=== PATIENT | female | born 1955 | race Caucasian/White ===

== ENCOUNTER 2024-05-29 10:23 | Outpatient (CLI) | payer MEDICARE, SELFPAY ==
[2024-05-29 12:10] LABS: NT Pro B Type Natriuretic Pept 59 pg/mL (19.9-100)
--- NOTE | 2024-05-29 17:24 | WPDPFTINT ---
PFT Procedure Performed PFT Procedure Performed Spirometry with Pre/Post Bronchodilator Plethysmography (Lung Vol) Diffusing Cap (DLCO) Flow Vol Loop PFT Interpretation This is a pulmonary function test with pre and post-bronchodilator spirometry, plethysmography and diffusing capacity. The test was performed and results interpreted in accordance with the 2019 and 2005 ATS/ERS Task Force guidelines respectively using the Global Lung Function Initiative-2012 reference equations. Patient demonstrated good effort and cooperation. Reproducibility criteria were met. The quality of the pre bronchodilator spirometry maneuver was Grade A and post bronchodilator spirometry maneuver was Grade A. Findings: Spirometry: The contour the inspiratory and expiratory flow tracing are normal. The pre bronchodilator FVC is 2.44 L, 95% predicted. The pre bronchodilator FEV1 is 1.86 L, 92% predicted. The pre bronchodilator FEV1: FVC ratio 76%. The post bronchodilator FVC is 2.31 L, representing a 5% decrease. The post bronchodilator FEV1 is 0.87 L, representing no change. The post bronchodilator FEV1: FVC ratio is 81%. Plethysmography: The total lung capacity is 4.08 L, 92% predicted. The functional residual capacity is 1.56 L, 63% predicted. The residual volume is 1.54 L, 81% predicted. Diffusing capacity: The diffusing capacity unadjusted for hemoglobin and carboxyhemoglobin is 11.2, 58% predicted. The diffusing capacity adjusted for alveolar volume is 3.75, 83% predicted. Impression: The spirometry is normal without evidence of an obstructive abnormality. There is no significant improvement after inhaling a single dose of albuterol. The lung volumes are normal. The diffusing capacity unadjusted for hemoglobin and carboxyhemoglobin is moderately decreased and normalizes when adjusted for alveolar volume. There are no prior studies for comparison
[2024-05-30 11:53] LABS: Immunoglobulin E 20 kU/L (<OR=114)
[2024-05-31 04:28] LABS: Alpha-1-Antitrypsin, QN 155 mg/dL (83-199)
[2024-05-31 14:18] LABS: Alternaria alternata IgE <0.10 kU/L; Alternaria alternata IgE Class 0; Aspergillus fumigatus IgE <0.10 kU/L; Bermuda Grass (G2) IgE <0.10 kU/L; Bermuda Grass (G2) IgE Class 0; Cat Dander IgE <0.10 kU/L; Cat Dander IgE Class 0; Cladosporium herbarum IgE <0.10 kU/L; Cladosporium herbarum IgE Clas 0; Cockroach IgE 0.25 kU/L; Cockroach IgE Clas 0/1; Common Ragweed IgE Class 0; Cottonwood IgE <0.10 kU/L; Dermatophagoides Farinae Class 0/1; Dermatophagoides Pterony Class 0; Dermatophagoides Pteronyssinus <0.10 kU/L; Dog Dander IgE <0.10 kU/L; Elm (T8) IgE <0.10 kU/L; Elm (T8) IgE Class 0; Hickory/Pecan IgE <0.10 kU/L; Hickory/Pecan IgE Class 0; Immunoglobulin E 20 kU/L (<OR=114); Maple Box Elder IgE Class 0; Mountain Cedar IgE <0.10 kU/L; Mountain Cedar IgE Class 0; Mouse Urine Proteins IgE <0.10 kU/L; Mouse Urine Proteins IgE Class 0; Oak IgE <0.10 kU/L; Peniciliium notatum class 0; Penicillium notatum (M1) IgE <0.10 kU/L; Rough Marsh <0.10 kU/L; Rough Marsh Elder Class 0; Rough Pigweed (W14) IgE <0.10 kU/L; Rough Pigweed (W14) IgE Class 0; Russian Thistle <0.10 kU/L; Sycamore IgE <0.10 kU/L; Sycamore IgE Class 0; Timothy Grass IgE <0.10 kU/L; Timothy Grass IgE Class 0; Walnut Tree IgE <0.10 kU/L; Walnut Tree IgE Class 0; White Ash IgE Class 0; White Mulberry IgE <0.10 kU/L; White Mulberry IgE Class 0
[2024-06-01 12:34] LABS: NIL 0.02 IU/mL; Quantiferon TB Plus, 1T NEGATIVE (NEGATIVE)
[2024-06-01 21:54] LABS: Immunoglobulin G, Serum 562 mg/dL (600-1540); Immunoglobulin G1 348 mg/dL (382-929); Immunoglobulin G2 163 mg/dL (241-700); Immunoglobulin G3 30 mg/dL (22-178); Immunoglobulin G4 1.7 mg/dL (4.0-86.0)
== END 2024-05-29 10:24 | disposition home or self-care (01) ==
PROVIDERS: PCP Internal Medicine Gastroenterology; Visit Provider Nurse Practitioner
DX: J44.9 Chronic obstructive pulmonary disease, unspecified (principal)
CPT/HCPCS: 36415; 82103; 82784; 82785; 82787; 83880; 86003; 86480; 94060; 94726; 94729

== ENCOUNTER 2024-06-18 12:57 | Outpatient (CLI) | payer MEDICARE, SELFPAY ==
--- NOTE | ~2024-06-18 | CT_ITS ---
EXAMINATION:CT diagnostic chest w con DATE: 06/18/2024 13:52 INDICATION: Malignant neoplasm of lung. TECHNIQUE: Computed tomography (CT) of the chest was performed with 75 mL Omnipaque 350 intravenous c ontrast. Automated exposure control and iterative reconstruction technique were employed. The dose-le ngth product (DLP) was 249.92 mGy-cm. COMPARISON: PET/CT 01/15/2019 FINDINGS: There is mild scarring at left lung apex. There are changes of right middle lobectomy. No p leural effusion. The heart size is normal. There are coronary artery calcifications. No pericardial e ffusion. There is mild thoracic spondylosis. IMPRESSION: 1. No evidence of metastatic disease. Reviewed, dictated and finalized at location A. CTOR OF SUSTAINABILITY
--- NOTE | ~2024-06-18 | US_ITS ---
Renal-Bladder ultrasound Clinical History: Stage III chronic kidney disease Technique: Real-time sonographic imaging of the kidneys and urinary bladder was performed. Findings: The right kidney measures 11.2 cm in length and the left kidney measures 12.2 cm. There is no hydronephrosis or renal calculus identified. Renal cortical echogenicity is within normal limits. No renal mass lesion is identified. The urinary bladder is moderately distended at the time of this exam. No intraluminal echoes are iden tified. No abnormal wall thickening is seen. Impression: Unremarkable ultrasound of the kidneys and urinary bladder. Reviewed, dictated and finalized at location M. R Impression: Unremarkable ultrasound of the kidneys and urinary bladder.
--- OUTSIDE RECORDS SUMMARY | 2024-06-18 13:37 | XMS_ITS | Patient Health Summary ---
Author Organization [facility] Address [address] [place] [address] Care Team Providers Care Fiscal Specialist Name Role Phone Terry Reese MANAGER [employer]ID[employer]HEEL CURVER Primary Care Provider Note from [facility],non-owned Affiliates and Associated Physician Practices is amultiple site organization consisting of ambulatory clinics and hospital sitesin [place], [place], [place] and [place]. This disclosure is being madepursuant to the Care Everywhere program and may not contain all information available regarding this patient. Last updated 18.[facility] Allergies No known active allergies Medications * Be aware that medications may not be up to date on this document. Alwaysverify current medications with the patient. * albuterol HFA (PROVENTIL;VENTOLIN;PROAIR) 108 (90 Base) MCG/ACT inhaler Inhale 2 puffs by mouth every 4 hours as needed * tiZANidine (ZANAFLEX) 4 MG tablet Take 4 mg by mouth every 8 hours as needed * INCRUSE ELLIPTA 62.5 MCG/INH inhaler(Started 02/20/2019) Inhale 1 puff by mouth once daily * atorvastatin (LIPITOR) 20 MG tablet Take 20 mg by mouth once daily * estradiol (ESTRACE) 1 MG tablet Take 1 mg by mouth once daily * gabapentin (NEURONTIN) 300 MG capsule Take 300 mg by mouth at bedtime * ibuprofen (MOTRIN) 800 MG tablet Take 800 mg by mouth every 8 hours as needed * levothyroxine (SYNTHROID) 50 MCG tablet(Started 02/04/2019) Take 50 mcg by mouth daily before breakfast * raNITIdine (ZANTAC) 150 MG tablet(Started 03/04/2019) * FLUTICASONE PROPIONATE HFA IN Inhale 2 puffs by mouth 2 times daily * montelukast (SINGULAIR) 10 MG tablet Take 10 mg by mouth at bedtime * acetaminophen (TYLENOL) 500 MG tablet(Started 06/08/2019) Take 2 tablets by mouth every 6 hours Maximum allowable Acetaminophen amount = 4 Grams (4000 mg) / 24 hours. 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 (FLUZONE; FLULAVAL; FLUARIX; AFLURIA QUADRIVALENT; 6MO+), 0.5 ML (IIV4)(Given 02/21/2019, 03/07/2018) Social History Tobacco Use Types Packs/Day Years Used Date Smoking Tobacco: Never Smokeless Tobacco: Never Alcohol Use Standard Drinks/Week Comments Yes 0 (1 standard drink = 0.6 oz pur e alcohol) rarely Sex and Gender Information Value Date Recorded Sex Assigned at Not on file Gender Identity Not on file Sexual Orientation Not on file Last Filed Vital Signs Vital Sign Reading Time Taken Comments Blood Pressure 150/70 12/27/2019 8:28 AM CDT Pulse 57 12/27/2019 8:28 AM CDT Temperature 36.9 ??C (98.5 ??F) 12/27/2019 8:28 AM CD T Respiratory Rate 12 06/28/2019 8:27 AM POOL HALL INSPECTOR Oxygen Saturation 100% 12/27/2019 8:28 AM CDT Inhaled Oxygen Concentration - - Weight 65.8 kg (145 lb) 12/27/2019 8:28 AM CDT Height 152.4 cm (5') 06/28/2019 8:27 AM POOL HALL INSPECTOR Body Mass Index 28.32 06/28/2019 8:27 AM POOL HALL INSPECTOR Procedures * CT CHEST W CONTRAST(Performed 06/18/2021) Performed for 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 (HCC) * CREATININE BLOOD - POINT OF CARE (IP)(Performed 06/18/2021) Performed for 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 (HCC) * CT CHEST WO CONTRAST(Performed 12/15/2020) Performed for 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 (HCC) * CT CHEST W CONTRAST(Performed 06/10/2020) Performed for 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 (HCC) * CREATININE BLOOD - POINT OF CARE (IP)(Performed 06/10/2020) Performed for 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 (HCC) * CT CHEST WO CONTRAST(Performed 11/27/2019) Performed for 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 (HCC) * CARDIAC RHYTHM STRIP ORDER(Performed 06/25/2019) * XR CHEST 1VW PORTABLE(Performed 06/20/2019) Performed for Postprocedural pneumothorax * COMPREHENSIVE METABOLIC PANEL(Performed 06/20/2019) * CBC W AUTO DIFFERENTIAL(Performed 06/20/2019) * CULTURE BLOOD(Performed 06/19/2019) * PROCALCITONIN LEVEL(Performed 06/19/2019) * COMPREHENSIVE METABOLIC PANEL(Performed 06/19/2019) * CBC W AUTO DIFFERENTIAL(Performed 06/19/2019) * CULTURE BLOOD(Performed 06/19/2019) * URINE MICROSCOPIC ONLY REFLEX TO CULTURE(Performed 06/19/2019) * URINALYSIS REFLEX MICROSCOPIC REFLEX CULTURE(Performed 06/19/2019) * CULTURE URINE(Performed 06/19/2019) * RESPIRATORY PATHOGEN PANEL BY PCR(Performed 06/19/2019) * INFLUENZA A+B+RSV PCR PANEL(Performed 06/19/2019) * LACTIC ACID BLOOD(Performed 06/18/2019) * LACTIC ACID BLOOD(Performed 06/18/2019) * LACTIC ACID BLOOD(Performed 06/18/2019) * BASIC METABOLIC PANEL (CALCIUM TOTAL)(Performed 06/18/2019) * LACTIC ACID BLOOD(Performed 06/18/2019) * LACTIC ACID BLOOD(Performed 06/17/2019) * CULTURE VRE(Performed 06/17/2019) * CULTURE MRSA(Performed 06/17/2019) * CULTURE MRSA(Performed 06/17/2019) * XR CHEST 1VW PORTABLE(Performed 06/17/2019) Performed for Encounter for chest tube placement * CULTURE BLOOD(Performed 06/17/2019) * LACTIC ACID BLOOD(Performed 06/17/2019) * CULTURE BLOOD(Performed 06/17/2019) * XR CHEST 1VW PORTABLE(Performed 06/17/2019) Performed for Encounter for chest tube placement * XR CHEST 1VW PORTABLE(Performed 06/17/2019) Performed for Postprocedural pneumothorax * COMPREHENSIVE METABOLIC PANEL(Performed 06/17/2019) * CBC W AUTO DIFFERENTIAL(Performed 06/17/2019) * ED CRITICAL CARE(Performed 06/17/2019) * ED CHEST TUBE INSERTION(Performed 06/17/2019) * CARDIAC RHYTHM STRIP ORDER(Performed 06/10/2019) * APHERESIS/TRANSFUSION ORDER(Performed 06/10/2019) * XR CHEST 1VW PORTABLE(Performed 06/08/2019) Performed for 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 (HCC) * BASIC METABOLIC PANEL (CALCIUM TOTAL)(Performed 06/08/2019) * CBC W/O DIFFERENTIAL(Performed 06/08/2019) * XR CHEST 1VW PORTABLE(Performed 06/07/2019) Performed for 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 (HCC) * BASIC METABOLIC PANEL (CALCIUM TOTAL)(Performed 06/07/2019) * CBC W AUTO DIFFERENTIAL(Performed 06/07/2019) * CULTURE VRE(Performed 06/06/2019) * CULTURE MRSA(Performed 06/06/2019) * CULTURE MRSA(Performed 06/06/2019) * XR CHEST 1VW PORTABLE(Performed 06/06/2019) Performed for 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 (HCC) * PATHOLOGY TISSUE EXAM (STL)(Performed 06/06/2019) Performed for Diagnosis unknown * ENDOTRACHEAL TUBE NOTE(Performed 06/06/2019) * ARTERIAL LINE NOTE(Performed 06/06/2019) * BLOOD TYPE VERIFICATION(Performed 06/06/2019) * NV THORACOSCOPY W/LOBECTOMY(Performed 06/06/2019) Performed for Diagnosis unknown * PREPARE RBC LEUKOREDUCED UNIT(Performed 06/06/2019) * EKG 12-LEAD(Performed 05/30/2019) Performed for Pre-op testing * TYPE + SCREEN PANEL(Performed 05/30/2019) Performed for Pre-op testing * URINE MICROSCOPIC ONLY(Performed 05/30/2019) Performed for Pre-op testing * PT PTT PANEL(Performed 05/30/2019) Performed for Pre-op testing * URINALYSIS REFLEX TO MICROSCOPIC NO CULTURE(Performed 05/30/2019) Performed for Pre-op testing * COMPREHENSIVE METABOLIC PANEL(Performed 05/30/2019) Performed for Pre-op testing * CBC W AUTO DIFFERENTIAL(Performed 05/30/2019) Performed for Pre-op testing * COMPLETE PFT W/WO BRONCHODILATOR(Performed 05/30/2019) Performed for 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 (HCC) * XR CHEST 2VW INSPIR EXPIRATION(Performed 04/16/2019) Performed for Lung nodule, solitary * XR CHEST 2VW INSPIR EXPIRATION(Performed 04/16/2019) Performed for Lung nodule, solitary * CT GUIDED NEEDLE PLACEMENT(Performed 04/16/2019) Performed for Lung nodule, solitary * PATHOLOGY TISSUE(Performed 04/16/2019) Performed for Lung nodule, solitary * OXYGEN(Performed 04/16/2019) * PT-INR [facility](Performed 04/16/2019) Performed for Lung nodule, solitary * CBC W AUTO DIFFERENTIAL(Performed 04/16/2019) Performed for Lung nodule, solitary * COMPLETE PFT W/WO BRONCHODILATOR(Performed 03/26/2019) Performed for Lung nodule, solitary * BLOOD GASES ART - PFT(Performed 03/26/2019) Performed for Lung nodule, solitary * PATHOLOGY/CYTOLOGY REPORT ORDER(Performed 03/05/2019) * XR CHEST 1VW PORTABLE(Performed 03/04/2019) Performed for Lung nodule, solitary * FINE NEEDLE ASPIRATION (STL)(Performed 03/04/2019) Performed for Lung nodule, solitary * CYTOLOGY NON-WIND TURBINE TECHNICIAN PANEL (STL)(Performed 03/04/2019) Performed for Lung nodule, solitary * PATHOLOGY TISSUE(Performed 03/04/2019) Performed for Lesion of left lung * NV NAVIGATIONAL BRONCHOSCOPY(Performed 03/04/2019) Performed for Lesion of left lung * ENDOTRACHEAL TUBE NOTE(Performed 03/04/2019) * BRONCHOSCOPY(Performed 03/04/2019) * CT CHEST WO CONT SUPER DIMENSION(Performed 03/01/2019) Performed for Lung nodule, solitary Results * CT CHEST W CONTRAST (06/18/2021 9:58 AM POOL HALL INSPECTOR) Only the most recent of2 resultswithin the time period is included. Anatomical Region Laterality Modality Chest Computed Tomogra phy 06/18/2021 10:1 2 AM POOL HALL INSPECTOR Impressions 06/18/2021 10:22 AM POOL HALL INSPECTOR No evidence for residual or recurrent disease at this time. Edited by Shey Dewey on 06/18/2021 10:19 AM *Reading Radiologist: Francisco Renteria on 06/18/2021 at 10:22 AM Narrative 06/18/2021 10:[address] CHEST WITH CONTRAST INDICATION: Right middle lobe carcinoid tumor. Status post lobectomy. TECHNIQUE: Axial images of the chest with contrast were obtained and reconstructions performed. Isovue 370 80 cc IV contrast was administered. Radiation dose reduction technique was utilized. COMPARISON: December 15, [address] FINDINGS: The thoracic inlet structures to include the visualized thyroid are normal appearing. The great vessels, mediastinum, sofia, and heart chambers are normal appearing. Mild coronary artery calcifications are redemonstrated. No pericardial effusion is noted. No abnormal lymph nodes are seen in the mediastinum or sofia. Patient is status post right middle lobe resection. No consolidation, effusion, or pneumothorax is noted. No suspicious nodules are noted. The right hemidiaphragm is elevated. The extrathoracic soft tissues and osseous structures are normal appearing. The liver is fatty attenuating. The pancreas is atrophied. The spleen and remainder of the upper abdominal organs are normal with the exception of cholecystectomy changes. Right hemidiaphragm is elevated. Procedure Note Francisco Renteria DO - 06/18/2021 CT CHEST WITH CONTRAST INDICATION: Right middle lobe carcinoid tumor. Status post lobectomy. TECHNIQUE: Axial images of the chest with contrast were obtained and reconstructions performed. Isovue 370 80 cc IV contrast was administered. Radiation dose reduction technique was utilized. COMPARISON: December 15, [address] FINDINGS: The thoracic inlet structures to include the visualized thyroid are normal appearing. The great vessels, mediastinum, sofia, and heart chambers are normal appearing. Mild coronary artery calcifications are redemonstrated. No pericardial effusion is noted. No abnormal lymph nodes are seen in the mediastinum or sofia. Patient is status post right middle lobe resection. No consolidation, effusion, or pneumothorax is noted. No suspicious nodules are noted. The right hemidiaphragm is elevated. The extrathoracic soft tissues and osseous structures are normal appearing. The liver is fatty attenuating. The pancreas is atrophied. The spleen and remainder of the upper abdominal organs are normal with the exception of cholecystectomy changes. Right hemidiaphragm is elevated. IMPRESSION No evidence for residual or recurrent disease at this time. Edited by Shey Dewey on 06/18/2021 10:19 AM *Reading Radiologist: Francisco Renteria on 06/18/2021 at 10:22 AM Yomi Cedeño MD CT ORDERABLES * CREATININE BLOOD - POINT OF CARE (IP) (06/18/2021 9:54 AM POOL HALL INSPECTOR) Only the most recent of2 resultswithin the time period is included. Creatinine POCT 0.73 0.7 - 1.2 mg/dL [facility] POCT TESTING QC Verified Yes Yes [facility] POC T TESTING Blood BLOOD SPECIMEN / Unknown 06/18/2021 9:54 AM POOL HALL INSPECTOR Yomi Cedeño MD LAB - POINT OF CARE ORDERABLES [facility] POCT TESTING [address] [phone] * CT CHEST WO CONTRAST (12/15/2020 9:59 AM CDT) Only the most recent of2 resultswithin the time period is included. Anatomical Region Laterality Modality Chest Computed Tomogra phy 12/15/2020 12:0 5 PM CDT Impressions 12/15/2020 12:09 PM CDT Patient status post right middle lobectomy. The lungs are clear. No pulmonary nodules are seen. No mediastinal lymph nodes which are slightly more prominent than on the previous exam. Continued surveillance is recommended. *Reading Radiologist: Yao Medina on 12/15/2020 at 12:09 PM Narrative 12/15/2020 12:[address] chest without contrast INDICATION: Right middle lobe carcinoid tumor. Status post lobectomy. Technique: CT examination of the chest was performed from the lung apices through the lung bases without contrast. Sagittal and coronal reconstructions were performed. FINDINGS: There are degenerative changes of the spine. There are changes of right middle lobe lobectomy. There is some minimal atelectasis/scarring in the right lower lobe. ?? There is no focal consolidation. ?? There is no pleural effusion. ?? There is no pneumothorax. ?? There are no suspicious pulmonary nodules. ?? The central airways are normal in caliber. There is suggestion of a echodense nodule within the right lobe of the thyroid gland. ?? There is no axillary adenopathy. Small mediastinal lymph nodes are present slightly more prominent than on the previous exam. Calcified right hilar lymph nodes are present. ?? The aorta is normal in caliber with no evidence for aneurysm or dissection. ?? The heart is normal in size. There is a small hiatal hernia. Procedure Note Yao Medina MD - 12/15/2020 CT chest without contrast INDICATION: Right middle lobe carcinoid tumor. Status post lobectomy. Technique: CT examination of the chest was performed from the lung apices through the lung bases without contrast. Sagittal and coronal reconstructions were performed. FINDINGS: There are degenerative changes of the spine. There are changes of right middle lobe lobectomy. There is some minimal atelectasis/scarring in the right lower lobe. There is no focal consolidation. There is no pleural effusion. There is no pneumothorax. There are no suspicious pulmonary nodules. The central airways are normal in caliber. There is suggestion of a echodense nodule within the right lobe of the thyroid gland. There is no axillary adenopathy. Small mediastinal lymph nodes are present slightly more prominent than on the previous exam. Calcified right hilar lymph nodes are present. The aorta is normal in caliber with no evidence for aneurysm or dissection. The heart is normal in size. There is a small hiatal hernia. IMPRESSION Patient status post right middle lobectomy. The lungs are clear. No pulmonary nodules are seen. No mediastinal lymph nodes which are slightly more prominent than on the previous exam. Continued surveillance is recommended. *Reading Radiologist: Yao Medina on 12/15/2020 at 12:09 PM Yomi Cdeeño MD CT ORDERABLES * CARDIAC RHYTHM STRIP ORDER (06/25/2019 6:13 PM POOL HALL INSPECTOR) Only the most recent of2 resultswithin the time period is included. Narrative 06/25/2019 6:13 PM POOL HALL INSPECTOR Ordered by an unspecified provider. Scanned Document CARDIAC SERVICES ORD ERABLES * XR CHEST 1VW PORTABLE (06/20/2019 8:55 AM POOL HALL INSPECTOR) Only the most recent of8 resultswithin the time period is included. Anatomical Region Laterality Modality Chest Radiographic Linsey ging 06/20/2019 9:03 AM POOL HALL INSPECTOR Impressions 06/20/2019 9:43 AM POOL HALL INSPECTOR Chest tube withdrawn. No pneumothorax. Edited by Nai Thomas on 06/20/2019 9:32 AM Reading Radiologist: Jered Norman MD on 06/20/2019 at 9:43 AM Narrative 06/20/2019 9:43 AM POOL HALL INSPECTOR CHEST X-RAY SINGLE VIEW HISTORY: Shortness of breath. Single view of the chest is compared to a prior exam of 06/17/2019. Heart size is stable. Lungs are clear. Right chest tube has been withdrawn. Extensive subcutaneous emphysema is present. I do not identify a pneumothorax. Procedure Note Jered Norman MD - 06/20/2019 CHEST X-RAY SINGLE VIEW HISTORY: Shortness of breath. Single view of the chest is compared to a prior exam of 06/17/2019. Heart size is stable. Lungs are clear. Right chest tube has been withdrawn. Extensive subcutaneous emphysema is present. I do not identify a pneumothorax. IMPRESSION Chest tube withdrawn. No pneumothorax. Edited by Nai Thomas on 06/20/2019 9:32 AM Reading Radiologist: Jered Norman MD on 06/20/2019 at 9:43 AM Yomi Cedeño MD DIAGNOSTIC IMAGING O RDERABLES * (ABNORMAL) CBC W AUTO DIFFERENTIAL (06/20/2019 4:30 AM POOL HALL INSPECTOR) Only the most recent of6 resultswithin the time period is included. WBC 8.6 4.4 - 10.7 x10E9/L 06/20/2019 5:[address] [facility] WBC Corrected 06/20/2019 5:[address] [facility] RBC 2.86(L) 3.80 - 5.20 x10E12/L 06/20/2019 5:[address] [facility] Hemoglobin 8.2(L) 12.0 - 15.6 gm/dL 06/20/2019 5:[address] [facility] Hematocrit 26.4(L) 35.9 - 45.5 % 06/20/2019 5:[address] [facility] MCV 92.3 80.7 - 98.3 fl 06/20/2019 5:[address] [facility] MCH 28.7 26.7 - 34.0 pg 06/20/2019 5:[address] [facility] MCHC 31.1 30.8 - 35.9 gm/dL 06/20/2019 5:[address] [facility] Platelet Count 182 153 - 416 x10E9/L 06/20/2019 5:[address] [facility] RDW-CV 13.2 12.1 - 14.9 % 06/20/2019 5:[address] [facility] MPV 11.0 9.4 - 12.9 fl 06/20/2019 5:[address] [facility] Neutrophils % 69.4 44.0 - 73.0 % 06/20/2019 5:[address] [facility] Lymphocytes % 17.8(L) 20.0 - 43.0 % 06/20/2019 5:[address] [facility] Monocytes % 7.9 5.0 - 13.0 % 06/20/2019 5:[address] [facility] Eosinophils % 4.2 0.0 - 6.0 % 06/20/2019 5:[address] [facility] Basophils % 0.2 0.0 - 2.0 % 06/20/2019 5:[address] [facility] Immature Granulocytes 0.5 0 - 1 % 06/20/2019 5:[address] [facility] Neutrophil Absolute 5.98 2.01 - 7.14 x10E9/L 06/20/2019 5:[address] [facility] Lymphocytes Absolute 1.53 1.07 - 3.94 x10E9/L 06/20/2019 5:[address] [facility] Monocytes Absolute 0.68 0.26 - 1.07 x10E9/L 06/20/2019 5:[address] [facility] Eosinophils Absolute 0.36 0 - 0.47 x10E9/L 06/20/2019 5:[address] [facility] Basophils Absolute 0.02 0 - 0.08 x10E9/L 06/20/2019 5:[address] [facility] Immature Granulocytes Absolute 0.04 0.00 - 0.06 x10E9/L 06/20/2019 5:[address] [facility] nRBC Auto 0 /100 WBC 06/20/2019 5:[address] [facility] Blood BLOOD SPECIMEN / Unknown Lab Venipuncture / Unknown 06/20/2019 4:30 AM POOL HALL INSPECTOR 06/20/2019 4:57 AM [facility] Trisha Valera MD LAB - HEMATOLOGY OR DERABLES Performing Organization Address City/State/[facility] Co de Phone Number [facility] [address] [place] [address] * (ABNORMAL) COMPREHENSIVE METABOLIC PANEL (06/20/2019 4:30 AM [facility]) Only the most recent of4 resultswithin the time period is included. Glucose 119(H) 70 - 105 mg/dL 06/20/2019 5:[address] [facility] Sodium 138 136 - 145 mmol/L 06/20/2019 5:[address] [facility] Potassium 3.4(L) 3.5 - 5.1 mmol/L 06/20/2019 5:[address] [facility] Chloride 104 98 - 107 mmol/L 06/20/2019 5:[address] [facility] CO2 23 23 - 31 mmol/L 06/20/2019 5:[address] [facility] Calcium 8.2(L) 8.4 - 10.4 mg/dL 06/20/2019 5:[address] [facility] Anion Gap 11 8 - 16 mmol/L 06/20/2019 5:[address] [facility] BUN 10 9.8 - 20.1 mg/dL 06/20/2019 5:54 AM POOL HALL INSPECTOR [facility] Creatinine 0.75 0.57 - 1.11 mg/dL 06/20/2019 5:[address] [facility] Alkaline Phosphatase 139 40 - 150 U/L 06/20/2019 5:[address] [facility] ALT 11 0 - 61 U/L 06/20/2019 5:[address] [facility] AST 11 5 - 34 U/L 06/20/2019 5:[address] [facility] Protein Total 5.3(L) 6.4 - 8.3 gm/dL 06/20/2019 5:[address] [facility] Albumin 2.9(L) 3.2 - 4.6 gm/dL 06/20/2019 5:[address] [facility] Bilirubin Total 0.5 0.2 - 1.0 mg/dL 06/20/2019 5:[address] [facility] eGFR by MDRD >60 >60 mL/min/1.7 3m2 06/20/2019 5:[address] [facility] eGFR by MDRD >60 >60 mL/min/1.7 3m2 06/20/2019 5:[address] [facility] Blood BLOOD SPECIMEN / Unknown Lab Venipuncture / Unknown 06/20/2019 4:30 AM POOL HALL INSPECTOR 06/20/2019 4:57 AM POOL HALL INSPECTOR Trisha Valera MD LAB - CHEMISTRY ORD ERABLES Performing Organization Address City/[facility] Co de Phone Number [facility] [address] [place], [place] [id number] * CULTURE BLOOD (06/19/2019 4:40 AM POOL HALL INSPECTOR) Only the most recent of4 resultswithin the time period is included. Culture No growth day 5 KIERAN 06/24/2019 8:00 AM POOL HALL INSPECTOR [facility] Blood PERIPHERAL BLOOD / Unknown Lab Venipuncture / Unknown 06/19/2019 4:40 AM POOL HALL INSPECTOR 06/19/2019 4:44 AM POOL HALL INSPECTOR Bharath Garcia MD LAB - MICROBIOLOGY O RDERABLES Performing Organization Address City/[facility]/ZIP Co de Phone Number [facility] [address] [place] [address] [phone] * (ABNORMAL) PROCALCITONIN LEVEL (06/19/2019 4:39 AM POOL HALL INSPECTOR) Procalcitonin 0.10(H) <0.10 ng/mL 06/19/2019 3:43 PM POOL HALL INSPECTOR [facility] Blood BLOOD SPECIMEN / Unknown Lab Venipuncture / Unknown 06/19/2019 4:39 AM POOL HALL INSPECTOR 06/19/2019 3:11 PM POOL HALL INSPECTOR Narrative [facility] - 06/19/2019 3:43 PM POOL HALL INSPECTOR The change in procalcitonin (PCT) concentration over time provides support in decision making on antibiotic discontinuation for suspected or confirmed septic patients. Follow-up samples should be tested once every 1-2 days based upon physician discretion taking into account the patient? s evolution and progress. Consider discontinuation of ??antibiotic therapy ??if the PCT current ??is <= 0.5 ng/mL or if the delta PCT is > 80%. ??Duration of antibiotics should not be determined solely on PCT; established guidelines for the indication should be followed. ? PCT peak: ??Highest observed PCT concentration ? PCT current: Most recent PCT concentration ? Calculate delta PCT using the following equation: ?Delta PCT ??= ?? PCT Peak ? PCT current ??X 100% ? PCT Peak The Change in Procalcitonin Calculator is available at [email or web address] ?? If clinical picture has not improved and PCT remains high, reevaluate and consider treatment failure or other causes. Trisha Valera MD LAB - CHEMISTRY ORD ERABLES [facility] [facility] [address] [place] [address] * (ABNORMAL) URINE MICROSCOPIC ONLY REFLEX TO CULTURE (06/19/2019 12:10 AM POOL HALL INSPECTOR) Reflex Status Culture to follow 06/19/2019 12:[address] [facility] RBC UA 3-5 None Seen, 0-2, 3-5 # /hpf 06/19/2019 12:[address] [facility] WBC UA 21-50(A) None Seen, 0-5 # /hpf 06/19/2019 12:30 AM POOL HALL INSPECTOR [facility] Bacteria UA 3+(A) None Seen 06/19/2019 12:[address] [facility] Squamous Epithelial Cells 3-5 None Seen, 0-2, 3-5 /hpf 06/19/2019 12:[address] [facility] Mucus UA 1+ /LPF 06/19/2019 12:[address] [facility] Hyaline Casts 0-2 None Seen, 0-2 # /lpf 06/19/2019 12:[address] [facility] Urine URINE SPECIMEN OBTAINED BY CLEAN CATCH PROCEDURE / Unknown Collection / Unknown 06/19/2019 12:10 AM POOL HALL INSPECTOR 06/19/2019 12:20 AM POOL HALL INSPECTOR Narrative [facility] - 06/19/2019 12:30 AM POOL HALL INSPECTOR Bharath Garcia MD LAB - URINALYSIS ORD ERABLES [facility] [address] [place], [place] [id number] * (ABNORMAL) URINALYSIS REFLEX MICROSCOPIC REFLEX CULTURE (06/19/2019 12:10 AM POOL HALL INSPECTOR) Color UA Yellow Straw, Yellow 06/19/2019 12:[address] [facility] Clarity UA Slt Cloudy(A) Clear 06/19/2019 12:[address] [facility] Glucose UA Negative Negative 06/19/2019 12:[address] [facility] Bilirubin UA Negative Negative 06/19/2019 12:[address] [facility] Ketone UA Trace(A) Negative 06/19/2019 12:[address] [facility] Specific Sidney UA 1.018 1.005 - 1.030 06/19/2019 12:28 AM POOL HALL INSPECTOR [facility] Blood UA Negative Negative 06/19/2019 12:[address] [facility] pH UA 6.0 5.0 - 8.0 pH 06/19/2019 12:[address] [facility] Protein UA Negative Negative 06/19/2019 12:[address] [facility] Urobilinogen UA 4.0(A) Negative mg/dL 06/19/2019 12:[address] [facility] Nitrite UA Negative Negative 06/19/2019 12:[address] [facility] Leukocyte UA 2+(A) Negative 06/19/2019 12:[address] [facility] Urine Microscopy Urine microscopy to follow 06/19/2019 12:[address] [facility] Reflex Status Culture to follow 06/19/2019 12:[address] [facility] Urine URINE SPECIMEN OBTAINED BY CLEAN CATCH PROCEDURE / Unknown Collection / Unknown 06/19/2019 12:10 AM POOL HALL INSPECTOR 06/19/2019 12:20 AM POOL HALL INSPECTOR Narrative [facility] - 06/19/2019 12:28 AM POOL HALL INSPECTOR Bharath Garcia MD LAB - URINALYSIS ORD ERABLES Performing Organization Address City/[facility] Co de Phone Number [facility] [address] [place] [address] * CULTURE URINE (06/19/2019 12:10 AM POOL HALL INSPECTOR) [facility] Culture Urine 50,000-100,000 CFU/mL normal urogenital aj KIERAN 06/20/2019 12:58 PM POOL HALL INSPECTOR [facility] Urine URINE SPECIMEN OBTAINED BY CLEAN CATCH PROCEDURE / Unknown Collection / Unknown 06/19/2019 12:10 AM POOL HALL INSPECTOR 06/19/2019 12:20 AM POOL HALL INSPECTOR Bharath Garcia MD LAB - MICROBIOLOGY O RDERABLES [facility] [address] [place], [place] [address] [phone] * (ABNORMAL) RESPIRATORY PATHOGEN PANEL BY PCR (06/19/2019 12:03 AM POOL HALL INSPECTOR) Pathologist [facility] Adenovirus PCR Not detected Not detected, Invalid, Indeterminate 06/19/2019 1:45 PM [facility] Coronavirus PCR Detected(A ) Not detected, Invalid, Indeterminate 06/19/2019 1:45 PM [facility] Human Metapneumovirus PCR Not detected Not detected, Invalid, Indeterminate 06/19/2019 1:45 PM [facility] Human Rhinovirus/Entero virus PCR Not detected Not detected, Invalid, Indeterminate 06/19/2019 1:45 PM [facility] Influenza A PCR Not detected Not detected, Equivocal, Invalid, Indeterminate 06/19/2019 1:45 PM [facility] Influenza B PCR Not detected Not detected, Invalid, Indeterminate 06/19/2019 1:45 PM [facility] Parainfluenza Virus 1 PCR Not detected Not detected, Invalid, Indeterminate 06/19/2019 1:45 PM [facility] Parainfluenza Virus 2 PCR Not detected Not detected, Invalid, Indeterminate 06/19/2019 1:45 PM [facility] Parainfluenza Virus 3 PCR Not detected Not detected, Invalid, Indeterminate 06/19/2019 1:45 PM [facility] Parainfluenza Virus 4 PCR Not detected Not detected, Invalid, Indeterminate 06/19/2019 1:45 PM [facility] Respiratory Syncytial Virus PCR Not detected Not detected, Invalid, Indeterminate 06/19/2019 1:45 PM [facility] Bordetella pertussis PCR Not detected Not detected, Invalid 06/19/2019 1:45 PM [facility] Chlamydia pneumoniae PCR Not detected Not detected, Invalid, Indeterminate 06/19/2019 1:45 PM [facility] Mycoplasma pneumoniae PCR Not detected Not detected, Invalid, Indeterminate 06/19/2019 1:45 PM [facility] Microbiology SPECIMEN FROM NASOPHARYNGEAL STRUCTURE / Unknown Collection / Unknown 06/19/2019 12:03 AM POOL HALL INSPECTOR 06/19/2019 11:26 AM [facility] MICROBIOLOGY - 06/19/2019 1:45 PM [facility] This test is able to detect the following human coronaviruses: HKU1, NL63, 229E, and OC43. It will NOT detect 2019 Novel Coronavirus (2019-nCoV). If 2019-nCoV is suspected contact Infection Prevention for isolation and testing guidance. Contact precautions required for infants and young children. Standard precautions required for adults. Trisha Chiluveru MD LAB - MICROBIOLOGY ORDERABLES Performing Organization Address [facility]/ZIP Co de Phone Number [facility] [address] [place] [address], [facility] [phone] * INFLUENZA A+B+RSV PCR PANEL (06/19/2019 12:03 AM POOL HALL INSPECTOR) Influenza A PCR Not detected Not detected, Invalid 06/19/2019 12:02 PM POOL HALL INSPECTOR [facility] Influenza B PCR Not detected Not detected, Invalid 06/19/2019 12:02 PM POOL HALL INSPECTOR [facility] RSV PCR Not detected Not detected, Invalid 06/19/2019 12:02 PM POOL HALL INSPECTOR [facility] Microbiology SPECIMEN FROM NASOPHARYNGEAL STRUCTURE / Unknown Collection / Unknown 06/19/2019 12:03 AM POOL HALL INSPECTOR 06/19/2019 12:20 AM POOL HALL INSPECTOR Bharath Garcia MD LAB - MICROBIOLOGY O RDERABLES Performing Organization Address [facility] Co de Phone Number [facility] [address] [place] [address], [facility] [phone] * LACTIC ACID BLOOD (06/18/2019 10:01 AM POOL HALL INSPECTOR) Only the most recent of6 resultswithin the time period is included. Lactic Acid 0.6 0.5 - 2.2 mmol/L 06/18/2019 10:30 AM POOL HALL INSPECTOR [facility] Blood BLOOD SPECIMEN / Unknown Lab Venipuncture / Unknown 06/18/2019 10:01 AM POOL HALL INSPECTOR 06/18/2019 10:07 AM POOL HALL INSPECTOR Genesis [facility] LAB - CHEMISTRY OR DERABLES Performing Organization Address City/[facility]/ZIP Co de Phone Number [facility] [address] [place] [address] * (ABNORMAL) BASIC METABOLIC PANEL (CALCIUM TOTAL) (06/18/2019 4:17 AM POOL HALL INSPECTOR) Only the most recent of3 resultswithin the time period is included. Glucose 96 70 - 105 mg/dL 06/18/2019 5:10 AM POOL HALL INSPECTOR [facility] Sodium 137 136 - 145 mmol/L 06/18/2019 5:[address] [facility] Potassium 3.3(L) 3.5 - 5.1 mmol/L 06/18/2019 5:[address] [facility] Chloride 99 98 - 107 mmol/L 06/18/2019 5:[address] [facility] CO2 28 23 - 31 mmol/L 06/18/2019 5:[address] [facility] Calcium 8.5 8.4 - 10.4 mg/dL 06/18/2019 5:[address] [facility] Anion Gap 10 8 - 16 mmol/L 06/18/2019 5:[address] [facility] BUN 15 9.8 - 20.1 mg/dL 06/18/2019 5:[address] [facility] Creatinine 0.76 0.57 - 1.11 mg/dL 06/18/2019 5:[address] [facility] eGFR by MDRD >60 >60 mL/min/1.7 3m2 06/18/2019 5:[address] [facility] eGFR by MDRD >60 >60 mL/min/1.7 3m2 06/18/2019 5:[address] [facility] Blood BLOOD SPECIMEN / Unknown Lab Venipuncture / Unknown 06/18/2019 4:17 AM POOL HALL INSPECTOR 06/18/2019 4:39 AM POOL HALL INSPECTOR Genesis [facility]NN LAB - CHEMISTRY OR DERABLES Performing Organization Address City/[facility] Co de Phone Number [facility] [address] [place] [address] * CULTURE VRE (06/17/2019 10:24 PM POOL HALL INSPECTOR) Only the most recent of2 resultswithin the time period is included. Culture Negative for vancomycin-resi stant Enterococci (VRE) KIERAN 06/19/2019 8:01 AM POOL HALL INSPECTOR [facility] Microbiology ENTIRE RECTUM / Unknown Collection / Unknown 06/17/2019 10:24 PM POOL HALL INSPECTOR 06/17/2019 10:36 PM POOL HALL INSPECTOR Daren Ruby MD LAB - MICROBIOLOGY O RDERABLES [facility] [address] [place] [address], [facility] [phone] * CULTURE MRSA (06/17/2019 10:24 PM POOL HALL INSPECTOR) Only the most recent of4 resultswithin the time period is included. Culture Negative for methicillin-resist ant Staphylococcus aureus (MRSA) KIERAN 06/19/2019 7:21 AM POOL HALL INSPECTOR [facility] Microbiology ENTIRE RECTUM / Unknown Collection / Unknown 06/17/2019 10:24 PM POOL HALL INSPECTOR 06/17/2019 10:36 PM POOL HALL INSPECTOR Daren Ruby MD LAB - MICROBIOLOGY O RDERABLES Performing Organization Address City/[facility] Co de Phone Number [facility] [address] [place] [address], [facility] [phone] * Critical Care (06/17/2019 5:03 PM POOL HALL INSPECTOR) Narrative Piotr Aggarwal DO - 06/17/2019 5:03 PM POOL HALL INSPECTOR Piotr Aggarwal, DO ? 06/25/2019 ??1:55 PM Critical Care Performed by: Piotr Aggarwal DO Authorized by: Trisha Valera MD Critical care provider statement: ??Critical care time (minutes): ??35 ??Critical care time was exclusive of: ??Separately billable procedures and treating other patients ??Critical care was necessary to treat or prevent imminent or life-threatening deterioration of the following conditions: pneumothorax requiring chest tube insertion and management of chest tube. ??Critical care was time spent personally by me on the following activities: ??Development of treatment plan with patient or surrogate, discussions with consultants, evaluation of patient's response to treatment, examination of patient, ordering and performing treatments and interventions, ordering and review of laboratory studies, ordering and review of radiographic studies, re-evaluation of patient's condition and review of old charts Trisha Valera MD PROCEDURE/MINOR ANA GICAL ORDERABLES * Chest Tube (06/17/2019 5:03 PM POOL HALL INSPECTOR) Narrative Piotr Aggarwal DO - 06/17/2019 5:03 PM POOL HALL INSPECTOR Piotr Aggarwal, DO ? 06/25/2019 ??1:55 PM Chest Tube Date/Time: 06/17/2019 5:29 PM Performed by: Piotr Aggarwal, DO Authorized by: Piotr Aggarwal, DO Consent: ??Consent obtained: ??Verbal and written ??Consent given by: ??Patient ??Risks discussed: ??Pain, nerve damage, incomplete drainage, infection, damage to surrounding structures and bleeding ??Alternatives discussed: ??No treatment [place] protocol: ??Procedure explained and questions answered to patient or proxy's satisfaction: yes ?Relevant documents present and verified: yes ?Imaging studies available: yes ?Required blood products, implants, devices, and special equipment available: yes ?Site/side marked: yes ?Immediately prior to procedure a time out was called: yes ?Patient identity confirmed: ??Verbally with patient, arm band and hospital-assigned identification number Pre-procedure details: ??Skin preparation: ??ChloraPrep ??Preparation: Patient was prepped and draped in the usual sterile fashion Anesthesia (see MAR for exact dosages): ??Anesthesia method: ??Local infiltration (Morphine/Fentanyl) ??Local anesthetic: ??Lidocaine 1% w/o epi Procedure details: ??Placement location: ??R lateral ??Scalpel size: ??15 ??Tube size (Fr): ??24 ??Dissection instrument: ??Brittani clamp and finger ??Tube connected to: ??Suction ??Drainage characteristics: ??Air only ??Suture material: ??2-0 silk ??Dressing: ??4x4 sterile gauze, petrolatum-impregnated gauze and Xeroform gauze Post-procedure details: ??Post-insertion x-ray findings: tube repositioned ?Patient tolerance of procedure: ??Tolerated well, no immediate complications Comments: ?? Initial XR reveals the distal aspect of the chest tube appearing to be in the thoracic cavity, but fenestration is located in subcutaneous tissue. Discussed with Dr. Cedeño, recommended repositioning of tube vs removal of tube. Discussed with the patient, agrees to reposition tube. Entire area is prepped in ChloraPrep and under sterile conditions tube is repositioned. Secured with 2-0 silk. Patient tolerated well. On repeat XR, fenestration is now noted within the thoracic cavity, tube does appear to angle downwards but is functioning well. Piotr Aggarwal DO PROCEDURE/MINOR SURG ICAL ORDERABLES * APHERESIS/TRANSFUSION ORDER (06/10/2019 1:45 PM POOL HALL INSPECTOR) Narrative 06/10/2019 1:45 PM POOL HALL INSPECTOR Ordered by an unspecified provider. Scanned Document NURSING - VITAL SIGN S AND ASSESSMENT * (ABNORMAL) CBC W/O DIFFERENTIAL (06/08/2019 4:52 AM POOL HALL INSPECTOR) WBC 8.0 4.4 - 10.7 x10E9/L 06/08/2019 6:[address] [facility] RBC 3.33(L) 3.80 - 5.20 x10E12/L 06/08/2019 6:[address] [facility] Hemoglobin 9.8(L) 12.0 - 15.6 gm/dL 06/08/2019 6:[address] [facility] Hematocrit 32.1(L) 35.9 - 45.5 % 06/08/2019 6:[address] [facility] MCV 96.4 80.7 - 98.3 fl 06/08/2019 6:[address] [facility] MCH 29.4 26.7 - 34.0 pg 06/08/2019 6:[address] [facility] MCHC 30.5(L) 30.8 - 35.9 gm/dL 06/08/2019 6:[address] [facility] Platelet Count 164 153 - 416 x10E9/L 06/08/2019 6:[address] [facility] RDW-CV 13.2 12.1 - 14.9 % 06/08/2019 6:[address] [facility] MPV 11.8 9.4 - 12.9 fl 06/08/2019 6:[address] [facility] Blood BLOOD SPECIMEN / Unknown Lab Venipuncture / Unknown 06/08/2019 4:52 AM POOL HALL INSPECTOR 06/08/2019 5:13 AM POOL HALL INSPECTOR Yomi Cedeño MD LAB - HEMATOLOGY ORD ERABLES [facility] [address] [place] [address] [phone] * GROSS + MICRO EXAM (STL) (06/06/2019 8:36 AM POOL HALL INSPECTOR) Case Report Surgical Pathology Report ? Case: [id number] ? Authorizing Provider: ??Yomi Cedeño MD ?Collected: ? 06/06/2019 08:36 AM ? Ordering Location: ? [facility] ? Received: ?06/06/2019 12:12 PM ? Pathologist: ? Quinton Barry MD ? Specimens: ?? A) - Lymph Node, level 9 ? B) - Lymph Node, level 10 ? C) - Lung Lobe Resect, RIGHT MIDDLE LUNG LOBE ? D) - Lymph Node, LEVEL 4 LYMPH NODE, RIGHT ? E) - Lymph Node, LEVEL 7 LYMPH NODE, RIGHT ? 06/10/2019 5:[address] [facility] Final Diagnosis A. Lymph node, 9R, excision: -- Negative for malignancy (0/2) B. Lymph node, 10R, biopsy: -- Negative for malignancy (0/2) C. 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 Lymph node, 4R, biopsy: -- Negative for malignancy (0/1) E. Lymph node, level 7, biopsy: -- Negative for malignancy (0/2) JUVE/mary 06/10/2019 5:[address] [facility] Gross Description The specimen is received in 5 containers for gross and microscopic examination. Each container is labeled with the patient's name, Flora Siddiqi. Specimen A, lymph node level 9 , consists of one 1.2 x 0.3 x 0.2 cm portion of firm, ylnch tissue and yellow, fatty tissue. Submitted in toto as cassette A1. Specimen B, lymph node level 10 , consists of 2 segments of tissue, the first measures 0.6 x 0.2 x 0.1 cm, the second, which is black-brown, measures 0.5 x 0.3 x 0.2 cm. The specimen is submitted in toto as cassette B1. Specimen C, right middle lung lobe , consists of a lobectomy specimen. The specimen has a mass of 73 gm and measures 14.0 x 7.2 x 1.9 cm. There is a 10.5 cm stapled parenchymal margin and a 1.2 cm stapled bronchial margin. The johnny are removed. The margin is inked green, shaved and submitted en face in cassette C1. There is a 1.2 cm stapled vascular margin which is inked red and also submitted en face in cassette C1. The staple margin is removed and inked blue. The serosal surface is purple-lynch, smooth and glistening with no visible lesions or defects on the surface. On palpation, the majority of the lung feels spongy with the exception of a nodular area near the bronchial and vascular margins. The serosa overlying this area is inked black. Sectioning reveals a firm 1.2 x 1.2 x 1.7 cm circumscribed white-lynch and hemorrhagic-looking mass. The mass is located 0.2 cm from the pleural surface, 0.9 cm from the nearest blue inked margin, 1.6 cm from the green inked bronchial margin and red inked vascular margin. There is significant mucus plugging in the bronchioles adjacent to tumor. There are no other lesions grossly appreciated in the lynch-red spongy lung parenchyma. Sections are submitted as follows: C1 - Bronchial and vascular margin C2 - Tumor to the black inked pleural surface C3 - Tumor to the blue inked stapled margin C4 - Section adjacent to C3 further illustrating the blue surgical margin C5 - Tumor and adjacent mucus plugging C6 - Areas of mucus plugging further distal C7 - Section of lung parenchyma grossly unremarkable. Specimen D, lymph node level 4 , consists of 2 portions of yellow, fatty tissue measuring 1.6 x 0.4 x 0.2 and 0.9 x 0.8 x 0.2 cm. Submitted in toto as cassette D1. Specimen E, lymph node level 7 , consists of 2 portions of firm, brown-black tissue with attached yellow, fatty tissue measuring 0.3 x 0.2 x 0.2 and 0.2 x 0.1 x 0.1 cm. Submitted in toto as cassette E1. LAURA/zane 06/10/2019 5:05 PM POOL HALL INSPECTOR [facility] Microscopic Description The tumor in the lobectomy specimen is characterized by ribbons and cords of medium size, mildly pleomorphic cells with mild hyperchromasia and a speckled nuclear chromatin. Mitotic activity and necrosis are not seen, consistent with a typical carcinoid. The tumor is found adjacent to and infiltrating a bronchial wall. Please refer to the previous right middle lobe biopsy for the results of special stains that confirm the diagnosis of typical carcinoid tumor ([facility] Pathology report [id number]). JUVE/mary 06/10/2019 5:[address] [facility] Disclaimer All histochemical and/or immunohistochemical results are interpreted with controls that demonstrate appropriate staining reactions before reporting results. Note on use of immunocytochemistry reagents: This test was developed and its performance characteristic determined by [facility], Department of Laboratory Medicine. It has not been cleared or approved by the U.S. Food and Drug Administration (FDA). The FDA has determined that such clearance or approval is not necessary. The test is used for clinical purpose. It should not be regarded as investigational or for research. This laboratory is certified to perform high complexity testing. 06/10/2019 5:[address] [facility] Synoptic Report LUNG ??(Lung - All Specimens) SPECIMEN ?? Procedure: ?Lobectomy ?? Specimen Laterality: ?Right TUMOR ?? Tumor Site: ?Middle lobe of lung ?? Histologic Type: ?Typical carcinoid tumor ?? Histologic Grade: ?G1: Well differentiated : ? Tumor Size: ?Greatest dimension in Centimeters (cm): 1.7 Centimeters (cm) ? Additional Dimension in Centimeters (cm): ?1.2 Centimeters (cm) ? Additional Dimension in Centimeters (cm): ?1.2 Centimeters (cm) Tumor Focality: ?Single tumor Tumor Extent: ? Visceral Pleura Invasion: ?Not identified ?? Direct Invasion of Adjacent Structures: ?No adjacent structures present Accessory Findings: ? Treatment Effect: ?No known presurgical therapy ?? Lymphovascular Invasion: ?Not identified MARGINS Margins: ?All margins are uninvolved by tumor ?? Margins Examined: ?Bronchial ?? Margins Examined: ?Vascular ?? Margins Examined: ?Parenchymal ?? Distance of Invasive Carcinoma from Closest Margin in Centimeters (cm): ?0.9 Centimeters (cm) ? Closest Margin: ?Parenchymal LYMPH NODES Number of Lymph Nodes Involved: ?0 Number of Lymph Nodes Examined: ?8 ?? George Stations Examined: ?4R: Lower paratracheal ?? George Stations Examined: ?9R: Pulmonary ligament ?? George Stations Examined: ?10R: Hilar ?? George Stations Examined: ?12R: Lobar ?? George Stations Examined: ?7: Subcarinal PATHOLOGIC STAGE CLASSIFICATION (pTNM, AJCC 8th Edition) Primary Tumor (pT): ?pT1 Regional Lymph Nodes (pN): ?pN0 ADDITIONAL FINDINGS Additional Pathologic Findings: ?Mucous plugging and distention of adjecent and distal bronchioles. 06/10/2019 5:05 PM POOL HALL INSPECTOR [facility] Embedded Images 06/10/2019 5:05 PM POOL HALL INSPECTOR [facility] Pathology/Cytology ENTIRE LYMPH NODE / Unknown 06/06/2019 8:36 AM POOL HALL INSPECTOR 06/06/2019 12:12 PM POOL HALL INSPECTOR Comment:Pre-op diagnosis: Diagnosis unknown [R69] Miscellaneous samples (specimen) ENTIRE LYMPH NODE / Unknown 06/06/2019 8:50 AM POOL HALL INSPECTOR 06/06/2019 12:12 PM POOL HALL INSPECTOR Comment:Pre-op diagnosis: Diagnosis unknown [R69] Miscellaneous samples (specimen) RESECTED LUNG SPECIMEN / Unknown 06/06/2019 9:43 AM POOL HALL INSPECTOR 06/06/2019 12:12 PM POOL HALL INSPECTOR Comment:Pre-op diagnosis: Diagnosis unknown [R69] Miscellaneous samples (specimen) ENTIRE LYMPH NODE / Unknown 06/06/2019 9:50 AM POOL HALL INSPECTOR 06/06/2019 12:12 PM POOL HALL INSPECTOR Comment:Pre-op diagnosis: Diagnosis unknown [R69] Miscellaneous samples (specimen) ENTIRE LYMPH NODE / Unknown 06/06/2019 9:54 AM POOL HALL INSPECTOR 06/06/2019 12:12 PM POOL HALL INSPECTOR Comment:Pre-op diagnosis: Diagnosis unknown [R69] Yomi Cedeño MD LAB - PATHOLOGY/CYTO LOGY ORDERABLES [facility] [address] [place], [place] [id number] * ETT LINE PERFORMABLE (06/06/2019 8:11 AM POOL HALL INSPECTOR) Narrative Amelia Zavaleta APRN-CRNA - 06/06/2019 8:11 AM POOL HALL INSPECTOR Amelia Zavaleta APRN-CRNA ? 06/06/2019 ??8:12 AM Endotracheal Tube Placement: ? Patient Location: OR. Intubation Event Date/Time: ??06/06/2019 7:37 AM Procedure: intubation (34272). Procedure Section: ?? Sedation: under general anesthesia. Indications for Airway Management: ??anesthesia Procedure pretreatments used? ??No Induction: modified rapid sequence Patient Position: ??sniffing Mask Ventilation: easy. Blade Type: Margarita Blade Size: 3 Laryngoscopy View: grade 1 (full cords) Intubation Adjuncts: stylet Tube: double lumen Placement: oral Tube type: cuff - inflated Tube Size (FR): 35 Measured From: lips Cuff volume (mL): ??6 Cuff Inflated With: air Number of Attempts: 1. Placement Verified By: direct visualization, bilateral breath sounds, chest auscultation, CO2 monitor and bronchoscope Tube secured with: ??adhesive tape. Difficult Airway? ??No. Procedure Start Time: 06/06/2019 7:37 AM. Staff Section ?? Anesthesia Provider: Amelia Zavaleta APRN-CRNA, Performed the procedure Provider #1: Carlos A Cisneros MD. Additional Comments: Teeth, lips and tongue as pre op following easy and atraumatic DL and intubation x1 attempt. Carlos A Cisneros MD GENERAL ANESTHESIA ORDERABLES * ARTERIAL LINE PERFORMABLE (06/06/2019 7:22 AM [facility]) Narrative Amelia Zavaleta APRN-CRNA - 06/06/2019 7:22 AM POOL HALL INSPECTOR Amelia Zavaleta APRN-CRNA ? 06/06/2019 ??8:17 AM Arterial Line Placement Procedure Note Patient Location: [facility]. Procedure: Arterial Line (23942). Procedure Section ?? Indications: continuous blood pressure monitoring. Consent: informed consent was obtained for the procedure. Patient Sedated? ??Nursing documentation on JUL ? Sedation Agents (manual): versed mL Skin Prep: Chloraprep. Location: right radial. Site Identification: ultrasound guided with sterile sleeve and gel and palpation. Sterile Technique: sterile gloves. Local Anesthetic Used? ??Yes ? Local Types: lidocaine (XYLOCAINE) 1 % injection, 1 mL. Gauge: 18. Number of Attempts: 2. Line Secured with: Tegaderm and tape. Procedure Tolerance: tolerated well. Events: none. Staff Section ?? Anesthesia Provider: Carlos A Cisneros MD, Performed the procedure Carlos A Cisneros MD GENERAL ANESTHESIA ORDERABLES * BLOOD TYPE VERIFICATION (06/06/2019 6:51 AM POOL HALL INSPECTOR) ABO O 06/06/2019 7:14 AM POOL HALL INSPECTOR [facility] Rh Type Negative 06/06/2019 7:14 AM POOL HALL INSPECTOR [facility] Blood Bank BLOOD SPECIMEN / Unknown Venipuncture / Unknown 06/06/2019 6:51 AM POOL HALL INSPECTOR 06/06/2019 6:55 AM POOL HALL INSPECTOR Yomi Cedeño MD LAB - BLOOD BANK ORD ERABLES [facility] [address] [place] [address] * PREPARE (CROSSMATCH) RBC UNIT(S), 2 Units (06/06/2019 6:30 AM POOL HALL INSPECTOR) Product Code [id number] [facility] Unit Donor # [id number] S [facility] ABO Donor Type O [facility] Rh Type Unit NEG [facility] Unit Status Ret'd [facility] ABO Rh Type Unit ONEG [facility] Donor Unit Expiration Date [facility] Blood Type Barcode 9500 [facility] Product Code [id number] [facility] Unit Donor # [id number] S [facility] ABO Donor Type O [facility] Rh Type Unit NEG [facility] Unit Status Ret'd [facility] ABO Rh Type Unit ONEG [facility] Donor Unit Expiration Date [facility] Blood Type Barcode 9500 [facility] Blood Bank BLOOD SPECIMEN / Unknown 06/06/2019 6:30 AM POOL HALL INSPECTOR Yomi Cedeño MD LAB - BLOOD BANK ORD ERABLES [facility] [address] [phone] * EKG 12-LEAD (05/30/2019 12:54 PM POOL HALL INSPECTOR) Ventricular Rate 61 BPM [facility] Atrial Rate 61 BPM [facility] P-R Interval 166 ms [facility] QRS Duration ms 78 ms [facility] Q-T Interval ms 434 ms [facility] QTC Calculation (Bezet) 436 ms [facility] Calculated P Julian 63 degrees [facility] Calculated R Julian 44 degrees [facility] Calculated T Julian 51 degrees [facility] Interpretation EKG NORMAL SINUS RHYTHM NORMAL ECG NO PREVIOUS ECGS AVAILABLE Confirmed by MD ARMOND, KIN Mirza ([id number]) on 05/31/2019 7:11:32 AM [facility] M[facility] 05/30/2019 12:5 4 PM POOL HALL INSPECTOR 05/31/2019 7:11 AM POOL HALL INSPECTOR Yomi Cedeño MD ECG ORDERABLES [facility] * (ABNORMAL) URINALYSIS REFLEX TO MICROSCOPIC NO CULTURE (05/30/2019 11:49 AM POOL HALL INSPECTOR) Color UA Yellow Straw, Yellow 05/30/2019 12:25 PM POOL HALL INSPECTOR [facility] Clarity UA Slt Cloudy(A) Clear 05/30/2019 12:25 PM POOL HALL INSPECTOR [facility] Glucose UA Negative Negative 05/30/2019 12:25 PM POOL HALL INSPECTOR [facility] Bilirubin UA Negative Negative 05/30/2019 12:25 PM POOL HALL INSPECTOR [facility] Ketone UA Negative Negative 05/30/2019 12:25 PM POOL HALL INSPECTOR [facility] Specific Sidney UA 1.018 1.005 - 1.030 05/30/2019 12:25 PM POOL HALL INSPECTOR [facility] Blood UA Negative Negative 05/30/2019 12:25 PM POOL HALL INSPECTOR [facility] pH UA 6.0 5.0 - 8.0 pH 05/30/2019 12:[address] [facility] Protein UA Negative Negative 05/30/2019 12:[address] [facility] Urobilinogen UA Negative Negative mg/dL 05/30/2019 12:[address] [facility] Nitrite UA Negative Negative 05/30/2019 12:[address] [facility] Leukocyte UA 3+(A) Negative 05/30/2019 12:[address] [facility] Urine Microscopy Urine microscopy to follow 05/30/2019 12:[address] [facility] Urine URINE SPECIMEN OBTAINED BY CLEAN CATCH PROCEDURE / Unknown Collection / Unknown 05/30/2019 11:49 AM POOL HALL INSPECTOR 05/30/2019 12:08 PM POOL HALL INSPECTOR Narrative [facility] - 05/30/2019 12:25 PM POOL HALL INSPECTOR Ascorbic Acid can cause false negative urine strip tests for blood, glucose, nitrite, and bilirubin. Yomi Cedeño MD LAB - URINALYSIS ORD ERABLES Performing Organization Address [facility] Co de Phone Number [facility] [address] [place] [phone] * (ABNORMAL) URINE MICROSCOPIC ONLY (05/30/2019 11:49 AM POOL HALL INSPECTOR) RBC UA 6-10(A) None Seen, 0-2, 3-5 # /hpf 05/30/2019 12:[address] [facility] WBC UA 6-10(A) None Seen, 0-5 # /hpf 05/30/2019 12:[address] [facility] Bacteria UA Trace(A) None Seen 05/30/2019 12:[address] [facility] Squamous Epithelial Cells 3-5 None Seen, 0-2, 3-5 /hpf 05/30/2019 12:[address] [facility] Mucus UA 1+ /LPF 05/30/2019 12:[address] [facility] Urine URINE SPECIMEN OBTAINED BY CLEAN CATCH PROCEDURE / Unknown Collection / Unknown 05/30/2019 11:49 AM POOL HALL INSPECTOR 05/30/2019 12:08 PM POOL HALL INSPECTOR Narrative [facility] - 05/30/2019 12:29 PM POOL HALL INSPECTOR Yomi Cedeño MD LAB - URINALYSIS ORD ERABLES Performing Organization Address City/[facility]/ZIP Co de Phone Number [facility] [address] [place] [address] * TYPE + SCREEN PANEL (05/30/2019 11:49 AM POOL HALL INSPECTOR) ABO O 05/30/2019 12:54 PM POOL HALL INSPECTOR [facility] Rh Type Negative 05/30/2019 12:[address] [facility] Comment:History checked. Col lect retype. Antibody Screen Negative 05/30/2019 12:54 PM POOL HALL INSPECTOR [facility] Blood Bank BLOOD SPECIMEN / Unknown Venipuncture / Unknown 05/30/2019 11:49 AM POOL HALL INSPECTOR 05/30/2019 12:07 PM POOL HALL INSPECTOR Yomi Cedeño MD LAB - BLOOD BANK ORD ERABLES Performing Organization Address [facility]/ZIP Co de Phone Number [facility] [address] [place] [address] * (ABNORMAL) PT PTT PANEL (05/30/2019 11:49 AM POOL HALL INSPECTOR) PT 12.0(L) 12.1 - 14.8 sec 05/30/2019 12:[address] [facility] INR 0.9 0.9 - 1.1 05/30/2019 12:[address] [facility] PTT 26.7 23.0 - 38.4 sec 05/30/2019 12:[address] [facility] Blood BLOOD SPECIMEN / Unknown Venipuncture / Unknown 05/30/2019 11:49 AM POOL HALL INSPECTOR 05/30/2019 12:07 PM POOL HALL INSPECTOR Narrative [facility] - 05/30/2019 12:35 PM POOL HALL INSPECTOR Conventional Warfarin Anticoagulant Therapy: INR Reference Range: ??2.0-3.0 Intensive Warfarin Anticoagulant Therapy: INR Reference Range: ? 2.5-3.5 Heparin Therapeutic Range for PTT: ??71.0 - 109.0 seconds. Yomi Cedeño MD LAB - COAGULATION OR DERABLES [facility] [address] [place] [address] * COMPLETE PFT W/WO BRONCHODILATOR (05/30/2019 10:53 AM POOL HALL INSPECTOR) Impressions Manny Torres MD - 05/30/2019 10:53 AM POOL HALL INSPECTOR [facility] DEPARTMENT OF PULMONARY, CRITICAL CARE, AND SLEEP MEDICINE PULMONARY FUNCTION TESTS Flora Siddiqi 05/30/2019 INTERPRETATION Please see technologist's comments mentioned above. SPIROMETRY: Forced vital capacity is normal. FEV1 is normal. FEV1/FVC ratio is normal. There is no significant response to bronchodilator administration. The inspection of the patient's flow-volume loops shows normal configuration of the inspiratory and expiratory limbs. LUNG VOLUMES: Lung volumes by body plethysmography are within normal limits. DLCO: Diffusing capacity unadjusted for Hb and COHb is within normal limits. AIRWAY RESISTANCE: The airway resistance and the specific conductance are normal. IMPRESSION: 1. Normal Pulmonary Function Test. 2. There is no significant response to bronchodilator therapy. However, this does not ??preclude the use of bronchodilator if clinically indicated 3. Compared to previous study done on 03/26/19, there is no significant change in FEV1,FVC or TLC. Nohemi Stewart MD Pulmonary & Critical Care Fellow Division of Pulmonary, Critical Care and Sleep Medicine [facility] Pager: [phone] I have personally reviewed the pulmonary function test data and made adjustment to the interpretation where necessary. Manny Torres MD 05/31/2019 Narrative Manny Torres MD - 05/30/2019 10:53 AM POOL HALL INSPECTOR Nohemi Stewart MD ? 05/30/2019 ??3:49 PM Procedure Note Nohemi Stewart MD - 05/30/2019 10:53 AM CST Images from the original note were not included. Yomi Cedeño MD RESPIRATORY THERAPY ORDERABLES * XR CHEST INSPIRATION AND EXPIRATION (04/16/2019 5:48 PM POOL HALL INSPECTOR) Only the most recent of2 resultswithin the time period is included. Anatomical Region Laterality Modality Chest Radiographic Linsey ging 04/17/2019 11:0 4 AM POOL HALL INSPECTOR Impressions 04/17/2019 11:39 AM POOL HALL INSPECTOR FINDINGS/IMPRESSION: Right lower lobe nodule is better evaluated on the prior CT chest. There is no focal consolidation, pleural effusion, or pneumothorax. The cardiomediastinal silhouette is normal. Dictated by Melinda Adams MD (resident). Dr. FRANCISCO Hammer have personally reviewed and interpreted this examination/study. This report was electronically signed by FRANCISCO RENTERIA ??on 04/17/2019 11:39 AM . Narrative 04/17/2019 11:39 AM POOL HALL INSPECTOR ORDER DATE: 04/16/2019 5:49 PM EXAMINATION: XR CHEST 2VW INSPIR EXPIRATION HISTORY: R91.1: Lung nodule, solitary COMPARISON: CT chest dated 03/01/2019. Procedure Note Francisco Renteria, DO - 04/17/2019 ORDER DATE: 04/16/2019 5:49 PM EXAMINATION: XR CHEST 2VW INSPIR EXPIRATION HISTORY: R91.1: Lung nodule, solitary COMPARISON: CT chest dated 03/01/2019. FINDINGS/IMPRESSION: Right lower lobe nodule is better evaluated on the prior CT chest. There is no focal consolidation, pleural effusion, or pneumothorax. The cardiomediastinal silhouette is normal. Dictated by Melinda Adams MD (resident). Dr. FRANCISCO Hammer have personally reviewed and interpreted this examination/study. This report was electronically signed by FRANCISCO RENTERIA on 04/17/2019 11:39 AM . Marky Granado MD DIAGNOSTIC IMAGING O RDERABLES * CT GUIDED NEEDLE BIOPSY LUNG ([id number]) (04/16/2019 2:43 PM POOL HALL INSPECTOR) Anatomical Region Laterality Modality Abdomen Computed Tomogra phy 04/16/2019 7:57 PM POOL HALL INSPECTOR Impressions 04/16/2019 8:01 PM POOL HALL INSPECTOR Impression: Successful CT-guided biopsy of RML nodule, as described above. Note: The pathology report is pending at the time of this dictation. The patient will be followed up with chest radiographs to rule out delayed pneumothorax. Dr. Marky Hammer, performed/was present throughout the procedure and provided the moderate sedation service. Please see the nursing sedation flowsheet. This report was electronically signed by MARKY GRANADO ??on 04/16/2019 8:01 PM . Narrative 04/16/2019 8:01 PM POOL HALL INSPECTOR History: 63 year old female with FDG-avid RML nodule that remains highly suspicion for neoplasm. Referred to vascular & interventional radiology for image-guided biopsy. Operators: 1.Dr. Marky Granado, Attending Physician Anesthesia: 1.Local anesthesia - 10 mL of 1% lidocaine 2.Intravenous conscious sedation - Versed 1 mg and Fentanyl 50 mcg Procedure: 1.Limited non-contrast CT of the chest. 2.CT-guided biopsy of RML nodule. 3.Post-procedure non-contrast CT of the chest. Start time: 1400 ?End time: 1430 ? Sedation initiated time: 1402 Procedure in detail: The procedure, risks, and possible complications were explained to the patient in detail, and informed consent was obtained. The patient was placed in a supine position on the CT table and a limited non-contrast CT examination of chest was performed with radio-opaque grid markers over the region of interest. The study demonstrated RML nodule of interest. An appropriate percutaneous access site was chosen from a caudal-cranial approach (to avoid fissure traversal) which was marked on the skin with indelible ink. The patient received intravenous Versed and Fentanyl for conscious sedation. A qualified radiology nurse monitored the patients vital signs throughout the procedure. The marked site and skin around the region of interest was prepped and draped in a sterile fashion. Local anesthesia was provided with 1% Lidocaine. A 19 gauge co-axial needle system was advanced in stages under CT guidance. With the needle tip at the edge of the lesion, multiple 1.5cm core biopsy samples were acquired with a 20 gauge biopsy gun. The samples were sent to the pathology service directly in formalin. Needle was then removed and sterile dressing applied. Final CT imaging did not show any immediate complications, such as large hemorrhage or pneumothorax. The patient tolerated the procedure well and was transferred to the holding area in stable condition. Procedure Note Marky Granado MD - 04/16/2019 History: 63 year old female with FDG-avid RML nodule that remains highly suspicion for neoplasm. Referred to vascular & interventional radiology for image-guided biopsy. Operators: 1.Dr. Marky Granado, Attending Physician Anesthesia: 1.Local anesthesia - 10 mL of 1% lidocaine 2.Intravenous conscious sedation - Versed 1 mg and Fentanyl 50 mcg Procedure: 1.Limited non-contrast CT of the chest. 2.CT-guided biopsy of RML nodule. 3.Post-procedure non-contrast CT of the chest. Start time: 1400 End time: 1430 Sedation initiated time: 1402 Procedure in detail: The procedure, risks, and possible complications were explained to the patient in detail, and informed consent was obtained. The patient was placed in a supine position on the CT table and a limited non-contrastCT examination of chest was performed with radio-opaque grid markers overthe region of interest. The study demonstrated RML nodule of interest. An appropriate percutaneous access site was chosen from a caudal-cranial approach (to avoid fissure traversal) which was marked on the skin with indelible ink. The patient received intravenous Versed and Fentanyl for conscious sedation. A qualified radiology nurse monitored the patients vital signs throughout the procedure. The marked site and skin around the region of interest was prepped and draped in a sterile fashion. Local anesthesia was provided with 1% Lidocaine. A 19 gauge co-axial needle system was advanced in stagesunder CT guidance. With the needle tip at the edge of the lesion, multiple1.5cm core biopsy samples were acquired with a 20 gauge biopsy gun. Thesamples were sent to the pathology service directly in formalin. Needle was then removed and sterile dressing applied. Final CT imaging did not show any immediate complications, such as large hemorrhage or pneumothorax. The patient tolerated the procedure well and was transferred to the holding area in stable condition. Impression: Successful CT-guided biopsy of RML nodule, as describedabove. Note: The pathology report is pending at the time of this dictation. The patient will be followed up with chest radiographs to rule out delayed pneumothorax. I, Dr. Marky Granado, performed/was present throughout the procedure and provided the moderate sedation service. Please see the nursing sedation flowsheet. This report was electronically signed by MARKY GRANADO on 04/16/2019 8:01PM . Yomi Cedeño MD CT ORDERABLES * PATHOLOGY TISSUE (04/16/2019 2:20 PM POOL HALL INSPECTOR) Only the most recent of2 resultswithin the time period is included. Case Report Surgical Pathology Report ? Case: [id number] ? Authorizing Provider: ??Yomi Cedeño MD ?Collected: ? 04/16/2019 02:20 PM ? Ordering Location: ? [facility] CAT SCAN ? Received: ?04/16/2019 03:21 PM ? Pathologist: ? No Steele MD ? Specimen: ?Lung, Right Middle Lobe ? 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 No necrosis or significant mitotic activity is appreciated. The tumor cells are positive for synaptophysin, chromogranin and CD56. Ki-67 is less than 3%. TTF-1 is negative in the tumor cells. Immuohistochemical stains are performed at [facility] histology laboratory and all controls worked appropriately. 04/22/2019 4:00 PM [facility] Clinical History The patient is a 63 year old woman who underwent biopsy of a right middle lobe lung nodule. 04/22/2019 4:00 PM [facility] Gross Description The requisition and specimen(s) are labeled with the patient's name, Flora Siddiqi. Received in formalin, specimen A, lung, right middle + , are multiple white to red lynch tissue cores measuring less than 0.1-0.6 cm in greatest in length, with a diameter of less than 0.1 cm. Submitted in toto in cassette A1. KK 04/22/2019 4:00 PM [facility] Disclaimer The performance characteristics of all immunohistochemical and indirect immunofluorescence stains (if any) cited in this report were determined by the Histopathology Laboratory of [facility]. Some of these tests were developed by our own laboratory and have not been cleared or approved by the US Food and Drug Administration. The FDA does not require this test to go through premarket FDA review. These tests are used for clinical purposes. They should not be regarded as investigational or for research. This laboratory is certified under the Clinical Laboratory Improvement Amendments (CLIA) as qualified to perform high complexity clinical laboratory testing. This case has been personally reviewed and interpreted by the attending (teaching) pathologist. 04/22/2019 4:00 PM [facility] Embedded Images 04/22/2019 4:00 PM [facility] Biopsy, Needle (Lung, Right Middle Lobe) 04/16/2019 2:20 PM POOL HALL INSPECTOR 04/16/2019 3:21 PM [facility] Yomi Cedeño MD LAB - PATHOLOGY/CYTO LOGY ORDERABLES Performing Organization Address City/State/[facility] Co de Phone Number [facility] [address] [phone] * (ABNORMAL) PT-INR [facility] (04/16/2019 9:35 AM [facility]) PT 11.6(L) 12.1 - 14.8 Seconds 04/16/2019 10:31 AM [facility] INR 0.9 See Comment 04/16/2019 10:31 AM [facility] Comment: The suggested therapeutic range for standard coumadin (warfarin) therapy is an INR of 2.0-3.0. For high-risk patients (Mechanical Mitral Valve Prosthesis, etc.), the suggested prophylactic therapeutic range is an INR of 2.5-3.5. Blood BLOOD SPECIMEN / Unknown Venipuncture / Unknown 04/16/2019 9:35 AM POOL HALL INSPECTOR 04/16/2019 9:39 AM POOL HALL INSPECTOR Yomi Cedeño MD LAB - COAGULATION OR DERABLES Performing Organization Address City/State/[facility] Co de Phone Number [address] [phone] * COMPLETE PFT W/WO BRONCHODILATOR (03/26/2019 11:52 AM POOL HALL INSPECTOR) Impressions Manny Torres MD - 03/26/2019 11:52 AM POOL HALL INSPECTOR [facility] DEPARTMENT OF PULMONARY, CRITICAL CARE, AND SLEEP MEDICINE PULMONARY FUNCTION TESTS Flora Siddiqi 63 year old BMI 27.7 03/26/2019 INTERPRETATION Please see technologist's comments mentioned above. SPIROMETRY: ??FEV1/FVC ratio is Normal . FEV1 is Normal. Forced vital capacity is Normal. There is no significant response to bronchodilator administration. Inspection of the patient's flow-volume loops shows normal configuration of the inspiratory and expiratory limbs. LUNG VOLUMES: Lung volumes by body plethysmography are within normal limits. DLCO: Diffusing capacity unadjusted for Hb and COHb is within normal limits. AIRWAY RESISTANCE: The airway resistance and the specific conductance are normal. ARTERIAL BLOOD GAS ANALYSIS: drawn on Room Air revealed normal oxygenation and acid-base balance. IMPRESSION: 1. Normal Pulmonary Function Test. 2. There is no previous study available for comparison. Dr.Raja Trino YOUNG Pulmonary & Critical Care Fellow Division of Pulmonary, Critical Care and Sleep Medicine [facility] Pager:[phone] I have personally reviewed the pulmonary function test data and made adjustment to the interpretation where necessary. Manny Torres MD 03/28/2019 Narrative Manny Torres MD - 03/26/2019 11:52 AM POOL HALL INSPECTOR Gray Jameson MD ? 03/26/2019 ??4:29 PM Procedure Note Gray Jameson MD - 03/26/2019 11:52 AM CST Images from the original note were not included. Jayjay Curiel MD RESPIRATORY THERAPY ORDERABLES * (ABNORMAL) BLOOD GASES ART - PFT (03/26/2019 10:53 AM [facility]) pH Arterial 7.38 7.20 - 7.60 03/26/2019 11:53 AM [facility] pCO2 Arterial 41 35 - 45 mmHg 03/26/2019 11:53 AM [facility] pO2 Arterial 75 71 - 95 mmHg 03/26/2019 11:53 AM [facility] HCO3 Arterial 23.9 22.0 - 26.0 mmol/L 03/26/2019 11:53 AM [facility] TCO2 Arterial 25.1 25.0 - 29.0 mmol/L 03/26/2019 11:53 AM [facility] Base Excess Arterial -0.6 -2.0 - 2.0 mmol/L 03/26/2019 11:53 AM [facility] Hemoglobin Arterial 11.0(L) 12.0 - 15.5 g/dL 03/26/2019 11:53 AM [facility] Oxyhemoglobin Arterial 94.7(L) 95.0 - 100.0 % 03/26/2019 11:53 AM [facility] Carboxyhemoglobin 1.3 0.0 - 3.0 % 03/26/2019 11:53 AM [facility] Methemoglobin 0.5 0.0 - 2.0 % 03/26/2019 11:53 AM [facility] PULMONARY FUNCTION LAB FI O2 Arterial 21.0 % 03/26/2019 11:53 AM [facility] PULMONARY FUNCTION LAB Blood, arterial ARTERIAL BLOOD SPECIMEN / Unknown Arterial Puncture / Unknown 03/26/2019 10:53 AM POOL HALL INSPECTOR 03/26/2019 11:51 AM [facility] PULMONARY FUNCTION LAB - 03/26/2019 11:[address] [facility] Pulmonary Function Lab CLIA # [id number] [address] [place] [address] Mannequin Decorator: Catrina Lancaster M.D. Jayjay Curiel MD LAB - BLOOD GASES OR DERABLES [facility] PULMONARY FUNCTION LAB * PATHOLOGY/CYTOLOGY REPORT ORDER (03/05/2019 2:58 PM CDT) Narrative 03/05/2019 2:58 PM CDT Ordered by an unspecified provider. Scanned Document LAB - PATHOLOGY/CYTO LOGY ORDERABLES * FINE NEEDLE ASPIRATION (STL) (03/04/2019 3:28 PM CDT) Case Report Medical Cytology Report ? Case: [id number] ? Authorizing Provider: ??Jayjay Curiel MD ?Collected: ? 03/04/2019 03:28 PM ? Ordering Location: ? [facility] ? Received: ?03/04/2019 03:29 PM ? Pathologist: ? Mary Castro MD ? Specimen: ?Lung, Lung, Right middle lobe, FNA (no cell block) ? 03/08/2019 3:16 PM CDT [facility] PATH[facility] Specimen Adequacy Limited cellularity for evaluation. 03/08/2019 3:16 PM CDT [facility] PATH[facility] Final Diagnosis Lung, right middle lobe, FNA, cytology: - Atypical - Very rare atypical cells (see [id number]) 03/08/2019 3:16 PM CDT [facility] PATH[facility] Clinical History Lung nodule, solitary 03/08/2019 3:16 PM T [facility] PATHOLOGY LAB Gross Description 2 pap & 2 diff-quik stained slides Material for cell block was combined with linked brushing specimen 03/08/2019 3:16 PM [facility] PATHOLOGY LAB Microscopic Description Performed. (HG/ED) PRELIMINARY DIAGNOSIS: Immediate interpretation by Dr. Kimmy Castro Lung, right middle lobe, FNA Episode 1 Pass 1-2- Mostly blood (2:27pm) 03/08/2019 3:16 PM T [facility] PATHOLOGY LAB Disclaimer The performance characteristics of all immunohistochemical and indirect immunofluorescence stains (if any) cited in this report were determined by the Histopathology Laboratory of [facility]. Some of these tests rely on the use of analyte-specific reagents and are subject to specific labeling requirements by the US Food and Drug Administration. Such tests were developed by the Histology Laboratory of [facility] and have not been cleared or approved by the FDA. The FDA has determined that such clearance and approval is not necessary. These tests are used for clinical purposes and should not be regarded as investigational or for research. This laboratory is certified under the Clinical Laboratory Improvement Amendments (CLIA) as qualified to perform high complexity clinical laboratory testing. This case has been personally reviewed and interpreted by the attending (teaching) pathologist. 03/08/2019 3:16 PM CDT [facility] PATHOLOGY LAB Embedded Images 03/08/2019 3:16 PM CDT [facility] PATHOLOGY LAB Pathology/Cytolo gy ENTIRE LUNG / Unknown Collection / Unknown 03/04/2019 3:28 PM CDT 03/04/2019 3:29 PM CDT Jayjay Curiel MD LAB - PATHOLOGY/CYTO LOGY ORDERABLES [facility] PATHOLOGY LAB [address] [place] [address], [facility] [phone] * CYTOLOGY NON-WIND TURBINE TECHNICIAN PANEL (STL) (03/04/2019 3:24 PM CDT) Case Report Medical Cytology Report ? Case: [id number] ? Authorizing Provider: ??Jayjay Cruiel MD ?Collected: ? 03/04/2019 03:24 PM ? Ordering Location: ? [facility] ? Received: ?03/04/2019 03:26 PM ? Pathologist: ? Mary Castro MD ? Specimen: ?Brushing, RML Cytobrush and Cytorinse ? 03/08/2019 3:11 PM [facility] PATHOLOGY LAB Specimen Adequacy Limited cellularity for evaluation. 03/08/2019 3:11 PM [facility] PATHOLOGY LAB Final Diagnosis Lung, right middle lobe, brushing, cytology: - Suspicious for neoplasm - Scattered atypical cells, suspicious for neuroendocrine neoplasm 03/08/2019 3:11 PM [facility] PATHOLOGY LAB Clinical History The patient is a 63 year old man with a right middle lobe nodule measuring 1.7 x 1.4 cm with downstream bronchiectasis. 03/08/2019 3:11 PM [facility] PATHOLOGY LAB Gross Description 4 pap & 4 diff-quik stained slides and 1 cell block from 20cc bloody saline Material for cell block was combined with sample taken from linked FNA 03/08/2019 3:11 PM [facility] PATHOLOGY LAB Microscopic Description Microscopic examination of 4 pap and 4 Diff-Quik stained slides reveals occasional single or groups of atypical appearing cells in a background of blood and fibrin. Some of them have moderate amount of cytoplasm. Some cells have crash effect. They are positive for synaptophysin, chromogranin, and pancytokeratin (focal) while negative for CD68. Overall, the findings support the above diagnosis. PRELIMINARY DIAGNOSIS: Immediate interpretation by DR. Kimmy Castro Lung, Right middle lobe, brushing Episode 1 Pass 1- Atypical cells present Pass 2-4- Mostly blood (2:20pm) 03/08/2019 3:11 PM CDT [facility] PATHOLOGY LAB Disclaimer The performance characteristics of all immunohistochemical and indirect immunofluorescence stains (if any) cited in this report were determined by the Histopathology Laboratory of [facility]. Some of these tests rely on the use of analyte-specific reagents and are subject to specific labeling requirements by the US Food and Drug Administration. Such tests were developed by the Histology Laboratory of [facility] and have not been cleared or approved by the FDA. The FDA has determined that such clearance and approval is not necessary. These tests are used for clinical purposes and should not be regarded as investigational or for research. This laboratory is certified under the Clinical Laboratory Improvement Amendments (CLIA) as qualified to perform high complexity clinical laboratory testing. This case has been personally reviewed and interpreted by the attending (teaching) pathologist. 03/08/2019 3:11 PM CDT [facility] PATHOLOGY LAB Embedded Images 03/08/2019 3:11 PM CDT [facility] PATHOLOGY LAB Pathology/Cytolog y BRUSHING / Unknown Collection / Unknown 03/04/2019 3:24 PM CDT 03/04/2019 3:26 PM CDT Comment:Cytobrush and Cytori nse Jayjay Curiel MD LAB - PATHOLOGY/CYTO LOGY ORDERABLES [facility] PATHOLOGY LAB [address] [place] [address], [facility] [phone] * ETT Placement (03/04/2019 1:20 PM CDT) Narrative Joel Chowdary APRN-SWING TYPE LATHE OPERATOR - 03/04/2019 1:20 PM CDT Joel Chowdary APRN-SWING TYPE LATHE OPERATOR ? 03/04/2019 ??1:24 PM Endotracheal Tube Placement: ? Patient Location: OR. Procedure: intubation (95366). Procedure Section: ?? Sedation: under general anesthesia. Indications for Airway Management: ??anesthesia Induction: standard IV Patient Position: ??sniffing and supine Mask Ventilation: easy and easy with oral airway. Blade Type: Ontiveros Blade Size: 2 Laryngoscopy View: grade 1 (full cords) Tube: endotracheal tube Placement: oral Tube Size (MM): 8.5 Depth of Insertion (CM): 19 Measured From: gums Cuff Inflated With: air Number of Attempts: 1. Placement Verified By: direct visualization, bilateral breath sounds and CO2 monitor Tube secured with: ??adhesive tape. Difficult Airway? ??No. Staff Section ?? Anesthesia Provider: Joel Chowdary, MANAGER VALIDATION-SWING TYPE LATHE OPERATOR, Performed the procedure Sharon Guzman MD GENERAL ANESTHESIA O RDERABLES * BRONCHOSCOPY (03/04/2019 12:44 PM CDT) Report Endoscopy POC [facility] Advanced Diagnostic Bronchoscopy and Interventional Pulmonary Service _ Patient Name: Flora Siddiqi ? Procedure Date: 03/04/2019 12:44 PM Date of : 1955 ?Attending MD: Jayjay Curiel MD Age: 63 ? Room: Bronch Suite ? _ Providers: ?Jayjay Curiel MD, Simon White MD ?(Fellow), Nohemi Stewart MD, (Fellow), [facility] ?Carmen YOUNG (Fellow), Nita Ramirez ELECTRONICS PROCESSING SUPERVISOR, ELECTRONICS PROCESSING SUPERVISOR, Colette ?Yuki De Guzman ELECTRONICS PROCESSING SUPERVISOR, ELECTRONICS PROCESSING SUPERVISOR Referring MD: ? Lesley Lam APRN Procedure: ?Flexible videobronchoscopy with EMN, radial EBUS, ?brushing, FNA, biopsy. Indications: ?Right middle lobe mass, Nodule of lung Medicines: ?General Anesthesia Comorbidities ? Asthma _ Description of Procedure: After obtaining informed consent, the patient was ?sedated and intubated by Anesthesia. The patient ?was kept under GA for the duration of the ?procedure. First, an inspection of the airways was ?performed with the Pentax [id number] ?videobronchoscope. The endobronchial exam was ?unrevealing. Next, the Pentax [id number] ?videobronchoscope was advanced into the airway. The ?EWC/LG was placed through the working channel of ?the bronchoscope. Registration was performed in the ?usual fashion. Next, electromagnetic navigation was ?used to position the EWC/LG just proximal to the ?targeted RML lesion. The LG was removed from the ?EWC. The presence of the targeted mass was ?confirmed with radial EBUS which had been placed ?through the EWC. Brushings, FNA and forceps ?biopsies were then obtained with the aid of ?fluoroscopy. After this, the EWC was removed from ?the airway and the Pentax [id number] videobronchoscope ?was also removed from the airway. The [id number] ?videobronchoscope was then advanced back into the ?airway. Inspection of the RML medial segment ?revealed some irregular mucosa with dark ?pigmentation in the area near where the previous ?sampling had been performed. More samples were ?obtained with a forceps. Once hemostasis was ?ensured, the bronchoscope was removed from the ?airway concluding the procedure. The total duration ?of the procedure was 1 hour and 32 minutes. ?Flouroscopy time- 8 minutes, 38 seconds. ? Findings: ? As above. ? Estimated Blood Loss: ? 10 ml. Complications: ?None _ Impression: ? -- Irregular mucosa with some dark pigmentation in ?the medial segment of the RML airway of unclear ?significance. No discreet endobronchial lesion was ?found. Recommendation: ? - Await test results. Attending Participation: ??I was present and participated during the entire ?procedure, including non-dalal portions. Jayjay Curiel MD _ Jayjay Curiel MD 03/04/2019 5:30:57 PM This report has been signed electronically. Nohemi Stewart MD, MD Ewelina Morales MD, Simon White MD Note Initiated On: 03/04/2019 12:44 PM CC Letter to: ? Leslye Lam, MANAGER VALIDATION Number of Addenda: 0 ? [facility] ? [address] [place] [address] [facility] 03/04/2019 12:4 4 PM CDT Simon White MD RESPIRATORY THERAPY ORDERABLES [facility] * CT CHEST WO CONT SUPER DIMENSION (03/01/2019 8:25 AM CDT) Anatomical Region Laterality Modality Chest Computed Tomogra phy 03/01/2019 8:28 AM CDT Impressions 03/04/2019 11:52 AM CDT IMPRESSION: 1. Right middle lobe nodule measuring 1.7 x 1.4 cm with downstream bronchiectasis and consolidation representing postobstructive atelectasis or pneumonia, unchanged from the prior study. A biopsy or PET/CT is recommended for further evaluation. Dictated by Willy Mahmood MD (microarray operations vice president). I, Dr. BUD WANG M.D. have personally reviewed and interpreted this examination/study. This report was electronically signed by BUD WANG M.D. ??on 03/04/2019 11:52 AM . Narrative 03/04/2019 11:52 AM CDT EXAMINATION: Computed tomography (CT) of the chest without contrast HISTORY: RML lung nodule TECHNIQUE: CT of the chest was performed without contrast according to a super dimension protocol. COMPARISON: Comparison is made to an outside institution chest CT from 12/24/2018 FINDINGS: Evaluation of visceral and vascular structures is degraded due to lack of intravenous contrast administration. There is a left-sided two-vessel aortic arch. The aorta and main pulmonary arteries are normal in course and caliber. The coronary arteries and aorta are atherosclerotic. There is a large nodule in the right middle lobe measuring 1.7 x 1.4 cm (series 6 image 79), unchanged in size from the prior study. There is mild bronchiectasis distal to this mass with a small amount of consolidation representing obstructive atelectasis/airspace disease, unchanged. No pleural effusion or focal pleural thickening is identified. There is no evidence of pneumothorax. No additional pulmonary nodules identified. The trachea is patent and midline. The heart size is normal. No pericardial effusion is present. No mediastinal, supraclavicular, or axillary lymphadenopathy is seen. A subcentimeter right hilar and mediastinal lymph nodes are unchanged from the prior study. There is fatty atrophy of the pancreas. The gallbladder surgically absent. The visible portions of the liver, spleen, adrenal glands, kidneys, stomach, and bowel are normal. A small splenule is seen along the anterior aspect of the spleen. Bone windows demonstrate no suspicious lytic or blastic lesions. The visible osseous structures are intact. Mild multilevel degenerative changes are noted in the spine. Procedure Note Naima Wang MD - 03/04/2019 EXAMINATION: Computed tomography (CT) of the chest without contrast HISTORY: [facility] lung nodule TECHNIQUE: CT of the chest was performed without contrast according to a super dimension protocol. COMPARISON: Comparison is made to an outside institution chest CT from 12/24/2018 FINDINGS: Evaluation of visceral and vascular structures is degraded due to lackof intravenous contrast administration. There is a left-sided two-vessel aortic arch. The aorta and mainpulmonary arteries are normal in course and caliber. The coronary arteries andaorta are atherosclerotic. There is a large nodule in the right middle lobe measuring 1.7 x 1.4 cm (series 6 image 79), unchanged in size from the prior study. There ismild bronchiectasis distal to this mass with a small amount of consolidation representing obstructive atelectasis/airspace disease, unchanged. No pleural effusion or focal pleural thickening is identified. There is no evidence of pneumothorax. No additional pulmonary nodules identified.The trachea is patent and midline. The heart size is normal. No pericardial effusion is present. No mediastinal, supraclavicular, or axillary lymphadenopathy is seen. A subcentimeter right hilar and mediastinal lymph nodes are unchanged from the prior study. There is fatty atrophy of the pancreas. The gallbladder surgicallyabsent. The visible portions of the liver, spleen, adrenal glands, kidneys, stomach, and bowel are normal. A small splenule is seen along theanterior aspect of the spleen. Bone windows demonstrate no suspicious lytic or blastic lesions. The visible osseous structures are intact. Mild multilevel degenerative changes are noted in the spine. IMPRESSION: 1. Right middle lobe nodule measuring 1.7 x 1.4 cm with downstream bronchiectasis and consolidation representing postobstructiveatelectasis or pneumonia, unchanged from the prior study. A biopsy or PET/CT is recommended for further evaluation. Dictated by Willy Mahmood MD (microarray operations vice president). I, Dr. BUD WANG M.D. have personally reviewed and interpretedthis examination/study. This report was electronically signed by BUD WANG M.D. on 03/04/2019 11:52 AM . Jayjay Curiel MD CT ORDERABLES Care Teams Fiscal Specialist Relationship Specialty Start Date End Date Terry Reese, MANAGER VALIDATION-HEEL CUR[employer] [address] [place] [address] PCP - General Nurse Practitioner 03/04/19
--- OUTSIDE RECORDS SUMMARY | 2024-06-18 13:37 | XMS_ITS | CONTINUITY OF CARE DOCUMENT ---
Author Name ramonita shipman Address Unknown Organization [facility] Address [address] [place] [address] Phone [phone] Care Team Providers Care Cafe Site Attendant Name Role Phone David YOUNG, Shelia Unavailable STANLEY YOUNG, JONA Unavailable INSURANCE PROVIDERS Payer name Policy type / Coverage type Jim red republican ID Z[place] MEDICAID (2) Medicaid [id number]
--- OUTSIDE RECORDS SUMMARY | 2024-06-18 13:37 | XMS_ITS | Clinical Summary ---
Author Organization [facility] Address [address] [place] [address] Care Team Providers Care Vacuum Cooker Operator Name Role Phone Juanita Gonsales MD Primary Care Provider [phone] Allergies No known active allergies Medications furosemide (LASIX) 40 MG tablet Take 40 mg by mouth 1 (one) time each day Active atorvastatin (LIPITOR) 20 MG tablet Take 20 mg by mouth 1 (one) time each day Active ibuprofen (ADVIL,MOTRIN) 800 MG tablet Take 800 mg by mouth every 8 (eight) hours if needed for mild pain Active tiZANidine (ZANAFLEX) 4 MG tablet Take 4 mg by mouth every 8 (eight) hours if needed for muscle spasms Active HYDROcodone-ac etaminophen (NORCO) 5-325 MG per tablet Take 1 tablet by mouth 2 (two) times a day Active sulfamethoxazo le-trimethopri m 800-160 MG per tablet Take 1 tablet by mouth every 12 (twelve) hours Take one tablet by mouth every 12 hours for 14 days. Active omeprazole (PriLOSEC) [address] capsule Take 40 mg by mouth 1 (one) time each day Do not crush or chew. Active estradiol (ESTRACE) 1 MG tablet Take 1 mg by mouth 1 (one) time each day Active levothyroxine (SYNTHROID, LEVOTHROID) 50 MCG tablet Take 50 mcg by mouth 1 (one) time each day in the morning Active gabapentin (NEURONTIN) 300 MG capsule Take 300 mg by mouth 3 (three) times a day Take two capsule 3 times a day by oral route as directed for 30 days. Active montelukast (SINGULAIR) 10 MG tablet Take 10 mg by mouth every night Active ergocalciferol 1.25 MG (13738 UT) capsule Take 50,000 Units by mouth 1 (one) time per week Take 1 capsule every week by oral route with meals for 30 days Active albuterol HFA (PROVENTIL HFA;VENTOLIN HFA) 108 (90 Base) MCG/ACT inhaler Inhale 2 puffs 3 (three) times a day Active oxybutynin (DITROPAN) 5 MG tablet Take 5 mg by mouth 3 (three) times a day Active amoxicillin-cl avulanate (AUGMENTIN) 875-125 MG per tablet Take 1 tablet by mouth twice a day Take one tablet by mouth every 12 hours for 10 days Active omega-3 acid ethyl esters (LOVAZA) 1 g capsule Take 2 g by mouth 2 (two) times a day Active mometasone-for moterol (Dulera) 100-5 MCG/ACT inhaler Inhale 2 puffs 2 (two) times a day Rinse mouth with water after use to reduce aftertaste and incidence of candidiasis. Do not swallow. Active Diclofenac Sodium (Pennsaid) 2 % solution Apply topically Apply 2 pumps 40 MG to the affected knee(s) by topical route 2 times per day Active Umeclidinium [place] (Incruse Ellipta) 62.5 MCG/INH aerosol powder Inhale 1 puff 1 (one) time each day Active potassium chloride 10 MEQ CR tablet Take 10 mEq by mouth 2 (two) times a day 2 times daily every morning. Do not crush, chew, or split. 06/04/19 25 Discontinu ed(Alterna te therapy) Encounters Date Type Department Care Team Description 06/07/2024 Telephone [facility] [employer] [address] [facility] [address] [place] [address] Aria Leija 06/04/2024 2:45 PM STEEL UNLOADER Office Visit [facility] [employer] [address] [place] [address] [address] [place] [address] Wero Hurtado DO Stage 3 chronic kidney disease, not otherwise specified (HCC) (Primary Dx); Chronic obstructive pulmonary disease with (acute) lower respiratory infection (HCC); Gastroesophageal reflux disease; Hypertensive chronic kidney disease; Pure hypercholesterolemia, not otherwise specified; Other specified hypothyroidism 06/04/2024 [facility]ill [facility] [address] [phone] Cris Turpin CMA 05/28/2024 Travel from Last 3 Months Social History Tobacco Use Types Packs/Day Years Used Date Smoking Tobacco: Never Assessed Comments Unknown Sex and Gender Information Value Date Recorded Sex Assigned at Female 05/28/2024 11:20 AM EST Legal Sex Female 4:24 PM EDT Gender Identity Female 05/28/2024 11:20 AM EST Sexual Orientation Not on file Last Filed Vital Signs Vital Sign Reading Time Taken Comments Blood Pressure 120/70 06/04/2024 2:55 PM STEEL UNLOADER Pulse 68 06/04/2024 2:55 PM STEEL UNLOADER Temperature 36.1 ??C (97 ??F) 06/04/2024 2:55 PM STEEL UNLOADER Respiratory Rate 18 06/04/2024 2:55 PM STEEL UNLOADER Oxygen Saturation 99% 06/04/2024 2:55 PM STEEL UNLOADER Inhaled Oxygen Concentration - - Weight 77.1 kg (170 lb) 06/04/2024 2:55 PM STEEL UNLOADER Height - - Body Mass Index - - Plan of Treatment Upcoming Encounters Date Type Department Care Team (Late st Contact Info) Description 07/09/2024 4:15 PM STEEL UNLOADER Office [facility] [address] [phone] Wero Hurtado, [address] [phone] Health Maintenance Due Date Last Done Comments Breast Cancer Screening 1955 Colorectal Cancer Screening: Annual FOBT 2006 Colorectal Cancer Screening: Colonoscopy 2006 Colorectal Cancer Screening: Sigmoidoscopy 2006 Pneumococcal Vaccine: 65+ Years (3 of 3 - PCV) 03/11/2021 03/11/2020, 05/07/2014 Influenza Vaccine Completed 04/10/2024, , 05/06/2021, Additional history exists Hepatitis B Vaccine Aged Out No longe r eligible based on patient's age to complete this topic Insurance [facility] MEDICARE Care Teams Vacuum Cooker Operator Relationship Specialty Start Date End Date Juanita Gonsales MD [address] [place] [address] PCP - General Internal Medicine 01/29/24
--- OUTSIDE RECORDS SUMMARY | 2024-06-18 13:37 | XMS_ITS | Encounter Summary ---
Author Organization [facility] Address [address] [place] [address] Care Team Providers Care Television Producer Name Role Phone Terry Reese SACK [employer]-H[employer]AN RESOURCES DISTRICT MANAGER Primary Care Provider Encounter Details Date Type Department Care Team (Late st Contact [facility]) Description 04/15/2019 Telephone [facility] [address] [place] [address] Tessa Nolen, RN Social History Tobacco Use Types Packs/Day Years Used Date Smoking Tobacco: Never Smokeless Tobacco: Never Alcohol Use Standard Drinks/Week Comments Yes 0 (1 standard drink = 0.6 oz pur e alcohol) rarely Sex and Gender Information Value Date Recorded Sex Assigned at Not on file Gender Identity Not on file Sexual Orientation Not on file documented as of this encounter Progress Notes * Tessa Nolen RN - 04/15/2019 10:54 AM CST Appt time and instructions confirmed with patient, pt verbalized understanding. Questions answered. RINARY TECHNOLOGIST documented in this encounter Plan of Treatment Not on file documented as of this encounter Visit Diagnoses Not on filedocumented in this encounter Additional Health Concerns Infection Onset Date Last Indicated Resolved Time MRSA 06/06/2019 06/17/2019 documented as of this encounter Care Teams Television Producer Relationship Specialty Start Date End Date Terry Reese, S[employer] RESOURCES DISTRICT MANAGER [address] [phone] PCP - General Nurse Practitioner 03/04/19 documented as of this encounter
--- OUTSIDE RECORDS SUMMARY | 2024-06-18 13:37 | XMS_ITS | Referral Summary ---
Author Organization [facility] Address [address] [place] [address] Care Team Providers Care Bulk Coolers Installer Name Role Phone Terry Reese SMASH HAND-FRUIT HARVESTER MACHINE OPERATOR Primary Care Provider Source Comments [facility],non-owned Affiliates and Associated Physician Practices is amultiple site organization consisting of ambulatory clinics and hospital sitesin [place], [place], [place] and [place]. This disclosure is being madepursuant to the Care Everywhere program and may not contain all information available regarding this patient. Last updated 18.[facility] Allergies No known active allergies Medications * Be aware that medications may not be up to date on this document. Alwaysverify current medications with the patient. Medication Sig Dispensed Refills Start Date End Date Status albuterol HFA (PROVENTIL;VENTOLI N;PROAIR) 108 (90 Base) MCG/ACT inhaler Inhale 2 puffs by mouth every 4 hours as needed Active tiZANidine (ZANAFLEX) 4 MG tablet Take 4 mg by mouth every 8 hours as needed Active INCRUSE ELLIPTA 62.5 MCG/INH inhaler Inhale 1 puff by mouth once daily 02/20/2019 Active atorvastatin (LIPITOR) 20 MG tablet Take 20 mg by mouth once daily Active estradiol (ESTRACE) 1 MG tablet Take 1 mg by mouth once daily Active gabapentin (NEURONTIN) 300 MG capsule Take 300 mg by mouth at bedtime Active ibuprofen (MOTRIN) 800 MG tablet Take 800 mg by mouth every 8 hours as needed Active levothyroxine (SYNTHROID) 50 MCG tablet Take 50 mcg by mouth daily before breakfast 02/04/2019 Active raNITIdine (ZANTAC) 150 MG tablet 03/04/2019 Active FLUTICASONE PROPIONATE HFA IN Inhale 2 puffs by mouth 2 times daily Active montelukast (SINGULAIR) 10 MG tablet Take 10 mg by mouth at bedtime Active acetaminophen (TYLENOL) 500 MG tablet Take 2 tablets by mouth every 6 hours Maximum allowable Acetaminophen amount = 4 Grams (4000 mg) / 24 hours. 06/08/2019 Active Additional Information Patient not taking.Reported on 06/28/2019 oxyCODONE, immediate release, (ROXICODONE) 5 MG tablet Take 1 tablet by mouth every 4 hours as needed for Pain 12 tablet 06/20/2019 Active Additional Information Patient not taking.Reported on 06/28/2019 docusate sodium (COLACE) 100 MG capsule Take 1 capsule by mouth once daily 06/21/2019 Active Additional Information Patient not taking.Reported on 06/28/2019 acetaminophen-code ine (TYLENOL #4) 300-60 MG tablet 11/30/2018 Active omeprazole (PRILOSEC) 20 MG capsule 12/12/2019 Active Active Problems Problem Noted Date Diagnosed Date Subcutaneous emphysema 06/20/2019 Postprocedural pneumothorax 06/17/2019 Encounter for chest tube placement 06/17/2019 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 (F LUZONE; FLULAVAL; FLUARIX; AFLURIA QUADRIVALENT; 6MO+), 0.5 ML (IIV4) 02/21/2019,03/07/2018 Social History Tobacco Use Types Packs/Day Years [...] T Respiratory Rate 12 06/28/2019 8:27 AM REHABILITATION MEDICINE PHYSICIAN Oxygen Saturation 100% 12/27/2019 8:28 AM CDT Inhaled Oxygen Concentration - - Weight 65.8 kg (145 lb) 12/27/2019 8:28 AM CDT Height 152.4 cm (5') 06/28/2019 8:27 AM REHABILITATION MEDICINE PHYSICIAN Body Mass Index 28.32 06/28/2019 8:27 AM REHABILITATION MEDICINE PHYSICIAN Functional Status Functional Status Response Date of Assess ment Is person deaf or have serious hearing difficult y? No 06/17/2019 Is person blind or have serious difficulty seein g? No 06/17/2019 Does person have serious dif ficulty walking/climbing stairs? No 06/17/2019 Does person have difficulty dressing/bathing? No 06/17/2019 Does person have difficulty doing errands alone? No 06/17/2019 Cognitive Status Response Date of Assessm ent Does person have difficulty concentrating/remembering/making decisions? No 06/17/2019 Plan of Treatment Not on file Procedures Procedure Name Priority Date/Time Associated Diagnosis Comments COMPREHENSIVE METABOLIC PANEL Routine 06/20/2019 4:30 AM REHABILITATION MEDICINE PHYSICIAN from Last 3 Months or Most Recently Relevant to Health Maintenance Results * (ABNORMAL) COMPREHENSIVE METABOLIC PANEL (06/20/2019 4:30 AM REHABILITATION MEDICINE PHYSICIAN) Glucose 119(H) 70 - 105 mg/dL 06/20/2019 5:[address] [facility] Sodium 138 136 - 145 mmol/L 06/20/2019 5:[address] [facility] Potassium 3.4(L) 3.5 - 5.1 mmol/L 06/20/2019 5:[address] [facility] Chloride 104 98 - 107 mmol/L 06/20/2019 5:[address] [facility] CO2 23 23 - 31 mmol/L 06/20/2019 5:[address] [facility] Calcium 8.2(L) 8.4 - 10.4 mg/dL 06/20/2019 5:[address] [facility] Anion Gap 11 8 - 16 mmol/L 06/20/2019 5:54 AM REHABILITATION MEDICINE PHYSICIAN [facility] BUN 10 9.8 - 20.1 mg/dL 06/20/2019 5:54 AM REHABILITATION MEDICINE PHYSICIAN [facility] Creatinine 0.75 0.57 - 1.11 mg/dL 06/20/2019 5:54 AM REHABILITATION MEDICINE PHYSICIAN [facility] Alkaline Phosphatase 139 40 - 150 U/L 06/20/2019 5:54 AM REHABILITATION MEDICINE PHYSICIAN [facility] ALT 11 0 - 61 U/L 06/20/2019 5:54 AM REHABILITATION MEDICINE PHYSICIAN [facility] AST 11 5 - 34 U/L 06/20/2019 5:54 AM REHABILITATION MEDICINE PHYSICIAN [facility] Protein Total 5.3(L) 6.4 - 8.3 gm/dL 06/20/2019 5:54 AM REHABILITATION MEDICINE PHYSICIAN [facility] Albumin 2.9(L) 3.2 - 4.6 gm/dL 06/20/2019 5:54 AM REHABILITATION MEDICINE PHYSICIAN [facility] Bilirubin Total 0.5 0.2 - 1.0 mg/dL 06/20/2019 5:54 AM REHABILITATION MEDICINE PHYSICIAN [facility] eGFR by MDRD >60 >60 mL/min/1.7 3m2 06/20/2019 5:54 AM REHABILITATION MEDICINE PHYSICIAN [facility] eGFR by MDRD >60 >60 mL/min/1.7 3m2 06/20/2019 5:[address] [facility] Blood BLOOD SPECIMEN / Unknown Lab Venipuncture / Unknown 06/20/2019 4:30 AM REHABILITATION MEDICINE PHYSICIAN 06/20/2019 4:57 AM REHABILITATION MEDICINE PHYSICIAN Trisha Valera MD LAB - CHEMISTRY ORD ERABLES Performing Organization Address City/State/[facility] Co de Phone Number [facility] [address] [place] [address] from Last 3 Months or Most Recently Relevant to Health Maintenance Additional Health Concerns Infection Onset Date Last Indicated MRSA 06/06/2019 06/17/2019 Advance Directives * Full Code (Latest Code Status on File) Date Activated Date Inactivated Comments 06/17/2019 7:55 PM 06/20/2019 7:32 PM * Full Code Date Activated Date Inactivated Comments 06/17/2019 6:51 PM 06/17/2019 7:55 PM * Full Code Date Activated Date Inactivated Comments 06/06/2019 1:04 PM 06/08/2019 8:18 PM Care Teams Bulk Coolers Installer Relationship Specialty Start Date End Date Terry Reese, TABBY-FRUIT HARVESTER MACHINE OPERATOR [address] [place] [address] PCP - General Nurse Practitioner 03/04/19
--- OUTSIDE RECORDS SUMMARY | 2024-06-18 13:37 | XMS_ITS | Clinical Summary ---
Author Organization [facility] Address [address] [place] [address] Care Team Providers Care Retail Store Manager Name Role Phone Terry Reese COMBER SETTER-DIRECTOR CORPORATE COMMUNICATIONS Primary Care Provider Source Comments [facility],non-owned Affiliates and Associated Physician Practices is amultiple site organization consisting of ambulatory clinics and hospital sitesin [place], [place], [place] and [place]. This disclosure is being madepursuant to the Care Everywhere program and may not contain all information available regarding this patient. Last updated 18.[facility] Allergies No known active allergies Medications * [...] AFLURIA QUADRIVALENT; 6MO+), 0.5 ML (IIV4) 02/21/2019,03/07/2018 Family History Medical History Relation Name Comments COPD - Chronic Obstructive Pulmonary Disease Father Cancer - Other Mother Relation Name Status Comments Father Mother Social History Tobacco Use Types Packs/Day Years [...] T Respiratory Rate 12 06/28/2019 8:27 AM HOSPITAL MORTICIAN Oxygen Saturation 100% 12/27/2019 8:28 AM CDT Inhaled Oxygen Concentration - - Weight 65.8 kg (145 lb) 12/27/2019 8:28 AM CDT Height 152.4 cm (5') 06/28/2019 8:27 AM HOSPITAL MORTICIAN Body Mass Index 28.32 06/28/2019 8:27 AM HOSPITAL MORTICIAN Plan of Treatment Health Maintenance Due Date Last Done Comments BONE DENSITY TESTING 1957 COLOGUARD (AGES 45-75) - COLON CA SCREENING 1957 COLON MONITORING 1957 COLONOSCOPY - COLON CA SCREENING 1957 CT COLONOGRAPHY - COLON CA SCREENING 1957 Colorectal Cancer Screening 1957 FIT - COLON CA SCREENING 1957 FLEX SIG - COLON CA SCREENING 1957 MAMMOGRAM 1957 HEPATITIS C SCREENING 09/14/1975 DTAP/TDAP/TD VACCINES (1 - Tdap) 1976 PNEUMOCOCCAL VACCINE 50+ (1 of 1 - PCV) 09/19/2007 ZOSTER VACCINE (1 of 2) 09/19/2007 SCREENING FOR DIABETES 06/20/2022 0, 06/19/2019, 06/18/2019, Additional history exists COVID-19 VACCINE (3 - 2023- season) 2024 10/08/2020, 09/17/2020 INFLUENZA VACCINE (#1) 2024 2, 05/06/2021, 03/11/2020, Additional history exists DEPRESSION SCREENING 05/22/2024 Respiratory Syncytial Virus (RSV) Vaccine Pt: or over 60 yrs (1 - 1-dose 75+ series) 2032 HEPATITIS B VACCINE Aged Out No longe r eligible based on patient's age to complete this topic HIB VACCINE Aged Out No longer eligi ble based on patient's age to complete this topic HPV VACCINE Aged Out No longer eligi ble based on patient's age to complete this topic MENINGOCOCCAL (Group B) VACCINE Aged Out No longer eligible based on patient's age to complete this topic MENINGOCOCCAL VACCINE Aged Out No alma marty eligible based on patient's age to complete this topic Procedures Procedure Name Priority Date/Time Associated Diagnosis Comments COMPREHENSIVE METABOLIC PANEL Routine 06/20/2019 4:30 AM HOSPITAL MORTICIAN from Last 3 Months or Most Recently Relevant to Health Maintenance Results * (ABNORMAL) COMPREHENSIVE METABOLIC PANEL (06/20/2019 4:30 AM HOSPITAL MORTICIAN) Glucose 119(H) 70 - 105 mg/dL 06/20/2019 5:54 AM HOSPITAL MORTICIAN [facility] Sodium 138 136 - 145 mmol/L 06/20/2019 5:54 AM [facility] Potassium 3.4(L) 3.5 - 5.1 mmol/L 06/20/2019 5:54 AM [facility] Chloride 104 98 - 107 mmol/L 06/20/2019 5:54 AM [facility] CO2 23 23 - 31 mmol/L 06/20/2019 5:54 AM [facility] Calcium 8.2(L) 8.4 - 10.4 mg/dL 06/20/2019 5:54 AM [facility] Anion Gap 11 8 - 16 mmol/L 06/20/2019 5:54 AM [facility] BUN 10 9.8 - 20.1 mg/dL 06/20/2019 5:54 AM [facility] Creatinine 0.75 0.57 - 1.11 mg/dL 06/20/2019 5:54 AM [facility] Alkaline Phosphatase 139 40 - 150 U/L 06/20/2019 5:54 AM [facility] ALT 11 0 - 61 U/L 06/20/2019 5:54 AM [facility] AST 11 5 - 34 U/L 06/20/2019 5:54 AM [facility] Protein Total 5.3(L) 6.4 - 8.3 gm/dL 06/20/2019 5:54 AM [facility] Albumin 2.9(L) 3.2 - 4.6 gm/dL 06/20/2019 5:54 AM [facility] Bilirubin Total 0.5 0.2 - 1.0 mg/dL 06/20/2019 5:54 AM HOSPITAL MORTICIAN [facility] eGFR by MDRD >60 >60 mL/min/1.7 3m2 06/20/2019 5:54 AM HOSPITAL MORTICIAN [facility] eGFR by MDRD >60 >60 mL/min/1.7 3m2 06/20/2019 5:54 AM HOSPITAL MORTICIAN [facility] Blood BLOOD SPECIMEN / Unknown Lab Venipuncture / Unknown 06/20/2019 4:30 AM HOSPITAL MORTICIAN 06/20/2019 4:57 AM HOSPITAL MORTICIAN Trisha Valera MD LAB - CHEMISTRY ORD ERABLES [facility] [address] [place] [address] from Last 3 Months or Most Recently [...] 1:04 PM 06/08/2019 8:18 PM Care Teams Retail Store Manager Relationship Specialty Start Date End Date Terry Reese, COMBER SETTER-DIRECTOR CORPORATE COMMUNICATIONS [address] [place] [address] PCP - General Nurse Practitioner 03/04/19
--- OUTSIDE RECORDS SUMMARY | 2024-06-18 13:37 | XMS_ITS | Data Portability ---
Author Organization [place] [facility] [employer] [facility], Main Office Address [address] [place] [address] Assessment Encounter Date Assessment Date Assessment LastModified by Organization Details LastModified Time 05/13/2024 05/13/2024 Time spent with patient included: preparing to see patient by reviewing tests, obtaining and reviewing history, medical examination and evaluation, counseling and educating the patient, ordering medications and tests, documenting clinical information in EHR, independently interpreting results and communicating results to the patient for a total of 48 minutes. Not available 05/13/2024 12:40:34 06/10/2024 06/10/2024 Time spent with patient included: preparing to see patient by reviewing tests, obtaining and reviewing history, medical examination and evaluation, counseling and educating the patient, ordering medications and tests, documenting clinical information in EHR, independently interpreting results and communicating results to the patient for a total of 38 minutes. Not available 06/10/2024 11:15:04 Plan of Treatment Reminders Order Date Submit Date Provider Last Modified By Organization Details Last Modified Time Details Appointments New Patient 2024 01:30P María Elena Crowder MD Not available Not available Not available Any 30 2025 09:30A María Elena Apodaca NP Not available Not available Not available Lab alpha-1-a ntitrypsi n (aat) phenotype , serum 2023 [facility] - Outpatient Lab, [address] [place] [address], [address], 06/10/2024 16:57:16 BNP (B-type natriuret ic peptide), serum or plasma 2023 [facility] - Outpatient Lab, [address] [place], [address], 06/10/2024 16:57:16 ige, total, serum 2023 [facility] Outpatient Lab, [address] [place], [address], 06/04/2024 18:08:20 tb (M tuberculo sis), ifn-gamma melissa, blood 2023 [facility] Out[facility] Lab, [address] [place], [address], 06/10/2024 16:57:[address] 1+2+3+4, serum 2023 [facility], [address] [place], [address], 06/10/2024 16:57:17 respirato ry allergen panel, [facility] A, serum 2023 [facility], [address] [place], [address], 06/10/2024 16:57:17 respirato ry allergen panel - [facility] b 2023 [facility], [address] [place], [address], 06/10/2024 16:57:17 Referral None recorded. Procedures None recorded. Surgeries None recorded. Imaging CT, chest, w/ contrast - Please call patient to schedule. 2024 [facility], [address] [place] [address] [address] [address], [place], [address], 06/11/2024 18:15:32 Medication Orders Incruse Ellipta 62.5 mcg/actua tion powder for inhalatio n 2023 [facility] [address] [facility], [address] [place], [address], 05/13/2024 12:41:33 albuterol sulfate HFA 90 mcg/actua tion aerosol inhaler 2023 024 [facility]MA [facility] [address] [facility], [address] [place] [address], [address], 05/13/2024 12:42:10 Incruse Ellipta 62.5 mcg/actua tion powder for inhalatio n 2024 025 [facility] DA[facility] [address] [facility], [address] [place] [address], [address], 06/10/2024 10:33:34 albuterol sulfate HFA 90 mcg/actua tion aerosol inhaler 2024 0[facility] [address] [facility], [address] [place] [address], [address], 06/10/2024 10:33:33 Patient TargetsNo targets recorded. Patient Instructions Encounter Date Encounter Id Patient Instructions Last Modified By Organization Details Last Modified Time 05/13/2024 [id number] complete PFT w/ post bronchodilator spirometry* - Please call patient to schedule. SARWAT [id number] per [facility] payor portal, ref #[id number] LUMA Not available 06/04/2024 18:08:20 Reason for Referral None Reported. Results Created Date Observation Date Name Description Value Unit Range Abnormal Flag Note LastModifiedBy Organization Detail LastModifiedTime 11/18/19 21 11/13/2020 compl ete PFT w/ post [facility] hodil ator juliano metry * No observ ation record ed. [id number] Not Available 07/20/2022 05:01:07 12/24/19 21 12/17/2020 pulmo nary funct ion test* No observ ation record ed. [id number] Not Available 07/20/2022 05:01:07 01/08/20 21 12/17/2020 compl ete PFT w/ post [facility] hodil ator juliano metry * No observ ation record ed. [id number] [facility] [address] [place], [address], 07/20/2022 05:01:07 07/05/19 22 01/02/2018 XR, chest , 2 view No observ ation record ed. [id number] Not Available 07/20/2022 05:01:07 06/04/19 25 05/29/2024 compl ete PFT w/ post [facility] hodil ator juliano metry * No observ ation record ed. [address] (Pulmonary) [address], [place], [address], 06/10/2024 15:58:29 Result Notes None recorded. Problems Name Problem SNOMED Code Status Onset Date Resolution Date Notes Provider Name and Address Organization Details Recorded Time Malignant tumor of lung 669545594 Active 2023 Rosa Apodaca NP [address] [facility], [facility] [address], [place], [address] , [place] [employer] 4 12:31:33 History of malignant neoplasm of lung 884640217 Active 2024 Rosa Apodaca NP [address] [address], [place], [address] , [employer] 5 10:42:37 Asthma-chr onic obstructiv e pulmonary disease overlap syndrome 6878170348809 9107 Active 2018 Not Available [facility] 3 04:49:49 Chronic obstructiv e pulmonary disease 88922816 Active Not Available [facility] 3 04:49:49 Increased frequency of urination 474814736 Active Not Available [facility] 3 04:49:49 Asthma 807957377 Active 2018 Not Available [facility] 3 04:49:49 Lung mass 339954149 Active 2018 Not Available [facility] 3 04:49:49 Daytime hypersomni a 8015320681624 2 Active 2018 Not Available [facility] 3 04:49:49 Malignant tumor of lung 671193441 Active 2019 Not Available [facility] 3 04:49:49 Arthritis 4163650 Active Not Available [facility] 3 04:49:49 Incontinen ce 03853948 Active Not Available [facility] 3 04:49:50 Hip pain 36559169 Active Not Available [facility] 3 04:49:50 Dyspnea on exertion 96870992 Active 2018 Not Available [facility] 3 04:49:50 Notes:Some problems listed i n Documents: #[id number], #[id number] could not be added to this patient's chart. Please review these documents and add these problems to the patient's chart manually as needed. Problem Notes None recorded. Procedures Surgical History Date Name Laterality Status Provider Name and Address Organization Details Recorded Time delivery completed Liza Donald MA [facility] [employer] [facility] 05/13/2024 11:58:52 Lung Surgery completed KANE Dobbs [facility] [employer] [facility] 05/13/2024 11:59:12 Imaging Results Imaging Date Name Status LastModified by Organization Details LastModified Time 11/13/2020 complete PFT w/ post bronchodilator spirometry* completed [id number] Information not available 07/20/2022 05:01:07 12/17/2020 pulmonary function test* completed [id number] Information not available 07/20/2022 05:01:07 12/17/2020 complete PFT w/ post bronchodilator spirometry* completed [id number] [facility] [address] [place], [address], 07/20/2022 05:01:07 01/02/2018 XR, chest, 2 view completed [id number] Information not available 07/20/2022 05:01:07 05/29/2024 complete PFT w/ post bronchodilator spirometry* completed [address] (Pulmonary) [address] [place] [address] [place] [address], [address], 06/10/2024 15:58:29 Procedure Notes None recorded. Medical Equipment None Reported. Allergies No known drug allergies Medications Name Sig Start Date Stop Date Status Note LastModified by Organization Details LastModified Time furosemide 40 mg tablet TAKE 1 TABLET BY MOUTH EVERY DAY FOR 10 DAYS 10/07 completed Not Available Not Available Not Available atorvastati n 40 mg tablet TAKE 1 TABLET BY MOUTH EVERY DAY 05/13 completed Not Available Not Available Not Available Qvar 80 mcg/actuati on Metered Aerosol oral inhaler 09/11 completed Not Available Not Available Not Available promethazin e-DM 6.25 mg-15 mg/5 mL oral syrup TAKE 5 MLS BY MOUTH THREE TIMES A DAY NEEDED FOR 10 DAYS active Not Available Not Available No t Available fluticasone 250 mcg-salmete rol 50 mcg/dose blistr powdr for inhalation Inhale 1 puff twice a day by inhalatio n route as directed for 30 days. 08/21 completed Not Available Not Available Not Available atorvastati n 80 mg tablet TAKE 1 TABLET BY MOUTH EVERY DAY active Not Available Not Available No t Available nystatin 100,000 unit/mL oral suspension 06/12 completed Not Available Not Available Not Available gabapentin 600 mg tablet 08/15 completed Not Available Not Available Not Available paroxetine 10 mg tablet 09/11 completed Not Available Not Available Not Available atorvastati n 20 mg tablet TAKE 1 TABLET BY MOUTH EVERY DAY IN THE MORNING 10/07 completed Not Available Not Available Not Available azithromyci n 250 mg tablet 10/07 completed Not Available Not Available Not Available ibuprofen 800 mg tablet TAKE 1 TABLET BY MOUTH THREE TIMES A DAY WITH FOOD active Not Available Not Available No t Available ofloxacin 0.3 % eye drops active Not Available Not Available Not Available tizanidine 4 mg tablet TAKE 1 TABLET BY MOUTH THREE TIMES A DAY NEEDED active Not Available Not Available No t Available hydrocodone 5 mg-acetamin ophen 325 mg tablet TAKE 1 TABLET BY MOUTH TWICE A DAY NEEDED 05/13 completed Not Available Not Available Not Available meloxicam 15 mg tablet Take 1 tablet every day by oral route. 09/11 completed Not Available Not Available Not Available prednisone 20 mg tablet PLEASE SEE ATTACHED FOR DETAILED DIRECTION S 04/23 /2021 completed Not Available Not Available Not Available potassium chloride ER 10 mEq tablet,exte nded release TAKE 2 TABLETS BY MOUTH EVERY MORNING active Not Available Not Available No t Available metronidazo le 500 mg tablet 09/11 completed Not Available Not Available Not Available ciprofloxac in 500 mg tablet Take 1 tablet every 12 hours by oral route for 2 days. 11/28 completed Not Available Not Available Not Available sulfamethox azole 800 mg-trimetho prim 160 mg tablet Take 1 tablet every 12 hours by oral route for 10 days. 12/09 completed Not Available Not Available Not Available omeprazole 40 mg capsule,del ayed release TAKE 1 CAPSULE BY MOUTH EVERY DAY active Not Available Not Available No t Available tramadol 50 mg tablet Take 1 tablet every 6 hours by oral route. active Not Available Not Available No t Available ketorolac 0.5 % eye drops active Not Available Not Available Not Available oxycodone-a cetaminophe n 5 mg-325 mg tablet 09/11 completed Not Available Not Available Not Available prednisolon e acetate 1 % eye drops,suspe nsion active Not Available Not Available Not Available estradiol 1 mg tablet TAKE ONE TABLET BY MOUTH ONCE DAILY 10/07 completed Not Available Not Available Not Available baclofen 10 mg tablet Take 1 tablet 3 times a day by oral route. 12/09 completed Not Available Not Available Not Available levothyroxi ne 50 mcg tablet TAKE 1 TABLET BY MOUTH EVERY DAY IN THE MORNING active Not Available Not Available No t Available hydrocodone 7.5 mg-acetamin ophen 325 mg tablet TAKE 1 TABLET BY MOUTH TWICE A DAY active Not Available Not Available No t Available cephalexin 500 mg capsule 12/09 completed Not Available Not Available Not Available paroxetine 20 mg tablet 08/15 completed Not Available Not Available Not Available ferrous sulfate 325 mg (65 mg iron) tablet TAKE 1 TABLET BY MOUTH EVERY DAY active Not Available Not Available No t Available nystatin 100,000 unit/gram topical cream 06/12 completed Not Available Not Available Not Available ranitidine 150 mg tablet 12/09 completed Not Available Not Available Not Available lidocaine 5 % topical patch APPLY 1 PATCH BY TOPICAL ROUTE ONCE DAILY (MAY WEAR UP TO 12HOURS.) active Not Available Not Available No t Available hydrochloro thiazide 12.5 mg capsule TAKE 1 CAPSULE BY MOUTH EVERY DAY active Not Available Not Available No t Available gabapentin 300 mg capsule Take 1 capsule 3 times a day by oral route. active Not Available Not Available No t Available omeprazole 20 mg capsule,del ayed release TAKE 1 CAPSULE BY MOUTH EVERY DAY BEFORE A MEAL 05/13 completed Not Available Not Available Not Available diclofenac sodium 75 mg tablet,stefan yed release 01/03 completed Not Available Not Available Not Available montelukast 10 mg tablet TAKE 1 TABLET BY MOUTH EVERYDAY AT BEDTIME active Not Available Not Available No t Available acetaminoph en 300 mg-codeine 60 mg tablet 06/12 completed Not Available Not Available Not Available bisacodyl 5 mg tablet,stefan yed release 09/11 completed Not Available Not Available Not Available ranitidine 150 mg capsule Take 1 capsule every day by oral route. 10/08 completed Not Available Not Available Not Available mupirocin 2 % topical ointment 09/11 completed Not Available Not Available Not Available Oriskany 10 mg-325 mg tablet Take 1 tablet every 4 hours by oral route. 09/11 completed Not Available Not Available Not Available gabapentin 100 mg capsule TAKE 1 CAPSULE BY MOUTH THREE TIMES A DAY active Not Available Not Available No t Available ergocalcife rol (vitamin D2) 1,250 mcg (50,000 unit) capsule TAKE 1 CAPSULE BY MOUTH WEEKLY WITH MEALS active Not Available Not Available No t Available levofloxaci n 500 mg tablet Take 1 tablet every 24 hours by oral route. 12/09 completed Not Available Not Available Not Available albuterol sulfate HFA 90 mcg/actuati on aerosol inhaler INHALE 2 PUFF(S) BY MOUTH 3 TIMES A DAY NEEDED FOR 30 DAYS. 2024 active Not Available Not Available Not Avai lable oxybutynin chloride 5 mg tablet active Not Available Not Available No t Available lisinopril 40 mg tablet TAKE 1 TABLET BY MOUTH EVERY DAY active Not Available Not Available No t Available amoxicillin 875 mg-potassiu m clavulanate 125 mg tablet 12/09 completed Not Available Not Available Not Available oxycodone 5 mg tablet 12/09 completed Not Available Not Available Not Available Premarin 0.45 mg tablet TAKE 1 TABLET BY MOUTH EVERY DAY FOR 30 DAYS active Not Available Not Available No t Available Premarin 0.625 mg/gram vaginal cream 09/11 completed Not Available Not Available Not Available Spiriva with HandiHaler 18 mcg and inhalation capsules Inhale 1 capsule every day by inhalatio n route. 10/03 completed Not Available Not Available Not Available nitrofurant oin monohydrate /macrocryst als 100 mg capsule Take 1 capsule twice a day by oral route with meals for 10 days. 01/03 completed Not Available Not Available Not Available Symbicort 160 mcg-4.5 mcg/actuati on HFA aerosol inhaler Inhale 2 puffs twice a day by inhalatio n route as directed for 30 days. 12/21 completed Not Available Not Available Not Available peg 3350 240 gram-electr olytes 22.72 gram-6.72 g-5.84 g powdr for soln 09/11 completed Not Available Not Available Not Available omega 3-dha-epa-f helga oil 1,000 mg (120 mg-180 mg) capsule TAKE 1 CAPSULE BY MOUTH TWICE A DAY WITH FOOD active Not Available Not Available No t Available Dulera 200 mcg-5 mcg/actuati on HFA aerosol inhaler INHALE 2 PUFFS BY MOUTH TWICE A DAY DIRECTED FOR 30 DAYS. 10/07 completed Not Available Not Available Not Available Dulera 100 mcg-5 mcg/actuati on HFA aerosol inhaler TAKE 2 PUFFS BY MOUTH TWICE A DAY active Not Available Not Available No t Available Combivent Respimat 20 mcg-100 mcg/actuati on solution for inhalation INHALE ONE PUFF BY MOUTH FOUR TIMES A DAY DIRECTED 12/21 completed Not Available Not Available Not Available Myrbetriq 25 mg tablet,exte nded release Take 1 tablet every day by oral route for 28 days. 10/07 completed Not Available Not Available Not Available Myrbetriq 50 mg tablet,exte nded release Take 1 tablet every day by oral route. 09/11 completed Not Available Not Available Not Available Aerospan 80 mcg/actuati on HFA aerosol inhaler 09/11 completed Not Available Not Available Not Available Incruse Ellipta 62.5 mcg/actuati on powder for inhalation INHALE 1 PUFF BY MOUTH ONCE DAILY DIRECTED 2024 active Not Available Not Available Not Avai lable Spiriva Respimat 1.25 mcg/actuati on solution for inhalation Inhale 2 puffs every day by inhalatio n route as directed for 30 days. 12/21 completed Not Available Not Available Not Available Vitals Date Recorded Body height Oxygen saturation Oxygen saturation in Arterial blood by Pulse oximetry Heart rate Body temperature Systolic blood pressure Diastolic blood pressure Provider Name and Address Organization Details Last Updated DateTime 1 152.4 cm 97 % 97 % 80 /min 97.6 [degF] 102 mm[Hg] 60 mm[Hg] Not Available [facility] 3 04:47:01 Date Recorded Body height Body mass index (BMI) Body weight Body temperature Heart rate Oxygen saturation Oxygen saturation in Arterial blood by Pulse oximetry Systolic blood pressure Diastolic blood pressure Provider Name and Address Organization Details Last Updated DateTime 4 152.4 cm 33 kg/m2 53455.1 1 g 98 [degF] 76 /min 97 % 97 % 128 mm[Hg] 66 mm[Hg] Liza Donald MA [employer] 4 11:52:15 Date Recorded Body height Body mass index (BMI) Body weight Body temperature Heart rate Oxygen saturation Oxygen saturation in Arterial blood by Pulse oximetry Systolic blood pressure Diastolic blood pressure Provider Name and Address Organization Details Last Updated DateTime 5 152.4 cm 33.2 kg/m2 13230.7 g 98.1 [degF] 67 /min 98 % 98 % 122 mm[Hg] 64 mm[Hg] Hilda Moreno MA [employer] 5 10:18:31 Social History Question Answer Notes LastModified by Organizat ion Details LastModified Time Tobacco Smoking Status Never Smoker Not Available [facility] 07/20/2022 04:29:59 What Is Your Level Of Alcohol Consumption? Occasional [id number] Information not available 07/20/2022 What Is Your Level Of Caffeine Consumption? Heavy Information not available 05/13/2024 In The 14 Days Before Symptom Onset, Have You Had Close Contact With [facility] While That Case Was Ill? No [id number] Information not available 07/20/2022 In The 14 Days Before Symptom Onset, Have You Had Close Contact With A Person Who Is Under Investigation For COVID-19 While That Person Was Ill? No [id number] Information not available 07/20/2022 Are You Currently Employed? No Information not available 05/13/2024 What Type Of Diet Are You Following? REGULAR Information not available 05/13/2024 Do You Or Have You Ever Used E-cigarettes Or Vape? Never Used Electronic Cigarettes [id number] Information not available 07/20/2022 Do You Have An Electrostatic Air Filter? No Information not available 05/13/2024 Have You Been Exposed To Chemicals Or Toxins? No Not That Aware Of Information not available 05/13/2024 Do You Have A Humidifier? No Information not available 05/13/2024 Where [facility] You [facility]? [facility] Information not available 05/13/2024 Do You Have Moisture Problems In Your Home? No Information not available 05/13/2024 What Was The Date Of Your Most Recent Tobacco Screening? 06/10/2024 [email or web address] Information not available 06/10/2024 How Many Children Do You Have? 2 Information not available 05/13/2024 Do You Have Any Pets? Yes Information not available 05/13/2024 What Is Your Relationship Status? Information not available 05/13/2024 Do You Use Your Seat Belt Or Car Seat Routinely? Yes Information not available 05/13/2024 Do You Have Smoke And Carbon Monoxide Detectors In Your Home? Yes Information not available 05/13/2024 Are You Passively Exposed To Smoke? No Information not available 05/13/2024 Do You Or Have You Ever Used Smokeless Tobacco? Never Used Smokeless Tobacco [id number] Information not available 07/20/2022 Do You Feel Stressed (tense, Restless, Nervous, Or Anxious, Or Unable To Sleep At Night)? [id number] Information not available 05/13/2024 Do You Use Any Illicit Or Recreational Drugs? No Information not available 05/13/2024 Do You Use Sunscreen Routinely? No Information not available 05/13/2024 Have You Recently Traveled Abroad? No Information not available 05/13/2024 Do You Have Any Dietary Restrictions? No Information not available 05/13/2024 Sex: Unknown Functional Status Question Answer Note LastModified by Organization D etails LastModified Time What is your exercise level? None Information not available 05/13/2024 Mental Status None recorded. Family History Relationship Description Onset Age of this Age Resolved Age Notes LastModified by Organization Details LastModified Time Mother Disorder of lung [email or web address] Not available 2023 11:56:46 Father Disorder of lung [email or web address] Not available 2023 11:57:04 Medical History No medical history recorded. Gynecological HistoryNo gynecological history recorded. Obstetrics History GPAL:G 0 P 0 0 0 0 Immunizations Vaccine Type Date Status Note Provider Nam e and Address Organization Details Recorded Time influenza, unspecified formulation 9 completed Not Available [facility] 07/20/2022 05:00:26 Influenza, split virus, quadrivalent, PF 8 completed Not Available [facility] 07/20/2022 05:00:26 Past Encounters Encounter ID Performer Location Encounter Start Date Encounter Closed Date Diagnosis/Indication Diagnosis SNOMED-CT Code Diagnosis ICD10 Code Diagnosis Note [id number] [facility] [address] [address] 09/11/2020 00:00:00 09/11/2020 16:20:44 [id number] Rosa Apodaca NP [facility] [address] [address] 05/13/2024 11:22:06 05/13/2024 12:20:19 Asthma-chronic obstructive pulmonary disease overlap syndrome 4196553372 2816186 J44.9 ACT: 12CAT: 26Incruse refilledAl buterol inhaler refilledPF T completed in 2020 with reading PFT 12/17/20 FEV1 2.01 L (99%)Asthm a Action plan discussedU se Albuterol only PRN-if using more discussed need for re-evaluat ionIn depth discussion about s/s that require evaluation Return in 2 months or once testing complete-s ooner if needed Dyspnea on exertion 6084 5006 R06.09 multi-fact orial-has anemia and currently being worked up Body mass index 30+ - obesity 558968955 Z68.33 Encourage healthy diet and exercise to improve weightdisc ussed weight effect on sleep and sleep apnea Malignant tumor of lung 129856630 C34.90 She is followed by [facility] [id number] Rosa Apodaca NP [facility] [address] [facility] [address] [place] [address] 06/10/2024 09:49:41 06/10/2024 13:06:40 Asthma-chronic obstructive pulmonary disease overlap syndrome 0202251410 8475069 J44.9 ACT: 14CAT: 2RAST-mild cockroach otherwise unremarkab le, BNP neg and TB negIncruse refilledAl buterol inhaler refilledPF T completed in 2024 with reading PFT 12/17/20 FEV1 1.86 L (92%)-decr ease from 2020 but wnlAsthma Action plan discussedU se Albuterol only PRN-if using more discussed need for re-evaluat ionIn depth discussion about s/s that require evaluation Return in 1 year-soone r if needed-rev iewed concerning s/s to return or go to [place] have advised patient that with her hx of anemia and having sob with chest pressure (none currently and rare event) that she should discuss with her primary and be referred to cardiology -she is stable pulmonary gardiner Body mass index 30+ - obesity 083789502 Z68.33 Encourage healthy diet and exercise to improve weightdisc ussed weight effect on sleep and sleep apnea History of malignant neoplasm of lung 787009362 Z85.118 R06.00 history of lung ca-right mid-she has not seen [facility] for a couple years Health Concerns Section Related Observation LastModified by Organization Detai ls LastModified Time None Recorded Concern Status LastModified by Organization Details LastModified Time None Recorded Advance Directives Directive None Recorded Payers Encounter Date Sequence Insurance Name Policy Number Policy Mayorga Covered Member ID Mayorga Member ID Guarantor Name 05/13/2024 1 [facility] (MEDICARE REPLACEMENT/A DVANTAGE - HMO) [id number] Flora Siddiqi [id number] Flora Siddiqi 06/10/2024 1 [facility] [facility] (MEDICARE REPLACEMENT/A DVANTAGE - HMO) [id number] Flora Kym Siddiqi [id number] Flora Siddiqi Notes Date Note Type Note Provider Name and Address Organization Details Recorded Time 05/13/2024 text/html AsthmaReported bypatient.Quality:we ll-controlled Severity:no decrease in activities of daily living; improving Timing:infrequent; more than 2 days per week; with activity Context:allergic rhinitis; COPD Aggravating Factors:hormonal changes; changes in weather; physical activity Alleviating Factors:antihistamin es; inhaled glucocorticoid Associated Symptoms:no fever; no cough; no anorexia; no wheeze; no tachypnea; no retractions; no sleep disturbance;fatigue; dyspnea(with exertion) Prior Tests and Treatments:short-act ing beta agonist; oral glucocorticoids; spirometryNotes:has COPD overlap-denies any occupational, smoking hx, or other exposureunsure if she has had allergy work-[employer] PFT 2020-using her albuterol inhaler 4-6 times a week worse with exertion-her primary has been filling but referred her back to be followedable to do ADL's Rosa Apodaca NP [address], [employer], [place], [address], [employer] 05/13/2024 12:42:59 06/10/2024 text/html AsthmaReported bypatient.Quality:we ll-controlled Severity:no decrease in activities of daily living; improving Timing:infrequent; more than 2 days per week; with activity Context:allergic rhinitis; COPD Aggravating Factors:hormonal changes; changes in weather; physical activity Alleviating Factors:antihistamin es; inhaled glucocorticoid Associated Symptoms:no fever; no cough; no anorexia; no wheeze; no tachypnea; no retractions; no sleep disturbance;fatigue; dyspnea(with exertion) Prior Tests and Treatments:short-act ing beta agonist; oral glucocorticoids; spirometry Rosa Apodaca NP [address] [facility] [address], [employer], [place], [address], [employer] 06/10/2024 11:15:20 OBGyn Episode No OBEpisode recorded.
--- OUTSIDE RECORDS SUMMARY | 2024-06-18 13:39 | XMS_ITS | Data Portability ---
Author Organization [facility] Address [address] [place] [address] Care Team Providers Care Pneumatic Tester Mechanic Name Role Phone PETRA FARRELL Thoracic Surgeon ROSELIA FULLER Road Test Examiner JUANITA CHACON Primary Care Provider Assessment No assessment recorded. Plan of Treatment Reminders Order Date Submit Date Provider Last Modified By Organization Details Last Modified Time Details Appointments ANY 2024 02:45P M Unassigned Not available Not available Not available ANY 2024 01:15P M Juanita Chacon MD Not available Not available Not available ANY 2024 10:00A M Juanita Chacon MD Not available Not available Not available Lab CMP, serum or plasma 2022 023 [facility], [address] [place] [address], [address], [place], [address], 03/14/2023 11:40:14 lipid panel, serum 2022 023 [facility], [address] [place] [address], [address], [place], [address], 03/14/2023 11:40:13 CBC 2022 023 [facility], [address] [facility], [address], [place], [address], 03/14/2023 11:40:13 TSH + free T4, serum 2022 023 [facility], [address], [address], [place], [address], 03/14/2023 11:40:13 drug screen, 14 drugs (detect imed), urine 2023 024 [facility], [address], [address], [place], [address], 06/06/2023 13:09:42 HbA1c (hemogl obin A1c), blood 2023 024 [facility], [address], [address], [place], [address], 08/30/2023 13:12:19 CBC 2023 024 [facility], [address], [address], [place], [address], 08/30/2023 13:12:20 lipid panel, serum 2023 024 [facility], [address], [address], [place], [address], 08/30/2023 13:12:18 vitamin D, 25-hydr oxy, total, serum 2023 024 [facility], [address], [address], [place], [address], 08/30/2023 13:12:20 CMP, serum or plasma 2023 024 [facility], [address], [address], [place], [address], 08/30/2023 13:12:19 TSH + free T4, serum 2023 024 [facility], [address], [address], [place], [address], 08/30/2023 13:12:17 drug screen, 14 drugs (detect imed), urine 2023 [facility], [address], [address], [place], [address], 04/17/2024 15:11:48 HbA1c (hemogl obin A1c), blood 2023 [facility], [address], [address], [place], [address], 04/11/2024 10:16:09 CMP, serum or plasma 2023 024 [facility], [address], [address], [place], [address], 04/11/2024 10:16:07 lipid panel, serum 2023 024 [facility], [address], [address], [place], [address], 04/11/2024 10:16:06 CBC 2023 024 [facility], [address], [address], [place], [address], 04/11/2024 10:16:12 TSH, ultra-s ensitiv e, serum 2023 024 [facility], [address], [address], [place], [address], 04/11/2024 10:16:11 Referral None recorde d. Procedures None recorde d. Surgeries None recorde d. Imaging None recorde d. Medication Orders hydroco done 5 mg-acet aminoph en 325 mg tablet 2022 023 [email or web address] [id number], [address], 09/27/2023 11:40:06 hydroco done 7.5 mg-acet aminoph en 325 mg tablet 2023 024 [email or web address], [address], 08/29/2023 12:06:17 ibuprof en 800 mg tablet 2023 024 [facility]AIKA [address], [address], 08/29/2023 12:06:13 omepraz ole 40 mg capsule ,delaye d release 2023 024 [facility]AIKA [address], [address], 08/29/2023 12:06:13 Fiber (psylli um husk) 0.52 gram capsule 2023 024 [facility]MA[facility] [address], [address], 08/29/2023 12:08:08 levothy roxine 50 mcg tablet 2023 024 [facility] [address], [address], 08/29/2023 12:06:13 hydroco done 7.5 mg-acet aminoph en 325 mg tablet 2023 024 [facility], [address], 01/16/2024 16:07:32 dextrom ethorph an-guai fenesin 10 mg-100 mg/5 mL oral liquid 2023 024 [facility] [id number], [address], 01/16/2024 16:07:29 hydroch lorothi azide 12.5 mg capsule 2023 024 [facility] [address], [address], 01/16/2024 16:07:29 ferrous sulfate 325 mg (65 mg iron) tablet 2023 024 [facility] [id number], [address], 01/16/2024 16:07:31 hydroco done 7.5 mg-acet aminoph en 325 mg tablet 2023 024 [facility] [id number], [address], 04/10/2024 13:09:06 Patient TargetsNo targets recorded. Patient Instructions Encounter Date Encounter Id Patient Instructions Last Modified By Organization Details Last Modified Time 03/14/2023 [id number] back care and preventing injuries: care instructions [email or web address] Not available 03/14/2023 11:36:08 high cholesterol : care instructions [email or web address] Not available 03/14/2023 11:36:08 A healthy lifest yle: care instructions [email or web address] Not available 03/14/2023 11:36:08 learning about h igh blood pressure [email or web address] Not available 03/14/2023 11:36:07 hypothyroidism: care instructions Not available 03/14/2023 11:36:08 05/29/2023 [id number] A healthy lifest yle: care instructions [email or web address] Not available 05/29/2023 11:32:10 08/29/2023 [id number] A healthy lifest yle: care instructions [email or web address] Not available 08/29/2023 12:06:08 diarrhea: care instructions [email or web address] Not available 08/29/2023 12:07:58 learning about h igh blood pressure Not available 08/29/2023 12:06:09 hypothyroidism: care instructions [email or web address] Not available 08/29/2023 12:06:09 01/16/2024 [id number] A healthy lifest yle: care instructions [email or web address] Not available 01/16/2024 16:07:26 cough: care instructions [email or web address] Not available 01/16/2024 16:07:26 anemia: care instructions [email or web address] Not available 01/16/2024 16:07:26 04/10/2024 [id number] hot flashes duri ng menopause: care instructions [email or web address] Not available 04/10/2024 13:09:04 gastroesophageal reflux disease (GERD): care instructions [email or web address] Not available 04/10/2024 13:02:12 learning about h igh blood sugar Not available 04/10/2024 13:05:36 learning about h igh blood pressure [email or web address] Not available 04/10/2024 13:02:12 learning about m ood disorders [email or web address] Not available 04/10/2024 13:02:12 Reason for Referral None Reported. Results Created Date Observation Date Name Description Value Unit Range Abnormal Flag Note LastModifiedBy Organization Detail LastModifiedTime 05/29/19 24 06/06/2023 COMPL IANCE DRUG CAESAR SIS, UR summary report (summary) FINAL ===== ===== ===== ===== ===== ===== ===== ===== ===== ===== ===== ===== ===== === TOXAS SURE COMP DRUG CAESAR SIS,U R ===== ===== ===== ===== ===== ===== ===== ===== ===== ===== ===== ===== ===== === Test Resul t Flag Units Drug Prese nt Custer codon e 875 ng/mg creat Custer morph one 266 ng/mg creat Norhy droco done 303 ng/mg creat Sourc es of hydro codon e inclu de sched uled presc ripti on medic ation s. Custer morph one and norhy droco done are expec joann metab olite s of hydro codon e. Custer morph one is also avail able as a sched uled presc ripti on medic ation . Gabap entin PRESE NT Tizan idine PRESE NT Aceta minop hen PRESE NT Ibupr ofen PRESE NT ===== ===== ===== ===== ===== ===== ===== ===== ===== ===== ===== ===== ===== === Test Resul t Flag Units Ref Range Creat inine 76 mg/dL >=20 ===== ===== ===== ===== ===== ===== ===== ===== ===== ===== ===== ===== ===== === Decla red Medic ation s: Medic ation list was not provi ded. ===== ===== ===== ===== ===== ===== ===== ===== ===== ===== ===== ===== ===== === For clini adan consu ltati on, pleas e call . ===== ===== ===== ===== ===== ===== ===== ===== ===== ===== ===== ===== ===== === Not Available [facility] ([facility]) [address], [place], [address], 06/06/2023 13:09:42 05/29/19 24 06/06/2023 COMPL IANCE DRUG CAESAR SIS, UR pdf . Not Available [facility] ([facility]) [address] [facility], [place], [address], 06/06/2023 13:09:42 08/29/19 24 08/30/2023 TSH+F REE T4 TSH 1.620 uIU/m L 0.450- 4.500 Not Available [facility] ([facility]) [address] [place], [address], 08/30/2023 13:12:17 08/29/19 24 08/30/2023 TSH+F REE T4 T4,free(dire ct) 1.18 NG/dL 0.82-1 .77 Not Available [facility] ([facility]) [address] [place], [address], 08/30/2023 13:12:17 08/29/19 24 08/30/2023 LIPID PANEL cholesterol, total 146 mg/dL 100-19 9 Not Available [facility] ([facility]) [address] [place], [address], 08/30/2023 13:12:18 08/29/19 24 08/30/2023 LIPID PANEL triglyceride s 402 mg/dL 0-149 above high normal Not Available [facility] ([facility]) [address] [place], [address], 08/30/2023 13:12:18 08/29/19 24 08/30/2023 LIPID PANEL HDL cholesterol 47 mg/dL >39 Not Available [facility] ([facility]) [address] [place], [address], 08/30/2023 13:12:18 08/29/19 24 08/30/2023 LIPID PANEL VLDL cholesterol adan 58 mg/dL 5-40 above high normal Not Available [facility] ([facility]) [address] [place], [address], 08/30/2023 13:12:18 08/29/19 24 08/30/2023 LIPID PANEL LDL chol calc ([facility]) 41 mg/dL 0-99 Not Available [facility] ([facility]) [address] [place], [address], 08/30/2023 13:12:18 08/29/19 24 08/30/2023 COMP. METAB OLIC PANEL (14) glucose 158 mg/dL 70-99 above high normal Not Available [facility] ([facility]) [address] [place], [address], 08/30/2023 13:12:18 08/29/19 24 08/30/2023 COMP. METAB OLIC PANEL (14) BUN 20 mg/dL 8-27 Not Available [facility] ([facility]) [address] [place], [address], 08/30/2023 13:12:18 08/29/19 24 08/30/2023 COMP. METAB OLIC PANEL (14) creatinine 1.17 mg/dL 0.57-1 .00 above high normal Not Available [facility] ([facility]) [address] [place], [address], 08/30/2023 13:12:18 08/29/19 24 08/30/2023 COMP. METAB OLIC PANEL (14) eGFR 52 mL/mi n/1.7 3 >59 below low normal Not Available [facility] ([facility]) [address] [place], [address], 08/30/2023 13:12:18 08/29/19 24 08/30/2023 COMP. METAB OLIC PANEL (14) BUN/creatini ne ratio 17 12-28 Not Available [facility] ([facility]) [address] [place], [address], 08/30/2023 13:12:18 08/29/19 24 08/30/2023 COMP. METAB OLIC PANEL (14) sodium 140 mmol/ L 134-14 4 Not Available [facility] ([facility]) [address] [place], [address], 08/30/2023 13:12:18 08/29/19 24 08/30/2023 COMP. METAB OLIC PANEL (14) potassium 4.6 mmol/ L 3.5-5. 2 Not Available [facility] ([facility]) [address] [place], [address], 08/30/2023 13:12:18 08/29/19 24 08/30/2023 COMP. METAB OLIC PANEL (14) chloride 102 mmol/ L 96-106 Not Available [facility] ([facility]) [address] [place], [address], 08/30/2023 13:12:18 08/29/19 24 08/30/2023 COMP. METAB OLIC PANEL (14) carbon dioxide, total 20 mmol/ L 20-29 Not Available [facility] ([facility]) [address] [place], [address], 08/30/2023 13:12:18 08/29/19 24 08/30/2023 COMP. METAB OLIC PANEL (14) calcium 9.0 mg/dL 8.7-10 .3 Not Available [facility] ([facility]) [address] [place], [address], 08/30/2023 13:12:18 08/29/19 24 08/30/2023 COMP. METAB OLIC PANEL (14) protein, total 6.2 g/dL 6.0-8. 5 Not Available [facility] ([facility]) [address] [place], [address], 08/30/2023 13:12:18 08/29/19 24 08/30/2023 COMP. METAB OLIC PANEL (14) albumin 4.3 g/dL 3.9-4. 9 Not Available [facility] ([facility]) [address] [place], [address], 08/30/2023 13:12:18 08/29/19 24 08/30/2023 COMP. METAB OLIC PANEL (14) globulin, total 1.9 g/dL 1.5-4. 5 Not Available [facility] ([facility]) [address] [facility], [place], [address], 08/30/2023 13:12:18 08/29/19 24 08/30/2023 COMP. METAB OLIC PANEL (14) A/G ratio 2.3 1.2-2. 2 above high normal Not Available [facility] ([facility]) [address] [facility], [place], [address], 08/30/2023 13:12:18 08/29/19 24 08/30/2023 COMP. METAB OLIC PANEL (14) bilirubin, total 0.2 mg/dL 0.0-1. 2 Not Available [facility] ([facility]) [address] [facility], [place], [address], 08/30/2023 13:12:18 08/29/19 24 08/30/2023 COMP. METAB OLIC PANEL (14) alkaline phosphatase 77 IU/L 44-121 Not Available [facility] ([facility]) [address] [facility], [place], [address], 08/30/2023 13:12:18 08/29/19 24 08/30/2023 COMP. METAB OLIC PANEL (14) AST (SGOT) 19 IU/L 0-40 Not Available [facility] ([facility]) [address] [facility], [place], [address], 08/30/2023 13:12:18 08/29/19 24 08/30/2023 COMP. METAB OLIC PANEL (14) ALT (SGPT) 19 IU/L 0-32 Not Available [facility] ([facility]) [address] [facility], [place], [address], 08/30/2023 13:12:18 08/29/1908/30/2023 HEMOG LOBIN A1C hemoglobin A1C 6.0 % 4.8-5. 6 above high normal Predi abete s: 5.7 - 6.4 Diabe milagros: >6.4 Glyce mila contr ol for adult s with diabe milagros: <7.0 Not Available [facility] ([facility]) [address] [place], [address], 08/30/2023 13:12:19 08/29/1908/30/2023 CBC, PLATE LET, NO DIFFE RENTI AL WBC 7.7 x10e3 /uL 3.4-10 .8 Not Available [facility] ([facility]) [address] [place], [address], 08/30/2023 13:12:20 08/29/19 24 08/30/2023 CBC, PLATE LET, NO DIFFE RENTI AL RBC 3.43 x10e6 /uL 3.77-5 .28 below low normal Not Available [facility] ([facility]) [address] [place], [address], 08/30/2023 13:12:20 08/29/1908/30/2023 CBC, PLATE LET, NO DIFFE RENTI AL hemoglobin 10.2 g/dL 11.1-1 5.9 below low normal Not Available [facility] ([facility]) [address] [place], [address], 08/30/2023 13:12:20 08/29/1908/30/2023 CBC, PLATE LET, NO DIFFE RENTI AL hematocrit 30.7 % 34.0-4 6.6 below low normal Not Available [facility] ([facility]) [address] [place], [address], 08/30/2023 13:12:20 08/29/19 24 08/30/2023 CBC, PLATE LET, NO DIFFE RENTI AL MCV 90 fL 79-97 Not Available [facility] ([facility]) [address] [facility], [place], [address], 08/30/2023 13:12:20 08/29/1908/30/2023 CBC, PLATE LET, NO DIFFE RENTI AL MCH 29.7 pg 26.6-3 3.0 Not Available [facility] ([facility]) [address] [facility], [place], [address], 08/30/2023 13:12:20 08/29/19 24 08/30/2023 CBC, PLATE LET, NO DIFFE RENTI AL MCHC 33.2 g/dL 31.5-3 5.7 Not Available [facility] ([facility]) [address] [facility], [place], [address], 08/30/2023 13:12:20 08/29/19 24 08/30/2023 CBC, PLATE LET, NO DIFFE RENTI AL RDW 13.0 % 11.7-1 5.4 Not Available [facility] ([facility]) [address] [facility], [place], [address], 08/30/2023 13:12:20 08/29/1908/30/2023 CBC, PLATE LET, NO DIFFE RENTI AL platelets 192 x10e3 /uL 150-45 0 Not Available [facility] ([facility]) [address] [facility], [place], [address], 08/30/2023 13:12:20 08/29/19 24 08/30/2023 VITAM IN D, 25-HY DROXY vitamin D, 25-hydroxy 61.6 NG/mL 30.0-1 00.0 Vitam in D defic iency has been defin ed by the Insti tute of Medic ine and an Endoc rine Socie ty pract ice guide line as a level of serum 25-OH vitam in D less than 20 ng/mL (1,2) . The Endoc rine Socie ty went on to furth er defin e vitam in D insuf ficie ncy as a level betwe en 21 and 29 ng/mL (2). 1. IOM (Inst itute of Medic ine). 2010. Dieta ry refer ence farideh es for calci um and DLisandra bond [place]: [facility] . 2. Jesus Manuel alejandre [place], Emily ey [place], Bisch off-F errar i [place], et al. Evalu ation , treat ment, and preve ntion of vitam in D defic iency : an Endoc rine Socie ty clini adan pract ice guide line. JCEM. 2010; 96(7) :1911 -30. Not Available [facility] ([facility]) [address] [place], [address], 08/30/2023 13:12:20 04/10/20 24 04/11/2024 LIPID PANEL cholesterol, total 151 mg/dL 100-19 9 Not Available [facility] ([facility]) [address] [place], [address], 04/11/2024 10:16:05 04/10/20 24 04/11/2024 LIPID PANEL triglyceride s 239 mg/dL 0-149 above high normal Not Available [facility] ([facility]) [address] [place], [address], 04/11/2024 10:16:05 04/10/20 24 04/11/2024 LIPID PANEL HDL cholesterol 47 mg/dL >39 Not Available [facility] ([facility]) [address] [place], [address], 04/11/2024 10:16:05 04/10/20 24 04/11/2024 LIPID PANEL VLDL cholesterol adan 39 mg/dL 5-40 Not Available [facility] ([facility]) [address] [place], [address], 04/11/2024 10:16:05 04/10/20 24 04/11/2024 LIPID PANEL LDL chol calc ([facility]) 65 mg/dL 0-99 Not Available [facility] ([facility]) [address] [facility] [place], [address], 04/11/2024 10:16:05 04/10/20 24 04/11/2024 COMP. METAB OLIC PANEL (14) glucose 121 mg/dL 70-99 above high normal Not Available [facility] ([facility]) [address] [facility] [place], [address], 04/11/2024 10:16:07 04/10/20 24 04/11/2024 COMP. METAB OLIC PANEL (14) BUN 23 mg/dL 8-27 Not Available [facility] ([facility]) [address] [facility] [place], [address], 04/11/2024 10:16:07 04/10/20 24 04/11/2024 COMP. METAB OLIC PANEL (14) creatinine 1.50 mg/dL 0.57-1 .00 above high normal Not Available [facility] ([facility]) [address] [facility], [place], [address], 04/11/2024 10:16:07 04/10/20 24 04/11/2024 COMP. METAB OLIC PANEL (14) eGFR 38 mL/mi n/1.7 3 >59 below low normal Not Available [facility] ([facility]) [address] [place], [address], 04/11/2024 10:16:07 04/10/20 24 04/11/2024 COMP. METAB OLIC PANEL (14) BUN/creatini ne ratio 15 12-28 Not Available [facility] ([facility]) [address] [facility] [place], [address], 04/11/2024 10:16:07 04/10/20 24 04/11/2024 COMP. METAB OLIC PANEL (14) sodium 138 mmol/ L 134-14 4 Not Available [facility] ([facility]) [address] [place], [address], 04/11/2024 10:16:07 04/10/20 24 04/11/2024 COMP. METAB OLIC PANEL (14) potassium 4.5 mmol/ L 3.5-5. 2 Not Available [facility] ([facility]) [address] [facility] [place], [address], 04/11/2024 10:16:07 04/10/20 24 04/11/2024 COMP. METAB OLIC PANEL (14) chloride 101 mmol/ L 96-106 Not Available [facility] ([facility]) [address] [facility] [place], [address], 04/11/2024 10:16:07 04/10/20 24 04/11/2024 COMP. METAB OLIC PANEL (14) carbon dioxide, total 18 mmol/ L 20-29 below low normal Not Available [facility] ([facility]) [address] [facility] [place], [address], 04/11/2024 10:16:07 04/10/20 24 04/11/2024 COMP. METAB OLIC PANEL (14) calcium 9.5 mg/dL 8.7-10 .3 Not Available [facility] ([facility]) [address] [facility] [place], [address], 04/11/2024 10:16:07 04/10/20 24 04/11/2024 COMP. METAB OLIC PANEL (14) protein, total 6.5 g/dL 6.0-8. 5 Not Available [facility] ([facility]) [address] [facility] [place], [address], 04/11/2024 10:16:07 04/10/20 24 04/11/2024 COMP. METAB OLIC PANEL (14) albumin 4.4 g/dL 3.9-4. 9 Not Available [facility] ([facility]) [address] [facility] [place], [address], 04/11/2024 10:16:07 04/10/20 24 04/11/2024 COMP. METAB OLIC PANEL (14) globulin, total 2.1 g/dL 1.5-4. 5 Not Available [facility] ([facility]) [address] [place], [address], 04/11/2024 10:16:07 04/10/20 24 04/11/2024 COMP. METAB OLIC PANEL (14) bilirubin, total 0.3 mg/dL 0.0-1. 2 Not Available [facility] ([facility]) [address] [place], [address], 04/11/2024 10:16:07 04/10/20 24 04/11/2024 COMP. METAB OLIC PANEL (14) alkaline phosphatase 91 IU/L 44-121 Not Available [facility] ([facility]) [address] [place], [address], 04/11/2024 10:16:07 04/10/20 24 04/11/2024 COMP. METAB OLIC PANEL (14) AST (SGOT) 27 IU/L 0-40 Not Available [facility] ([facility]) [address] [place], [address], 04/11/2024 10:16:07 04/10/20 24 04/11/2024 COMP. METAB OLIC PANEL (14) ALT (SGPT) 33 IU/L 0-32 above high normal Not Available [facility] ([facility]) [address] [place], [address], 04/11/2024 10:16:07 04/10/20 24 04/11/2024 HEMOG LOBIN A1C hemoglobin A1C 6.3 % 4.8-5. 6 above high normal Predi abete s: 5.7 - 6.4 Diabe milagros: >6.4 Glyce mila contr ol for adult s with diabe milagros: <7.0 Not Available [facility] ([facility]) [address] [place], [address], 04/11/2024 10:16:09 04/10/20 24 04/11/2024 TSH TSH 1.520 uIU/m L 0.450- 4.500 Not Available [facility] ([facility]) [address] [facility], [place], [address], 04/11/2024 10:16:11 04/10/20 24 04/11/2024 CBC, PLATE LET, NO DIFFE RENTI AL WBC 8.6 x10e3 /uL 3.4-10 .8 Eff ectiv e Decem kindra 2023 [place] [address] 5 WBC will be made* * non-o rdera ble as a stand -raf e order code. Not Available [facility] ([facility]) [address] [facility], [place], [address], 04/11/2024 10:16:12 04/10/20 24 04/11/2024 CBC, PLATE LET, NO DIFFE RENTI AL RBC 3.41 x10e6 /uL 3.77-5 .28 below low normal Not Available [facility] ([facility]) [address] [facility], [place], [address], 04/11/2024 10:16:12 04/10/20 24 04/11/2024 CBC, PLATE LET, NO DIFFE RENTI AL hemoglobin 9.9 g/dL 11.1-1 5.9 below low normal Not Available [facility] ([facility]) [address] [facility], [place], [address], 04/11/2024 10:16:12 04/10/20 24 04/11/2024 CBC, PLATE LET, NO DIFFE RENTI AL hematocrit 30.6 % 34.0-4 6.6 below low normal Not Available [facility] ([facility]) [address] [place], [address], 04/11/2024 10:16:12 04/10/20 24 04/11/2024 CBC, PLATE LET, NO DIFFE RENTI AL MCV 90 fL 79-97 Not Available [facility] ([facility]) [address] [facility], [place], [address], 04/11/2024 10:16:12 04/10/20 24 04/11/2024 CBC, PLATE LET, NO DIFFE RENTI AL MCH 29.0 pg 26.6-3 3.0 Not Available [facility] ([facility]) [address] [facility], [place], [address], 04/11/2024 10:16:12 04/10/20 24 04/11/2024 CBC, PLATE LET, NO DIFFE RENTI AL MCHC 32.4 g/dL 31.5-3 5.7 Not Available [facility] ([facility]) [address] [facility], [place], [address], 04/11/2024 10:16:12 04/10/20 24 04/11/2024 CBC, PLATE LET, NO DIFFE RENTI AL RDW 14.1 % 11.7-1 5.4 Not Available [facility] ([facility]) [address] [facility], [place], [address], 04/11/2024 10:16:12 04/10/20 24 04/11/2024 CBC, PLATE LET, NO DIFFE RENTI AL platelets 229 x10e3 /uL 150-45 0 Not Available [facility] ([facility]) [address] [place], [address], 04/11/2024 10:16:12 04/10/20 24 04/17/2024 COMPL IANCE DRUG CAESAR SIS, UR summary report (summary) FINAL ===== ===== ===== ===== ===== ===== ===== ===== ===== ===== ===== ===== ===== === TOXAS SURE COMP DRUG CAESAR SIS,U R ===== ===== ===== ===== ===== ===== ===== ===== ===== ===== ===== ===== ===== === Test Resul t Flag Units Drug Prese nt Custer codon e 976 ng/mg creat Custer morph one 406 ng/mg creat Dihyd rocod eine 136 ng/mg creat Norhy droco done 730 ng/mg creat Sourc es of hydro codon e inclu de sched uled presc ripti on medic ation s. Custer morph one, dihyd rocod eine and norhy droco done are expec joann metab olite s of hydro codon e. Custer morph one and dihyd rocod eine are also avail able as sched uled presc ripti on medic ation s. Aceta minop hen PRESE NT Ibupr ofen PRESE NT ===== ===== ===== ===== ===== ===== ===== ===== ===== ===== ===== ===== ===== === Test Resul t Flag Units Ref Range Creat inine 96 mg/dL >=20 ===== ===== ===== ===== ===== ===== ===== ===== ===== ===== ===== ===== ===== === Decla red Medic ation s: Medic ation list was not provi ded. ===== ===== ===== ===== ===== ===== ===== ===== ===== ===== ===== ===== ===== === For clini adan consu ltati on, pleas e call . ===== ===== ===== ===== ===== ===== ===== ===== ===== ===== ===== ===== ===== === Not Available [facility] ([facility]) [address] [place], [address], 04/17/2024 15:11:48 04/10/20 24 04/17/2024 COMPL IANCE DRUG CAESAR SIS, UR pdf . Not Available [facility] ([facility]) [address] [place], [address], 04/17/2024 15:11:48 05/13/20 24 05/14/2024 VITAM IN B12 AND FOLAT E vitamin B12 743 pg/mL 232-12 45 Not Available [facility] ([facility]) [address] [place], [address], 05/14/2024 08:24:19 05/13/20 24 05/14/2024 VITAM IN B12 AND FOLAT E folate (folic acid), serum 18.2 NG/mL >3.0 A serum folat e obey ntrat ion of less than 3.1 ng/mL is consi dered to repre sent clini adan defic iency . Not Available [facility] ([facility]) [address] [facility], [place], [address], 05/14/2024 08:24:19 05/13/20 24 05/14/2024 FE+TI BC+FE R iron bind.cap.(TI BC) 351 ug/dL 250-45 0 Not Available [facility] ([facility]) [address] [place], [address], 05/14/2024 08:24:21 05/13/20 24 05/14/2024 FE+TI BC+FE R UIBC 284 ug/dL 118-36 9 Not Available [facility] ([facility]) [address] [place], [address], 05/14/2024 08:24:21 05/13/20 24 05/14/2024 FE+TI BC+FE R iron 67 ug/dL 27-139 Not Available [facility] ([facility]) [address] [facility], [place], [address], 05/14/2024 08:24:21 05/13/20 24 05/14/2024 FE+TI BC+FE R iron saturation 19 % 15-55 Not Available [facility] ([facility]) [address] [facility], [place], [address], 05/14/2024 08:24:21 05/13/20 24 05/14/2024 FE+TI BC+FE R ferritin 112 NG/mL 15-150 Not Available [facility] ([facility]) [address] [facility], [place], [address], 05/14/2024 08:24:21 05/29/19 25 05/29/2024 PFT, compl ete No observ ation record ed. [place] [address], [place], [address], 06/08/2024 02:14:56 Result Notes None recorded. Problems Name Problem SNOMED Code Status Onset Date Resolution Date Notes Provider Name and Address Organization Details Recorded Time Trochante javon bursitis of left hip 73996139026 9103 Active 2016 Not Available [facility] 4 01:34:16 Candidias is of skin 23574838 Active 2017 Not Available [facility] 4 01:34:16 Hyperlipi demia 21438327 Active 2018 Not Available [facility] 4 01:34:16 High hemoglobi n A1c level 591901262 Active 2018 Not Available [facility] 4 01:34:16 Prolapsed lumbar intervert ebral disc 680707871 Active 2018 Not Available [facility] 4 01:34:15 Hypothyro idism 10630931 Active 2018 Not Available [facility] 4 01:34:16 Hypokalem ia 26777861 Active 2018 Not Available [facility] 4 01:34:16 Asthma-ch ronic obstructi ve pulmonary disease overlap syndrome 11677161259 824069 Active 2018 Not Available [facility] 4 01:34:15 Medicatio n monitorin g Active 2018 Not Available [facility] 4 01:34:16 Venereal disease screening Completed 201803/14/2023 Juanita Chacon MD Attn: Accounting ,[address] [facility], [place], [address] , 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 514686532 Active 2019 Not Available [facility] 4 01:34:16 Injury of left hip region 18946319747 994581 Active 2019 Not Available [facility] 4 01:34:15 Dental abscess 868440958 Active 2019 Not Available [facility] 4 01:34:15 Edema of lower extremity 192148618 Active 2019 Not Available [facility] 4 01:34:15 Knee pain Active Not Available [facility] 4 01:34:16 Mild depressio n 414975120 Active Not Available [facility] 4 01:34:16 Serum creatinin e above reference range 830890620 Active 2019 Not Available [facility] 4 01:34:15 Neck swelling 228219979 Active 2021 Not Available [facility] 4 01:34:16 Essential hypertens ion 80377964 Active 2021 Not Available [facility] 4 01:34:16 Hypertrig lyceridem ia 138858786 Active 2021 Not Available [facility] 4 01:34:16 Sleep disorder 91741503 Active 2022 Not Available [facility] 4 01:34:16 Diverticu lar disease 964156008 Active 2022 Not Available [facility] 4 01:34:16 History of polyp of colon 888768441 Active 2022 Not Available [facility] 4 01:34:16 Active immunizat ion Active 2022 Not Available [facility] 4 01:34:16 Hyperglyc emia 07747825 Active 2023 Juanita Chacon MD Attn: Accounting ,[address] [place], [address] , [place] - [facility] 4 11:59:25 Loose stool 539886031 Active 2023 Juanita Chacon MD Attn: Accounting ,[address] [facility], [place], [address] , [place] - [facility] 4 12:06:44 Anemia 734772127 Active 2023 Juanita Chacon MD Attn: Accounting ,[address] [facility], [place], [address] , [place] - [facility] 4 16:01:44 Serum creatinin e outside reference range 286421917 Active 2023 Juanita Chacon MD Attn: Accounting ,[address] [facility], [place], [address] , [place] [facility] 4 12:42:55 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 Active Not Available [facility] 4 01:34:15 Atrophic vaginitis 50443148 Active Not Available [facility] 4 01:34:16 Depressiv e disorder 60822166 Active Not Available [facility] 4 01:34:16 Pain in wrist 59913624 Active Not Available [facility] 4 01:34:16 Sinusitis 31148969 Active Not Available [facility] 4 01:34:16 Shoulder strain 023373572 Active Not Available [facility] 4 01:34:15 Low back pain 212860714 Active Not Available [facility] 4 01:34:15 Vitamin D deficienc y 88207838 Active Not Available [facility] 4 01:34:16 Fatigue 07175653 Active Not Available [facility] 4 01:34:16 Gastroeso phageal reflux disease 300745582 Active Not Available [facility] 4 01:34:15 Menopausa l flushing 733492029 Active Not Available [facility] 4 01:34:15 Dyspnea on exertion 45865416 Active Not Available [facility] 4 01:34:16 Serum vitamin B12 below reference range 063015576 Active Not Available [facility] 4 01:34:15 History of cholecyst ectomy 926230692 Active 2015 Not Available [facility] 4 01:34:16 Screening for malignant neoplasm of colon Active 2016 Not Available [facility] 4 01:34:15 Acute bronchiti s 32767527 Active 2016 Not Available [facility] 4 01:34:15 Hyperlipi demia screening Active 2016 Not Available [facility] 4 01:34:15 Family history of diabetes mellitus 984334931 Active 2016 Not Available [facility] 4 01:34:15 Left lower quadrant pain 958264350 Active 2016 Not Available [facility] 4 01:34:15 Hip pain 48322458 Active 2016 Not Available [facility] 4 01:34:16 Cough 25231200 Active 2016 Not Available [facility] 4 01:34:16 Acute urinary tract infection 987706309 Active 2016 Not Available [facility] 4 01:34:16 Administr ation of influenza vaccine Active 2016 Not Available [facility] 4 01:34:16 Notes:Some problems listed i n Documents: #[id number], #[id number], #[id number], #[id number] could not be added to this patient's chart. Please review these documents and add these problems to the patient's chart manually as needed. Problem Notes None recorded. Procedures Surgical History Date Name Laterality Status Provider Name and Address Organization Details Recorded Time 10/07/19 23 Date of Last Mammogram completed Dana Terrell [place] [facility] 10/06/2022 11:21:20 05/03/20 22 Colonoscopy completed Farzana Shultz MD Attn: Accounting, [address] [facility], [place], [address], [facility] 05/19/2022 05:48:43 01/17/20 17 Most Recent Mammogram completed Chanda Urrutia MA [facility] 02/28/2018 15:37:43 05/22/19 16 colonoscopy completed Chanda Urrutia MA [facility] 02/28/2018 15:48:14 09/11/19 11 Date of Last Pap Smear completed Chanda Urrutia MA [facility] 10/28/2014 11:13:29 05/22/18 89 Caesarean Section completed Chanda Urrutia MA [facility] 10/28/2014 11:13:29 05/22/18 85 Caesarean Section completed Chanda [place]utia [place] [facility] 10/28/2014 11:13:29 05/22/18 82 Caesarean Section completed Chanda Urrutia MA [facility] 10/28/2014 11:13:29 Hysterectomy completed Michelle Blum [place] [facility] 05/07/2014 11:57:41 procedure on gallbladder completed Chanda Urrutia [place] [facility] 02/28/2018 15:47:38 Imaging Results Imaging Date Name Status LastModified by Organiz ation Details LastModified Time 05/29/2024 PFT, complete completed [email or web address] Hugh Ballard [facility]orm[facility] [address], [place], [address], 06/08/2024 02:14:56 Procedure Notes None recorded. Medical Equipment None Reported. Allergies No known drug allergies Medications Name Sig Start Date Stop Date Status Note LastModified by Organization Details LastModified Time Prescript ion - Prior Authoriza tion Request 10/14 completed Not Available Not Available Not Available fish oil 1000mg capsule TAKE 1 CAPSULE BY MOUTH TWICE A DAY WITH FOOD 10/25 completed Not Available Not Available Not Available furosemid e 40 mg tablet TAKE 1 TABLET BY MOUTH EVERY DAY FOR 10 DAYS 10/25 completed Not Available Not Available Not Available atorvasta tin 40 mg tablet TAKE 1 TABLET BY MOUTH EVERY DAY 01/15 completed Not Available Not Available Not Available Qvar 80 mcg/actua tion Metered Aerosol oral inhaler Inhale 2 puffs by inhalati on route. 02/28 completed Not Available Not Available Not Available promethaz ine-DM 6.25 mg-15 mg/5 mL oral syrup TAKE 5 MLS BY MOUTH THREE TIMES A DAY NEEDED FOR 10 DAYS 04/10 completed Not Available Not Available Not Available fluticaso ne 250 mcg-salme terol 50 mcg/dose blistr powdr for inhalatio n 10/14 completed Not Available Not Available Not Available atorvasta tin 80 mg tablet TAKE 1 TABLET BY MOUTH EVERY DAY active Not Available Not Available No t Available nystatin 100,000 unit/mL oral suspensio n Take 5 mL 4 times a day by oral route. 10/14 completed Not Available Not Available Not Available Estring 2 mg (7.5 mcg/24 hour) vaginal ring 02/28 completed Not Available Not Available Not Available gabapenti n 600 mg tablet Take 1 tablet 3 times a day by oral route for 30 days. 06/19 completed Not Available Not Available Not Available paroxetin e 10 mg tablet Take 1 tablet every day by oral route. 06/19 completed Not Available Not Available Not Available atorvasta tin 20 mg tablet Take 2 tablets every day by oral route for 30 days. 2021 active Not Available Not Available Not Avai lable azithromy rayo 250 mg tablet TAKE 2 TABLETS (500 MG) BY ORAL ROUTE ONCE DAILY FOR 1 DAY THEN 1 TABLET (250 MG) BY ORAL ROUTE ONCE DAILY FOR 4 DAYS 11/03 completed Not Available Not Available Not Available ibuprofen 800 mg tablet TAKE 1 TABLET BY MOUTH THREE TIMES A DAY WITH FOOD 2023 active Not Available Not Available Not Avai lable tizanidin e 4 mg tablet TAKE 1 TABLET BY MOUTH THREE TIMES A DAY NEEDED 2023 active Not Available Not Available Not Avai lable benzonata te 200 mg capsule Take 1 capsule 3 times a day by oral route for 10 days. 02/28 completed Not Available Not Available Not Available medroxypr ogesteron e 2.5 mg tablet TAKE 1 TABLET BY MOUTH EVERY DAY FOR 30 DAYS 08/28 completed Not Available Not Available Not Available hydrocodo ne 5 mg-acetam inophen 325 mg tablet TAKE 1 TABLET BY MOUTH TWICE A DAY NEEDED 09/26 completed Not Available Not Available Not Available meloxicam 15 mg tablet TAKE ONE TABLET BY MOUTH ONCE DAILY WITH A MEAL 06/27 completed dc on ibuprofe n . Not Available Not Available Not Available dextromet horphan-g uaifenesi n 10 mg-100 mg/5 mL oral liquid Take 10 mL every 4 hours by oral route as needed. 2023 active Not Available Not Available Not Avai lable lisinopri l 20 mg tablet TAKE 1 TABLET BY MOUTH EVERY DAY FOR 30 DAYS 07/14 completed Not Available Not Available Not Available prednison e 20 mg tablet PLEASE SEE ATTACHED FOR DETAILED DIRECTIO NS 09/23 completed Not Available Not Available Not Available potassium chloride ER 10 mEq tablet,ex tended release TAKE 2 TABLETS BY MOUTH EVERY MORNING 2023 active Not Available Not Available Not Avai lable metronida zole 500 mg tablet 02/15 completed Not Available Not Available Not Available dextromet horphan-g uaifenesi n 10 mg-100 mg/5 mL oral syrup TAKE 10ML BY MOUTH FOUR TIMES A DAY NEDED 08/28 completed Not Available Not Available Not Available ciproflox acin 500 mg tablet Take 1 tablet every 12 hours by oral route for 10 days. 01/10 completed Not Available Not Available Not Available sulfameth oxazole 800 mg-trimet hoprim 160 mg tablet TAKE ONE TABLET BY MOUTH EVERY 12 HOURS FOR 14 DAYS active Not Available Not Available No t Available peg-elect rolyte solution 420 gram oral solution MIX AND DRINK 1/2 OF THE JUG BY MOUTH AT 5PM ON 05/02/22 AND THE OTHER 1/2 AT 5AM ON 05/03/2208/28 completed Not Available Not Available Not Available omeprazol e 40 mg capsule,d elayed release TAKE 1 CAPSULE BY MOUTH EVERY DAY active Not Available Not Available No t Available tramadol 50 mg tablet 1 po bid 03/28 completed Not Available Not Available Not Available methylpre dnisolone acetate 80 mg/mL suspensio n for injection Take 1 mL by injectio n route for 1 day. 06/17 completed Not Available Not Available Not Available oxycodone -acetamin ophen 5 mg-325 mg tablet 07/28 completed Not Available Not Available Not Available estradiol 1 mg tablet TAKE 1 TABLET BY MOUTH EVERY DAY active Not Available Not Available No t Available baclofen 10 mg tablet TAKE ONE TABLET BY MOUTH THREE TIMES A DAY NEEDED 09/28 completed Not Available Not Available Not Available triamcino lone acetonide 40 mg/mL suspensio n for injection Take 40 mg by injectio n route. 09/23 completed Not Available Not Available Not Available levothyro xine 50 mcg tablet TAKE 1 TABLET BY MOUTH EVERY DAY IN THE MORNING active Not Available Not Available No t Available hydrocodo ne 7.5 mg-acetam inophen 325 mg tablet Take 1 tablet twice a day by oral route. 2024 active Not Available Not Available Not Avai lable cephalexi n 500 mg capsule 10/14 completed Not Available Not Available Not Available paroxetin e 20 mg tablet Take 1 tablet every day by oral route in the evening for 30 days. 06/19 completed Not Available Not Available Not Available ferrous sulfate 325 mg (65 mg iron) tablet TAKE 1 TABLET BY MOUTH EVERY DAY active Not Available Not Available No t Available nystatin 100,000 unit/gram topical cream APPLY TO THE AFFECTED AREA(S) BY TOPICAL ROUTE 2 TIMES PER DAY 06/17 completed Not Available Not Available Not Available ranitidin e 150 mg tablet TAKE ONE TABLET BY MOUTH TWICE A DAY BEFORE MEALS 06/27 completed contamin ants Not Available Not Available Not Available lidocaine 5 % topical patch APPLY 1 PATCH BY TOPICAL ROUTE ONCE DAILY (MAY WEAR UP TO 12HOURS. ) 2024 active Not Available Not Available Not Avai lable hydrochlo rothiazid e 12.5 mg capsule TAKE 2 CAPSULES BY MOUTH EVERY DAY active Not Available Not Available No t Available gabapenti n 300 mg capsule Take 2 capsule( s) 3 times a day by oral route as directed for 30 days. 06/15 completed order changed to 100mg tid Not Available Not Available Not Available omeprazol e 20 mg capsule,d elayed release TAKE 1 CAPSULE BY MOUTH EVERY DAY BEFORE A MEAL active Not Available Not Available No t Available diclofena c sodium 75 mg tablet,de layed release 10/29 completed Not Available Not Available Not Available monteluka st 10 mg tablet TAKE 1 TABLET BY MOUTH EVERYDAY AT BEDTIME 2024 active Not Available Not Available Not Avai lable acetamino phen 300 mg-codein e 60 mg tablet 06/17 completed Not Available Not Available Not Available mupirocin 2 % topical ointment APPLY A SMALL AMOUNT TO THE AFFECTED AREA BY TOPICAL ROUTE 3 TIMES PER DAY, for 2 weeks 10/14 completed Not Available Not Available Not Available gabapenti n 100 mg capsule TAKE 1 CAPSULE BY MOUTH THREE TIMES A DAY active Not Available Not Available No t Available ergocalci ferol (vitamin D2) 1,250 mcg (50,000 unit) capsule TAKE 1 CAPSULE BY MOUTH WEEKLY WITH MEALS 2024 active Not Available Not Available Not Avai lable Prempro 0.625 mg-2.5 mg tablet Take 1 tablet every day by oral route for 30 days. 02/04 completed Not Available Not Available Not Available levofloxa rayo 500 mg tablet 06/17 completed Not Available Not Available Not Available albuterol sulfate HFA 90 mcg/actua tion aerosol inhaler INHALE 2 PUFF(S) BY MOUTH 3 TIMES A DAY NEEDED FOR 30 DAYS. active Not Available Not Available No t Available oxybutyni n chloride 5 mg tablet Take 1 tablet 3 times a day by oral route. active Not Available Not Available No t Available lisinopri l 40 mg tablet TAKE 1 TABLET BY MOUTH EVERY DAY active Not Available Not Available No t Available progester one micronize d 100 mg capsule 06/19 completed Not Available Not Available Not Available amoxicill in 875 mg-potass ium clavulana te 125 mg tablet TAKE ONE TABLET BY MOUTH EVERY 12 HOURS FOR 10 DAYS active Not Available Not Available No t Available oxycodone 5 mg tablet Take 1 tablet every 4 hours by oral route. 10/14 completed Not Available Not Available Not Available Laxative (bisacody l) 5 mg tablet,de layed release TAKE ALL 6 TABLETS BY MOUTH AT 8AM ON 05/02/2010/25 completed Not Available Not Available Not Available Premarin 0.45 mg tablet TAKE 1 TABLET BY MOUTH EVERY DAY FOR 30 DAYS active Not Available Not Available No t Available Premarin 0.625 mg/gram vaginal cream 06/19 completed Not Available Not Available Not Available Premarin 0.625 mg tablet TAKE 1 TABLET BY MOUTH EVERY DAY FOR 30 DAYS 03/31 completed Not Available Not Available Not Available Fiber (psyllium husk) 0.52 gram capsule Take 1 capsule twice a day by oral route as needed. 2023 active Not Available Not Available Not Avai lable nitrofura ntoin monohydra te/macroc rystals 100 mg capsule Take 1 capsule every 12 hours by oral route for 10 days. 02/28 completed Not Available Not Available Not Available Vesicare 10 mg tablet Take 1 tablet every day by oral route for 30 days. 10/14 completed Not Available Not Available Not Available omega-3 acid ethyl esters 1 gram capsule 10/25 completed Not Available Not Available Not Available Symbicort 160 mcg-4.5 mcg/actua tion HFA aerosol inhaler INHALE TWO PUFFS BY MOUTH TWICE A DAY DIRECTED 01/01 completed Not Available Not Available Not Available peg 3350 240 gram-elec trolytes 22.72 gram-6.72 g-5.84 g powdr for soln 02/28 completed Not Available Not Available Not Available diclofena c 1 % topical gel active Not Available Not Available Not Available omega 3-dha-epa -fish oil 1,000 mg (120 mg-180 mg) capsule TAKE 1 CAPSULE BY MOUTH TWICE A DAY WITH FOOD 2023 active Not Available Not Available Not Avai lable Dulera 200 mcg-5 mcg/actua tion HFA aerosol inhaler INHALE 2 PUFFS BY MOUTH TWICE A DAY DIRECTED 2023 active Not Available Not Available Not Avai lable Dulera 100 mcg-5 mcg/actua tion HFA aerosol inhaler TAKE 2 PUFFS BY MOUTH TWICE A DAY 11/03 completed Not Available Not Available Not Available Combivent Respimat 20 mcg-100 mcg/actua tion solution for inhalatio n 01/01 completed Not Available Not Available Not Available Myrbetriq 50 mg tablet,ex tended release Take 1 tablet every day by oral route for 30 days. 10/14 completed Not Available Not Available Not Available Osphena 60 mg tablet TAKE 1 TABLET(S ) EVERY DAY BY ORAL ROUTE. 06/19 completed Not Available Not Available Not Available Aerospan 80 mcg/actua tion HFA aerosol inhaler Inhale 2 puffs twice a day by inhalati on route for 30 days. 06/19 completed Not Available Not Available Not Available Pennsaid 20 mg/gram/a ctuation (2 %) topical soln in metered-d ose pump Apply 1 pump twice a day by topical route as needed for 30 days. 07/14 completed Not Available Not Available Not Available Incruse Ellipta 62.5 mcg/actua tion powder for inhalatio n INHALE 1 PUFF BY MOUTH ONCE DAILY DIRECTED active Not Available Not Available No t Available Vitals Date Recorded Body height Provider Name an d Address Organization Details Last Updated DateTime 03/14/2023 152.4 cm KANE Shi - [facility] 3 10:32:17 Date Recorded Body mass index (BMI) Body weight Provider Name and Address Organization Details Last Updated DateTime 03/14/2023 32.8 kg/m2 39975.52 g KANE Shi - [facility] 10:40:26 Date Recorded Heart rate Provider Name an d Address Organization Details Last Updated DateTime 03/14/2023 92 /min KANE Shi - [facility] 3 10:42:04 Date Recorded Body temperature Provider Name a nd Address Organization Details Last Updated DateTime 03/14/2023 98 [degF] KANE Shi - [facility] 3 10:42:07 Date Recorded Oxygen saturation Oxygen saturation in Arterial blood by Pulse oximetry Provider Name and Address Organization Details Last Updated DateTime 03/14/2023 98 % 98 % Isi Kingsley [place] [facility] 03/14/2023 10:42:11 Date Recorded Body height Provider Name an d Address Organization Details Last Updated DateTime 05/29/2023 152.4 cm Isi Kings[place] [facility] 10:46:02 Date Recorded Body mass index (BMI) Body weight Provider Name and Address Organization Details Last Updated DateTime 05/29/2023 34 kg/m2 08741.07 g Isi Kings[place] [facility] 11:08:28 Date Recorded Heart rate Provider Name an d Address Organization Details Last Updated DateTime 05/29/2023 81 /min Isi Kings[place] [facility] 11:08:35 Date Recorded Body temperature Provider Name a nd Address Organization Details Last Updated DateTime 05/29/2023 98 [degF] Isi Kings[place] [facility] 11:08:37 Date Recorded Oxygen saturation Oxygen saturation in Arterial blood by Pulse oximetry Provider Name and Address Organization Details Last Updated DateTime 05/29/2023 98 % 98 % Isi Kingsley [place] [facility] 05/29/2023 11:08:40 Date Recorded Body height Provider Name an d Address Organization Details Last Updated DateTime 08/29/2023 152.4 cm Isi Kingsley MA [facility] - [facility] 11:19:37 Date Recorded Body mass index (BMI) Body weight Provider Name and Address Organization Details Last Updated DateTime 08/29/2023 34.4 kg/m2 48611.26 g Isi Kingsley [place] [facility] 08/29/2023 11:31:14 Date Recorded Heart rate Provider Name an d Address Organization Details Last Updated DateTime 08/29/2023 86 /min Isi Kingsley [place] [facility] 11:31:23 Date Recorded Body temperature Provider Name a nd Address Organization Details Last Updated DateTime 08/29/2023 98 [degF] Isi Kings[place] [facility] 11:31:25 Date Recorded Oxygen saturation Oxygen saturation in Arterial blood by Pulse oximetry Provider Name and Address Organization Details Last Updated DateTime 08/29/2023 98 % 98 % Isi Kings[place] [facility] 08/29/2023 11:31:30 Date Recorded Body height Provider Name an d Address Organization Details Last Updated DateTime 01/16/2024 152.4 cm Isi Kingsley [place] [facility] 15:16:39 Date Recorded Body mass index (BMI) Body weight Provider Name and Address Organization Details Last Updated DateTime 01/16/2024 34.4 kg/m2 45493.26 g Isi Kingsley [place] [facility] 0 01/16/2024 15:41:23 Date Recorded Heart rate Provider Name an d Address Organization Details Last Updated DateTime 01/16/2024 81 /min KANE Shi - [facility] 15:41:36 Date Recorded Oxygen saturation Oxygen saturation in Arterial blood by Pulse oximetry Provider Name and Address Organization Details Last Updated DateTime 01/16/2024 98 % 98 % Isi Kingsley [place] [facility] 01/16/2024 15:41:42 Date Recorded Body height Provider Name an d Address Organization Details Last Updated DateTime 04/10/2024 152.4 cm Juan Manuel Reese [place] [facility] 04/10/2024 12:40:29 Date Recorded Body mass index (BMI) Body weight Provider Name and Address Organization Details Last Updated DateTime 04/10/2024 32.8 kg/m2 83173.52 g Juan Manuel Reese [place] [facility] 04/10/2024 12:40:35 Date Recorded Heart rate Provider Name an d Address Organization Details Last Updated DateTime 04/10/2024 69 /min Juan Manuel Reese [place] [facility] 03/23 12:44:10 Date Recorded Oxygen saturation Oxygen saturation in Arterial blood by Pulse oximetry Provider Name and Address Organization Details Last Updated DateTime 04/10/2024 99 % 99 % KANE Grewal - [facility] 04/10/2024 12:44:13 Date Recorded Systolic blood pressure Diastolic blood pressure Provider Name and Address Organization Details Last Updated DateTime 03/14/2023 170 mm[Hg] 76 mm[Hg] Isi Kingsley MA [facility] 03/14/2023 10:42:00 Date Recorded Systolic blood pressure Diastolic blood pressure Provider Name and Address Organization Details Last Updated DateTime 05/29/2023 124 mm[Hg] 84 mm[Hg] Isi Kingsley MA [facility] 05/29/2023 11:08:31 Date Recorded Systolic blood pressure Diastolic blood pressure Provider Name and Address Organization Details Last Updated DateTime 08/29/2023 160 mm[Hg] 64 mm[Hg] Isi Kingsley MA [facility] 08/29/2023 11:31:48 Date Recorded Systolic blood pressure Diastolic blood pressure Provider Name and Address Organization Details Last Updated DateTime 01/16/2024 146 mm[Hg] 76 mm[Hg] Isi Kingsley MA [facility] 01/16/2024 15:41:30 Date Recorded Systolic blood pressure Diastolic blood pressure Provider Name and Address Organization Details Last Updated DateTime 04/10/2024 139 mm[Hg] 77 mm[Hg] Juan Manuel Reese MA [facility] 04/10/2024 12:44:02 Social History Question Answer Notes LastModified by Organizat ion Details LastModified Time Tobacco Smoking Status Never Smoker Michelle Blum MA [facility] 05/07/2014 11:57:41 Do You Have An Advance Directive? No Information not available 07/08/2014 What Is Your Level Of Alcohol Consumption? Moderate Information not available 05/07/2014 Are You Blind Or Do You Have Difficulty Seeing? No Information not available 05/07/2014 Is Blood Transfusion Acceptable In An Emergency? Yes Information not available 02/28/2018 What Is Your Level Of Caffeine Consumption? Moderate Information not available 08/25/2020 Are You A Caregiver? No Information not available 05/07/2014 How Much Tobacco Do You Chew? None Information not available 05/07/2014 Are You Currently Employed? No Information not available 07/28/2020 Are You Deaf Or Do You Have Serious Difficulty Hearing? Yes Information not available 05/07/2014 What Type Of Diet Are You Following? REGULAR Information not available 05/07/2014 Do You Have A Directive To Physicians? No Information not available 05/07/2014 Which Illicit Or Recreational Drugs Have You Used? None N/a Information not available 10/28/2014 Do You Or Have You Ever Used E-cigarettes Or Vape? 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 No Information not available 05/07/2014 Hard Of Hearing Or Deaf In One Or Both Ears? Yes Information not available 05/07/2014 Legally Blind In One Or Both Eyes? No Information not available 05/07/2014 Marital Status Informatio n not available 05/07/2014 Do You Have A Medical Power Of Animal Researcher? No Information not available 05/07/2014 What Was The Date Of Your Most Recent Tobacco Screening? 04/10/2024 Information not available 04/10/2024 How Many Children Do You Have? 2 Information not available 11/04/2015 Do You Have An Out Of Hospital DNR? No Information not available 05/07/2014 Performs Monthly Self-breast Exam? Yes Information not available 05/07/2014 What Is Your Relationship Status? Information not available 08/25/2020 Do You Use Your Seat Belt Or Car Seat Routinely? Yes Information not available 07/28/2020 Seat Belts Used Routinely Yes Information not available 05/07/2014 Are You Sexually Active? No Information not available 02/28/2018 Smoke Alarm In Home Yes Information not available 05/07/2014 Do You Have Smoke And Carbon Monoxide Detectors In Your Home? No Information not available 07/28/2020 Are You Passively Exposed To Smoke? Yes Information not available 10/26/2020 Do You Or Have You Ever Used Smokeless Tobacco? Never Used Smokeless Tobacco Information not available 10/15/2019 How Much Tobacco Do You Smoke? No Information not available 05/07/2014 General Stress Level Medium Information not available 05/07/2014 Do You Feel Stressed (tense, Restless, Nervous, Or Anxious, Or Unable To Sleep At Night)? [id number] Information not available 08/25/2020 Do You Use Any Illicit Or Recreational Drugs? No Information not available 08/25/2020 Do You Use Sunscreen Routinely? Yes Information not available 05/07/2014 Has Tobacco Cessation Counseling Been Provided? No Information not available 07/28/2020 On What Date Was Tobacco Cessation Counseling Provided? 04/10/2024 Information not available 04/10/2024 Do You Or Have You Ever Used Any Other Forms Of Tobacco Or Nicotine? No Information not available 07/28/2020 Sex: Female Functional Status Question Answer Note LastModified by Organizat ion Details LastModified Time Do you have difficulty walking or climbing stairs? Yes Information not available 05/07/2014 Do you have transportation difficulties? No Information not available 05/07/2014 Do you have difficulty doing errands alone? No Information not available 05/07/2014 Are you able to care for yourself? Yes Information n ot available 07/28/2020 Do you have difficulty dressing or bathing? No Information not available 05/07/2014 What is your exercise level? Occasional Information not available 05/07/2014 Mental Status Question Answer Note LastModified by Organization D etails LastModified Time Do you have difficulty concentrating, remembering or making decisions? No Information no t available 05/07/2014 Family History Relationship Description Onset Age of this Age Resolved Age Notes LastModified by Organization Details LastModified Time Mother Dementia [email or web address] Not availab le 11/04/2015 11:47:02 Father Malignant tumor of prostate Not available 2017 15:44:53 Maternal Aunt Malignant tumor of colon Not available 2017 15:45:15 Medical History Condition Response Coronary Artery Disease N Kidney Cyst N Blood Diseases N Hyperthyroidism N Blood disorders N Blood Transfusion N MRSA N Emphysema N Blood Clots N COPD N Depression Y Pneumonia N Premature N Peripheral Arterial Disease N Edema N TIA N Headaches/Migraines N Anxiety Disorder N Obesity N Infertility N Polyps N Acid Reflux (GERD) N Hematuria N Stroke N Neck Injury N Polio N Hospital Admission other than N Neurologic Disorder N Other Sleep Disorders N Rheumatoid Arthritis N Fibromyalgia N Abdominal Aortic Aneurysm Repair N Kidney Disease N Heart Conditions N Heart Disease/Heart Problems N Hospitalizations N Brain Tumors N Acne N Eating Disorder N Skin Problems N Constipation N Meningitis N Tuberculosis N Cerebral Palsy N Myocardial Infarction N Asthma N Substance Abuse N Peripheral Vascular Disease N Vertigo N Sleep Disorder N Cirrhosis N Pulmonary Embolism N Chicken Pox N Flomax Use Past or Present N Hematologic Disease N Anxiety/Depression N Thyroid Disease N Colon Cancer N Glaucoma N Lung Disease N Developmental or Behavioral Disorders N Bipolar N Pacemaker N Diverticulitis/Diverticulosis N Anesthesia Complications N Orthopedic Problems N Orthotics N Head Injury/Concussion N Congenital Anomalies N Quick Bite N Chronic Kidney Disease N Endometriosis N Liver Disease N Dialysis N Schizophrenia N Speech Delay N Chronic Obstructive Pulmonary Disease N Parkinson's Disease N Thyroid Problems N Developmental Delay N GI Problems N Anemia N Immune System Disorder N Multiple Sclerosis N Colon Polyps N Heart Attack (NC) N Diabetes N Cardiomyopathy N Blood Transfusions N Heart Problems/Murmur N Eye Trauma N Congestive Heart Failure (CHF) N Valvular Heart Disease N Hyperlipidemia N Double Vision N Abuse/Domestic Violence N Hepatitis B N Lupus N Epilepsy/Seizures N Reflux/GERD N Aneurysm N Bronchitis N Heart Disease N Hypertension N Pre-Eclampsia N Heart Failure N Other N Gout N High Blood Pressure N Atrial Fibrillation N Kidney Stones N Head Trauma/Injury N Congenital Heart Disease N Spine Problems N Gastrointestinal Disease N Lung Mass N Sinusitis N Obstructive Sleep Apnea N Muscle, Joint, or Bone Problems Y Autoimmune disease N Vision or Eye Problems N Arthritis Y Blood Clot N Cancer N Seasonal allergies N Leg or Foot Ulcers N Raynaud's Disease N Aortic Aneurysm N Arrhythmia N Headaches N Heart Problems N Ambloypia N Ear or Hearing Problems N Hyperparathyroidism N Migraines N Artificial Joints N Kidney or Bladder Problems Y NSAID Use N Encephalitis N PTSD N Ulcers N Prostate Hypertrophy N Bleeding Disorder N AIDS/HIV N Urinary Tract Infection N Back Problems N Allergies N Atrial Flutter N GERD/Reflux N Hepatitis N Autism Spectrum Disorder (ASD) N Breast Cancer N Hernia N Hypothyroidism N Breast Problem N Genitourinary Disease N Deep Vein Thrombosis N Varicose Veins N Cystic Fibrosis N Hearing Loss N Developmental Problems N Carotid Disease N Vitamin D Deficiency N ADHD N Bladder or Kidney Problems N High Cholesterol N [place] N Valvular Abnormalities N Psychiatric/Mental Health Condition N Organ Transplant N Foot Deformity N Allergies/Hayfever N Dyslipidemia N Hyponatremia N Diabetic Eye Disease N Osteoporosis/Osteopenia N Back Pain N Proteinuria N Mental Illness N Neurological Problems N Ovarian Cancer N Bedwetting N Seizures/Epilepsy N Kidney Failure N Ocular trauma N Diverticulitis N Dementia N Sleep Apnea N Mental Problems N Warfarin Management N Osteoporosis N Gynecological History Statement/Question Response Abnormal Pap N Date of Last Mammogram 10/06/2022 On BCP's at Conception? N STIs/STDs N HPV Vaccine N Most Recent Mammogram 01/16/2017 Age at Menarche 15 Current Control Method Hysterectom y Age at First Child 23 Sexually Active? Y Menses Monthly N Date of Last Pap Smear 09/10/2010 Sexual Problems? Y LMP Unknown Desired Control Method N/A Obstetrics History GPAL:G 3 P 3 0 1 2 Type Value Multiple Births 0 Full Term 3 Induced 1 Spontaneous 0 Premature 0 Living 2 Ectopics 0 Total 3 Immunizations Vaccine Type Date Status Note Provider Nam e and Address Organization Details Recorded Time Influenza, split virus, quadrivalent, preservative 9 completed Not Available [facility] 06/15/2023 01:34:17 Influenza, split virus, quadrivalent, preservative 6 completed Not Available [facility] 06/08/2019 02:32:31 COVID-19, mRNA, LNP-S, PF, 30 mcg/0.3 mL dose 1 completed Not Available [facility] 06/15/2023 01:34:17 COVID-19, mRNA, LNP-S, PF, 30 mcg/0.3 mL dose 1 completed Not Available [facility] 06/15/2023 01:34:17 Influenza, split virus, quadrivalent, preservative 7 completed Not Available [facility] 06/08/2019 02:34:24 pneumococcal polysaccharide PPV23 0 completed Batsheva Estrella [place] null, [place] - [facility] 03/11/2020 12:27:31 Influenza, split virus, quadrivalent, preservative 0 completed Batsheva Estrella [place], [place] [facility] 03/11/2020 12:27:31 Influenza, split virus, quadrivalent, preservative 1 completed Batsheva Estrella [place], [place] [facility] 05/06/2021 12:55:48 Influenza, split virus, quadrivalent, preservative 2 completed Manny Reese PA-C Attn: Accounting[address] [place], [address], [place] [facility] 03/08/2022 17:20:45 pneumococcal polysaccharide PPV23 4 completed Not Available [facility] 06/08/2019 02:40:53 Influenza, split virus, trivalent, preservative 4 completed Not Available [facility] 06/08/2019 02:48:28 Influenza, high-dose, quadrivalent, PF 3 completed Isi Kingsley [place], [place] [facility] 03/14/2023 11:57:57 Influenza, split virus, quadrivalent, preservative 5 completed Not Available [facility] 06/08/2019 02:39:16 Influenza, high-dose, trivalent, PF 4 completed Juan Manuel Reese [place] null, [place] [facility] 04/11/2024 09:59:24 Past Encounters Encounter ID Performer Location Encounter Start Date Encounter Closed Date Diagnosis/Indication Diagnosis SNOMED-CT Code Diagnosis ICD10 Code Diagnosis Note [id number] Cici (Adult Med) [address] [place] [address] [phone] 0 05/07/2014 11:16:26 05/07/2014 12:56:20 Shoulder strain 128996937 Low back pain 730479409 Vitamin D deficiency 75874705 Fatigue 53547607 Active or passive immunization 064708569 [id number] LIONEL De Dios (Adult Med) [address] [place] [address] [id number] 0 07/08/2014 10:01:22 07/08/2014 11:07:36 Shoulder strain 265503383 Fatigue 28478448 Low back pain 726451282 Vitamin D deficiency 22175530 Knee pain 17011022 Mild depression 958036357 [id number] PAMELA Lay (COMPUTER AIDED DESIGN TECHNICIAN) [address] [place] [address] [id number] 0 10/28/2014 10:41:30 10/28/2014 14:00:19 Atrophic vaginitis 13396559 Depressive disorder 36392338 Screening mammography 54726033 Screening for malignant neoplasm of colon 224512354 [id number] KANE Capellan (Adult Med) [address] [place] [address] [id number] 0 01/05/2015 10:21:43 01/05/2015 11:15:27 Low back pain 742975942 Bladder mu scle dysfunction - overactive 605386097 Depressive disorder 81393796 Vitamin D deficiency 97655784 Shoulder strain 393097038 [id number] LIONEL De Dios (Adult Med) [address] [place] [address] [id number] 0 03/06/2015 11:01:31 03/06/2015 12:21:25 Low back pain 513997261 M54.5 Knee pain 70520010 M25.5 69 Fatigue 74293786 R53.83 Depressive disorder 3548 9007 F32.9 Vitamin D deficiency 347 39080 E55.9 Pain in wrist 11354519 M 25.531 Active or passive immunization 419613018 Z23 [id number] LIONEL De Dios (Adult Med) [address] [place] [address] [id number] 0 07/01/2015 10:05:36 07/01/2015 10:48:17 Sinusitis 92479384 J32.9 Bladder mu scle dysfunction - overactive 516660557 N32.81 Depressive disorder 3548 9007 F32.9 Knee pain 08786784 M25.5 69 Low back pain 848721311 M54.5 Mild depression 40722106 3 F32.0 Shoulder strain 09861645 4 S46.919A Vitamin D deficiency 347 05651 E55.9 [id number] LIONEL De Dios (Adult Med) [address] [place] [address] [id number] 0 09/16/2015 10:12:05 09/16/2015 10:34:43 Low back pain 379306494 M54.5 Shoulder strain 08055876 4 S46.919A Gastroesop hageal reflux disease 243931675 K21.9 [id number] LIONEL De Dios (Adult Med) [address] [place] [address] [id number] 0 10/15/2015 10:07:44 10/15/2015 10:56:48 Low back pain 525972441 M54.5 Shoulder strain 11457889 4 S46.919A Vitamin D deficiency 347 38731 E55.9 Mild depression 35203882 3 F32.0 Knee pain 65134332 M25.5 69 Gastroesop hageal reflux disease 124202790 K21.9 Depressive disorder 3548 9007 F32.9 [id number] ERIC Kc (COMPUTER AIDED DESIGN TECHNICIAN) [address] [place] [address] [id number] 0 11/04/2015 10:26:56 11/04/2015 13:49:14 Screening mammography 91881476 Z12.31 Atrophic vaginitis 93911 000 N95.2 Bladder mu scle dysfunction - overactive 117654561 N32.81 Menopausal flushing 1984 39044 N95.1 [id number] LIONEL De Dios (Adult Med) [address] [place] [address] [id number] 0 12/14/2015 09:31:47 12/14/2015 10:08:25 Dyspnea on exertion 57293335 R06.09 Bladder mu scle dysfunction - overactive 945614659 N32.81 Depressive disorder 3548 9007 F32.9 Gastroesop hageal reflux disease 954011955 K21.9 Low back pain 797983219 M54.5 Knee pain 70628774 M25.5 69 Vitamin D deficiency 347 02655 E55.9 [id number] LIONEL De Dios (Adult Med) [address] [place] [address] [id number] 0 02/08/2016 12:06:35 02/08/2016 12:59:00 Depressive disorder 64216209 F32.9 Dyspnea on exertion 6084 5006 R06.09 Gastroesop hageal reflux disease 327122721 K21.9 Knee pain 55096138 M25.5 69 Low back pain 624816943 M54.5 Shoulder strain 38779638 4 S46.919A Vitamin D deficiency 347 74984 E55.9 Administra tion of influenza vaccine 37415063 Z23 Serum alyssa min B12 below reference range 608319582 R79.89 Fatigue 21330382 R53.83 [id number] LIONEL De Dios (Adult Med) [address] [place] [address] [id number] 0 03/28/2016 14:31:44 03/28/2016 17:34:27 Serum vitamin B12 below reference range 794955380 R79.89 Dyspnea on exertion 6084 5006 R06.09 Gastroesop hageal reflux disease 104245905 K21.9 Low back pain 190830656 M54.5 Depressive disorder 3548 9007 F32.9 [id number] LIONEL De Dios (Adult Med) [address] [place] [address] [id number] 0 06/21/2016 12:01:12 06/21/2016 12:41:41 Low back pain 549278661 M54.5 Mild depression 00429141 3 F32.0 Screening for malignant neoplasm of colon 303299615 Z12.11 [id number] LIONEL De Dios (Adult Med) [address] [place] [address] [id number] 0 07/26/2016 10:33:18 07/26/2016 11:24:15 Serum vitamin B12 below reference range 093716543 R79.89 Gastroesop hageal reflux disease 868235535 K21.9 Low back pain 710244250 M54.5 Vitamin D deficiency 347 98821 E55.9 Acute bronchitis 8387094 2 J20.9 Family his tory of diabetes mellitus 218061932 Z83.3 Hyperlipid emia screening 717640609 Z13.220 Screening for malignant neoplasm of colon 005122435 Z12.11 [id number] LIONEL De Dios (Adult Med) [address] [place] [address] [id number] 0 09/28/2016 09:32:36 09/28/2016 10:46:57 Dyspnea on exertion 81841843 R06.09 [id number] LIONEL De Dios (Adult Med) [address] [place] [address] 01890-729 0 11/09/2016 09:52:13 11/10/2016 11:08:52 Low back pain 824812961 M54.5 Menopausal flushing 1984 77931 N95.1 Mild depression 99711344 3 F32.0 Vitamin D deficiency 347 04923 E55.9 Depressive disorder 3548 9007 F32.9 Left lower quadrant pain 977920566 R10.32 [id number] Martin Bolanos (COMPUTER AIDED DESIGN TECHNICIAN) [address] [place] [address] [id number] 0 01/10/2017 11:26:04 01/10/2017 16:40:59 Screening mammography 26179176 Z12.31 Urinary tr act infectious disease 56811255 N39.0 Menopausal flushing 1983 59185 N95.1 [id number] LIONEL De Dios (Adult Med) [address] [place] [address] [id number] 0 01/11/2017 10:05:27 01/11/2017 10:37:37 Low back pain 282979769 M54.5 Hip pain 53077941 M25.55 2 Cough 07795170 R05 Acute bronchitis 4790580 2 J20.9 [id number] LIONEL De Dios (Adult Med) [address] [place] [address] [id number] 0 03/15/2017 10:00:12 03/15/2017 11:02:26 Hip pain 06708862 M25.552 Serum alyssa min B12 below reference range 502878257 R79.89 Gastroesop hageal reflux disease 653074495 K21.9 Vitamin D deficiency 347 54824 E55.9 Low back pain 313309624 M54.5 Administra tion of influenza vaccine 38506771 Z23 [id number] LIONEL De Dios (Adult Med) [address] [place] [address] [id number] 0 06/02/2017 11:50:53 06/02/2017 14:28:48 Hip pain 25838380 M25.552 Low back pain 034562307 M54.5 Gastroesop hageal reflux disease 390458778 K21.9 Cough 07440674 R05 Trochanter ic bursitis of left hip 0037509051 80846 M70.62 Serum alyssa min B12 below reference range 303608092 R79.89 Vitamin D deficiency 347 87252 E55.9 [id number] Siri Bolanos (Adult Med) [address] [place] [address] [id number] 0 07/28/2017 10:34:08 07/28/2017 11:31:51 Acute bronchitis 34290922 J20.9 Serum alyssa min B12 below reference range 690941739 R79.89 Gastroesop hageal reflux disease 586444975 K21.9 Dyspnea 043183666 R06.02 Hip pain 15734847 M25.55 2 Low back pain 985949731 M54.5 [id number] LIONEL De Dios (Adult Med) [address] [place] [address] [id number] 0 09/29/2017 10:33:51 09/29/2017 12:22:14 Sinusitis 38859298 J32.9 Low back pain 820954258 M54.5 Gastroesop hageal reflux disease 141412638 K21.9 [id number] LIONEL De Dios (Adult Med) [address] [place] [address] [id number] 0 01/15/2018 14:10:44 01/15/2018 15:02:14 Trochanteric bursitis of left hip 2369047494 46782 M70.62 Acute bronchitis 6742118 2 J20.9 Hip pain 37812030 M25.55 2 Gastroesop hageal reflux disease 102612922 K21.9 Low back pain 572074053 M54.5 Vitamin D deficiency 347 20948 E55.9 Depressive disorder 3548 9007 F32.9 [id number] LIONEL De Dios (Adult Med) [address] [place] [address] [id number] 0 02/15/2018 13:59:51 02/15/2018 14:34:45 Cough 67786800 R05 Shoulder strain 63939893 4 S46.919A Trochanter ic bursitis of left hip 1478176752 22983 M70.62 [id number] Martin Cespedes Cici (COMPUTER AIDED DESIGN TECHNICIAN) [address] [place] [address] [id number] 0 02/28/2018 15:03:18 03/01/2018 09:20:55 Screening mammography 59170449 Z12.31 Mild depression 91231803 3 F32.0 Candidiasis of skin 4988 3006 B37.2 [id number] LIONEL De Dios (Adult Med) [address] [place] [address] [id number] 0 06/19/2018 16:06:46 06/19/2018 16:59:05 Low back pain 402980227 M54.5 Trochanter ic bursitis of left hip 2894432200 42900 M70.62 Serum alyssa min B12 below reference range 998335796 R79.89 Gastroesop hageal reflux disease 610075443 K21.9 Bladder mu scle dysfunction - overactive 243934164 N32.81 Mild depression 84125383 3 F32.0 Vitamin D deficiency 347 39831 E55.9 [id number] LIONEL De Dios (Adult Med) [address] [place] [address] [id number] 0 07/17/2018 13:32:46 07/18/2018 09:58:41 Hyperlipidemia 09163658 E78.5 High hemog lobin A1c level 201555349 R73.09 Vitamin D deficiency 347 53046 E55.9 Serum alyssa min B12 below reference range 102478424 R79.89 Trochanter ic bursitis of left hip 9474056829 39510 M70.62 Gastroesop hageal reflux disease 124121549 K21.9 Sinusitis 54538073 J32.9 Low back pain 590208033 M54.5 Prolapsed lumbar intervertebral disc 429272347 M51.26 Bladder mu scle dysfunction - overactive 954200769 N32.81 Depressive disorder 3548 9007 F32.9 [id number] LIONEL De Dios (Adult Med) [address] [place] [address] [id number] 0 08/16/2018 16:22:35 08/16/2018 17:08:52 Hyperlipidemia 36901374 E78.5 Low back pain 682354237 M54.5 [id number] LIONEL De Dios (Adult Med) [address] [place] [address] [id number] 0 09/28/2018 12:29:47 09/28/2018 13:26:02 Low back pain 842028575 M54.5 Hypothyroidism 86673675 E03.9 Hyperlipidemia 69958802 E78.5 Vitamin D deficiency 347 46627 E55.9 Prolapsed lumbar intervertebral disc 795558726 M51.26 Trochanter ic bursitis of left hip 6764711318 05843 M70.62 Gastroesop hageal reflux disease 958256049 K21.9 Mild depression 93966803 3 F32.0 [id number] LIONEL De Dios (Adult Med) [address] [place] [address] [id number] 0 10/29/2018 11:42:16 10/30/2018 09:07:25 Low back pain 570914059 M54.5 Hypothyroidism 27232012 E03.9 Hypokalemia 14469881 E87 .6 Gastroesop hageal reflux disease 439258949 K21.9 Asthma-chr onic obstructive pulmonary disease overlap syndrome 5401143824 3617098 J44.9 Prolapsed lumbar intervertebral disc 489482374 M51.26 Hyperlipidemia 88770715 E78.5 Trochanter ic bursitis of left hip 8616217055 36301 M70.62 Hip pain 50080712 M25.55 2 Serum alyssa min B12 below reference range 919679792 R79.89 Vitamin D deficiency 347 38396 E55.9 Depressive disorder 3548 9007 F32.9 [id number] LIONEL De Dios (Adult Med) [address] [place] [address] [id number] 0 01/01/2019 16:03:35 01/01/2019 17:30:02 Low back pain 406074565 M54.5 Gastroesop hageal reflux disease 938126160 K21.9 Venereal d isease screening 814257029 Z11.3 Depressive disorder 3548 9007 F32.9 Vitamin D deficiency 347 45492 E55.9 Hyperlipidemia 16334255 E78.5 Hypothyroidism 25301660 E03.9 Asthma-chr onic obstructive pulmonary disease overlap syndrome 8734022933 8523796 J44.9 [id number] LIONEL De Dios (Adult Med) [address] [place] [address] [id number] 0 02/06/2019 11:56:18 02/06/2019 13:39:54 Low back pain 661167396 M54.5 Pain of le ft hip joint 0718154061 92795 M25.552 Asthma-chr onic obstructive pulmonary disease overlap syndrome 3617428994 7606339 J44.9 Hypothyroidism 36873380 E03.9 Prolapsed lumbar intervertebral disc 715649549 M51.26 Hyperlipidemia 07869369 E78.5 Trochanter ic bursitis of left hip 1176847072 84060 M70.62 Gastroesop hageal reflux disease 663204201 K21.9 Vitamin D deficiency 347 06481 E55.9 Depressive disorder 3548 9007 F32.9 [id number] LIONEL De Dios (Adult Med) [address] [place] [address] [id number] 0 03/06/2019 11:33:00 03/06/2019 12:16:02 Acute sinusitis 72039650 J01.90 Sinusitis 12826827 J32.9 Low back pain 151335620 M54.5 Trochanter ic bursitis of left hip 1570136633 98463 M70.62 Pain of le ft hip joint 3886457204 89907 M25.552 Asthma-chr onic obstructive pulmonary disease overlap syndrome 3925836345 1800731 J44.9 Hypothyroidism 47145921 E03.9 Prolapsed lumbar intervertebral disc 537281346 M51.26 Hyperlipidemia 93393260 E78.5 Hip pain 01907579 M25.55 2 Serum alyssa min B12 below reference range 145379954 R79.89 Gastroesop hageal reflux disease 193864552 K21.9 Vitamin D deficiency 347 07726 E55.9 Depressive disorder 3548 9007 F32.9 [id number] LIONEL De Dios (Adult Med) [address] [place] [address] [id number] 0 04/03/2019 10:32:25 04/04/2019 11:02:34 Acute sinusitis 91792612 J01.90 Augmentin refilled 04/02 Low back pain 282598240 M54.5 Candidiasis of mouth 797 27598 B37.0 [id number] LIONEL De Dios (Adult Med) [address] [place] [address] [id number] 0 05/03/2019 14:24:35 05/06/2019 10:05:09 Pre-surgery testing 544630589 Z01.89 Low back pain 936917004 M54.5 Asthma-chr onic obstructive pulmonary disease overlap syndrome 7092430406 5729893 J44.9 Bladder mu scle dysfunction - overactive 708521038 N32.81 Depressive disorder 3548 9007 F32.9 Gastroesop hageal reflux disease 670643177 K21.9 Hyperlipidemia 25780599 E78.5 Hypothyroidism 94331361 E03.9 Pain of le ft hip joint 5647960444 81216 M25.552 Prolapsed lumbar intervertebral disc 673789940 M51.26 Serum alyssa min B12 below reference range 072152580 R79.89 Trochanter ic bursitis of left hip 5865959846 28721 M70.62 Vitamin D deficiency 347 02480 E55.9 [id number] LIONEL De Dios (Adult Med) [address] [place] [address] 70005-973 0 06/03/2019 10:30:37 06/03/2019 11:39:02 High hemoglobin A1c level 644734557 R73.09 Hypothyroidism 43673537 E03.9 Serum alyssa min B12 below reference range 056218530 R79.89 Vitamin D deficiency 347 26253 E55.9 Hypokalemia 77975029 E87 .6 Hyperlipidemia 10872001 E78.5 Prolapsed lumbar intervertebral disc 016335460 M51.26 Trochanter ic bursitis of left hip 0366237973 41622 M70.62 Low back pain 225211027 M54.5 Bladder mu scle dysfunction - overactive 397997052 N32.81 Depressive disorder 3548 9007 F32.9 Gastroesop hageal reflux disease 767628298 K21.9 [id number] MD Cici Cash (Adult Med) [address] [place] [address] 47198-286 0 06/17/2019 12:19:53 06/18/2019 08:36:12 Facial swelling 957000155 R22.0 Central vs Peripheral Not consistent with an infection 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 Acquired p tosis of eyelid of right eye 8806726048 6865303 H02.401 Oropharyng eal dysphagia 22854871 R13.12 [id number] LIONEL De Dios (Adult Med) [address] [place] [address] 85777-234 0 06/27/2019 09:54:31 06/28/2019 09:39:42 Carrier of methicillin resistant Staphylococcus aureus 868507048 Z22.322 Gastroesop hageal reflux disease 022189887 K21.9 Low back pain 375496580 M54.5 Hypokalemia 56820138 E87 .6 Hyperlipidemia 76964953 E78.5 Menopausal flushing 1984 97558 N95.1 Hypothyroidism 84351395 E03.9 Vitamin D deficiency 347 69492 E55.9 Trochanter ic bursitis of left hip 7962033506 51909 M70.62 Serum alyssa min B12 below reference range 430162245 R79.89 Prolapsed lumbar intervertebral disc 945819726 M51.26 Depressive disorder 3548 9007 F32.9 Asthma-chr onic obstructive pulmonary disease overlap syndrome 2089895329 4624469 J44.9 [id number] LIONEL De Dios (Adult Med) [address] [place] [address] 14401-089 0 07/25/2019 10:01:10 07/26/2019 11:04:50 Low back pain 090008035 M54.5 Carrier of methicillin resistant Staphylococcus aureus 330975085 Z22.322 Injury of left hip region 3008102727 3939123 S79.912A Gastroesop hageal reflux disease 244089404 K21.9 Bladder mu scle dysfunction - overactive 534389115 N32.81 Asthma-chr onic obstructive pulmonary disease overlap syndrome 1036389702 9706999 J44.9 Depressive disorder 3548 9007 F32.9 Hyperlipidemia 40986018 E78.5 Hypothyroidism 65879773 E03.9 Prolapsed lumbar intervertebral disc 534829522 M51.26 Serum alyssa min B12 below reference range 703806163 R79.89 Vitamin D deficiency 347 11142 E55.9 [id number] LIONEL De Dios (Adult Med) [address] [place] [address] 32344-279 0 08/22/2019 11:06:15 08/22/2019 11:48:16 Hip pain 62585269 M25.552 Low back pain 077302261 M54.5 Vitamin D deficiency 347 90399 E55.9 Hypothyroidism 22492409 E03.9 Gastroesop hageal reflux disease 802311310 K21.9 Hyperlipidemia 29095208 E78.5 Serum alyssa min B12 below reference range 780285318 R79.89 Dental abscess 294006981 K04.7 [id number] LIONEL De Dios (Adult Med) [address] [place] [address] 04691-629 0 10/15/2019 08:35:56 10/16/2019 08:59:44 Asthma-chronic obstructive pulmonary disease overlap syndrome 0781952885 6109572 J44.9 Depressive disorder 3548 9007 F32.9 Gastroesop hageal reflux disease 448547230 K21.9 High hemog lobin A1c level 628915542 R73.09 Hyperlipidemia 26348633 E78.5 Hypothyroidism 06898970 E03.9 Knee pain 74958398 M25.5 69 Low back pain 134962807 M54.5 Serum alyssa min B12 below reference range 336311074 R79.89 Trochanter ic bursitis of left hip 7385506302 93973 M70.62 Vitamin D deficiency 347 47144 E55.9 Prolapsed lumbar intervertebral disc 459157126 M51.26 [id number] LIONEL De Dios (Adult Med) [address] [place] [address] 38310-097 0 11/01/2019 08:04:57 11/04/2019 17:14:09 Low back pain 507013068 M54.5 Hyperlipidemia 96175467 E78.5 Hypothyroidism 33569568 E03.9 Gastroesop hageal reflux disease 513574511 K21.9 Hypokalemia 48575388 E87 .6 Asthma-chr onic obstructive pulmonary disease overlap syndrome 0373014206 4195063 J44.9 Depressive disorder 3548 9007 F32.9 Trochanter ic bursitis of left hip 8091977057 34344 M70.62 Vitamin D deficiency 347 92723 E55.9 Serum alyssa min B12 below reference range 875477016 R79.89 [id number] MD Cici Quan (Adult Med) [address] [place] [address] 17147-981 0 11/28/2019 15:22:17 12/04/2019 11:41:37 Pain in right hip joint 4531946162 04539 M25.551 Claims has had chronic right hip pain, needs hydrocodon e stand by. F/U with her pcp MARINA Reese. [id number] LIONEL De Dios (Adult Med) [address] [place] [address] 05036-313 0 12/30/2019 08:14:57 12/30/2019 16:40:59 Pain in right hip joint 1781401938 92775 M25.551 Edema of l ower extremity 067806224 R60.0 Depressive disorder 3548 9006 F32.9 Gastroesop hageal reflux disease 966705125 K21.9 Hip pain 67713168 M25.55 2 Hyperlipidemia 83664387 E78.5 Hypothyroidism 97658369 E03.9 Low back pain 145183752 M54.5 Serum alyssa min B12 below reference range 599412505 R79.89 Shoulder strain 76601473 4 S46.919A Trochanter ic bursitis of left hip 4625319100 24447 M70.62 Vitamin D deficiency 347 17167 E55.9 [id number] LIONEL De Dios (Adult Med) [address] [place] [address] 74850-947 0 01/30/2020 08:08:40 01/30/2020 15:38:42 Low back pain 284951367 M54.5 Pain in ri ght hip joint 6703916344 87973 M25.551 Edema of l ower extremity 881599199 R60.0 Asthma-chr onic obstructive pulmonary disease overlap syndrome 7985810078 0147170 J44.9 Depressive disorder 3548 7 F32.9 Gastroesop hageal reflux disease 701967338 K21.9 High hemog lobin A1c level 941795928 R73.09 Hyperlipidemia 08768187 E78.5 Hypothyroidism 14027467 E03.9 Prolapsed lumbar intervertebral disc 094281315 M51.26 Serum alyssa min B12 below reference range 413112111 R79.89 Trochanter ic bursitis of left hip 1245445274 36712 M70.62 Vitamin D deficiency 347 45717 E55.9 [id number] LIONEL De Dios (Adult Med) [address] [place] [address] 02520-537 0 02/28/2020 08:05:01 02/28/2020 15:01:33 Pain in right hip joint 7638135693 63209 M25.551 Gastroesop hageal reflux disease 895990957 K21.9 Low back pain 558665239 M54.5 Asthma-chr onic obstructive pulmonary disease overlap syndrome 7083965549 8887286 J44.9 Depressive disorder 3548 9007 F32.9 Hyperlipidemia 87314124 E78.5 Hypothyroidism 96870885 E03.9 Prolapsed lumbar intervertebral disc 376036541 M51.26 Serum alyssa min B12 below reference range 100765764 R79.89 Vitamin D deficiency 347 65206 E55.9 [id number] KANE Price (Adult Med) [address] [place] [address] 47113-467 0 03/11/2020 12:05:23 03/11/2020 12:33:52 Administration of influenza vaccine 50087959 Z23 Administra tion of pneumococcal vaccine 13895225 Z23 [id number] LIONEL De Dios (Adult Med) [address] [place] [address] 22931-416 0 03/30/2020 08:26:36 03/30/2020 11:59:58 Hypothyroidism 71313764 E03.9 Edema of l ower extremity 453230280 R60.0 Hyperlipidemia 89311255 E78.5 Hypokalemia 54221656 E87 .6 Low back pain 177177357 M54.5 Knee pain 02577504 M25.5 69 Gastroesop hageal reflux disease 965512017 K21.9 Pain in ri ght hip joint 1967746717 86281 M25.551 Asthma-chr onic obstructive pulmonary disease overlap syndrome 5267995163 4774452 J44.9 Depressive disorder 3548 9007 F32.9 Prolapsed lumbar intervertebral disc 949541548 M51.26 Serum alyssa min B12 below reference range 477582628 R79.89 Trochanter ic bursitis of left hip 6771730799 80622 M70.62 Vitamin D deficiency 347 33039 E55.9 [id number] LIONEL De Dios (Adult Med) [address] [place] [address] 12907-246 0 04/30/2020 07:58:24 04/30/2020 11:12:08 Edema of lower extremity 871388461 R60.0 Asthma-chr onic obstructive pulmonary disease overlap syndrome 9705285278 7690266 J44.9 Depressive disorder 3548 9007 F32.9 Gastroesop hageal reflux disease 760261162 K21.9 Hyperlipidemia 09910854 E78.5 Hypothyroidism 31041598 E03.9 Low back pain 863561765 M54.5 Knee pain 51363162 M25.5 69 Serum alyssa min B12 below reference range 050255921 R79.89 Vitamin D deficiency 347 88938 E55.9 Hypokalemia 97438988 E87 .6 Prolapsed lumbar intervertebral disc 748176467 M51.26 Trochanter ic bursitis of left hip 0295116472 80556 M70.62 [id number] LIONEL De Dios (Adult Med) [address] [place] [address] 14584-807 0 05/29/2020 07:48:38 05/29/2020 11:01:40 Knee pain 38198065 M25.569 Vitamin D deficiency 347 90768 E55.9 Hypothyroidism 25018457 E03.9 Hyperlipidemia 86974146 E78.5 Edema of l ower extremity 484845373 R60.0 Depressive disorder 3548 9007 F32.9 Gastroesop hageal reflux disease 214456822 K21.9 Low back pain 835709954 M54.5 Prolapsed lumbar intervertebral disc 207919931 M51.26 Trochanter ic bursitis of left hip 1244405731 40943 M70.62 [id number] LIONEL De Dios (Adult Med) [address] [place] [address] 12591-401 0 06/30/2020 07:55:33 06/30/2020 13:07:33 Knee pain 17187460 M25.569 Hyperlipidemia 99964533 E78.5 Gastroesop hageal reflux disease 293226559 K21.9 Hypothyroidism 09037346 E03.9 Low back pain 198511531 M54.5 Liver mass 923378628 R16 .0 radiologis t recommende d an MRI Asthma-chr onic obstructive pulmonary disease overlap syndrome 9300452649 6064042 J44.9 Depressive disorder 3548 9007 F32.9 Hip pain 23186109 M25.55 2 Prolapsed lumbar intervertebral disc 392589508 M51.26 Serum alyssa min B12 below reference range 371016602 R79.89 Shoulder strain 07685571 4 S46.919A Trochanter ic bursitis of left hip 6675256451 24699 M70.62 Vitamin D deficiency 347 16949 E55.9 [id number] LIONEL De Dios (Adult Med) [address] [place] [address] 01449-387 0 07/28/2020 08:48:52 07/28/2020 12:13:29 Injury of left hip region 1120936458 9471748 S79.912A Knee pain 43838183 M25.5 69 Hyperlipidemia 65768981 E78.5 Edema of l ower extremity 794453832 R60.0 Shoulder strain 86316392 4 S46.919A Asthma-chr onic obstructive pulmonary disease overlap syndrome 0134723319 0593565 J44.9 Depressive disorder 3548 9007 F32.9 Gastroesop hageal reflux disease 807709321 K21.9 Hypokalemia 30939339 E87 .6 Low back pain 105080163 M54.5 Prolapsed lumbar intervertebral disc 481517441 M51.26 Serum alyssa min B12 below reference range 132128529 R79.89 Trochanter ic bursitis of left hip 1249031161 99895 M70.62 Vitamin D deficiency 347 70556 E55.9 [id number] LIONEL De Dios (Adult Med) [address] [place] [address] 50373-672 0 08/25/2020 08:41:03 08/25/2020 14:21:21 Trochanteric bursitis of left hip 7394947396 61038 M70.62 Edema of l ower extremity 127552961 R60.0 [id number] LIONEL De Dios (Adult Med) [address] [place] [address] 52137-904 0 09/24/2020 07:55:39 09/24/2020 12:02:31 Gastroesophageal reflux disease 448157002 K21.9 Edema of l ower extremity 293442838 R60.0 Low back pain 451586253 M54.5 Asthma-chr onic obstructive pulmonary disease overlap syndrome 1493147838 3354500 J44.9 Depressive disorder 3548 9007 F32.9 Hyperlipidemia 15533512 E78.5 Hypothyroidism 17517220 E03.9 Serum alyssa min B12 below reference range 075253468 R79.89 Trochanter ic bursitis of left hip 5770274644 06271 M70.62 Vitamin D deficiency 347 30308 E55.9 [id number] LIONEL De Dios (Adult Med) [address] [place] [address] 58074-074 0 10/26/2020 12:02:57 10/26/2020 12:58:50 Low back pain 531351070 M54.5 Hypokalemia 09153961 E87 .6 Serum crea tinine above reference range 197994461 R79.89 Knee pain 77790877 M25.5 69 Trochanter ic bursitis of left hip 9028790282 91082 M70.62 Hyperlipidemia 72279019 E78.5 Hypothyroidism 60143683 E03.9 [id number] LIONEL De Dios (Adult Med) [address] [place] [address] 58116-179 0 12/25/2020 10:09:22 12/25/2020 12:43:38 Knee pain 18586880 M25.569 Low back pain 530033222 M54.5 Edema of l ower extremity 752158652 R60.0 Asthma-chr onic obstructive pulmonary disease overlap syndrome 7440209752 3893775 J44.9 Depressive disorder 3548 9007 F32.9 Gastroesop hageal reflux disease 238283046 K21.9 High hemog lobin A1c level 065042466 R73.09 Hip pain 75594840 M25.55 2 Hyperlipidemia 20844137 E78.5 Hypothyroidism 00228185 E03.9 Prolapsed lumbar intervertebral disc 413720896 M51.26 Serum alyssa min B12 below reference range 298772513 R79.89 Vitamin D deficiency 347 23710 E55.9 Trochanter ic bursitis of left hip 4282173527 44619 M70.62 [id number] LIONEL De Dios (Adult Med) [address] [place] [address] 32923-783 0 03/24/2021 08:34:02 03/25/2021 12:39:27 Knee pain 65592736 M25.569 Gastroesop hageal reflux disease 107827634 K21.9 Low back pain 864982636 M54.50 Edema of l ower extremity 584780516 R60.0 [id number] KANE Price (Adult Med) [address] [place] [address] 80116-514 0 05/06/2021 12:39:13 05/06/2021 13:15:28 Administration of influenza vaccine 85406142 Z23 [id number] LIONEL De Dios (Adult Med) [address] [place] [address] 72031-466 0 06/22/2021 10:10:56 06/23/2021 13:32:31 Hip pain 75565418 M25.552 Knee pain 61051861 M25.5 69 Gastroesop hageal reflux disease 633543464 K21.9 Hyperlipidemia 19221352 E78.5 Edema of l ower extremity 373371147 R60.0 Prolapsed lumbar intervertebral disc 421868231 M51.26 Trochanter ic bursitis of left hip 8507592540 40052 M70.62 Vitamin D deficiency 347 56643 E55.9 Depressive disorder 3548 9007 F32.9 High hemog lobin A1c level 348748639 R73.09 Hypothyroidism 63471259 E03.9 Low back pain 268206462 M54.50 Serum alyssa min B12 below reference range 442768499 R79.89 [id number] LIONEL De Dios (Adult Med) [address] [place] [address] 68616-962 0 08/03/2021 15:12:36 08/04/2021 12:30:35 Cough 52574334 R05.9 Hip pain 56926433 M25.55 2 Low back pain 443314626 M54.50 Edema of l ower extremity 795674616 R60.0 Gastroesop hageal reflux disease 054191170 K21.9 High hemog lobin A1c level 327417645 R73.09 Hyperlipidemia 68778420 E78.5 Hypothyroidism 42319672 E03.9 Prolapsed lumbar intervertebral disc 831828392 M51.26 Serum alyssa min B12 below reference range 230998875 R79.89 Trochanter ic bursitis of left hip 6216664236 34019 M70.62 Vitamin D deficiency 347 70886 E55.9 [id number] MD Cici Quan (Adult Med) [address] [place] [address] 0 09/23/2021 16:04:54 09/24/2021 22:31:51 Acute laryngitis 1349811 J04.0 Discussed with patient, with presence of female MA , she agreed to try ABS as ordered. [id number] LIONEL De Dios (Adult Med) [address] [place] [address] 88649-366 0 10/26/2021 15:40:27 10/27/2021 11:50:32 Neck swelling 827646446 R22.1 Hypothyroidism 39925584 E03.9 Hyperlipidemia 23875826 E78.5 Depressive disorder 3548 9007 F32.9 Gastroesop hageal reflux disease 920957717 K21.9 Serum alyssa min B12 below reference range 981821241 R79.89 Trochanter ic bursitis of left hip 1443825692 79208 M70.62 Low back pain 434595466 M54.50 Asthma-chr onic obstructive pulmonary disease overlap syndrome 9464715151 9725928 J44.9 Vitamin D deficiency 347 30875 E55.9 High hemog lobin A1c level 836154240 R73.09 Hypokalemia 04814131 E87 .6 [id number] LIONEL De Dios (Adult Med) [address] [place] [address] 0 01/11/2022 14:41:16 01/12/2022 10:36:07 Prolapsed lumbar intervertebral disc 623730805 M51.26 Screening for malignant neoplasm of colon 614804133 Z12.11 Depressive disorder 3548 9007 F32.9 Gastroesop hageal reflux disease 992905052 K21.9 Hyperlipidemia 36305629 E78.5 Hypothyroidism 30288420 E03.9 Serum alyssa min B12 below reference range 068389924 R79.89 Trochanter ic bursitis of left hip 9217738895 07877 M70.62 [id number] MD Cici DUGGAN (COMPUTER AIDED DESIGN TECHNICIAN) [address] [place] [address] 55292-359 0 02/03/2022 09:45:08 02/04/2022 13:12:24 Gynecologic examination 76219827 Z01.411 - Educated on the importance of Self breast awareness. - S/P Hysterecto my due to uterine prolapse 10 years ago, no indication for pap smear- Discussed the importance of exercise.- Nutrition discussed and the importance of a diet rich in fruits, vegetable, whole grains, and lean proteins.- Counseled regarding prevention of STI's and screening options, condom use, STI screening offered, patient not interested at this time- Advised avoidance of tobacco, alcohol, and drugs. Screening for malignant neoplasm of breast 994364718 Z12.39 Last mammogram in 2017, overdue; ordered today Body mass index 30+ - obesity 764622873 Z68.32 - Encouraged increasing aerobic exercise to at least 150min per week, and discussed the use of MyPlate method with emphasis on increasing fruit and vegetable consumptio n and limiting processed foods and added sugars- Check A1c, Lipid panel, and TSH for risk stratifica tion. Essential hypertension 11621494 I10 - BP uncontroll ed, has been hypertensi ve on multiple occasions over the past year- Will start Lisinopril 20mg for further BP control- Check CMP, discussed importance of a low sodium diet- Keep Appt with PCP to monitor BP Menopausal symptom 12923 002 E89.41 - Currently on estradiol 1mg, daily, not as effective- Will start Prempro to minimize effect of chronic unopposed estrogen [id number] LIONEL De Dios (Adult Med) [address] [place] [address] 52030-151 0 03/08/2022 13:52:33 03/09/2022 13:33:53 Hyperlipidemia 74739159 E78.5 Edema of l ower extremity 768174548 R60.0 Hip pain 68908985 M25.55 2 Cough 43007862 R05.9 Administra tion of influenza vaccine 18361726 Z23 Gastroesop hageal reflux disease 086773148 K21.9 Depressive disorder 3548 9007 F32.9 Hypothyroidism 92181491 E03.9 Prolapsed lumbar intervertebral disc 739426508 M51.26 Serum alyssa min B12 below reference range 584545774 R79.89 Trochanter ic bursitis of left hip 8909034271 09511 M70.62 [id number] MD Cici DUGGAN (COMPUTER AIDED DESIGN TECHNICIAN) [address] [place] [address] 98210-603 0 03/31/2022 10:30:51 04/01/2022 15:52:35 Heterogeneously dense breast composition 657085022 R92.2 Screening Mammogram done 03/03/2022 showed heterogene ously dense tissue, recommende d bilateral breast US for additional eval, ordered Menopausal flushing 1983 23211 N95.1 Patient has been on Premarin 0.625 mg + Medroxypro gesterone 2.5mg dailyPt s/p hysterecto my, no indication for progestero ne HRT, will stop medroxypro gesteroneW ill reduce Premarin to 0.45mg to reduce risk of VTE/cancer Essential hypertension 76176344 I10 - BP better controlled with Lisinopril , continue med, CMP unremarkab le- Continue low sodium diet- Keep Appt with PCP to follow up on BP [id number] MD Cici Leblanc (Adult Med) [address] [place] [address] [phone] 0 04/12/2022 14:45:58 04/13/2022 15:38:26 Essential hypertension 09218169 I10 Increase lisinopril to 40 mg/d Gastroesop hageal reflux disease 202918301 K21.9 Low back pain 033080175 M54.50 Renewal of prescription 966287721 Z76.0 Hypertriglyceridemia 302 091301 E78.2 [id number] KANE Shi (Adult Med) [address] [place] [address] 95619-638 0 07/14/2022 14:18:05 07/20/2022 10:50:27 Hypertriglyceridemia 304394797 E78.2 Asthma-chr onic obstructive pulmonary disease overlap syndrome 0062370180 4211620 J44.9 Vitamin D deficiency 347 43323 E55.9 Low back pain 720317837 M54.50 Knee pain 85626682 M25.5 69 Medication monitoring 39 0536346 Z51.81 [id number] MD Cici DUGGAN (COMPUTER AIDED DESIGN TECHNICIAN) [address] [place] [address] 70341-916 0 10/06/2022 11:12:38 10/21/2022 11:26:08 Fatigue 75517595 R53.83 patient feels tired most of the time in the last 6 months. States she wakes up from sleeping and feels like can go back to bed. She denies constipati on, diarrhea, heat, cold intoleranc e, hair loss. Will recheck TSH to assess if hypothyroi dism is well managed. Polyp of s igmoid colon 216589095 D12.5 Patient had colonoscop y in may 02- , with diverticul a noted on exam. Colonscopy not warranted at this time. 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 [id number] MD Cici Leblanc (Adult Med) [address] [place] [address] 69392-290 0 03/14/2023 10:30:29 03/15/2023 13:06:26 Obesity 004406666 E66.9 Low back pain 250149067 M54.50 Asthma-chr onic obstructive pulmonary disease overlap syndrome 3116292367 1353637 J44.9 Diverticular disease 397 408847 K57.90 Essential hypertension 92020450 I10 Add HCTZ History of polyp of colon 117351160 Z86.010 Hyperlipidemia 39433414 E78.5 Hypothyroidism 72710290 E03.9 Active immunization 3387 9002 Z23 [id number] MD Cici Leblanc (Adult Med) [address] [place] [address] 44611-591 0 05/29/2023 10:36:23 06/02/2023 16:27:21 Obesity 613616272 E66.9 Medication monitoring 39 0971264 Z51.81 [id number] MD Cici Leblanc (Adult Med) [address] [place] [address] 61428-342 0 08/29/2023 11:17:47 08/30/2023 20:54:27 Obesity 632396680 E66.9 Vitamin D deficiency 347 73767 E55.9 Asthma-chr onic obstructive pulmonary disease overlap syndrome 3769030480 5918519 J44.9 Diverticular disease 397 202825 K57.90 Essential hypertension 68851695 I10 Reevaluate at next OV Gastroesop hageal reflux disease 731175103 K21.9 Increase PPI High hemog lobin A1c level 995872668 R73.09 History of polyp of colon 189323831 Z86.010 Colonoscop y 1m 2021. Repeat 2026 Hyperlipidemia 44748991 E78.5 Hypertriglyceridemia 302 974395 E78.2 Hypothyroidism 25170614 E03.9 Hyperglycemia 46651174 R 73.9 Low back pain 712355044 M54.50 Loose stool 537442002 R1 9.5 [id number] MD Cici Leblanc (Adult Med) [address] [place] [address] 29408-037 0 01/16/2024 15:14:36 01/17/2024 15:50:40 Obesity 303714789 E66.8 Cough 30192349 R05.9 Low back pain 803441382 M54.50 Essential hypertension 05399272 I10 Reevaluate at next OV Anemia 523282877 D64.9 [id number] Juanita Chacon MD [facility] (Adult Med) [address] [place] [address] 68649-092 0 04/10/2024 12:22:04 04/16/2024 16:35:31 Serum creatinine outside reference range 312169426 R79.89 Depressive disorder 3548 9007 F32.9 Diverticular disease 397 833527 K57.90 Essential hypertension 13192451 I10 Reevaluate at next OV Family his tory of diabetes mellitus 674690665 Z83.3 Gastroesop hageal reflux disease 410183762 K21.9 Increase PPI Hyperglycemia 68346055 R 73.9 Menopausal flushing 1984 09357 N95.1 [place] [facility] Medication monitoring 39 0682510 Z51.81 Low back pain 987947771 M54.50 Active immunization 3387 9002 Z23 Health Concerns Section Related Observation LastModified by Organization Detai ls LastModified Time None Recorded Concern Status LastModified by Organization Details LastModified Time None Recorded Advance Directives Directive N: Payers Encounter Date Sequence Insurance Name Policy Number Policy Mayorga Covered Member ID Mayorga Member ID Guarantor Name 03/14/2023 1 [facility] (MEDICARE REPLACEMENT/AD VANTAGE - HMO) [id number] Flora Siddiqi [id number] Flora Siddiqi 03/14/2023 2 [place] MEDICARE OR MEDICARE REPLACEMENT PRIMARY) Flora Siddiqi [id number] Flora Siddiqi 05/29/2023 1 [facility] (MEDICARE REPLACEMENT/AD VANTAGE - HMO) [id number] Flora Siddiqi [id number] Flora Siddiqi 05/29/2023 2 [place]ARE OR MEDICARE REPLACEMENT PRIMARY) Flora Siddiqi [id number] Flora Siddiqi 08/29/2023 1 [facility] (MEDICARE REPLACEMENT/AD VANTAGE - HMO) [id number] Flora Siddiqi [id number] Flora Siddiqi 08/29/2023 2 [place]ARE OR MEDICARE REPLACEMENT PRIMARY) Flora Siddiqi [id number] Flora Siddiqi 01/16/2024 1 [facility] (MEDICARE REPLACEMENT/AD VANTAGE - HMO) [id number] Flora U Devang [id number] Flora Devang 01/16/2024 2 [place] OR MEDICARE REPLACEMENT PRIMARY) Flora U Devang [id number] Flora Devang 04/10/2024 1 [facility] (MEDICARE REPLACEMENT/AD VANTAGE - HMO) [id number] Flora U Devang [id number] Flora Devang 04/10/2024 2 [place] WHEN MEDICARE OR MEDICARE REPLACEMENT PRIMARY) Flora U Devang [id number] Flora Devang Notes Date Note Type Note Provider Name and Address Organization Details Recorded Time 03/14/2023 text/html Here for f/u and med refills. Juanita Chacon MD Attn: Accounting, [address] [facility], [place], [address], [place] [facility] 03/14/2023 11:40:37 05/29/2023 text/html Here for regular check up. No new complaints. Increased trouble breathing and pain due to weather change Juanita Chacon MD Attn: Accounting, [address] [facility], [place], [address], [place] [facility] 05/29/2023 13:11:21 08/29/2023 text/html Has increased ba ck pain in the past two to three weeks. Has to increase to three tablets occasionally. Has pain in her hips now. Not sleeping well. Stomach upset all the time and has liquid BMs shortly after she eats. Juanita Chacon MD Attn: Accounting, [address] [facility], [place], [address], [place] [facility] 08/29/2023 12:08:43 01/16/2024 text/html Increased difficulty and non productive cough breathing associated with the heat. Otherwise doing well Juanita Chacon MD Attn: Accounting, [address] [facility], [place], [address], [place] [facility] 01/16/2024 16:07:33 04/10/2024 text/html Complaining abou t recurrent menopausal flushing. Wants her pain medicine refilled Juanita Chacon MD Attn: Accounting,[address] , [place], [address], [facility] - [facility] 04/10/2024 13:13:39 OBGyn Episode Ob Episode Information Episode Created Date Number of Fetuses Patient Bloodtype Patient rh Status Prepregnancy Weight lbs Domestic Partner Domestic Partner Phone Father Name Assistant Professor Of Education Status 10/29/19 15 1 CLOSED Fetus Data First Name Last Name Admitted to NICU Weight (g) Sex Living Outcome Pediatric Complications Fetus ID Race Codes Race Delivery Type 2976.69 75 M Full Term [id number] Franklyn Calculation Initial Franklyn Date Initial Exam Date Initial Exam Provider Initial Ultrasound Date Last Menstrual Period Date Ultra Sound Weeks Gestation 0 Eighteen To Twenty Week Franklyn Update Ultra Sound Date Fundal Height At Umbil Quickening Date Ultra Sound Latest Weeks Gestation Final Franklyn Confirmed By Final Franklyn Confirmed Date Final Franklyn Date Ultra Sound Latest Days Gestation 0 0 Menstrual History Last Menstrual Date Menses Monthly On Bcp Conception Prior Menses Frequency Hcg Plus Date Menarche Onset Age Delivery Information Delivery Date Delivery Type Labor Anesthesia Weeks Gestation Incision Type Labor Labor Length Hrs Delivered By Post Complications Tubal Sterilization Discharge Date Comments 5 Regional-Ep idural 40 false Johnatha n Discharge Information Feeding Method Contraceptive Method Maternal HG B and HCT Levels Ob Episode Information Episode Created Date Number of Fetuses Patient Bloodtype Patient rh Status Prepregnancy Weight lbs Domestic Partner Domestic Partner Phone Father Name Assistant Professor Of Education Status 10/29/19 15 1 CLOSED Fetus Data First Name Last Name Admitted to NICU Weight (g) Sex Living Outcome Pediatric Complications Fetus ID Race Codes Race Delivery Type M Demise [id number] Franklyn Calculation Initial Franklyn Date Initial Exam Date Initial Exam Provider Initial Ultrasound Date Last Menstrual Period Date Ultra Sound Weeks Gestation 0 Eighteen To Twenty Week Franklyn Update Ultra Sound Date Fundal Height At Umbil Quickening Date Ultra Sound Latest Weeks Gestation Final Frnaklyn Confirmed By Final Franklyn Confirmed Date Final Franklyn Date Ultra Sound Latest Days Gestation 0 0 Menstrual History Last Menstrual Date Menses Monthly On Bcp Conception Prior Menses Frequency Hcg Plus Date Menarche Onset Age Delivery Information Delivery Date Delivery Type Labor Anesthesia Weeks Gestation Incision Type Labor Labor Length Hrs Delivered By Post Complications Tubal Sterilization Discharge Date Comments 1 39 false [place] Discharge Information Feeding Method Contraceptive Method Maternal HG B and HCT Levels Ob Episode Information Episode Created Date Number of Fetuses Patient Bloodtype Patient rh Status Prepregnancy Weight lbs Domestic Partner Domestic Partner Phone Father Name Assistant Professor Of Education Status 10/29/19 15 1 CLOSED Fetus Data First Name Last Name Admitted to NICU Weight (g) Sex Living Outcome Pediatric Complications Fetus ID Race Codes Race Delivery Type 3345.24 1 M Full Term [id number] Franklyn Calculation Initial Franklyn Date Initial Exam Date Initial Exam Provider Initial Ultrasound Date Last Menstrual Period Date Ultra Sound Weeks Gestation 0 Eighteen To Twenty Week Franklyn Update Ultra Sound Date Fundal Height At Umbil Quickening Date Ultra Sound Latest Weeks Gestation Final Franklyn Confirmed By Final Franklyn Confirmed Date Final Franklyn Date Ultra Sound Latest Days Gestation 0 0 Menstrual History Last Menstrual Date Menses Monthly On Bcp Conception Prior Menses Frequency Hcg Plus Date Menarche Onset Age Delivery Information Delivery Date Delivery Type Labor Anesthesia Weeks Gestation Incision Type Labor Labor Length Hrs Delivered By Post Complications Tubal Sterilization Discharge Date Comments 9 Regional- idural 40 false Saúl Discharge Information Feeding Method Contraceptive Method Maternal HG B and HCT Levels
[2024-06-18 13:46] LABS: Estimated Glomerular Filt Rate 32
[2024-06-18 14:27] LABS: Hematocrit 28.8 % (37.0-47.0); Hemoglobin 9.2 g/dL (12.0-15.0); Mean Corpuscular HGB Conc 31.9 g/dl (32-36); Mean Corpuscular Volume 93.8 fl (80-100); Mean Platelet Volume 10.6 fl (7.4-10.4); Platelet Count Result 177 k/mm3 (150-375); Red Blood Count 3.07 M/mm3 (4.2-5.4); Red Cell Distribution Width 13.5 % (11.5-14.5); White Blood Count 7.9 K/mm3 (4.5-10.0)
[2024-06-18 14:34] LABS: Add Urine Microscopic? YES; Appearance Urine Cloudy (Clear); Bacteria Urine 4+ /hpf; Bilirubin Urine Negative (Negative); Blood Urine Negative (Negative); Color Urine Yellow (Yellow); Glucose Urine UA Negative (Negative); Ketones Urine Negative (Negative); Leukocyte Esterase Ur 3+ LEU/UL (Negative); Nitrate Urine Negative (Negative); Non Pathogenic Casts 0-2; Protein Urine Negative (Negative); RBC Urine 0-2 /hpf (0-2); Squamous Epithelial Cell Urine Occasional /hpf (Few); Urobilinogen Urine 0.2 mg/dL (<2.0); WBC Urine 51-100 /hpf (0-3); pH Urine 5.5 (5.0-9.0)
[2024-06-18 14:55] LABS: Complement C3 100 mg/dL (88-165)
[2024-06-18 15:05] LABS: Erythrocyte Sedimentation Rate 22 mm/hr (0-20)
[2024-06-18 15:45] LABS: Vitamin D 25 Hydroxy 62.1 ng/mL
[2024-06-18 16:16] LABS: Hepatitis C Virus Antibody Negative (Negative)
[2024-06-18 17:29] LABS: Creatinine Urine 25.2 mg/dL
[2024-06-18 17:30] LABS: Creatinine Urine 24.9 mg/dL; Total Protein Urine Random 15 mg/dL
[2024-06-18 17:34] LABS: MALB Creatinine Ratio 24.6 mg/g (0-30); Microalbumin Urine Random 6.2 mg/L (0-16.7)
[2024-06-18 18:45] LABS: Anion Gap 12 mmol/L (4-12); Blood Urea Nitrogen 27 mg/dL (7-17); Calcium 8.6 mg/dL (8.4-10.2); Carbon Dioxide 22 mmol/L (22-30); Chloride 96 mmol/L (98-107); Estimated Glomerular Filt Rate 39; Glucose 107 mg/dL (65-110); Magnesium 1.5 mg/dL (1.6-2.3); Potassium 3.7 mmol/L (3.4-5.0); Sodium 130 mmol/L (137-145)
[2024-06-18 19:53] LABS: Folic Acid > 20.0 ng/mL (2.76->20)
[2024-06-18 19:56] LABS: Rapid Plasma Reagin Non-Reactive (NonReactive)
[2024-06-20 02:38] LABS: Protein, Total 6.2 g/dL (6.1-8.1)
[2024-06-20 11:33] LABS: Kappa\\Lambda Light Chains 1.17 (0.26-1.65); Lambda Light Chain 19.6 mg/L (5.7-26.3)
[2024-06-20 12:29] LABS: eGFR 30 (> OR = 60)
[2024-06-20 20:08] LABS: Albumin 3.8 g/dL (3.8-4.8); Alpha 1 Globulin 0.3 g/dL (0.2-0.3); Alpha 2 Globulin 0.9 g/dL (0.5-0.9); Beta 1 Globulin 0.4 g/dL (0.4-0.6); Gamma Globulin 0.6 g/dL (0.8-1.7)
== END 2024-06-18 12:58 | disposition home or self-care (01) ==
PROVIDERS: PCP Internal Medicine Gastroenterology; Visit Provider Internal Medicine Nephrology
DX: C34.90 Malignant neoplasm of unspecified part of unspecified bronchus or lung (principal); I12.9 Hypertensive chronic kidney disease with stage 1 through stage 4 chronic kidney disease, or unspecified chronic kidney disease; N18.30 Chronic kidney disease, stage 3 unspecified; E03.8 Other specified hypothyroidism; J44.0 Chronic obstructive pulmonary disease with (acute) lower respiratory infection; K21.9 Gastro-esophageal reflux disease without esophagitis; E78.00 Pure hypercholesterolemia, unspecified; Z11.3 Encounter for screening for infections with a predominantly sexual mode of transmission
CPT/HCPCS: 36415; 71260; 76775; 80069; 81001; 82043; 82306; 82570; 82607; 82610; 82746; 83735; 83883; 84155; 84156; 84165; 85027; 85652; 86160; 86592; 86803; Q9967

== ENCOUNTER 2024-09-02 10:40 | Outpatient (CLI) | payer MEDICARE, MEDICAID, SELFPAY ==
[2024-09-02 11:50] LABS: Potassium Urine Random 42.6 meq/L; Sodium Urine Random 154 meq/L
[2024-09-02 11:54] LABS: Add Urine Microscopic? YES; Appearance Urine Cloudy (Clear); Bacteria Urine 1+ /hpf; Bilirubin Urine Negative (Negative); Blood Urine Negative (Negative); Color Urine Yellow (Yellow); Glucose Urine UA Negative (Negative); Hyaline Casts Urine Present /lpf; Ketones Urine Negative (Negative); Leukocyte Esterase Ur Negative LEU/UL (Negative); Need Manual Microscopic Reviewed; Nitrate Urine Negative (Negative); Protein Urine Negative (Negative); RBC Urine 0-2 /hpf (0-2); Specific Grav Ur 1.017 (1.001-1.035); Squamous Epithelial Cell Urine Few /hpf (Few); Urobilinogen Urine 0.2 mg/dL (<2.0); pH Urine 5.5 (5.0-9.0)
[2024-09-02 12:02] LABS: Iron 82 ug/dL (37-170)
--- OUTSIDE RECORDS SUMMARY | 2024-09-02 12:03 | XMS_ITS | Clinical Summary ---
Author Organization [facility] [facility] Address [address] [place] [address] Care Team Providers Care Hotel Night Auditor Name Role Phone Terry Reese Smooth MCNAIR-CAFETERIA OR LUNCHROOM CHECKER Primary Care Provider Source Comments [facility],non-owned Affiliates and Associated Physician Practices is amultiple site organization consisting of ambulatory clinics and hospital sitesin [place], [place], [place] and [place]. This disclosure is being madepursuant to the Care Everywhere program and may not contain all information available regarding this patient. Last updated 18.[facility] Allergies No known active allergies Medications * Be aware that medications may not be up to date on this document. Alwaysverify current medications with the patient. albuterol HFA (PROVENTIL;KIKO TOLIN;PROAIR) 108 (90 Base) MCG/ACT inhaler Inhale 2 puffs by mouth every 4 hours as needed Active tiZANidine (ZANAFLEX) 4 MG tablet Take 4 mg by mouth every 8 hours as needed Active INCRUSE ELLIPTA 62.5 MCG/INH inhaler Inhale 1 puff by mouth once daily 9 Active atorvastatin (LIPITOR) 20 MG tablet Take [...] 50 mcg by mouth daily before breakfast 9 Active raNITIdine (ZANTAC) 150 MG tablet 9 Active FLUTICASONE PROPIONATE HFA IN Inhale 2 puffs by mouth 2 times daily Active montelukast (SINGULAIR) 10 MG tablet Take 10 mg by mouth at bedtime Active acetaminophen (TYLENOL) 500 MG tablet Take 2 tablets by mouth every 6 hours Maximum allowable Acetaminophen amount = 4 Grams (4000 mg) / 24 hours. 0 Active Additional Information Patient not taking.Reported on 06/28/2019 oxyCODONE, immediate release, (ROXICODONE) 5 MG tablet Take 1 tablet by mouth every 4 hours as needed for Pain 12 tablet 0 Active Additional Information Patient not taking.Reported on 06/28/2019 docusate sodium (COLACE) 100 MG capsule Take 1 capsule by mouth once daily 0 Active Additional Information Patient not taking.Reported on 06/28/2019 acetaminophen- codeine (TYLENOL #4) 300-60 MG tablet 9 Active omeprazole (PRILOSEC) 20 MG capsule 0 Active Active Problems Problem Noted Date Diagnosed Date Subcutaneous emphysema 06/20/2019 Postprocedural pneumothorax 06/17/2019 Encounter for chest tube placement 06/17/2019 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 [...] = 0.6 oz pur e alcohol) rarely Comments No Sex and Gender Information Value Date Recorded Sex Assigned at Not on file Legal Sex Female 9:18 AM CDT Gender Identity Not on file Sexual Orientation Not on file Last Filed Vital Signs Vital Sign Reading Time Taken Comments Blood Pressure 150/70 12/27/2019 8:28 AM CDT Pulse 57 12/27/2019 8:28 AM CDT Temperature 36.9 C (98.5 F) 12/27/2019 8:28 AM CDT Respiratory Rate 12 06/28/2019 8:27 AM GRINDER MACHINE KNIFE SETTER Oxygen Saturation 100% 12/27/2019 8:28 AM CDT Inhaled Oxygen Concentration - - Weight 65.8 kg (145 lb) 12/27/2019 8:28 AM CDT Height 152.4 cm (5') 06/28/2019 8:27 AM GRINDER MACHINE KNIFE SETTER Body Mass Index 28.32 06/28/2019 8:27 AM GRINDER MACHINE KNIFE SETTER Plan of Treatment Health Maintenance Due Date [...] of 2) 09/19/2007 SCREENING FOR DIABETES 06/20/2022 , 06/19/2019, 06/18/2019, Additional history exists COVID-19 VACCINE ( - 2023- season) 2024 10/08/2020, 09/17/2020 DEPRESSION SCREENING 05/22/2024 INFLUENZA VACCINE (Season Ended) 2025 03/08/2022, 05/06/2021, 03/11/2020, Additional history exists Respiratory Syncytial Virus (RSV) Vaccine Pt: or [...] complete this topic MENINGOCOCCAL (Group B) VACCINE SHARED DECISION-MAKING Aged Out No longer eligible based on patient's age to complete this topic MENINGOCOCCAL GROUPS A/C/Y/W VACCINE Aged Out No longer eligible based on patient's age to complete this topic Procedures Procedure Name Priority Date/Time Associated Diagnosis Comments COMPREHENSIVE METABOLIC PANEL Routine 06/20/2019 4:30 AM GRINDER MACHINE KNIFE SETTER from Last 3 Months or Most Recently Relevant to Health Maintenance Results * (ABNORMAL) COMPREHENSIVE METABOLIC PANEL (06/20/2019 4:30 AM GRINDER MACHINE KNIFE SETTER) Glucose 119(H) 70 - 105 mg/dL 06/20/2019 5:54 AM [facility] Sodium 138 136 - 145 mmol/L 06/20/2019 5:54 AM [facility] Potassium 3.4(L) 3.5 - 5.1 mmol/L 06/20/2019 5:54 AM [facility] Chloride 104 98 - 107 mmol/L 06/20/2019 5:[address] [facility] CO2 23 23 - 31 mmol/L 06/20/2019 5:[address] [facility] Calcium 8.2(L) 8.4 - 10.4 mg/dL 06/20/2019 5:[address] [facility] Anion Gap 11 8 - 16 mmol/L 06/20/2019 5:[address] [facility] BUN 10 9.8 - 20.1 mg/dL 06/20/2019 5:[address] [facility] Creatinine 0.75 0.57 - 1.11 mg/dL 06/20/2019 5:[address] [facility] Alkaline Phosphatase 139 40 - 150 U/L 06/20/2019 5:[address] [facility] ALT 11 0 - 61 U/L 06/20/2019 5:[address] [facility] AST 11 5 - 34 U/L 06/20/2019 5:[address] [facility] Protein Total 5.3(L) 6.4 - 8.3 gm/dL 06/20/2019 5:[address] [facility] Albumin 2.9(L) 3.2 - 4.6 gm/dL 06/20/2019 5:[address] [facility] Bilirubin Total 0.5 0.2 - 1.0 mg/dL 06/20/2019 5:[address] [facility] eGFR by MDRD >60 >60 mL/min/1.7 3m2 06/20/2019 5:[address] [facility] eGFR by MDRD >60 >60 mL/min/1.7 3m2 06/20/2019 5:54 AM GRINDER MACHINE KNIFE SETTER [facility] Blood BLOOD SPECIMEN / Unknown Lab Venipuncture / Unknown 06/20/2019 4:30 AM GRINDER MACHINE KNIFE SETTER 06/20/2019 4:57 AM GRINDER MACHINE KNIFE SETTER Trisha Valera MD LAB - CHEMISTRY ORDERABLES Final Result Performing Organization Address City/State/[facility] Co de Phone Number [facility] [address] [place] [address] from Last 3 Months or Most Recently Relevant to Health Maintenance Additional Health Concerns Infection Onset Date Last Indicated 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
--- OUTSIDE RECORDS SUMMARY | 2024-09-02 12:03 | XMS_ITS | CONTINUITY OF CARE DOCUMENT ---
Author Name ramonita francheskakaron Address Unknown Organization [facility] Address [address] [place] [address] Phone [phone] Care Team Providers Care Exceptional Children Teacher Name Role Phone Shelia Hernandez MD Unavailable [phone] CAITLYN CHACON MD Unavailable CAITLYN CHACON MD Unavailable PROBLEMS Condition Status Date Provider Notes Hypothyroidism active Ti Ahmedzai Hyperlipidemia active Ti Ahmedzai Hypertension active Ti Ahmedzai Dyspnea on exertion active Ti Ahmedzai Cardiology examination active Ti Ahmedzai Palpitations active Ti Ahmedzai Hx of lung cancer, R lobectomy active Ti Ahmedzai ENCOUNTERS Date Type Provider Location Encounter Diag nosis - In-person encounter Office Visit Shelia Hernandez MD [place] Cardiology examinationPalpitationsHx of lung cancer, R lobectomy VITAL SIGNS Date Observation Value Provider Body Mass Index (Ratio) 33.00 kg/m2 Osvaldo Hernandez MD blood pressure, diastolic 73 mm[Hg] Miguelangel Gao blood pressure, systolic 120 mm[Hg] Leon Gao oxygen saturation, oximetry 98 % Alyce Gao pulse rate 65 /min Alyce kee height E&M 60 [in_i] Alyce kee blood pressure, cuff size regular Ti jose de jesus Gao weight E&M 169 [lb_av] Alyce kee HISTORY OF MEDICATION USE Medication Status Instructions Dates Provider Indications Com ments losartan 100 mg tablet active TAKE 1 TA BLET BY MOUTH DAILY Ti Lowe Premarin 0.3 mg tablet active TAKE 1 TA BLET BY MOUTH EVERY DAY Alyce Gao levothyroxine 50 mcg tablet active TAKE 1 TABLET BY MOUTH EVERY DAY IN THE MORNING Alyce Gao ibuprofen 800 mg tablet completed TAKE 1 TABLET BY MOUTH 3 TIMES A DAY WITH FOOD - Ti Lowe ferrous sulfate 325 mg (65 mg iron) tablet active TAKE 1 TABLET BY MOUTH EVERY DAY Alyce Gao lisinopril 40 mg tablet completed TAKE 1 TABLET BY MOUTH EVERY DAY - Ti Lowe gabapentin 100 mg capsule active TAKE 1 CAPSULE BY MOUTH THREE TIMES A DAY Alyce Gao montelukast 10 mg tablet active TAKE 1 TABLET BY MOUTH EVERYDAY AT BEDTIME Alyce Gao hydrochlorothiazide 12.5 mg capsule active TAKE 2 CAPSULES BY MOUTH EVERY DAY Alyce Gao lidocaine 5% adhesive patch,medicated active APPLY 1 PATCH BY TOPICAL ROUTE ONCE DAILY (MAY WEAR UP TO 12HOURS.) Alyce Gao omeprazole 40 mg capsule,delayed release(DR/EC) active 4 times a week Ti Lowe tizanidine 4 mg tablet active TAKE 1 TA BLET BY MOUTH THREE TIMES A DAY NEEDED Alyce Gao atorvastatin 80 mg tablet active TAKE 1 TABLET BY MOUTH EVERY DAY Alyce Gao INSURANCE PROVIDERS Payer name Policy type / Coverage type Blanch red green party ID [employer]ARP MEDICARE ADVANTAGE ST [address] (HMO POS) Medicare [id number] [facility] Medicaid 2 [id number] ADVANCE DIRECTIVES Name Date DISCUSSED - NO DECISION MADE TREATMENT PLAN Date Name Performer Cardiology:This visi t has been a part of the consistent, comprehensive, and ongoing management of the chronic medical condition(s) listed above for the patient. Her updated medication list for this problem includes: Lisinopril 40 Mg Tablet (Lisinopril) ..... Take 1 tablet by mouth every day Hydrochlorothiazide 12.5 Mg Capsule (Hydrochlorothiazide) ..... Take 2 capsules by mouth every day Orders: C omplete Echo ([id number]) S tress Regadenoson ([id number]) Shelia Hernandez MD Cardiology: H er updated medication list for this problem includes: Atorvastatin 80 Mg Tablet (Atorvastatin) ..... Take 1 tablet by mouth every day Shelia Hernandez MD Cardiology: H er updated medication list for this problem includes: Levothyroxine 50 Mcg Tablet (Levothyroxine) ..... Take 1 tablet by mouth every day in the morning Shelia Hernandez MD Cardiology: H er updated medication list for this problem includes: Lisinopril 40 Mg Tablet (Lisinopril) ..... Take 1 tablet by mouth every day Orders: M onitor - Telemetry (Mobile Cardiac) ([id number]) C omplete Echo ([id number]) S tress Regadenoson ([id number]) Shelia Hernandez MD Cardiology: O rders: C omplete Echo ([id number]) S tress Regadenoson ([id number]) Shelia Hernandez MD Date Name Stress Regadenoson Complete Echo Monitor - Telemetry (Mobile Cardiac) HISTORY OF PROCEDURES Procedure Date Procedure Name Provider Procedure Notes S tatus Complex e/m visit add on Shelia Hernandez MD completed EKG Shelia Hernandez MD completed
[2024-09-02 12:04] LABS: Creatinine Urine 201.3 mg/dL
--- OUTSIDE RECORDS SUMMARY | 2024-09-02 12:04 | XMS_ITS | Data Portability ---
Author Organization [place] [facility] [employer], Main Office Address [address] [place] [address] Assessment Encounter Date Assessment Date Assessment LastModified [...] Organization Details Last Modified Time Details Appointments Any 30 2025 09:30A María Elena Apodaca NP Not available Not available Not available Lab alpha-1-a ntitrypsi n (aat) phenotype , serum 2023 024 [facility] - Outpatient Lab, [address] [place], [address], 06/10/2024 16:57:16 BNP (B-type natriuret ic peptide), serum or plasma 2023 024 [facility] Outpatient Lab, [address] [place], [address], 06/10/2024 16:57:16 ige, total, serum 2023 024 [facility] - Outpatient Lab, [address] [place], [address], 06/04/2024 18:08:20 tb (M tuberculo sis), ifn-gamma melissa, blood 2023 024 [facility] - Outpatient Lab, [address] [place], [address], 06/10/2024 16:57:[address] s 1+2+3+4, serum 2023 024 [facility] Outpatient Lab, [address] [place], [address], 06/10/2024 16:57:17 respirato ry allergen panel, [facility] A, serum 2023 024 [facility] - Outpatient Lab, [address] [place], [address], 06/10/2024 16:57:17 respirato ry allergen panel - [facility] b 2023 024 [facility] Outpatient Lab, [address] [place], [address], 06/10/2024 16:57:17 Referral None recorded. Procedures None recorded. Surgeries None recorded. Imaging CT, chest, w/ contrast - Please call patient to schedule. 2024 025 [facility], [facility] , [place] [address], [place], [address], 07/24/2024 17:28:39 Medication Orders Incruse Ellipta 62.5 mcg/actua tion powder for inhalatio n 2024 025 [facility] [address] In [facility], [address] [place], [address], 06/10/2024 10:33:34 albuterol sulfate HFA 90 mcg/actua tion aerosol inhaler 2024 025 LUMA DAI [address] In [facility], [address] [place] [address], [address], 06/10/2024 10:33:33 Incruse Ellipta 62.5 mcg/actua tion powder for inhalatio n 2023 024 LUMA DAI [address] In [facility], [address] [place] [address], [address], 05/13/2024 12:41:33 albuterol sulfate HFA 90 mcg/actua tion aerosol inhaler 2023 024 LUMA DAI [address] In [facility], [address] [place] [address], [address], 05/13/2024 12:42:10 Patient TargetsNo targets recorded. Patient Instructions Encounter Date Encounter Id Patient Instructions Last Modified By Organization Details Last Modified Time 05/13/2024 [id number] complete PFT w/ post bronchodilator spirometry* - Please call patient to schedule. SARWAT [id number] per [facility] payor portal, ref #[id number] LUMA Not available 06/04/2024 18:08:20 Reason for Referral None Reported. Results Created Date Observation Date Name Description Value Unit Range Abnormal Flag Note LastModifiedBy Organization Detail LastModifiedTime 11/18/19 21 11/13/2020 compl ete PFT w/ post [facility] hodil ator juliano metry * No observ ation record ed. [id number] Not Available 07/20/2022 05:01:07 12/24/19 21 12/17/2020 pulmo nary funct ion test* No observ ation record ed. [id number] Not Available 07/20/2022 05:01:07 01/08/20 21 12/17/2020 compl ete PFT w/ post [facility] hodil ator juliano metry * No observ ation record ed. [id number] [facility] [address] [place], [address], 07/20/2022 05:01:07 07/05/19 22 01/02/2018 XR, chest , 2 view No observ ation record ed. [id number] Not Available 07/20/2022 05:01:07 06/04/19 25 05/29/2024 compl ete PFT w/ post [facility] hodil ator juliano metry * No observ ation record ed. [email or web address] (Pulmonary) [address], [place], [address], 06/10/2024 15:58:29 Result Notes None recorded. Problems Name Problem SNOMED Code Status Onset Date Resolution Date Notes Provider Name and Address Organization Details Recorded Time Malignant tumor of lung 120415820 Active 2023 Rosa Apodaca NP [address] [facility], [address] [address], [place], [address] , [employer] 4 12:31:33 History of malignant neoplasm of lung 706250282 Active 2024 Rosa Apodaca NP [address] [address], [place], [address] , [employer] 5 10:42:37 Epigastric pain 87661208 Active 2024 Donta Crowder MD [address] [facility], [place] [address], [place], [address] , [employer] 5 15:41:18 Asthma-chr onic obstructiv e pulmonary disease overlap syndrome 8203671614056 9107 Active 2018 Not Available [employer] 3 04:49:49 Chronic obstructiv e pulmonary disease 93953867 Active Not Available [employer] 3 04:49:49 Increased frequency of urination 830075275 Active Not Available [employer] 3 04:49:49 Asthma 776335851 Active 2018 Not Available [employer] 3 04:49:49 Lung mass 003703841 Active 2018 Not Available [facility] 3 04:49:49 Daytime hypersomni a 1362498390181 2 Active 2018 Not Available [facility] 3 04:49:49 Malignant tumor of lung 199949764 Active 2019 Not Available [facility] 3 04:49:49 Arthritis 0911661 Active Not Available [facility] 3 04:49:49 Incontinen ce 07521432 Active Not Available [facility] 3 04:49:50 Hip pain 37361172 Active Not Available [facility] 3 04:49:50 Dyspnea on exertion 81415212 Active 2018 Not Available [facility] 3 04:49:50 Notes:Some problems listed i n Documents: #[id number], #[id number] could not be added to this patient's chart. Please review these documents and add these problems to the patient's chart manually as needed. Problem Notes None recorded. Procedures Surgical History Date Name Laterality Status Provider Name and Address Organization Details Recorded Time delivery completed Liza Donald MA [employer] 05/13/2024 11:58:52 Lung Surgery completed Liza Donald MA [employer] 05/13/2024 11:59:12 Imaging Results Imaging Date Name Status LastModified by Organization Details LastModified Time 11/13/2020 complete PFT w/ post bronchodilator spirometry* completed [id number] Information not available 07/20/2022 05:01:07 12/17/2020 pulmonary function test* completed [id number] Information not available 07/20/2022 05:01:07 12/17/2020 complete PFT w/ post bronchodilator spirometry* completed [id number] [facility]- [address], [address], 07/20/2022 05:01:07 01/02/2018 XR, chest, 2 view completed [id number] Information not available 07/20/2022 05:01:07 05/29/2024 complete PFT w/ post bronchodilator spirometry* completed [address] (Pulmonary) [address], [place], [address], 06/10/2024 15:58:29 Procedure Notes None recorded. Medical [...] mg tablet TAKE 1 TABLET BY MOUTH 3 TIMES A DAY WITH FOOD active Not [...] PLEASE SEE ATTACHED FOR DETAILED DIRECTION S 09/11 completed Not Available Not Available Not [...] completed Not Available Not Available Not Available [facility] 10 mg-325 mg tablet Take 1 tablet [...] Not Available Not Available No t Available [employer]ir[employer] Respimat 1.25 mcg/actuati on solution for [...] [degF] 102 mm[Hg] 60 mm[Hg] Not Available [employer] 3 04:47:01 Date Recorded Body height Body mass index (BMI) Body weight Body temperature Heart rate Oxygen saturation Oxygen saturation in Arterial blood by Pulse oximetry Systolic blood pressure Diastolic blood pressure Provider Name and Address Organization Details Last Updated DateTime 4 152.4 cm 33 kg/m2 32512.1 1 g 98 [degF] 76 /min 97 % 97 % 128 mm[Hg] 66 mm[Hg] Liza Donald MA [place] [employer] 4 11:52:15 Date Recorded Body height Body mass index (BMI) Body weight Body temperature Heart rate Oxygen saturation Oxygen saturation in Arterial blood by Pulse oximetry Systolic blood pressure Diastolic blood pressure Provider Name and Address Organization Details Last Updated DateTime 5 152.4 cm 33.2 kg/m2 68408.7 g 98.1 [degF] 67 /min 98 % 98 % 122 mm[Hg] 64 mm[Hg] Hilda Moreno MA [employer] 5 10:18:31 Date Recorded Body height Body mass index (BMI) Body weight Body temperature Heart rate Respiratory rate Oxygen saturation Oxygen saturation in Arterial blood by Pulse oximetry Systolic blood pressure Diastolic blood pressure Provider Name and Address Organization Details Last Updated DateTime 5 152.4 cm 31.2 kg/m2 54376.7 8 g 98.6 [degF] 66 /min 14 /min 98 % 98 % 120 mm[Hg] 62 mm[Hg] Tarsha Munson MA [employer] 5 15:12:12 Social History Question Answer Notes LastModified by Organizat ion Details LastModified Time Tobacco Smoking Status Never Smoker Not Available [facility] 07/20/2022 04:29:59 What Is Your Level Of Alcohol Consumption? Occasional [id number] Information not available 07/20/2022 What Is Your Level Of Caffeine Consumption? Heavy Information not available 05/13/2024 In The 14 Days Before Symptom Onset, Have You Had Close Contact With A Laboratory-confi rmed COVID-19 While That Case Was Ill? No [id number] Information not available 07/20/2022 In The 14 Days Before Symptom Onset, Have You Had Close Contact With A Person Who Is Under Investigation For COVID-19 While That Person Was Ill? No [id number] Information not available 07/20/2022 Are You Currently Employed? No Information not available 05/13/2024 What Type Of Diet Are You Following? REGULAR Information not available 05/13/2024 Do You Or Have You Ever Used E-cigarettes Or Vape? Never Used Electronic Cigarettes [id number] Information not available 07/20/2022 Do You Have An Electrostatic Air Filter? No Information not available 05/13/2024 Have You Been Exposed To Chemicals Or Toxins? No Not That Aware Of Information not available 05/13/2024 Do You Have A Humidifier? No Information not available 05/13/2024 Where Do You Live? [facility] Information not available 05/13/2024 Do You [...] Used Smokeless Tobacco? Never Used Smokeless Tobacco [id number] Information not available 07/20/2022 Do You Feel Stressed (tense, Restless, Nervous, Or Anxious, Or Unable To Sleep At Night)? [id number] Information not available 05/13/2024 Do You Use [...] influenza, unspecified formulation 9 completed Not Available [facility] 07/20/2022 05:00:26 Influenza, split virus, quadrivalent, PF 8 completed Not Available [facility] 07/20/2022 05:00:26 Past Encounters Encounter ID Performer Location Encounter Start Date Encounter Closed Date Diagnosis/Indication Diagnosis SNOMED-CT Code Diagnosis ICD10 Code Diagnosis Note [id number] [facility] [address] [address] 09/11/2020 00:00:00 09/11/2020 16:20:44 [id number] Rosa Apodaca NP [facility] [address] 05/13/2024 11:22:06 05/13/2024 12:20:19 Asthma-chronic obstructive pulmonary disease overlap syndrome 1883169395 5942166 J44.9 ACT: 12CAT: 26Incruse refilledAl buterol inhaler [...] up Body mass index 30+ - obesity 731048113 Z68.33 Encourage healthy diet and exercise to improve weightdisc ussed weight effect on sleep and sleep apnea Malignant tumor of lung 879816484 C34.90 She is followed by [facility] [id number] Donta Crowder MD [facility] General Surgery [address] [place] [address] 1 06/25/2024 14:14:23 06/25/2024 15:50:38 Epigastric pain 39606638 R10.13 cont ppi, EGD [id number] Rosa Apodaca NP [facility] [place] [address] 06/10/2024 09:49:41 06/10/2024 13:06:40 Asthma-chronic obstructive pulmonary disease overlap syndrome 2908175939 5576193 J44.9 ACT: 14CAT: 2RAST-mild cockroach otherwise unremarkab [...] gardiner Body mass index 30+ - obesity 966361439 Z68.33 Encourage healthy diet and exercise to improve weightdisc ussed weight effect on sleep and sleep apnea History of malignant neoplasm of lung 418397671 Z85.118 R06.00 history of lung ca-right mid-she has not seen [facility] for a couple years Health Concerns Section Related Observation LastModified by Organization Detai ls LastModified Time None Recorded Concern Status LastModified by Organization Details LastModified Time None Recorded Advance Directives Directive None Recorded Payers Encounter Date Sequence Insurance Name Policy Number Policy Mayorga Covered Member ID Mayorga Member ID Guarantor Name 05/13/2024 1 [facility] (MEDICARE REPLACEMENT/A DVANTAGE - HMO) [id number] Flora U Devang [id number] Flora U Devang 06/10/2024 1 [facility] (MEDICARE REPLACEMENT/A DVANTAGE - HMO) [id number] Flora U Devang [id number] Flora U Devang 06/25/2024 1 [facility] (MEDICARE REPLACEMENT/A DVANTAGE - HMO) [id number] Flora U Devang [id number] Flora U Devang Notes Date Note Type Note Provider [...] to do ADL's Rosa Apodaca NP [address], [place] [address], [place], [address], [employer] [facility] [employer] [facility] 05/13/2024 12:42:59 06/10/2024 text/html AsthmaReported bypatient.Quality:we ll-controlled [...] oral glucocorticoids; spirometry Rosa Apodaca NP [address], [place] [address], [place], [address], [employer] 06/10/2024 11:15:20 06/25/2024 text/html 70yo Female c/o post prandial abd pain assoc with n/v, no h/o PUD, no melena, hasbeen on ppi for more than 3 months w/o improvement. Donta Crowder MD [address], [facility] [address], [place], [address], [employer] [facility] [employer] 08/20/2024 15:59:37 OBGyn Episode No OBEpisode recorded.
--- OUTSIDE RECORDS SUMMARY | 2024-09-02 12:04 | XMS_ITS | Encounter Summary ---
Author Organization [facility] Health Address [address] [place] [address] Care Team Providers Care R And D Lab Technician Name Role Phone Terry Reese Primary Care Provider Encounter Details Date Type Department Care Team (Late st Contact Info) Description 04/15/2019 Telephone [facility] [address] [place] [address] Tessa Nolen RN Social History Tobacco Use Types Packs/Day Years Used Date Smoking Tobacco: Never Smokeless Tobacco: Never Alcohol Use Standard Drinks/Week Comments Yes 0 (1 standard drink = 0.6 oz pur e alcohol) rarely Comments Unknown Sex and Gender Information Value Date Recorded Sex Assigned at Not on file Legal Sex Female 9:18 AM CDT Gender Identity Not on file Sexual Orientation Not on file documented as of this encounter Progress Notes * Tessa Nolen RN - 04/15/2019 10:54 AM CST Appt time and instructions confirmed with patient, pt verbalized understanding. Questions answered. RD MAKER documented in this encounter Plan of Treatment Not on file documented as of this encounter Visit Diagnoses Not on filedocumented in this encounter Additional Health Concerns Infection Onset Date Last Indicated Resolved Time MRSA 06/06/2019 06/17/2019 documented as of this encounter Care Teams R And D Lab Technician Relationship Specialty Start Date End Date Terry Reese APRN-CNP [address] [place] [address] PCP - General Nurse Practitioner 03/04/19 documented as of this encounter
--- OUTSIDE RECORDS SUMMARY | 2024-09-02 12:04 | XMS_ITS | Clinical Summary ---
Author Organization [facility] Facility Address [address] [place] [address] Care Team Providers Care Toddler Nanny Name Role Phone Juanita Gonsales MD Primary Care Provider + [phone] Allergies No known active allergies Medications furosemide [...] hours if needed for muscle spasms Active HYDROcodone-iveth taminophen (NORCO) 5-325 MG per tablet Take 1 tablet by mouth 2 (two) times a day Active sulfamethoxazol e-trimethoprim 800-160 MG per tablet Take 1 tablet [...] mouth every night Active ergocalciferol 1.25 MG (67607 UT) capsule Take 50,000 Units by mouth 1 (one) time per week Take 1 capsule every week by oral route with meals for 30 days Active albuterol HFA (PROVENTIL HFA;VENTOLIN HFA) 108 (90 Base) MCG/ACT inhaler Inhale 2 puffs 3 (three) times a day Active oxybutynin (DITROPAN) 5 MG tablet Take 5 mg by mouth 3 (three) times a day Active amoxicillin-cla vulanate (AUGMENTIN) 875-125 MG per tablet Take 1 tablet by mouth twice a day Take one tablet by mouth every 12 hours for 10 days Active omega-3 acid ethyl esters (LOVAZA) 1 g capsule Take 2 g by mouth 2 (two) times a day Active mometasone-form oterol (Dulera) 100-5 MCG/ACT inhaler Inhale 2 puffs 2 (two) times a day Rinse mouth with water after use to reduce aftertaste and incidence of candidiasis. Do not swallow. Active Diclofenac Sodium (Pennsaid) 2 % solution Apply topically Apply 2 pumps 40 MG to the affected knee(s) by topical route 2 times per day Active Umeclidinium Trinidad (Incruse Ellipta) 62.5 MCG/INH aerosol powder Inhale 1 puff 1 (one) time each day Active Encounters Date Type Department Care Team Description 07/09/2024 1:00 PM HARDENING MACHINE OPERATOR HELPER Office Visit [facility] [address] [address] Wero Hurtado DO Stage 3 chronic kidney disease, not otherwise specified (HCC) (Primary Dx); Chronic obstructive pulmonary disease with (acute) lower respiratory infection (HCC); Gastroesophageal reflux disease; Hypertensive chronic kidney disease; Pure hypercholesterolemia, not otherwise specified; Other specified hypothyroidism 07/09/2024 Refill [facility] [employer] [facility], [facility] [address] [address] Cris Turpin CMA 07/08/2024 Documentation Only [facility], [facility] [address] [address] Wero Hurtado, DO 06/24/2024 Documentation Only [facility], [address] [address] Wero Hurtado, DO 06/21/2024 Documentation Only [facility], [address] [address] Wero Hurtado, DO 06/19/2024 Documentation Only [facility], [address] [address] Wero Hurtado, DO 06/19/2024 Documentation Only [facility], [address] [address] Wero Hurtado, DO 06/19/2024 Documentation Only [facility], [address] [address] Wero Hurtado, DO 06/07/2024 Telephone [facility], [address] [address] Aria Leija 06/04/2024 2:45 PM HARDENING MACHINE OPERATOR HELPER Office Visit [facility] [address] [address] Wero Hurtado, DO Stage 3 chronic kidney disease, not otherwise specified (HCC) (Primary Dx); Chronic obstructive pulmonary disease with (acute) lower respiratory infection (HCC); Gastroesophageal reflux disease; Hypertensive chronic kidney disease; Pure hypercholesterolemia, not otherwise specified; Other specified hypothyroidism 06/04/2024 Refill [facility], [facility] [address] [address] Cris Turpin CMA from Last 3 Months Social History Tobacco [...] Sign Reading Time Taken Comments Blood Pressure 120/68 07/09/2024 1:56 PM HARDENING MACHINE OPERATOR HELPER Pulse 68 07/09/2024 1:56 PM HARDENING MACHINE OPERATOR HELPER Temperature 36.1 C (97 F) 07/09/2024 1:56 PM HARDENING MACHINE OPERATOR HELPER Respiratory Rate 18 07/09/2024 1:56 PM HARDENING MACHINE OPERATOR HELPER Oxygen Saturation 99% 07/09/2024 1:56 PM HARDENING MACHINE OPERATOR HELPER Inhaled Oxygen Concentration - - Weight 75.8 kg (167 lb) 07/09/2024 1:56 PM HARDENING MACHINE OPERATOR HELPER Height - - Body Mass Index - - Plan of Treatment Upcoming Encounters Date Type Department Care Team (Late st Contact Info) Description 09/10/2024 4:00 PM CDT Office Visit [facility] [employer] [facility], [facility] 2043 [facility] [address] [place] [phone] Wero Hurtado, 12[address] [facility] [address] [place] [address] Health Maintenance Due Date Last Done Comments Breast Cancer Screening 1955 Colorectal Cancer Screening: Annual FOBT 2006 Colorectal Cancer Screening: Colonoscopy 2006 Colorectal Cancer Screening: Sigmoidoscopy 2006 Pneumococcal Vaccine: 50+ Years (3 of 3 - PCV) 03/11/2021 03/11/2020, 05/07/2014 Pneumococcal Vaccine: Peds (0 to 5 Years) and At-Risk Patients (6 to 49 Years) Discontinued 03/11/2020, 05/07/2014 Influenza Vaccine Completed 04/10/2024, , 05/06/2021, Additional history exists Hepatitis B Vaccine Aged Out No longe r eligible based on patient's age to complete this topic Insurance [facility] Medicare Advance Directives Documents on File Type Date Recorded Patient Vulcanizer Operator Expl anation Advance Care Planning 07/16/2024 4:11 PM Care Teams Toddler Nanny Relationship Specialty Start Date End Date Juanita Gonsales MD [address] [place] [address] PCP - General Internal Medicine 01/29/24
--- OUTSIDE RECORDS SUMMARY | 2024-09-02 12:04 | XMS_ITS | Data Portability ---
Author Organization [facility] ARCHIEJuany [place] Lio Address [address] [place] [address] Care Team Providers Care Soccer Commentator Name Role Phone PETRA FARRELL Thoracic Surgeon JANAE FULLER Grainer Machine JUANITA CHACON Primary Care Provider Assessment No assessment recorded. Plan of Treatment Reminders Order Date Submit Date Provider Last Modified By Organization Details Last Modified Time Details Appointments ANY 15 2024 10:00A María Elena Chacon MD Not available Not available Not available Lab culture , urine 2024 025 LUMA MONDRAGON, [address], [address], [place], [address], 07/04/2024 20:09:30 urinaly sis, dipstic k 2024 025 [email or web address] In-Office Order, Internal Use Only DO Not Attach Compendium DO Not Attach Compendium, Do Not Delete/merge, [id number] 07/01/2024 17:00:08 drug screen, 14 drugs (detect imed), urine 2023 024 LUMA MONDRAGON, [address], [address], [place], [address], 04/17/2024 15:11:48 HbA1c (hemogl obin A1c), blood 2023 024 LUMA MONDRAGON, [facility], [address], [place], [address], 04/11/2024 10:16:09 CMP, serum or plasma 2023 024 [facility], [address], [address], [place], [address], 04/11/2024 10:16:07 lipid panel, serum 2023 024 [facility], [address] [facility] [address], [address], [place], [address], 04/11/2024 10:16:06 CBC 2023 024 [facility], [address] [facility] [address], [place], [address], 04/11/2024 10:16:12 TSH, ultra-s ensitiv e, serum 2023 024 [facility], [address] [facility] [address], [address], [place], [address], 04/11/2024 10:16:11 HbA1c (hemogl obin A1c), blood 2023 024 [facility], [address] [place], [place] [address], [address], [place], [address], 08/30/2023 13:12:19 CBC 2023 024 [facility], [address] [facility] [address], [address], [place], [address], 08/30/2023 13:12:20 lipid panel, serum 2023 024 [facility], [address] [facility] [address], [address], [place], [address], 08/30/2023 13:12:18 vitamin D, 25-hydr oxy, total, serum 2023 024 [facility], [address] [place] [address], [address], [place], [address], 08/30/2023 13:12:20 CMP, serum or plasma 2023 024 [facility], [address] [place] [address], [address], [place], [address], 08/30/2023 13:12:19 TSH + free T4, serum 2023 024 [facility], [address] [place] [address], [address], [place], [address], 08/30/2023 13:12:17 Referral None recorde d. Procedures None recorde d. Surgeries None recorde d. Imaging CT, abdomen + pelvis, w/o contras t 2024 025 [facility] (Imaging), [address], [place], [address], 08/27/2024 14:44:24 MAMMO, screeni ng, digital , bilater al - [facility] 2024 025 [facility] (Mammography) , [address], [place], [address], 08/27/2024 16:28:55 Medication Orders hydroco done 7.5 mg-acet aminoph en 325 mg tablet 2024 025 [facility] [id number], [address], 07/08/2024 15:32:12 Premari n 0.3 mg tablet 2024 025 [facility] [address], [address], 07/01/2024 16:32:51 hydroco done 7.5 mg-acet aminoph en 325 mg tablet 2023 024 [facility]MA [facility]AIKA [id number], [address], 04/10/2024 13:09:06 hydroco done 7.5 mg-acet aminoph en 325 mg tablet 2023 024 [facility] [place]AIKA [id number], [address], 01/16/2024 16:07:32 dextrom ethorph an-guai fenesin 10 mg-100 mg/5 mL oral liquid 2023 024 [facility] MALAIKA [address], [address], 01/16/2024 16:07:29 hydroch lorothi azide 12.5 mg capsule 2023 024 [facility] MALAIKA [address], [address], 01/16/2024 16:07:29 ferrous sulfate 325 mg (65 mg iron) tablet 2023 024 [facility] MALAIKA [address], [address], 01/16/2024 16:07:31 hydroco done 7.5 mg-acet aminoph en 325 mg tablet 2023 024 [facility] [address], [address], 08/29/2023 12:06:17 ibuprof en 800 mg tablet 2023 024 LUMA MALAIKA [address], [address], 08/29/2023 12:06:13 omepraz ole 40 mg capsule ,delaye d release 2023 024 [facility] [id number], [address], 08/29/2023 12:06:13 Fiber (psylli um husk) 0.52 gram capsule 2023 024 [facility] [id number] In [facility], [address] [place] [address], [address], 08/29/2023 12:08:08 levothy roxine 50 mcg tablet 2023 024 [facility] [id number] In [facility], [address] [place] [address], [address], 08/29/2023 12:06:13 Patient TargetsNo targets recorded. Patient Instructions Encounter Date Encounter Id Patient Instructions Last Modified By Organization Details Last Modified Time 08/29/2023 [id number] A healthy lifest yle: care instructions [email or web address] Not available 08/29/2023 12:06:08 diarrhea: care instructions [email or web address] Not available 08/29/2023 12:07:58 learning about h igh blood pressure [email or web address] Not available 08/29/2023 12:06:09 hypothyroidism: care instructions Not available 08/29/2023 12:06:09 01/16/2024 [id number] A healthy lifest yle: care instructions [email or web address] Not available 01/16/2024 16:07:26 cough: care instructions [email or web address] Not available 01/16/2024 16:07:26 anemia: care instructions Not available 01/16/2024 16:07:26 04/10/2024 [id number] hot flashes duri ng menopause: care instructions [email or web address] Not available 04/10/2024 13:09:04 gastroesophageal reflux disease (GERD): care instructions [email or web address] Not available 04/10/2024 13:02:12 learning about h igh blood sugar Not available 04/10/2024 13:05:36 learning about h igh blood pressure [email or web address] Not available 04/10/2024 13:02:12 learning about m ood disorders [email or web address] Not available 04/10/2024 13:02:12 07/01/2024 [id number] painful urinatio n (dysuria): care instructions [email or web address] Not available 07/01/2024 16:52:43 mammogram: about this test [email or web address] Not available 07/01/2024 16:23:48 Attending Physic [email or web address] Attestation I did not personally see or examine the patient with the resident. I was physically present to provide indirect supervision through entire encounter. I have reviewed the documentation and agree with the history, physical findings, work-up, and medical decision making as recorded. Janae Fuller MD mmetias Not available 07/01/2024 16:32:52 07/08/2024 [id number] gastroesophageal reflux disease (GERD): care instructions [email or web address] Not available 07/08/2024 15:22:40 Reason for Referral None Reported. Results Created Date Observation Date Name Description Value Unit Range Abnormal Flag Note LastModifiedBy Organization Detail LastModifiedTime 08/29/19 24 08/30/2023 TSH+F REE T4 TSH 1.620 uIU/m L 0.450- 4.500 Not Available [facility] ([facility]) [address] [place], [address], 08/30/2023 13:12:17 08/29/1908/30/2023 TSH+F REE T4 T4,free(dire ct) 1.18 NG/dL 0.82-1 .77 Not Available [facility] ([facility]) [address] [place], [address], 08/30/2023 13:12:17 08/29/19 24 08/30/2023 LIPID PANEL cholesterol, total 146 mg/dL 100-19 9 Not Available [facility] ([facility]) [address] [place], [address], 08/30/2023 13:12:18 08/29/19 24 08/30/2023 LIPID PANEL triglyceride s 402 mg/dL 0-149 above high normal Not Available [facility] ([facility]) [address] [place], [address], 08/30/2023 13:12:18 08/29/19 24 08/30/2023 LIPID PANEL HDL cholesterol 47 mg/dL >39 Not Available [facility] ([facility]) [address] [place], [address], 08/30/2023 13:12:18 08/29/19 24 08/30/2023 LIPID PANEL VLDL cholesterol adan 58 mg/dL 5-40 above high normal Not Available [facility] ([facility]) [address] [place], [address], 08/30/2023 13:12:18 08/29/19 24 08/30/2023 LIPID PANEL LDL chol calc ([facility]) 41 mg/dL 0-99 Not Available [facility] ([facility]) [address] [place], [address], 08/30/2023 13:12:18 08/29/19 24 08/30/2023 COMP. METAB OLIC PANEL (14) glucose 158 mg/dL 70-99 above high normal Not Available [facility] ([facility]) [address] [place], [address], 08/30/2023 13:12:18 08/29/19 24 08/30/2023 COMP. METAB OLIC PANEL (14) BUN 20 mg/dL 8-27 Not Available [facility] ([facility]) [address] [place], [address], 08/30/2023 13:12:18 08/29/19 24 08/30/2023 COMP. METAB OLIC PANEL (14) creatinine 1.17 mg/dL 0.57-1 .00 above high normal Not Available [facility] ([facility]) [address] [place], [address], 08/30/2023 13:12:18 08/29/19 24 08/30/2023 COMP. METAB OLIC PANEL (14) eGFR 52 mL/mi n/1.7 3 >59 below low normal Not Available [facility] ([facility]) [address] [facility], [place], [address], 08/30/2023 13:12:18 08/29/19 24 08/30/2023 COMP. METAB OLIC PANEL (14) BUN/creatini ne ratio 17 12-28 Not Available [facility] ([facility]) [address] [facility], [place], [address], 08/30/2023 13:12:18 08/29/19 24 08/30/2023 COMP. METAB OLIC PANEL (14) sodium 140 mmol/ L 134-14 4 Not Available [facility] ([facility]) [address] [facility], [place], [address], 08/30/2023 13:12:18 08/29/19 24 08/30/2023 COMP. METAB OLIC PANEL (14) potassium 4.6 mmol/ L 3.5-5. 2 Not Available [facility] ([facility]) [address] [facility], [place], [address], 08/30/2023 13:12:18 08/29/19 24 08/30/2023 COMP. METAB OLIC PANEL (14) chloride 102 mmol/ L 96-106 Not Available [facility] ([facility]) [address] [facility], [place], [address], 08/30/2023 13:12:18 08/29/19 24 08/30/2023 COMP. METAB OLIC PANEL (14) carbon dioxide, total 20 mmol/ L 20-29 Not Available [facility] ([facility]) [address] [facility], [place], [address], 08/30/2023 13:12:18 08/29/19 24 08/30/2023 COMP. METAB OLIC PANEL (14) calcium 9.0 mg/dL 8.7-10 .3 Not Available [facility] ([facility]) [address] [facility], [place], [address], 08/30/2023 13:12:18 08/29/19 24 08/30/2023 COMP. METAB OLIC PANEL (14) protein, total 6.2 g/dL 6.0-8. 5 Not Available [facility] ([facility]) [address] [facility], [place], [address], 08/30/2023 13:12:18 08/29/19 24 08/30/2023 COMP. METAB OLIC PANEL (14) albumin 4.3 g/dL 3.9-4. 9 Not Available [facility] ([facility]) [address] [facility], [place], [address], 08/30/2023 13:12:18 08/29/19 24 08/30/2023 COMP. METAB OLIC PANEL (14) globulin, total 1.9 g/dL 1.5-4. 5 Not Available [facility] ([facility]) [address] [facility], [place], [address], 08/30/2023 13:12:18 08/29/19 24 08/30/2023 COMP. METAB OLIC PANEL (14) A/G ratio 2.3 1.2-2. 2 above high normal Not Available [facility] ([facility]) [address] [facility], [place], [address], 08/30/2023 13:12:18 08/29/19 24 08/30/2023 COMP. METAB OLIC PANEL (14) bilirubin, total 0.2 mg/dL 0.0-1. 2 Not Available [facility] ([facility]) [address] [facility], [place], [address], 08/30/2023 13:12:18 08/29/19 24 08/30/2023 COMP. METAB OLIC PANEL (14) alkaline phosphatase 77 IU/L 44-121 Not Available [facility] ([facility]) [address] [place], [address], 08/30/2023 13:12:18 08/29/19 24 08/30/2023 COMP. METAB OLIC PANEL (14) AST (SGOT) 19 IU/L 0-40 Not Available [facility] ([facility]) [address] [place], [address], 08/30/2023 13:12:18 08/29/19 24 08/30/2023 COMP. METAB OLIC PANEL (14) ALT (SGPT) 19 IU/L 0-32 Not Available [facility] ([facility]) [address] [place], [address], 08/30/2023 13:12:18 08/29/19 24 08/30/2023 HEMOG LOBIN A1C hemoglobin A1C 6.0 % 4.8-5. 6 above high normal Predi abete s: 5.7 - 6.4 Diabe milagros: >6.4 Glyce kieran contr ol for adult s with diabe milagros: <7.0 Not Available [facility] ([facility]) [address] [place], [address], 08/30/2023 13:12:19 08/29/19 24 08/30/2023 CBC, PLATE LET, NO DIFFE RENTI AL WBC 7.7 x10e3 /uL 3.4-10 .8 Not Available [facility] ([facility]) [address] [place], [address], 08/30/2023 13:12:20 08/29/19 24 08/30/2023 CBC, PLATE LET, NO DIFFE RENTI AL RBC 3.43 x10e6 /uL 3.77-5 .28 below low normal Not Available [facility] ([facility]) [address] [place], [address], 08/30/2023 13:12:20 08/29/19 24 08/30/2023 CBC, PLATE LET, NO DIFFE RENTI AL hemoglobin 10.2 g/dL 11.1-1 5.9 below low normal Not Available [facility] ([facility]) [address] [facility], [place], [address], 08/30/2023 13:12:20 08/29/19 24 08/30/2023 CBC, PLATE LET, NO DIFFE RENTI AL hematocrit 30.7 % 34.0-4 6.6 below low normal Not Available [facility] ([facility]) [address] [facility], [place], [address], 08/30/2023 13:12:20 08/29/19 24 08/30/2023 CBC, PLATE LET, NO DIFFE RENTI AL MCV 90 fL 79-97 Not Available [facility] ([facility]) [address] [facility], [place], [address], 08/30/2023 13:12:20 08/29/19 24 08/30/2023 CBC, PLATE LET, NO DIFFE RENTI AL MCH 29.7 pg 26.6-3 3.0 Not Available [facility] ([facility]) [address] [facility], [place], [address], 08/30/2023 13:12:20 08/29/19 24 08/30/2023 CBC, PLATE LET, NO DIFFE RENTI AL MCHC 33.2 g/dL 31.5-3 5.7 Not Available [facility] ([facility]) [address] [facility], [place], [address], 08/30/2023 13:12:20 08/29/19 24 08/30/2023 CBC, PLATE LET, NO DIFFE RENTI AL RDW 13.0 % 11.7-1 5.4 Not Available [facility] ([facility]) [address] [place], [address], 08/30/2023 13:12:20 08/29/19 24 08/30/2023 CBC, PLATE LET, NO DIFFE RENTI AL platelets 192 x10e3 /uL 150-45 0 Not Available [facility] ([facility]) [address] [facility], [place], [address], 08/30/2023 13:12:20 08/29/19 24 08/30/2023 VITAM IN [...] Medic ine). 2010. Dieta ry refer ence intak es for calci um and D. Ravindra bond [place]: The [facility] n[facility] Press . 2. Jesus Manuel alejandre MF, Emily jeffery [place], Swapna off-F errar i [place], et al. Evalu ation , treat ment, and preve ntion of vitam in D defic iency : an Endoc rine Socie ty clini adan pract ice guide line. JCEM. 2010; 96(7) :1911 -30. Not Available [facility] ([facility]) [address] [facility], [place], [address], 08/30/2023 13:12:20 04/10/20 24 04/11/2024 LIPID PANEL cholesterol, total 151 mg/dL 100-19 9 Not Available [facility] ([facility]) [address] [facility], [place], [address], 04/11/2024 10:16:05 04/10/20 24 04/11/2024 LIPID PANEL triglyceride s 239 mg/dL 0-149 above high normal Not Available [facility] ([facility]) [address] [facility] [place], [address], 04/11/2024 10:16:05 04/10/20 24 04/11/2024 LIPID PANEL HDL cholesterol 47 mg/dL >39 Not Available [facility] ([facility]) [address] [place], [address], 04/11/2024 10:16:05 04/10/20 24 04/11/2024 LIPID PANEL VLDL cholesterol adan 39 mg/dL 5-40 Not Available [facility] ([facility]) [address] [place], [address], 04/11/2024 10:16:05 04/10/20 24 04/11/2024 LIPID PANEL LDL chol calc ([facility]) 65 mg/dL 0-99 Not Available [facility] ([facility]) [address] [place], [address], 04/11/2024 10:16:05 04/10/20 24 04/11/2024 COMP. METAB OLIC PANEL (14) glucose 121 mg/dL 70-99 above high normal Not Available [facility] ([facility]) [address] [place], [address], 04/11/2024 10:16:07 04/10/20 24 04/11/2024 COMP. METAB OLIC PANEL (14) BUN 23 mg/dL 8-27 Not Available [facility] ([facility]) [address] [place], [address], 04/11/2024 10:16:07 04/10/20 24 04/11/2024 COMP. METAB OLIC PANEL (14) creatinine 1.50 mg/dL 0.57-1 .00 above high normal Not Available [facility] ([facility]) [address] [place], [address], 04/11/2024 10:16:07 04/10/20 24 04/11/2024 COMP. METAB OLIC PANEL (14) eGFR 38 mL/mi n/1.7 3 >59 below low normal Not Available [facility] ([facility]) [address] [facility], [place], [address], 04/11/2024 10:16:07 04/10/20 24 04/11/2024 COMP. METAB OLIC PANEL (14) BUN/creatini ne ratio 15 12-28 Not Available [facility] ([facility]) [address] [facility], [place], [address], 04/11/2024 10:16:07 04/10/20 24 04/11/2024 COMP. METAB OLIC PANEL (14) sodium 138 mmol/ L 134-14 4 Not Available [facility] ([facility]) [address] [facility], [place], [address], 04/11/2024 10:16:07 04/10/20 24 04/11/2024 COMP. METAB OLIC PANEL (14) potassium 4.5 mmol/ L 3.5-5. 2 Not Available [facility] ([facility]) [address] [facility], [place], [address], 04/11/2024 10:16:07 04/10/20 24 04/11/2024 COMP. METAB OLIC PANEL (14) chloride 101 mmol/ L 96-106 Not Available [facility] ([facility]) [address] [place], [address], 04/11/2024 10:16:07 04/10/20 24 04/11/2024 COMP. METAB OLIC PANEL (14) carbon dioxide, total 18 mmol/ L 20-29 below low normal Not Available [facility] ([facility]) [address] [place], [address], 04/11/2024 10:16:07 04/10/20 24 04/11/2024 COMP. METAB OLIC PANEL (14) calcium 9.5 mg/dL 8.7-10 .3 Not Available [facility] ([facility]) [address] [facility] [place], [address], 04/11/2024 10:16:07 04/10/20 24 04/11/2024 COMP. METAB OLIC PANEL (14) protein, total 6.5 g/dL 6.0-8. 5 Not Available [facility] ([facility]) [address] [facility] [place], [address], 04/11/2024 10:16:07 04/10/20 24 04/11/2024 COMP. METAB OLIC PANEL (14) albumin 4.4 g/dL 3.9-4. 9 Not Available [facility] ([facility]) [address] [facility], [place], [address], 04/11/2024 10:16:07 04/10/20 24 04/11/2024 COMP. METAB OLIC PANEL (14) globulin, total 2.1 g/dL 1.5-4. 5 Not Available [facility] ([facility]) [address] [facility] [place], [address], 04/11/2024 10:16:07 04/10/20 24 04/11/2024 COMP. METAB OLIC PANEL (14) bilirubin, total 0.3 mg/dL 0.0-1. 2 Not Available [facility] ([facility]) [address] [facility] [place], [address], 04/11/2024 10:16:07 04/10/20 24 04/11/2024 COMP. METAB OLIC PANEL (14) alkaline phosphatase 91 IU/L 44-121 Not Available [facility] ([facility]) [address] [facility] [place], [address], 04/11/2024 10:16:07 04/10/20 24 04/11/2024 COMP. METAB OLIC PANEL (14) AST (SGOT) 27 IU/L 0-40 Not Available [facility] ([facility]) [address] [place], [address], 04/11/2024 10:16:07 04/10/20 24 04/11/2024 COMP. METAB OLIC PANEL (14) ALT (SGPT) 33 IU/L 0-32 above high normal Not Available [facility] ([facility]) [address] [facility], [place], [address], 04/11/2024 10:16:07 04/10/20 24 04/11/2024 HEMOG LOBIN A1C hemoglobin A1C 6.3 % 4.8-5. 6 above high normal Predi abete s: 5.7 - 6.4 Diabe milagros: >6.4 Glyce kieran contr ol for adult s with diabe milagros: <7.0 Not Available [facility] ([facility]) [address] [facility], [place], [address], 04/11/2024 10:16:09 04/10/20 24 04/11/2024 TSH TSH 1.520 uIU/m L 0.450- 4.500 Not Available [facility] ([facility]) [address] [place], [address], 04/11/2024 10:16:11 04/10/20 24 04/11/2024 CBC, PLATE LET, NO DIFFE RENTI AL WBC 8.6 x10e3 /uL 3.4-10 .8 Eff ectiv e Decem kindra 2023 profi herb 21416 5 WBC will be made* * non-o rdera ble as a stand -raf e order code. Not Available [facility] ([facility]) [address] [place], [address], 04/11/2024 10:16:12 04/10/20 24 04/11/2024 CBC, PLATE LET, NO DIFFE RENTI AL RBC 3.41 x10e6 /uL 3.77-5 .28 below low normal Not Available [facility] ([facility]) [address] [place], [address], 04/11/2024 10:16:12 04/10/20 24 04/11/2024 CBC, PLATE LET, NO DIFFE RENTI AL hemoglobin 9.9 g/dL 11.1-1 5.9 below low normal Not Available [facility] ([facility]) [address] [facility], [place], [address], 04/11/2024 10:16:12 04/10/20 24 04/11/2024 CBC, PLATE LET, NO DIFFE RENTI AL hematocrit 30.6 % 34.0-4 6.6 below low normal Not Available [facility] ([facility]) [address] [facility], [place], [address], 04/11/2024 10:16:12 04/10/20 24 04/11/2024 CBC, PLATE LET, NO DIFFE RENTI AL MCV 90 fL 79-97 Not Available [facility] ([facility]) [address] [facility], [place], [address], 04/11/2024 10:16:12 04/10/20 24 04/11/2024 CBC, PLATE LET, NO DIFFE RENTI AL MCH 29.0 pg 26.6-3 3.0 Not Available [facility] ([facility]) [address] [place], [address], 04/11/2024 10:16:12 04/10/20 24 04/11/2024 CBC, PLATE LET, NO DIFFE RENTI AL MCHC 32.4 g/dL 31.5-3 5.7 Not Available [facility] ([facility]) [address] [place], [address], 04/11/2024 10:16:12 04/10/20 24 04/11/2024 CBC, PLATE LET, NO DIFFE RENTI AL RDW 14.1 % 11.7-1 5.4 Not Available [facility] ([facility]) [address] [place], [address], 04/11/2024 10:16:12 04/10/20 24 04/11/2024 CBC, PLATE LET, NO DIFFE RENTI AL platelets 229 x10e3 /uL 150-45 0 Not Available [facility] ([facility]) [address] [facility], [place], [address], 04/11/2024 10:16:12 04/10/20 24 04/17/2024 COMPL IANCE DRUG CAESAR SIS, UR summary report (summary) FINAL ===== ===== ===== ===== ===== ===== ===== ===== ===== ===== ===== ===== ===== === TOXAS SURE COMP DRUG CAESAR SIS,U R ===== ===== ===== ===== ===== ===== ===== ===== ===== ===== ===== ===== ===== === Test Resul t Flag Units Drug Prese nt [place] codon e 976 ng/mg creat [place] morph one 406 ng/mg creat Dihyd rocod eine 136 ng/mg creat Norhy droco done 730 ng/mg creat Sourc es of hydro codon e inclu de sched uled presc ripti on medic ation s. [place] morph one, dihyd rocod eine and norhy droco done are expec joann metab olite s of hydro codon e. [place] morph one and dihyd rocod eine are [...] ===== ===== ===== === Not Available [facility] ([facility]) [address] [place], [address], 04/17/2024 15:11:48 04/10/20 24 04/17/2024 COMPL IANCE DRUG CAESAR SIS, UR pdf . Not Available [facility] ([facility]) [address] [place], [address], 04/17/2024 15:11:48 05/13/20 24 05/14/2024 VITAM IN B12 AND FOLAT E vitamin B12 743 pg/mL 232-12 45 Not Available [facility] ([facility]) [address] [place], [address], 05/14/2024 08:24:19 05/13/20 24 05/14/2024 VITAM IN B12 AND FOLAT E folate (folic acid), serum 18.2 NG/mL >3.0 A serum folat e obey ntrat ion of less than 3.1 ng/mL is consi dered to repre sent clini adan defic iency . Not Available [facility] ([facility]) [address], [place], [address], 05/14/2024 08:24:19 05/13/20 24 05/14/2024 FE+TI BC+FE R iron bind.cap.(TI BC) 351 ug/dL 250-45 0 Not Available [facility] ([facility]) [address], [place], [address], 05/14/2024 08:24:21 05/13/20 24 05/14/2024 FE+TI BC+FE R UIBC 284 ug/dL 118-36 9 Not Available [facility] ([facility]) [address], [place], [address], 05/14/2024 08:24:21 05/13/20 24 05/14/2024 FE+TI BC+FE R iron 67 ug/dL 27-139 Not Available [facility] ([facility]) [address], [place], [address], 05/14/2024 08:24:21 05/13/20 24 05/14/2024 FE+TI BC+FE R iron saturation 19 % 15-55 Not Available [facility] ([facility]) [address], [place], [address], 05/14/2024 08:24:21 05/13/20 24 05/14/2024 FE+TI BC+FE R ferritin 112 NG/mL 15-150 Not Available [facility] ([facility]) [address] [place], [address], 05/14/2024 08:24:21 07/01/19 25 07/04/2024 URINE CULTU RE, ROUTI NE urine culture, routine FINAL REPORT abnormal Not Available [facility] ([facility]) [address] [place], [address], 07/04/2024 20:09:30 07/01/19 25 07/04/2024 URINE CULTU RE, ROUTI NE result 1 ESCHER ICHIA COLI abnormal Cefaz cristine with an KIERAN <=16 predi cts susce ptibi lity to the oral agent s cefac minor, cefdi luis miguel, cefpo doxim e, cefpr ozil, cefur oxime , cepha lexin , and lorac arbef when used for thera py of uncom plica joann urina ry tract infec tions due to E. coli, Klebs iella pneum oniae , and Prote us mirab ilis. Great er than 100,0 00 colon y formi ng units per mL Not Available [facility] ([facility]) [address], [place], [address], 07/04/2024 20:09:30 07/01/19 25 07/04/2024 URINE CULTU RE, ROUTI NE antimicrobia l susceptibili ty COMMEN T S = Susce ptibl e; I = Inter media te; R = Resis tant P = Posit cielo; N = Negat cielo MICS are expre ssed in micro grams per mL Antib iotic RSLT# 1 RSLT# 2 RSLT# 3 RSLT# 4 Amoxi cilli n/Cla vulan ic Acid I Ampic illin R Cefaz cristine S Cefep isa S Cefox itin S Cefpo doxim e S Ceftr iaxon e S Cipro floxa rayo S Ertap enem S Genta micin S Levof loxac in S Merop enem S Nitro furan toin S Piper acill in/Ta zobac stapleton I Tetra cycli ne S Tobra mycin S Trime thopr im/Mandel lfa S Not Available [facility] ([facility]) [address], [place], [address], 07/04/2024 20:09:30 07/01/19 25 07/01/2024 urina lysis , dipst ick Leukocytes Small Not Available In-Offi ce Order Internal Use Only DO Not Attach Compendium DO Not Attach Compendium, Do Not Delete/merge, [id number] 07/01/2024 16:52:20 07/01/19 25 07/01/2024 urina lysis , dipst ick Nitrite positi ve Not Available In-Office Order Internal Use Only DO Not Attach Compendium DO Not Attach Compendium, Do Not Delete/merge, 07/01/2024 16:52:20 07/01/19 25 07/01/2024 urina lysis , dipst ick Urobilinogen .2 Not Available In-Of fice Order Internal Use Only DO Not Attach Compendium DO Not Attach Compendium, Do Not Delete/merge, 07/01/2024 16:52:20 07/01/19 25 07/01/2024 urina lysis , dipst ick Protein Trace Not Available In-Office Order Internal Use Only DO Not Attach Compendium DO Not Attach Compendium, Do Not Delete/merge, 07/01/2024 16:52:20 07/01/19 25 07/01/2024 urina lysis , dipst ick pH 6.0 Not Available In-Office Order Internal Use Only DO Not Attach Compendium DO Not Attach Compendium, Do Not Delete/merge, 07/01/2024 16:52:20 07/01/19 25 07/01/2024 urina lysis , dipst ick Blood Non-He molyze d: Trace Not Available In-Office Order Internal Use Only DO Not Attach Compendium DO Not Attach Compendium, Do Not Delete/merge, 07/01/2024 16:52:20 07/01/19 25 07/01/2024 urina lysis , dipst ick Specific [place] 1.030 Not Available In-Off ice Order Internal Use Only DO Not Attach Compendium DO Not Attach Compendium, Do Not Delete/merge, 07/01/2024 16:52:20 07/01/19 25 07/01/2024 urina lysis , dipst ick Ketone Negati ve Not Available In-Office Order Internal Use Only DO Not Attach Compendium DO Not Attach Compendium, Do Not Delete/merge, 07/01/2024 16:52:20 07/01/19 25 07/01/2024 urina lysis , dipst ick Bilirubin Negati ve Not Available In-Office Order Internal Use Only DO Not Attach Compendium DO Not Attach Compendium, Do Not Delete/merge, [id number] 07/01/2024 16:52:20 07/01/1907/01/2024 urina lysis , dipst ick Glucose Negati ve Not Available In-Office Order Internal Use Only DO Not Attach Compendium DO Not Attach Compendium, Do Not Delete/merge, [id number] 07/01/2024 16:52:20 05/29/1905/29/2024 PFT, compl ete No observ ation record ed. [address], [place], [address], 06/08/2024 02:14:56 06/18/1906/18/2024 US, bladd er No observ ation record ed. [address] [address], [place], [address], 06/19/2024 09:49:37 06/18/1906/18/2024 CT, chest , w/ contr ast No observ ation record ed. [address] [facility], [place], [address], 06/19/2024 09:50:19 Result Notes None recorded. Problems Name Problem SNOMED Code Status Onset Date Resolution Date Notes Provider Name and Address Organization Details Recorded Time Trochante javon bursitis of left hip 94060053190 9103 Active 2016 Not Available [facility] 4 01:34:16 Candidias is of skin 44331376 Active 2017 Not Available [facility] 4 01:34:16 Hyperlipi demia 13932778 Active 2018 Not Available [facility] 4 01:34:16 High hemoglobi n A1c level 154624715 Active 2018 Not Available [facility] 4 01:34:16 Prolapsed lumbar intervert ebral disc 401929308 Active 2018 Not Available [facility] 4 01:34:15 Hypothyro idism 57051185 Active 2018 Not Available [facility] 4 01:34:16 Hypokalem ia 36579167 Active 2018 Not Available [facility] 4 01:34:16 Asthma-ch ronic obstructi ve pulmonary disease overlap syndrome 83486582552 044310 Active 2018 Not Available [facility] 4 01:34:15 Medicatio n monitorin g Active 2018 Not Available [facility] 4 01:34:16 Venereal disease screening Completed 201803/14/2023 Juanita Chacon MD Attn: Accounting ,[address] [place], [address] , [facility] 3 11:31:21 Pain of left hip joint 57998640021 9100 Active 2018 Not Available [facility] 4 01:34:16 Acute sinusitis 24065658 Active 2018 Not Available [facility] 4 01:34:15 Pre-surge ry testing Active 2018 Not Available [facility] 4 01:34:15 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 208607192 Active 2019 Not Available [facility] 4 01:34:16 Injury of left hip region 11045857820 133571 Active 2019 Not Available [facility] 4 01:34:15 Dental abscess 524494980 Active 2019 Not Available [facility] 4 01:34:15 Edema of lower extremity 965426276 Active 2019 Not Available [facility] 4 01:34:15 Knee pain Active Not Available [facility] 4 01:34:16 Mild depressio n 641471231 Active Not Available [facility] 4 01:34:16 Serum creatinin e above reference range 410269284 Active 2019 Not Available [facility] 4 01:34:15 Neck swelling 657762464 Active 2021 Not Available [facility] 4 01:34:16 Essential hypertens ion 66546637 Active 2021 Not Available [facility] 4 01:34:16 Hypertrig lyceridem ia 059858476 Active 2021 Not Available [facility] 4 01:34:16 Sleep disorder 09383711 Active 2022 Not Available [facility] 4 01:34:16 Diverticu lar disease 708348955 Active 2022 Not Available [facility] 4 01:34:16 History of polyp of colon 098831581 Active 2022 Not Available [facility] 4 01:34:16 Active immunizat ion Active 2022 Not Available [facility] 4 01:34:16 Hyperglyc emia 04011669 Active 2023 Juanita Chacon MD Attn: Accounting ,[address] [place], [address] , [place] [facility] 4 11:59:25 Loose stool 313132083 Active 2023 Juanita Chacon MD Attn: Accounting ,[address] [place], [address] , [place] [facility] 4 12:06:44 Anemia 752330519 Active 2023 Juanita Chacon MD Attn: Accounting ,[address] [place], [address] , [place] [facility] 4 16:01:44 Serum creatinin e outside reference range 602781049 Active 2023 Juanita Chacon MD Attn: Accounting ,[address] [place], [address] , [place] [facility] 4 12:42:55 Lower abdominal pain 99560077 Active 2024 Juanita Chacon MD Attn: Accounting ,[address] [place], [address] , [place] [facility] 5 15:10:41 Postprand ial diarrhea 31626063 Active 2024 Juanita Chacon MD Attn: Accounting ,[address] [facility], [place], [address] , [place] [facility] 5 15:11:15 Chronic kidney disease 785737757 Active 2024 Juanita Chacon MD Attn: Accounting ,[address] [facility], [place], [address] , [place] [facility] 5 15:30:33 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 Active Not Available [facility] 4 01:34:15 Atrophic vaginitis 38830043 Active Not Available [facility] 4 01:34:16 Depressiv e disorder 31853799 Active Not Available [facility] 4 01:34:16 Pain in wrist 04811987 Active Not Available [facility] 4 01:34:16 Sinusitis 57653145 Active Not Available [facility] 4 01:34:16 Shoulder strain 823602515 Active Not Available [facility] 4 01:34:15 Low back pain 249389576 Active Not Available [facility] 4 01:34:15 Vitamin D deficienc y 47441770 Active Not Available [facility] 4 01:34:16 Fatigue 65188031 Active Not Available [facility] 4 01:34:16 Gastroeso phageal reflux disease 132621620 Active Not Available [facility] 4 01:34:15 Menopausa l flushing 511519545 Active Not Available [facility] 4 01:34:15 Dyspnea on exertion 26417321 Active Not Available [facility] 4 01:34:16 Serum vitamin B12 below reference range 318927011 Active Not Available [facility] 4 01:34:15 History of cholecyst ectomy 887290018 Active 2015 Not Available [facility] 4 01:34:16 Screening for malignant neoplasm of colon Active 2016 Not Available [facility] 4 01:34:15 Acute bronchiti s 79609638 Active 2016 Not Available [facility] 4 01:34:15 Hyperlipi demia screening Active 2016 Not Available [facility] 4 01:34:15 Family history of diabetes mellitus 971165547 Active 2016 Not Available [facility] 4 01:34:15 Left lower quadrant pain 729834825 Active 2016 Not Available [facility] 4 01:34:15 Hip pain 76559090 Active 2016 Not Available [facility] 4 01:34:16 Cough 28377542 Active 2016 Not Available [facility] 4 01:34:16 Acute urinary tract infection 877031247 Active 2016 Not Available [facility] 4 01:34:16 Administr ation of influenza vaccine Active 2016 Not Available [facility] 4 01:34:16 Notes:Some problems listed i n Documents: #[id number], #[id number], #[id number], #[id number] could not be added to this patient's chart. Please review these documents and add these problems to the patient's chart manually as needed. Problem Notes None recorded. Procedures Surgical History Date Name Laterality Status Provider Name and Address Organization Details Recorded Time 10/07/19 23 Date of Last Mammogram completed Dana Terrell [place] [facility] 10/06/2022 11:21:20 05/03/20 22 Colonoscopy completed Farzana Shultz MD Attn: Accounting,[address] [place], [address], [facility] 05/19/2022 05:48:43 01/17/20 17 Most Recent Mammogram completed Chanda Urrutia [place] [facility] 02/28/2018 15:37:43 05/22/19 16 colonoscopy completed Chanda U[place]ia [place] [facility] 02/28/2018 15:48:14 09/11/19 11 Date of Last Pap Smear completed Chanda [place]ia [place] 10/28/2014 11:13:29 05/22/18 89 Caesarean Section completed Chanda KANE U[place]ia [place] [facility] 10/28/2014 11:13:29 05/22/18 85 Caesarean Section completed Chanda [place]ia [place] 10/28/2014 11:13:29 05/22/18 82 Caesarean Section completed Chanda [place]ia [place] 10/28/2014 11:13:29 Hysterectomy completed Michelle Blum [place] [facility] 05/07/2014 11:57:41 procedure on gallbladder completed Chanda KANE U[place] [facility] 02/28/2018 15:47:38 Imaging Results Imaging Date Name Status LastModified by Organiz ation Details LastModified Time 05/29/2024 PFT, complete completed [id number] [place] [address] [place] [address] [place] [address], [address], 06/08/2024 02:14:56 06/18/2024 US, bladder completed [address], [address], 06/19/2024 09:49:37 06/18/2024 CT, chest, w/ contrast completed [address] [place] [address], [address], 06/19/2024 09:50:19 Procedure Notes None recorded. Medical Equipment None Reported. Allergies No known drug allergies Medications Name Sig Start Date Stop Date Status Note LastModified by Organization Details LastModified Time fish oil 1000mg capsule TAKE 1 CAPSULE BY MOUTH TWICE A DAY WITH FOOD 10/25 completed Not Available Not Available Not Available Prescript ion - Prior Authoriza tion Request [...] TAKE 1 TABLET BY MOUTH EVERY DAY 2024 active Not Available Not Available Not Avai lable nystatin 100,000 unit/mL oral suspensio n Take [...] Not Available Not Available No t Available tizanidin e 4 mg tablet TAKE 1 TABLET BY MOUTH THREE TIMES A DAY NEEDED active Not Available Not Available No t Available benzonata te 200 mg capsule Take 1 [...] Not Available Not Available No t Available metronida zole 500 mg tablet 02/15 completed [...] ne 7.5 mg-acetam inophen 325 mg tablet TAKE 1 TABLET BY MOUTH THREE TIMES A DAY active Not Available Not Available No t Available cephalexi n 500 mg capsule 10/14 completed [...] DAILY (MAY WEAR UP TO 12HOURS. ) active Not Available Not Available No t Available hydrochlo rothiazid e 12.5 mg capsule TAKE [...] Not Available Not Available No t Available Prempro 0.625 mg-2.5 mg tablet Take 1 [...] Not Available Not Available No t Available losartan 100 mg tablet TAKE 1 TABLET BY MOUTH [...] 6 TABLETS BY MOUTH AT 8AM ON 05/02/20 22 10/25 completed Not Available Not Available Not Available Premarin 0.45 mg tablet TAKE 1 TABLET BY MOUTH EVERY DAY FOR 30 DAYS active Not Available Not Available No t Available Premarin 0.625 mg/gram vaginal cream 06/19 completed Not Available Not Available Not Available Premarin 0.3 mg tablet TAKE 1 TABLET BY MOUTH EVERY DAY active Not Available Not Available No t Available Premarin 0.625 mg tablet TAKE 1 TABLET BY MOUTH EVERY DAY FOR 30 DAYS 03/31 completed Not Available Not Available Not Available Fiber (psyllium husk) 0.52 gram capsule Take 1 capsule twice a day by oral route as needed. 2023 active Not Available Not Available Not Avai lable nitrofura ntoin monohydra te/macroc rystals 100 mg capsule TAKE 1 CAPSULE BY MOUTH EVERY 12 HOURS FOR 5 DAYS active Not Available Not Available No t Available Vesicare 10 mg tablet Take 1 [...] Available No t Available Dulera 200 mcg-5 mcg/actua tion HFA aerosol [...] t Available Vitals Date Recorded Body height Body mass index (BMI) Body weight Heart rate Body temperature Oxygen saturation Oxygen saturation in Arterial blood by Pulse oximetry Systolic blood pressure Diastolic blood pressure Provider Name and Address Organization Details Last Updated DateTime 4 152.4 cm 34.4 kg/m2 93862.2 6 g 86 /min 98 [degF] 98 % 98 % 160 mm[Hg] 64 mm[Hg] Isi Kingsley [place] [facility] 4 11:31:48 Date Recorded Body height Body mass index (BMI) Body weight Heart rate Oxygen saturation Oxygen saturation in Arterial blood by Pulse oximetry Systolic blood pressure Diastolic blood pressure Provider Name and Address Organization Details Last Updated DateTime 4 152.4 cm 34.4 kg/m2 15788.2 6 g 81 /min 98 % 98 % 146 mm[Hg] 76 mm[Hg] Isi Kingsley [place] [facility] 4 15:41:30 Date Recorded Body height Body mass index (BMI) Body weight Heart rate Oxygen saturation Oxygen saturation in Arterial blood by Pulse oximetry Systolic blood pressure Diastolic blood pressure Provider Name and Address Organization Details Last Updated DateTime 4 152.4 cm 32.8 kg/m2 94463.5 2 g 69 /min 99 % 99 % 139 mm[Hg] 77 mm[Hg] Juan Manuel Reese [place] [facility] 4 12:44:02 Date Recorded Body height Body mass index (BMI) Body weight Heart rate Oxygen saturation Oxygen saturation in Arterial blood by Pulse oximetry Systolic blood pressure Diastolic blood pressure Provider Name and Address Organization Details Last Updated DateTime 5 152.4 cm 33 kg/m2 84459.1 1 g 66 /min 99 % 99 % 126 mm[Hg] 70 mm[Hg] Milena Henley MA [facility] 5 15:55:39 Date Recorded Body height Body mass index (BMI) Body weight Heart rate Oxygen saturation Oxygen saturation in Arterial blood by Pulse oximetry Systolic blood pressure Diastolic blood pressure Provider Name and Address Organization Details Last Updated DateTime 5 152.4 cm 32.6 kg/m2 74527.9 3 g 72 /min 99 % 99 % 120 mm[Hg] 75 mm[Hg] Juan Manuel Reese MA [facility] 5 14:39:41 Social History Question Answer Notes LastModified by Organizat ion Details LastModified Time Tobacco Smoking Status Never Smoker Michelle Blum MA [facility] 05/07/2014 11:57:41 Do You Have An Advance [...] 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 No Information not available 05/07/2014 Hard Of Hearing Or Deaf In One Or Both Ears? Yes Information not available 05/07/2014 Legally Blind In One Or Both Eyes? No Information not available 05/07/2014 Marital Status Informatio n not available 05/07/2014 Do You Have A Medical Power Of Dough Mixer Helper? No Information not available 05/07/2014 What Was The Date Of Your Most Recent Tobacco Screening? 07/08/2024 Information not available 07/08/2024 How Many Children Do You Have? 2 [...] Anxious, Or Unable To Sleep At Night)? [id number] Information not available 08/25/2020 Do You Use Any Illicit Or Recreational Drugs? No Information not available 08/25/2020 Do You Use Sunscreen Routinely? Yes Information not available 05/07/2014 Has Tobacco Cessation Counseling Been Provided? No Information not available 07/28/2020 On What Date Was Tobacco Cessation Counseling Provided? 07/08/2024 Information not available 07/08/2024 Do You Or Have You Ever Used [...] Blood Transfusion N MRSA N Emphysema N Depression Y COPD N Blood Clots N Pneumonia N Premature N Peripheral Arterial Disease N Edema N TIA N Headaches/Migraines N Anxiety Disorder N Obesity N Polyps N Infertility N Acid Reflux (GERD) N Hematuria N Stroke N Neck Injury N Polio N Hospital Admission other than N Neurologic Disorder N Other Sleep Disorders N Rheumatoid Arthritis N Fibromyalgia N Abdominal Aortic Aneurysm Repair N Kidney Disease N Heart Conditions N Heart Disease/Heart Problems N Hospitalizations N Brain Tumors N Acne N Skin Problems N Eating Disorder N Meningitis N Constipation N Tuberculosis N Cerebral Palsy N Myocardial Infarction N Asthma N Substance Abuse N Peripheral Vascular Disease N Vertigo N Sleep Disorder N Cirrhosis N Pulmonary Embolism N Chicken Pox N Hematologic Disease N Flomax Use Past or Present N Anxiety/Depression N Thyroid Disease N Colon Cancer N Lung Disease N Glaucoma N Developmental or Behavioral Disorders N Bipolar N Pacemaker N Diverticulitis/Diverticulosis N Orthopedic Problems N Anesthesia Complications N Orthotics N Head Injury/Concussion N Congenital Anomalies N Quick Bite N Chronic Kidney Disease N Endometriosis N Liver Disease N Schizophrenia N Dialysis N Speech Delay N Chronic Obstructive Pulmonary Disease N Parkinson's Disease N Thyroid Problems N GI Problems N Developmental Delay N Anemia N Multiple Sclerosis N Immune System Disorder N Colon Polyps N Heart Attack (RI) N Diabetes N Cardiomyopathy N Blood Transfusions N Heart Problems/Murmur N Eye Trauma N Congestive Heart Failure (CHF) N Valvular Heart Disease N Hyperlipidemia N Double Vision N Abuse/Domestic Violence N Hepatitis B N Lupus N Epilepsy/Seizures N Reflux/GERD N Aneurysm N Heart Disease N Bronchitis N Pre-Eclampsia N Hypertension N Heart Failure N Other N Gout [...] virus, quadrivalent, preservative 9 completed Not Available [facility] 06/15/2023 01:34:17 Influenza, split virus, quadrivalent, preservative 6 completed Not Available [facility] 06/08/2019 02:32:31 COVID-19, mRNA, LNP-S, PF, 30 mcg/0.3 mL dose 1 completed Not Available [facility] 06/15/2023 01:34:17 COVID-19, mRNA, LNP-S, PF, 30 mcg/0.3 mL dose 1 completed Not Available [facility] 06/15/2023 01:34:17 Influenza, split virus, quadrivalent, preservative 7 completed Not Available [facility] 06/08/2019 02:34:24 pneumococcal polysaccharide PPV23 0 completed Batsheva Estrella [place], [place] [facility] 03/11/2020 12:27:31 Influenza, split virus, quadrivalent, preservative 0 completed Batsheva Est[place] [facility] 03/11/2020 12:27:31 Influenza, split virus, quadrivalent, preservative 1 completed Batsheva Estrella [place] [facility] 05/06/2021 12:55:48 Influenza, split virus, quadrivalent, preservative 2 completed Manny Reese PA-C Attn: Accounting[address] [facility], [place], [address], [place] [facility] 03/08/2022 17:20:45 pneumococcal polysaccharide PPV23 4 completed Not Available [facility] 06/08/2019 02:40:53 Influenza, split virus, trivalent, preservative 4 completed Not Available [facility] 06/08/2019 02:48:28 Influenza, high-dose, quadrivalent, PF 3 completed Isi [place], [place] [facility] 03/14/2023 11:57:57 Influenza, split virus, quadrivalent, preservative 5 completed Not Available [facility] 06/08/2019 02:39:16 Influenza, high-dose, trivalent, PF 4 completed Juan Manuel Re[place], [place] [facility] 04/11/2024 09:59:24 Past Encounters Encounter ID Performer Location Encounter Start Date Encounter Closed Date Diagnosis/Indication Diagnosis SNOMED-CT Code Diagnosis ICD10 Code Diagnosis Note [id number] Cici (Adult Med) [address] [place] [address] [phone] 0 05/07/2014 11:16:26 05/07/2014 12:56:20 Shoulder strain 274742449 Low back pain 140098560 Vitamin D deficiency 28628970 Fatigue 01851999 Active or passive immunization 517466927 [id number] LIONEL De Dios (Adult Med) [address] [place] [address] [phone] 0 07/08/2014 10:01:22 07/08/2014 11:07:36 Shoulder strain 070653551 Fatigue 62602107 Low back pain 163279707 Vitamin D deficiency 80737173 Knee pain 26943256 Mild depression 301040663 [id number] PAMELA Lay (SERVICES DELIVERY DRIVER) [address] [place] [phone] 10/28/2014 10:41:30 10/28/2014 14:00:19 Atrophic vaginitis 25378486 Depressive disorder 18179190 Screening mammography 88355823 Screening for malignant neoplasm of colon 273697505 [id number] KANE Capellan (Adult Med) [address] [place] [address] [phone] 01/05/2015 10:21:43 01/05/2015 11:15:27 Low back pain 816458719 Bladder mu scle dysfunction - overactive 046906031 Depressive disorder 08958526 Vitamin D deficiency 07716667 Shoulder strain 922242772 [id number] LIONEL De Dios (Adult Med) [address] [place] [address] [id number] 0 03/06/2015 11:01:31 03/06/2015 12:21:25 Low back pain 530476090 M54.5 Knee pain 82451236 M25.5 69 Fatigue 69188470 R53.83 Depressive disorder 3548 9007 F32.9 Vitamin D deficiency 347 46240 E55.9 Pain in wrist 92647390 M 25.531 Active or passive immunization 079337283 Z23 [id number] LIONEL De Dios (Adult Med) [address] [place] [address] [id number] 0 07/01/2015 10:05:36 07/01/2015 10:48:17 Sinusitis 55961926 J32.9 Bladder mu scle dysfunction - overactive 762386189 N32.81 Depressive disorder 3548 9007 F32.9 Knee pain 25105078 M25.5 69 Low back pain 856650247 M54.5 Mild depression 73165780 3 F32.0 Shoulder strain 09813679 4 S46.919A Vitamin D deficiency 347 13987 E55.9 [id number] LIONEL De Dios (Adult Med) [address] [place] [address] [id number] 0 09/16/2015 10:12:05 09/16/2015 10:34:43 Low back pain 928112386 M54.5 Shoulder strain 11177808 4 S46.919A Gastroesop hageal reflux disease 944861472 K21.9 [id number] LIONEL De Dios (Adult Med) [address] [place] [address] 34751-864 0 10/15/2015 10:07:44 10/15/2015 10:56:48 Low back pain 207611191 M54.5 Shoulder strain 23666791 4 S46.919A Vitamin D deficiency 347 19597 E55.9 Mild depression 81986028 3 F32.0 Knee pain 31433969 M25.5 69 Gastroesop hageal reflux disease 815403560 K21.9 Depressive disorder 3548 9007 F32.9 [id number] ERIC Kc (SERVICES DELIVERY DRIVER) [address] [place] [address] 00711-726 0 11/04/2015 10:26:56 11/04/2015 13:49:14 Screening mammography 98296072 Z12.31 Atrophic vaginitis 28237 000 N95.2 Bladder mu scle dysfunction - overactive 165361229 N32.81 Menopausal flushing 1984 59117 N95.1 [id number] LIONEL De Dios (Adult Med) [address] [place] [address] 01652-347 0 12/14/2015 09:31:47 12/14/2015 10:08:25 Dyspnea on exertion 64748873 R06.09 Bladder mu scle dysfunction - overactive 503329414 N32.81 Depressive disorder 3548 9007 F32.9 Gastroesop hageal reflux disease 336906818 K21.9 Low back pain 847806465 M54.5 Knee pain 97402593 M25.5 69 Vitamin D deficiency 347 75262 E55.9 [id number] LIONEL De Dios (Adult Med) [address] [place] [address] 69314-144 0 02/08/2016 12:06:35 02/08/2016 12:59:00 Depressive disorder 24583305 F32.9 Dyspnea on exertion 6084 5006 R06.09 Gastroesop hageal reflux disease 937959607 K21.9 Knee pain 45156556 M25.5 69 Low back pain 413049821 M54.5 Shoulder strain 98323567 4 S46.919A Vitamin D deficiency 347 55929 E55.9 Administra tion of influenza vaccine 18384621 Z23 Serum alyssa min B12 below reference range 800752408 R79.89 Fatigue 84618012 R53.83 [id number] LIONEL De Dios (Adult Med) [address] [place] [address] 51051-257 0 03/28/2016 14:31:44 03/28/2016 17:34:27 Serum vitamin B12 below reference range 057050660 R79.89 Dyspnea on exertion 6084 5006 R06.09 Gastroesop hageal reflux disease 154039910 K21.9 Low back pain 591545272 M54.5 Depressive disorder 3548 9007 F32.9 [id number] LIONEL De Dios (Adult Med) [address] [place] [address] 53616-051 0 06/21/2016 12:01:12 06/21/2016 12:41:41 Low back pain 051706899 M54.5 Mild depression 43782066 3 F32.0 Screening for malignant neoplasm of colon 908229630 Z12.11 [id number] LIONEL De Dios (Adult Med) [address] [place] [address] 15358-664 0 07/26/2016 10:33:18 07/26/2016 11:24:15 Serum vitamin B12 below reference range 411273663 R79.89 Gastroesop hageal reflux disease 088724401 K21.9 Low back pain 907440925 M54.5 Vitamin D deficiency 347 39962 E55.9 Acute bronchitis 4498827 2 J20.9 Family his tory of diabetes mellitus 196903936 Z83.3 Hyperlipid emia screening 243355011 Z13.220 Screening for malignant neoplasm of colon 209791109 Z12.11 [id number] LIONEL De Dios (Adult Med) [address] [place] [address] 33706-931 0 09/28/2016 09:32:36 09/28/2016 10:46:57 Dyspnea on exertion 50947698 R06.09 [id number] LIONEL De Dios (Adult Med) [address] [place] [address] 95848-377 0 11/09/2016 09:52:13 11/10/2016 11:08:52 Low back pain 036592906 M54.5 Menopausal flushing 1984 65079 N95.1 Mild depression 38008108 3 F32.0 Vitamin D deficiency 347 85771 E55.9 Depressive disorder 3548 9007 F32.9 Left lower quadrant pain 678544743 R10.32 [id number] Martin Cespedes Cici (SERVICES DELIVERY DRIVER) [address] [place] [address] 17302-112 0 01/10/2017 11:26:04 01/10/2017 16:40:59 Screening mammography 82715132 Z12.31 Urinary tr act infectious disease 13687301 N39.0 Menopausal flushing 1984 98081 N95.1 [id number] LIONEL De Dios (Adult Med) [address] [place] [address] 12074-604 0 01/11/2017 10:05:27 01/11/2017 10:37:37 Low back pain 201943199 M54.5 Hip pain 88184565 M25.55 2 Cough 52538622 R05 Acute bronchitis 5807881 2 J20.9 [id number] LIONEL De Dios (Adult Med) [address] [place] [address] 61830-194 0 03/15/2017 10:00:12 03/15/2017 11:02:26 Hip pain 25435050 M25.552 Serum alyssa min B12 below reference range 443759829 R79.89 Gastroesop hageal reflux disease 903343000 K21.9 Vitamin D deficiency 347 75816 E55.9 Low back pain 696891952 M54.5 Administra tion of influenza vaccine 06990427 Z23 [id number] LIONEL De Dios (Adult Med) [address] [place] [address] 43100-966 0 06/02/2017 11:50:53 06/02/2017 14:28:48 Hip pain 54639641 M25.552 Low back pain 886714311 M54.5 Gastroesop hageal reflux disease 263898447 K21.9 Cough 36697888 R05 Trochanter ic bursitis of left hip 8911796407 46248 M70.62 Serum alyssa min B12 below reference range 562023753 R79.89 Vitamin D deficiency 347 13511 E55.9 [id number] Siri Bolanos (Adult Med) [address] [place] [address] 85076-175 0 07/28/2017 10:34:08 07/28/2017 11:31:51 Acute bronchitis 91783251 J20.9 Serum alyssa min B12 below reference range 792040125 R79.89 Gastroesop hageal reflux disease 486893685 K21.9 Dyspnea 059179456 R06.02 Hip pain 24570687 M25.55 2 Low back pain 980824411 M54.5 [id number] LIONEL De Dios (Adult Med) [address] [place] [address] 68518-458 0 09/29/2017 10:33:51 09/29/2017 12:22:14 Sinusitis 35300279 J32.9 Low back pain 373624235 M54.5 Gastroesop hageal reflux disease 982542707 K21.9 [id number] LIONEL De Dios (Adult Med) [address] [place] [address] 90273-462 0 01/15/2018 14:10:44 01/15/2018 15:02:14 Trochanteric bursitis of left hip 0795094341 00952 M70.62 Acute bronchitis 5682733 2 J20.9 Hip pain 14693686 M25.55 2 Gastroesop hageal reflux disease 973605230 K21.9 Low back pain 701526777 M54.5 Vitamin D deficiency 347 32562 E55.9 Depressive disorder 3548 9007 F32.9 [id number] LIONEL De Dios (Adult Med) [address] [place] [address] 33871-232 0 02/15/2018 13:59:51 02/15/2018 14:34:45 Cough 17189565 R05 Shoulder strain 26667690 4 S46.919A Trochanter ic bursitis of left hip 9394601270 83737 M70.62 [id number] Martin Bolanos (SERVICES DELIVERY DRIVER) [address] [place] [address] 38584-720 0 02/28/2018 15:03:18 03/01/2018 09:20:55 Screening mammography 20193262 Z12.31 Mild depression 04671713 3 F32.0 Candidiasis of skin 4988 3006 B37.2 [id number] LIONEL De Dios (Adult Med) [address] [place] [address] 47582-017 0 06/19/2018 16:06:46 06/19/2018 16:59:05 Low back pain 677864790 M54.5 Trochanter ic bursitis of left hip 6425973634 65814 M70.62 Serum alyssa min B12 below reference range 132339739 R79.89 Gastroesop hageal reflux disease 448394269 K21.9 Bladder mu scle dysfunction - overactive 532772335 N32.81 Mild depression 43598804 3 F32.0 Vitamin D deficiency 347 78781 E55.9 [id number] LIONEL De Dios (Adult Med) [address] [place] [address] 63147-383 0 07/17/2018 13:32:46 07/18/2018 09:58:41 Hyperlipidemia 41540380 E78.5 High hemog lobin A1c level 461126636 R73.09 Vitamin D deficiency 347 16975 E55.9 Serum alyssa min B12 below reference range 030864578 R79.89 Trochanter ic bursitis of left hip 4768693196 04244 M70.62 Gastroesop hageal reflux disease 349416713 K21.9 Sinusitis 04280803 J32.9 Low back pain 268300714 M54.5 Prolapsed lumbar intervertebral disc 429195293 M51.26 Bladder mu scle dysfunction - overactive 344446973 N32.81 Depressive disorder 3548 9007 F32.9 [id number] LIONEL De Dios (Adult Med) [address] [place] [address] 23263-446 0 08/16/2018 16:22:35 08/16/2018 17:08:52 Hyperlipidemia 34973209 E78.5 Low back pain 751975012 M54.5 [id number] LIONEL De Dios (Adult Med) [address] [place] [address] 48637-973 0 09/28/2018 12:29:47 09/28/2018 13:26:02 Low back pain 950816696 M54.5 Hypothyroidism 02826093 E03.9 Hyperlipidemia 11672203 E78.5 Vitamin D deficiency 347 76007 E55.9 Prolapsed lumbar intervertebral disc 263935100 M51.26 Trochanter ic bursitis of left hip 5779599029 66346 M70.62 Gastroesop hageal reflux disease 448296664 K21.9 Mild depression 90548839 3 F32.0 [id number] LIONEL De Dios (Adult Med) [address] [place] [address] 13139-271 0 10/29/2018 11:42:16 10/30/2018 09:07:25 Low back pain 436731589 M54.5 Hypothyroidism 95942856 E03.9 Hypokalemia 92986170 E87 .6 Gastroesop hageal reflux disease 356237260 K21.9 Asthma-chr onic obstructive pulmonary disease overlap syndrome 3403603264 8509106 J44.9 Prolapsed lumbar intervertebral disc 106839051 M51.26 Hyperlipidemia 47510030 E78.5 Trochanter ic bursitis of left hip 9771956446 79470 M70.62 Hip pain 37385583 M25.55 2 Serum alyssa min B12 below reference range 768279531 R79.89 Vitamin D deficiency 347 39807 E55.9 Depressive disorder 3548 9007 F32.9 [id number] LIONEL De Dios (Adult Med) [address] [place] [address] 07106-410 0 01/01/2019 16:03:35 01/01/2019 17:30:02 Low back pain 263538859 M54.5 Gastroesop hageal reflux disease 972589781 K21.9 Venereal d isease screening 708931898 Z11.3 Depressive disorder 3548 9007 F32.9 Vitamin D deficiency 347 06709 E55.9 Hyperlipidemia 71347257 E78.5 Hypothyroidism 88869519 E03.9 Asthma-chr onic obstructive pulmonary disease overlap syndrome 6489988291 4396528 J44.9 [id number] LIONEL De Dios (Adult Med) [address] [place] [address] 78019-797 0 02/06/2019 11:56:18 02/06/2019 13:39:54 Low back pain 468971672 M54.5 Pain of le ft hip joint 7022827899 53215 M25.552 Asthma-chr onic obstructive pulmonary disease overlap syndrome 5345053334 0250668 J44.9 Hypothyroidism 37329897 E03.9 Prolapsed lumbar intervertebral disc 809066631 M51.26 Hyperlipidemia 15581201 E78.5 Trochanter ic bursitis of left hip 1533724196 96415 M70.62 Gastroesop hageal reflux disease 264094101 K21.9 Vitamin D deficiency 347 66261 E55.9 Depressive disorder 3548 9007 F32.9 [id number] LIONEL De Dios (Adult Med) [address] [place] [address] 38898-750 0 03/06/2019 11:33:00 03/06/2019 12:16:02 Acute sinusitis 65794392 J01.90 Sinusitis 13938594 J32.9 Low back pain 862062613 M54.5 Trochanter ic bursitis of left hip 5456522425 52729 M70.62 Pain of le ft hip joint 8807284051 20094 M25.552 Asthma-chr onic obstructive pulmonary disease overlap syndrome 9326683212 6541233 J44.9 Hypothyroidism 50374261 E03.9 Prolapsed lumbar intervertebral disc 279592850 M51.26 Hyperlipidemia 75429174 E78.5 Hip pain 03035911 M25.55 2 Serum alyssa min B12 below reference range 823340973 R79.89 Gastroesop hageal reflux disease 447513346 K21.9 Vitamin D deficiency 347 79615 E55.9 Depressive disorder 3548 9007 F32.9 [id number] LIONEL De Dios (Adult Med) [address] [place] [address] 78313-703 0 04/03/2019 10:32:25 04/04/2019 11:02:34 Acute sinusitis 38610917 J01.90 Augmentin refilled 04/02 Low back pain 659878722 M54.5 Candidiasis of mouth 797 47173 B37.0 [id number] LIONEL De Dios (Adult Med) [address] [place] [address] 13014-654 0 05/03/2019 14:24:35 05/06/2019 10:05:09 Pre-surgery testing 527651366 Z01.89 Low back pain 923178865 M54.5 Asthma-chr onic obstructive pulmonary disease overlap syndrome 9889414125 2088907 J44.9 Bladder mu scle dysfunction - overactive 152766486 N32.81 Depressive disorder 3548 9007 F32.9 Gastroesop hageal reflux disease 271744140 K21.9 Hyperlipidemia 83660541 E78.5 Hypothyroidism 33309731 E03.9 Pain of le ft hip joint 9463304660 19782 M25.552 Prolapsed lumbar intervertebral disc 112026964 M51.26 Serum alyssa min B12 below reference range 073595082 R79.89 Trochanter ic bursitis of left hip 7517917811 22153 M70.62 Vitamin D deficiency 347 71047 E55.9 [id number] LIONEL De Dios (Adult Med) [address] [place] [address] 61704-145 0 06/03/2019 10:30:37 06/03/2019 11:39:02 High hemoglobin A1c level 253347516 R73.09 Hypothyroidism 96600225 E03.9 Serum alyssa min B12 below reference range 741273538 R79.89 Vitamin D deficiency 347 58851 E55.9 Hypokalemia 66793808 E87 .6 Hyperlipidemia 34891510 E78.5 Prolapsed lumbar intervertebral disc 805228713 M51.26 Trochanter ic bursitis of left hip 3545923828 82913 M70.62 Low back pain 082267390 M54.5 Bladder mu scle dysfunction - overactive 602475033 N32.81 Depressive disorder 3548 9007 F32.9 Gastroesop hageal reflux disease 539563292 K21.9 [id number] MD Cici Cash (Adult Med) [address] [place] [address] 64245-779 0 06/17/2019 12:19:53 06/18/2019 08:36:12 Facial swelling 745520207 R22.0 Central vs Peripheral Not consistent with an infection 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 Acquired p tosis of eyelid of right eye 5901340786 4746077 H02.401 Oropharyng eal dysphagia 38325982 R13.12 [id number] LIONEL De Dios (Adult Med) [address] [place] [address] 16046-624 0 06/27/2019 09:54:31 06/28/2019 09:39:42 Carrier of methicillin resistant Staphylococcus aureus 454937727 Z22.322 Gastroesop hageal reflux disease 401976225 K21.9 Low back pain 191426270 M54.5 Hypokalemia 53861375 E87 .6 Hyperlipidemia 75363727 E78.5 Menopausal flushing 1984 63078 N95.1 Hypothyroidism 13087767 E03.9 Vitamin D deficiency 347 30540 E55.9 Trochanter ic bursitis of left hip 0873401385 07217 M70.62 Serum alyssa min B12 below reference range 210616981 R79.89 Prolapsed lumbar intervertebral disc 784724818 M51.26 Depressive disorder 3548 9007 F32.9 Asthma-chr onic obstructive pulmonary disease overlap syndrome 3376096328 1977003 J44.9 [id number] LIONEL De Dios (Adult Med) [address] [place] [address] 35487-222 0 07/25/2019 10:01:10 07/26/2019 11:04:50 Low back pain 544116472 M54.5 Carrier of methicillin resistant Staphylococcus aureus 256554395 Z22.322 Injury of left hip region 5282673227 0890202 S79.912A Gastroesop hageal reflux disease 548135614 K21.9 Bladder mu scle dysfunction - overactive 968694299 N32.81 Asthma-chr onic obstructive pulmonary disease overlap syndrome 4629033262 1405075 J44.9 Depressive disorder 3548 9007 F32.9 Hyperlipidemia 60579052 E78.5 Hypothyroidism 65077383 E03.9 Prolapsed lumbar intervertebral disc 702261531 M51.26 Serum alyssa min B12 below reference range 845121452 R79.89 Vitamin D deficiency 347 59853 E55.9 [id number] LIONEL De Dios (Adult Med) [address] [place] [address] 25945-458 0 08/22/2019 11:06:15 08/22/2019 11:48:16 Hip pain 46456683 M25.552 Low back pain 323623602 M54.5 Vitamin D deficiency 347 98136 E55.9 Hypothyroidism 42538680 E03.9 Gastroesop hageal reflux disease 782387368 K21.9 Hyperlipidemia 48845584 E78.5 Serum alyssa min B12 below reference range 984544939 R79.89 Dental abscess 983732576 K04.7 [id number] LIONEL De Dios (Adult Med) [address] [place] [address] 55733-420 0 10/15/2019 08:35:56 10/16/2019 08:59:44 Asthma-chronic obstructive pulmonary disease overlap syndrome 6138486103 2966608 J44.9 Depressive disorder 3548 9007 F32.9 Gastroesop hageal reflux disease 449477360 K21.9 High hemog lobin A1c level 261677717 R73.09 Hyperlipidemia 17207413 E78.5 Hypothyroidism 35078029 E03.9 Knee pain 52430330 M25.5 69 Low back pain 052240089 M54.5 Serum alyssa min B12 below reference range 957386258 R79.89 Trochanter ic bursitis of left hip 2587645508 89477 M70.62 Vitamin D deficiency 347 53157 E55.9 Prolapsed lumbar intervertebral disc 788413324 M51.26 [id number] LIONEL De Dios (Adult Med) [address] [place] [address] 13353-476 0 11/01/2019 08:04:57 11/04/2019 17:14:09 Low back pain 395510211 M54.5 Hyperlipidemia 33684374 E78.5 Hypothyroidism 23464907 E03.9 Gastroesop hageal reflux disease 413789120 K21.9 Hypokalemia 37791005 E87 .6 Asthma-chr onic obstructive pulmonary disease overlap syndrome 1547207755 6853627 J44.9 Depressive disorder 3548 9007 F32.9 Trochanter ic bursitis of left hip 4331285852 01545 M70.62 Vitamin D deficiency 347 15608 E55.9 Serum alyssa min B12 below reference range 332058600 R79.89 [id number] MD Cici Quan (Adult Med) [address] [place] [address] 16842-663 0 11/28/2019 15:22:17 12/04/2019 11:41:37 Pain in right hip joint 5202825758 48283 M25.551 Claims has had chronic right hip pain, needs hydrocodon e stand by. F/U with her pcp MARINA Reese. [id number] LIONEL De Dios (Adult Med) [address] [place] [address] 68405-379 0 12/30/2019 08:14:57 12/30/2019 16:40:59 Pain in right hip joint 2482648691 55969 M25.551 Edema of l ower extremity 842431316 R60.0 Depressive disorder 3548 9007 F32.9 Gastroesop hageal reflux disease 017026922 K21.9 Hip pain 98357160 M25.55 2 Hyperlipidemia 51987420 E78.5 Hypothyroidism 87353647 E03.9 Low back pain 739049724 M54.5 Serum alyssa min B12 below reference range 210480441 R79.89 Shoulder strain 83646463 4 S46.919A Trochanter ic bursitis of left hip 4262666876 79324 M70.62 Vitamin D deficiency 347 84511 E55.9 [id number] LIONEL De Dios (Adult Med) [address] [place] [address] 80930-799 0 01/30/2020 08:08:40 01/30/2020 15:38:42 Low back pain 617890476 M54.5 Pain in ri ght hip joint 4845591660 54522 M25.551 Edema of l ower extremity 203173781 R60.0 Asthma-chr onic obstructive pulmonary disease overlap syndrome 4895486797 8096433 J44.9 Depressive disorder 3548 9007 F32.9 Gastroesop hageal reflux disease 768462778 K21.9 High hemog lobin A1c level 510994935 R73.09 Hyperlipidemia 74938179 E78.5 Hypothyroidism 12379113 E03.9 Prolapsed lumbar intervertebral disc 982944309 M51.26 Serum alyssa min B12 below reference range 516291035 R79.89 Trochanter ic bursitis of left hip 2680919343 22601 M70.62 Vitamin D deficiency 347 95282 E55.9 [id number] LIONEL De Dios (Adult Med) [address] [place] [address] 69326-262 0 02/28/2020 08:05:01 02/28/2020 15:01:33 Pain in right hip joint 1145988426 21332 M25.551 Gastroesop hageal reflux disease 556860448 K21.9 Low back pain 419612108 M54.5 Asthma-chr onic obstructive pulmonary disease overlap syndrome 3549423843 7120236 J44.9 Depressive disorder 3548 9007 F32.9 Hyperlipidemia 24452258 E78.5 Hypothyroidism 86168318 E03.9 Prolapsed lumbar intervertebral disc 022306035 M51.26 Serum alyssa min B12 below reference range 252764514 R79.89 Vitamin D deficiency 347 28449 E55.9 [id number] KANE Price (Adult Med) [address] [place] [address] 56783-455 0 03/11/2020 12:05:23 03/11/2020 12:33:52 Administration of influenza vaccine 40864013 Z23 Administra tion of pneumococcal vaccine 49564461 Z23 [id number] LIONEL De Dios (Adult Med) [address] [place] [address] 29585-237 0 03/30/2020 08:26:36 03/30/2020 11:59:58 Hypothyroidism 05491391 E03.9 Edema of l ower extremity 058552287 R60.0 Hyperlipidemia 96874937 E78.5 Hypokalemia 59047175 E87 .6 Low back pain 578288712 M54.5 Knee pain 15144551 M25.5 69 Gastroesop hageal reflux disease 870853657 K21.9 Pain in ri ght hip joint 9296976243 37875 M25.551 Asthma-chr onic obstructive pulmonary disease overlap syndrome 6725182764 4553962 J44.9 Depressive disorder 3548 9007 F32.9 Prolapsed lumbar intervertebral disc 352596337 M51.26 Serum alyssa min B12 below reference range 280816096 R79.89 Trochanter ic bursitis of left hip 7948586083 81942 M70.62 Vitamin D deficiency 347 67348 E55.9 [id number] LIONEL De Dios (Adult Med) [address] [place] [address] 85845-498 0 04/30/2020 07:58:24 04/30/2020 11:12:08 Edema of lower extremity 956327396 R60.0 Asthma-chr onic obstructive pulmonary disease overlap syndrome 9003216364 6533103 J44.9 Depressive disorder 3548 9007 F32.9 Gastroesop hageal reflux disease 963859901 K21.9 Hyperlipidemia 73659188 E78.5 Hypothyroidism 94432206 E03.9 Low back pain 527096508 M54.5 Knee pain 69514386 M25.5 69 Serum alyssa min B12 below reference range 512340324 R79.89 Vitamin D deficiency 347 13637 E55.9 Hypokalemia 73504228 E87 .6 Prolapsed lumbar intervertebral disc 506950360 M51.26 Trochanter ic bursitis of left hip 0872846137 92336 M70.62 [id number] LIONEL De Dios (Adult Med) [address] [place] [address] 09400-031 0 05/29/2020 07:48:38 05/29/2020 11:01:40 Knee pain 40404518 M25.569 Vitamin D deficiency 347 31591 E55.9 Hypothyroidism 08768508 E03.9 Hyperlipidemia 63184073 E78.5 Edema of l ower extremity 568468630 R60.0 Depressive disorder 3548 9007 F32.9 Gastroesop hageal reflux disease 605758585 K21.9 Low back pain 259432390 M54.5 Prolapsed lumbar intervertebral disc 614893467 M51.26 Trochanter ic bursitis of left hip 8658244343 85663 M70.62 [id number] LIONEL De Dios (Adult Med) [address] [place] [address] 28737-263 0 06/30/2020 07:55:33 06/30/2020 13:07:33 Knee pain 34264565 M25.569 Hyperlipidemia 97793014 E78.5 Gastroesop hageal reflux disease 502642730 K21.9 Hypothyroidism 86305678 E03.9 Low back pain 125581576 M54.5 Liver mass 029620026 R16 .0 radiologis t recommende d an MRI Asthma-chr onic obstructive pulmonary disease overlap syndrome 1521579855 6483862 J44.9 Depressive disorder 3548 9007 F32.9 Hip pain 31809533 M25.55 2 Prolapsed lumbar intervertebral disc 683378373 M51.26 Serum alyssa min B12 below reference range 179255782 R79.89 Shoulder strain 15280466 4 S46.919A Trochanter ic bursitis of left hip 4053951014 01404 M70.62 Vitamin D deficiency 347 72788 E55.9 [id number] LIONEL De Dios (Adult Med) [address] [place] [address] 07939-708 0 07/28/2020 08:48:52 07/28/2020 12:13:29 Injury of left hip region 0709372266 9854387 S79.912A Knee pain 75179173 M25.5 69 Hyperlipidemia 44056394 E78.5 Edema of l ower extremity 480274692 R60.0 Shoulder strain 32624673 4 S46.919A Asthma-chr onic obstructive pulmonary disease overlap syndrome 0676767741 6399413 J44.9 Depressive disorder 3548 9007 F32.9 Gastroesop hageal reflux disease 847850157 K21.9 Hypokalemia 04527120 E87 .6 Low back pain 799233229 M54.5 Prolapsed lumbar intervertebral disc 079236760 M51.26 Serum alyssa min B12 below reference range 293482789 R79.89 Trochanter ic bursitis of left hip 3913070835 83602 M70.62 Vitamin D deficiency 347 64646 E55.9 [id number] LIONEL De Dios (Adult Med) [address] [place] [address] 61601-053 0 08/25/2020 08:41:03 08/25/2020 14:21:21 Trochanteric bursitis of left hip 5023764824 55915 M70.62 Edema of l ower extremity 841952224 R60.0 [id number] LIONEL De Dios (Adult Med) [address] [place] [address] 13698-613 0 09/24/2020 07:55:39 09/24/2020 12:02:31 Gastroesophageal reflux disease 167864826 K21.9 Edema of l ower extremity 864660837 R60.0 Low back pain 257584183 M54.5 Asthma-chr onic obstructive pulmonary disease overlap syndrome 5831111352 9477667 J44.9 Depressive disorder 3548 9007 F32.9 Hyperlipidemia 09087616 E78.5 Hypothyroidism 78579420 E03.9 Serum alyssa min B12 below reference range 680867729 R79.89 Trochanter ic bursitis of left hip 8586700257 92632 M70.62 Vitamin D deficiency 347 61356 E55.9 [id number] LIONEL De Dios (Adult Med) [address] [place] [address] 86995-290 0 10/26/2020 12:02:57 10/26/2020 12:58:50 Low back pain 764448902 M54.5 Hypokalemia 16615276 E87 .6 Serum crea tinine above reference range 127669804 R79.89 Knee pain 28074922 M25.5 69 Trochanter ic bursitis of left hip 0993573508 82332 M70.62 Hyperlipidemia 84395740 E78.5 Hypothyroidism 32083038 E03.9 [id number] LIONEL De Dios (Adult Med) [address] [place] [address] 63060-194 0 12/25/2020 10:09:22 12/25/2020 12:43:38 Knee pain 97411161 M25.569 Low back pain 680701555 M54.5 Edema of l ower extremity 497844487 R60.0 Asthma-chr onic obstructive pulmonary disease overlap syndrome 2813060083 5333169 J44.9 Depressive disorder 3548 9007 F32.9 Gastroesop hageal reflux disease 383242252 K21.9 High hemog lobin A1c level 016219110 R73.09 Hip pain 14632812 M25.55 2 Hyperlipidemia 48500947 E78.5 Hypothyroidism 52260039 E03.9 Prolapsed lumbar intervertebral disc 371877145 M51.26 Serum alyssa min B12 below reference range 302960969 R79.89 Vitamin D deficiency 347 54548 E55.9 Trochanter ic bursitis of left hip 4632764989 89640 M70.62 [id number] LIONEL De Dios (Adult Med) [address] [place] [address] 21358-138 0 03/24/2021 08:34:02 03/25/2021 12:39:27 Knee pain 79516952 M25.569 Gastroesop hageal reflux disease 417468140 K21.9 Low back pain 890574717 M54.50 Edema of l ower extremity 001387116 R60.0 [id number] KANE Price (Adult Med) [address] [place] [address] 55957-494 0 05/06/2021 12:39:13 05/06/2021 13:15:28 Administration of influenza vaccine 60667165 Z23 [id number] LIONEL De Dios (Adult Med) [address] [place] [address] 56731-682 0 06/22/2021 10:10:56 06/23/2021 13:32:31 Hip pain 40320821 M25.552 Knee pain 81037770 M25.5 69 Gastroesop hageal reflux disease 496433301 K21.9 Hyperlipidemia 30840349 E78.5 Edema of l ower extremity 965027318 R60.0 Prolapsed lumbar intervertebral disc 060474291 M51.26 Trochanter ic bursitis of left hip [id number] 33461 M70.62 Vitamin D deficiency 347 71964 E55.9 Depressive disorder 3548 9007 F32.9 High hemog lobin A1c level 815664327 R73.09 Hypothyroidism 40817385 E03.9 Low back pain 104232851 M54.50 Serum alyssa min B12 below reference range 281346093 R79.89 [id number] LIONEL De Dios (Adult Med) [address] [place] [address] [phone] 0 08/03/2021 15:12:36 08/04/2021 12:30:35 Cough 58578925 R05.9 Hip pain 12664475 M25.55 2 Low back pain 796214076 M54.50 Edema of l ower extremity 319697181 R60.0 Gastroesop hageal reflux disease 332143219 K21.9 High hemog lobin A1c level 213761405 R73.09 Hyperlipidemia 34342150 E78.5 Hypothyroidism 11626348 E03.9 Prolapsed lumbar intervertebral disc 085705681 M51.26 Serum alyssa min B12 below reference range 621080584 R79.89 Trochanter ic bursitis of left hip 5789397602 02728 M70.62 Vitamin D deficiency 347 64521 E55.9 [id number] MD Cici Quan (Adult Med) [address] [place] [address] [phone] 0 09/23/2021 16:04:54 09/24/2021 22:31:51 Acute laryngitis 9124484 J04.0 Discussed with patient, with presence of female MA , she agreed to try ABS as ordered. [id number] LIONEL De Dios (Adult Med) [address] [place] [address] [phone] 0 10/26/2021 15:40:27 10/27/2021 11:50:32 Neck swelling 937347653 R22.1 Hypothyroidism 22366737 E03.9 Hyperlipidemia 14410430 E78.5 Depressive disorder 3548 9007 F32.9 Gastroesop hageal reflux disease 889330865 K21.9 Serum alyssa min B12 below reference range 298067074 R79.89 Trochanter ic bursitis of left hip 9527468923 74494 M70.62 Low back pain 439013600 M54.50 Asthma-chr onic obstructive pulmonary disease overlap syndrome 2275702041 4160912 J44.9 Vitamin D deficiency 347 76831 E55.9 High hemog lobin A1c level 361698049 R73.09 Hypokalemia 54817361 E87 .6 [id number] LIONEL De Dios (Adult Med) [address] [place] [address] 97039-527 0 01/11/2022 14:41:16 01/12/2022 10:36:07 Prolapsed lumbar intervertebral disc 845257981 M51.26 Screening for malignant neoplasm of colon 904024377 Z12.11 Depressive disorder 3548 9007 F32.9 Gastroesop hageal reflux disease 685802692 K21.9 Hyperlipidemia 91005117 E78.5 Hypothyroidism 69514037 E03.9 Serum alyssa min B12 below reference range 474082083 R79.89 Trochanter ic bursitis of left hip 1456863157 38815 M70.62 [id number] MD Cici DUGGAN (SERVICES DELIVERY DRIVER) [address] [place] [address] [phone] 0 02/03/2022 09:45:08 02/04/2022 13:12:24 Gynecologic examination 42418198 Z01.411 - Educated on the importance of [...] drugs. Screening for malignant neoplasm of breast 410958978 Z12.39 Last mammogram in 2017, overdue; ordered today Body mass index 30+ - obesity 168127730 Z68.32 - Encouraged increasing aerobic exercise to at least 150min per week, and discussed the use of MyPlate method with emphasis on increasing fruit and vegetable consumptio n and limiting processed foods and added sugars- Check A1c, Lipid panel, and TSH for risk stratifica tion. Essential hypertension 49638441 I10 - BP uncontroll ed, has been hypertensi ve on multiple occasions over the past year- Will start Lisinopril 20mg for further BP control- Check CMP, discussed importance of a low sodium diet- Keep Appt with PCP to monitor BP Menopausal symptom 89077 002 E89.41 - Currently on estradiol 1mg, daily, not as effective- Will start Prempro to minimize effect of chronic unopposed estrogen [id number] LIONEL De Dios (Adult Med) [address] [place] [address] [phone] 0 03/08/2022 13:52:33 03/09/2022 13:33:53 Hyperlipidemia 92047865 E78.5 Edema of l ower extremity 143190906 R60.0 Hip pain 45844808 M25.55 2 Cough 64169644 R05.9 Administra tion of influenza vaccine 72221360 Z23 Gastroesop hageal reflux disease 374810047 K21.9 Depressive disorder 3548 9007 F32.9 Hypothyroidism 98483986 E03.9 Prolapsed lumbar intervertebral disc 914118064 M51.26 Serum alyssa min B12 below reference range 901256545 R79.89 Trochanter ic bursitis of left hip 4570223056 79597 M70.62 [id number] MD Cici DUGGAN (SERVICES DELIVERY DRIVER) [address] [place] [address] [phone] 0 03/31/2022 10:30:51 04/01/2022 15:52:35 Heterogeneously dense breast composition 895625430 R92.2 Screening Mammogram done 03/03/2022 showed heterogene ously dense tissue, recommende d bilateral breast US for additional eval, ordered Menopausal flushing 1983 59138 N95.1 Patient has been on Premarin 0.625 mg + Medroxypro gesterone 2.5mg dailyPt s/p hysterecto my, no indication for progestero ne HRT, will stop medroxypro gesteroneW ill reduce Premarin to 0.45mg to reduce risk of VTE/cancer Essential hypertension 54919858 I10 - BP better controlled with Lisinopril , continue med, CMP unremarkab le- Continue low sodium diet- Keep Appt with PCP to follow up on BP [id number] MD Cici Leblanc (Adult Med) [address] [place] [address] [phone] 0 04/12/2022 14:45:58 04/13/2022 15:38:26 Essential hypertension 52086239 I10 Increase lisinopril to 40 mg/d Gastroesop hageal reflux disease 640981237 K21.9 Low back pain 108735312 M54.50 Renewal of prescription 362095065 Z76.0 Hypertriglyceridemia 302 511500 E78.2 [id number] KANE Shi (Adult Med) [address] [place] [address] [phone] 0 07/14/2022 14:18:05 07/20/2022 10:50:27 Hypertriglyceridemia 062738432 E78.2 Asthma-chr onic obstructive pulmonary disease overlap syndrome 2203480089 5095703 J44.9 Vitamin D deficiency 347 03025 E55.9 Low back pain 026715648 M54.50 Knee pain 23774578 M25.5 69 Medication monitoring 39 2056727 Z51.81 [id number] MD Cici DUGGAN (SERVICES DELIVERY DRIVER) [address] [place] [address] [phone] 0 10/06/2022 11:12:38 10/21/2022 11:26:08 Fatigue 32655280 R53.83 patient feels tired most of the time in the last 6 months. States she wakes up from sleeping and feels like can go back to bed. She denies constipati on, diarrhea, heat, cold intoleranc e, hair loss. Will recheck TSH to assess if hypothyroi dism is well managed. Polyp of s igmoid colon 747591596 D12.5 Patient had colonoscop y in 05-03-2022 , with diverticul a noted on exam. Colonscopy not warranted at this time. 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 [id number] Juanita Chacon MD [facility] ([facility]) [address] [place] [address] [phone] 0 03/14/2023 10:30:29 03/15/2023 13:06:26 Obesity 798293934 E66.9 Low back pain 188443453 M54.50 Asthma-chr onic obstructive pulmonary disease overlap syndrome 9471927005 5166243 J44.9 Diverticular disease 397 934730 K57.90 Essential hypertension 90288614 I10 Add HCTZ History of polyp of colon 390691908 Z86.010 Hyperlipidemia 59036422 E78.5 Hypothyroidism 41518518 E03.9 Active immunization 3387 9002 Z23 [id number] MD Cici Leblanc (Adult Med) [address] [place] [address] [phone] 0 05/29/2023 10:36:23 06/02/2023 16:27:21 Obesity 198444380 E66.9 Medication monitoring 39 0008689 Z51.81 [id number] MD Cici Leblanc (Adult Med) [address] [place] [address] 73224-942 0 08/29/2023 11:17:47 08/30/2023 20:54:27 Obesity 203526068 E66.9 Vitamin D deficiency 347 16841 E55.9 Asthma-chr onic obstructive pulmonary disease overlap syndrome 9472357873 1474517 J44.9 Diverticular disease 397 445878 K57.90 Essential hypertension 40252403 I10 Reevaluate at next OV Gastroesop hageal reflux disease 875972540 K21.9 Increase PPI High hemog lobin A1c level 413882078 R73.09 History of polyp of colon 867104409 Z86.010 Colonoscop y 1m 2021. Repeat 2026 Hyperlipidemia 71836671 E78.5 Hypertriglyceridemia 302 883365 E78.2 Hypothyroidism 87449959 E03.9 Hyperglycemia 28908249 R 73.9 Low back pain 022676341 M54.50 Loose stool 896475308 R1 9.5 [id number] MD Cici Leblanc (Adult Med) [address] [place] [address] 06647-358 0 01/16/2024 15:14:36 01/17/2024 15:50:40 Obesity 976678954 E66.8 Cough 23009083 R05.9 Low back pain 869293849 M54.50 Essential hypertension 58023120 I10 Reevaluate at next OV Anemia 960777585 D64.9 [id number] MD Cici Leblanc (Adult Med) [address] [place] [address] 48739-154 0 04/10/2024 12:22:04 04/16/2024 16:35:31 Serum creatinine outside reference range 395335293 R79.89 Depressive disorder 3548 9007 F32.9 Diverticular disease 397 242552 K57.90 Essential hypertension 43595685 I10 Reevaluate at next OV Family his tory of diabetes mellitus 747888118 Z83.3 Gastroesop hageal reflux disease 499443630 K21.9 Increase PPI Hyperglycemia 84095900 R 73.9 Menopausal flushing 1983 36993 N95.1 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 Would like to restart. No hx of RI, CVA, TIA, clotting hx. No fam hx of vascular disease. Hysterecto my without malignancy concerns. Will restart at lower dose and see if relief of symtpoms. Dysuria 68642867 R30.0 UA reassuring . Will send for culture. [id number] MD Cici Leblanc (Adult Med) [address] [place] [address] 01336-651 0 07/08/2024 14:07:34 07/09/2024 15:36:35 Lower abdominal pain 54572531 R10.[address] Colonoscop y in 2021 Postprandial diarrhea 14 193015 K52.89 Increase fiber to twice daily Gastroesop hageal reflux disease 740621262 K21.9 Take PPI x4/week Diverticular disease 397 008541 K57.90 Increase fiber to twice daily Low back pain 110372603 M54.50 Chronic ki dney disease 397449951 N18.9 Stop ibuprofen and decrease PPI Health Concerns Section Related Observation LastModified by Organization Detai ls LastModified Time None Recorded Concern Status LastModified by Organization Details LastModified Time None Recorded Advance Directives Directive N: Payers Encounter Date Sequence Insurance Name Policy Number Policy Mayorga Covered Member ID Mayorga Member ID Guarantor Name 08/29/2023 1 [employer] (MEDICARE REPLACEMENT/AD VANTAGE - HMO) [id number] Flora U Devang [id number] Flora Devang 08/29/2023 2 [place]ARE OR MEDICARE REPLACEMENT PRIMARY) Flora U Devang [id number] Flora Devang 01/16/2024 1 [employer] (MEDICARE REPLACEMENT/AD VANTAGE - HMO) [id number] Flora U Devang [id number] Flora Devang 01/16/2024 2 [place]ARE OR MEDICARE REPLACEMENT PRIMARY) Flora U Devang [id number] Flora Devang 04/10/2024 1 [employer] (MEDICARE REPLACEMENT/AD VANTAGE - HMO) [id number] Flora U Devang [id number] Flora Devang 04/10/2024 2 [place] OR MEDICARE REPLACEMENT PRIMARY) Flora U Devang [id number] Flora Devang 07/01/2024 1 [facility] (MEDICARE REPLACEMENT/AD VANTAGE - HMO) [id number] Flora U Devang [id number] Flora Devang 07/01/2024 2 [place] WHEN [place]ARE OR MEDICARE REPLACEMENT PRIMARY) Flora U Devang [id number] Flora Devang 07/08/2024 1 [facility] (MEDICARE REPLACEMENT/AD VANTAGE - HMO) [id number] Flora U Devang [id number] Flora Deavng 07/08/2024 2 [place] WHEN [place]ARE OR MEDICARE REPLACEMENT PRIMARY) Flora U Devang [id number] Flora Devang Notes Date Note Type Note Provider Name and Address Organization Details Recorded Time 08/29/2023 text/html Has increased ba ck pain in the past two to three weeks. Has to increase to three tablets occasionally. Has pain in her hips now. Not sleeping well. Stomach upset all the time and has liquid BMs shortly after she eats. Juanita Chacon MD Attn: Accounting[address] [place], [address], [place] [facility] 08/29/2023 12:08:43 01/16/2024 text/html Increased difficulty and non productive cough breathing associated with the heat. Otherwise doing well Juanita Chacon MD Attn: Accounting[address] [facility], [place], [address], [place] [facility] 01/16/2024 16:07:33 04/10/2024 text/html Complaining abou t recurrent menopausal flushing. Wants her pain medicine refilled Juanita Chacon MD Attn: Accounting[address] [facility], [place], [address], [place] [facility] 04/10/2024 13:13:39 07/01/2024 text/html Annual GYNReport ed bypatient.History: Reports is having hot and cold flashes again. No rashes. No new medications recently. Menstrual cycle:Post menopausal for 30 years. S/p partial hysterectomy. 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 Has had STI testing following. Has not been sexually active for the past year. premarin .45 %; needs refill. JANAE FULLER MD Attn: Accounting[address] [facility], [place], [address], [facility] 07/20/2024 22:15:51 07/08/2024 text/html Here for routine f/u. Has had persistent lower abdominal post-prandial diarrhea. Unable to get EGD at [facility] due to insurance coverage. Gallbladder removed before 2019. Colonoscopy in 2021 revealed left-sided diverticulosis. Occasionally uses three pain pills daily. Continues on PPI and ibuprofen. Juanita Chacon MD Attn: Accounting,[address] [facility], [place], [address], [place] [facility] 07/08/2024 15:32:38 OBGyn Episode Ob Episode Information Episode Created Date Number of Fetuses Patient Bloodtype Patient rh Status Prepregnancy Weight lbs Domestic Partner Domestic Partner Phone Father Name Professor Of Physical Education Status 10/29/19 15 1 CLOSED Fetus Data First Name Last Name Admitted to NICU Weight (g) Sex Living Outcome Pediatric Complications Fetus ID Race Codes Race Delivery Type 2976.69 75 M Full Term 75854 Franklyn Calculation Initial Franklyn Date Initial Exam [...] Domestic Partner Domestic Partner Phone Father Name Professor Of Physical Education Status 10/29/19 15 1 CLOSED Fetus Data First Name Last Name Admitted to NICU Weight (g) Sex Living Outcome Pediatric Complications Fetus ID Race Codes Race Delivery Type M Demise Franklyn Calculation Initial Franklyn Date Initial Exam [...] Domestic Partner Domestic Partner Phone Father Name Professor Of Physical Education Status 10/29/19 15 1 CLOSED Fetus Data First Name Last Name Admitted to NICU Weight (g) Sex Living Outcome Pediatric Complications Fetus ID Race Codes Race Delivery Type 3345.24 1 M Full Term 95225 Franklyn Calculation Initial Franklyn Date Initial Exam [...] Complications Tubal Sterilization Discharge Date Comments 9 Regional-Ep idural 40 false Saúl Discharge Information Feeding Method Contraceptive Method Maternal HG B and HCT Levels
[2024-09-02 12:07] LABS: Albumin Level 4.1 g/dL (3.5-5.1); Anion Gap 10 mmol/L (4-12); Blood Urea Nitrogen 15 mg/dL (7-17); CRP < 0.5 mg/dL (<1.0); Calcium 8.9 mg/dL (8.4-10.2); Carbon Dioxide 25 mmol/L (22-30); Chloride 103 mmol/L (98-107); Estimated Glomerular Filt Rate 52; Glucose 148 mg/dL (65-110); Magnesium 1.5 mg/dL (1.6-2.3); Phosphorus 3.2 mg/dL (2.5-4.5); Potassium 3.3 mmol/L (3.4-5.0); Sodium 138 mmol/L (137-145)
[2024-09-02 12:08] LABS: MALB Creatinine Ratio 5.4 mg/g (0-30); Microalbumin Urine Random 10.8 mg/L (0-16.7)
[2024-09-02 12:09] LABS: Erythrocyte Sedimentation Rate 24 mm/hr (0-20)
[2024-09-02 12:10] LABS: Total Protein Urine Random < 5 mg/dL
[2024-09-02 12:14] LABS: Percent Iron Saturation 25 % (20-50)
[2024-09-02 12:22] LABS: Hepatitis B Surface Antigen Negative (Negative)
[2024-09-02 12:27] LABS: Hepatitis B Core IgM Result Negative (Negative)
[2024-09-03 13:18] LABS: Osmolality, Urine 521 mOsm/kg (50-1200)
[2024-09-04 13:18] LABS: Cystatin C 1.58 mg/L (0.52-1.14); eGFR 39 (> OR = 60)
== END 2024-09-02 10:41 | disposition home or self-care (01) ==
PROVIDERS: PCP Internal Medicine Gastroenterology; Visit Provider Internal Medicine Nephrology
DX: E03.9 Hypothyroidism, unspecified (principal); E78.00 Pure hypercholesterolemia, unspecified; I12.9 Hypertensive chronic kidney disease with stage 1 through stage 4 chronic kidney disease, or unspecified chronic kidney disease; J44.0 Chronic obstructive pulmonary disease with (acute) lower respiratory infection; K21.9 Gastro-esophageal reflux disease without esophagitis; N18.30 Chronic kidney disease, stage 3 unspecified; E03.8 Other specified hypothyroidism
CPT/HCPCS: 36415; 80069; 81001; 81050; 82043; 82610; 82728; 83540; 83550; 83735; 83930; 83935; 84133; 84156; 84300; 84443; 85652; 86140; 86705; 87086; 87340

== ENCOUNTER 2024-09-04 15:44 | Outpatient (CLI) | payer MEDICARE, MEDICAID, SELFPAY ==
--- NOTE | ~2024-09-04 | CT_ITS ---
Non-contrast CT scan of the Abdomen and Pelvis Clinical indication: Abdominal pain Technique: 2.5 mm axial scans were obtained through the abdomen and pelvis without intravenous or or al contrast. Dose reduction technique was used on this scan by utilizing automated exposure control a nd iterative reconstruction technique. The dose-length product (DLP) was 450.62 mGy-cm. Findings: Images through the lung bases reveal irregular streaky airspace opacities with micronodula r opacities in the right lower lobe. There is more mild involvement with similar streaky/interstitial opacities in the left lung base.. There is no evidence of renal or ureteral calculi. The kidneys and the ureters are nondilated. The liver, spleen, pancreas, gallbladder, and adrenals appear normal. Cholecystectomy clips are prese nt. There are atherosclerotic calcifications of the aorta. . There is no evidence of bowel obstruction. Images through the pelvis were performed. There is no evidence of ascites or lymphadenopathy. Urinary bladder unremarkable. No pelvic mass seen. Impression: Pulmonary findings in the lung bases, as detailed above, right worse than left. Diagnostic considerat ions include pneumonia, chronic scarring or postinflammatory change, or less likely, postradiation po sttreatment change. Morphology would be atypical for active neoplasm. Correlate clinically. Follow-up exam should be considered to assess for interval change in 1-3 months. No significant abnormality seen in the abdomen or pelvis otherwise. Reviewed, dictated and finalized at [facility]. Impression: Pulmonary findings in the lung bases, as detailed above, right worse than left. Diagnostic considerations include pneumonia, chronic scarring or postinflammat ory change, or less likely, postradiation posttreatment change. Morphology woul d be atypical for active neoplasm. Correlate clinically. Follow-up exam should be considered to assess for interval change in 1-3 months. No significant abnormality seen in the abdomen or pelvis otherwise.
--- OUTSIDE RECORDS SUMMARY | 2024-09-04 16:46 | XMS_ITS | Clinical Summary ---
Author Organization [facility] Address [address] [place] [address] Care Team Providers Care Thin Film Technician Name Role Phone Terry Reese Smooth [employer] LIV[employer] HOME DIRECTOR Primary Care Provider Source Comments [facility],non-owned Affiliates and Associated Physician Practices is amultiple site organization consisting of ambulatory clinics and hospital sitesin [place], [place], [place] and [place]. This disclosure is being madepursuant to the Care Everywhere program and may not contain all information available regarding this patient. Last updated 18.[facility] Allergies No known active allergies Medications * [...] CDT Respiratory Rate 12 06/28/2019 8:27 AM RESPIRATORY DIRECTOR Oxygen Saturation 100% 12/27/2019 8:28 AM CDT Inhaled Oxygen Concentration - - Weight 65.8 kg (145 lb) 12/27/2019 8:28 AM CDT Height 152.4 cm (5') 06/28/2019 8:27 AM RESPIRATORY DIRECTOR Body Mass Index 28.32 06/28/2019 8:27 AM RESPIRATORY DIRECTOR Plan of Treatment Health Maintenance Due Date [...] COMPREHENSIVE METABOLIC PANEL Routine 06/20/2019 4:30 AM RESPIRATORY DIRECTOR from Last 3 Months or Most Recently Relevant to Health Maintenance Results * (ABNORMAL) COMPREHENSIVE METABOLIC PANEL (06/20/2019 4:30 AM RESPIRATORY DIRECTOR) Glucose 119(H) 70 - 105 mg/dL 06/20/2019 5:54 AM [facility] Sodium 138 136 - 145 mmol/L 06/20/2019 5:54 AM [facility] Potassium 3.4(L) 3.5 - 5.1 mmol/L 06/20/2019 5:54 AM [facility] Chloride 104 98 - 107 mmol/L 06/20/2019 5:54 AM [facility] CO2 23 23 - 31 mmol/L 06/20/2019 5:54 AM [facility] Calcium 8.2(L) 8.4 - 10.4 mg/dL 06/20/2019 5:54 AM [facility] Anion Gap 11 8 - 16 mmol/L 06/20/2019 5:54 AM [facility] BUN 10 9.8 - 20.1 mg/dL 06/20/2019 5:54 AM [facility] Creatinine 0.75 0.57 - 1.11 mg/dL 06/20/2019 5:54 AM [facility] Alkaline Phosphatase 139 40 - 150 U/L 06/20/2019 5:54 AM [facility] ALT 11 0 - 61 U/L 06/20/2019 5:54 AM [facility] AST 11 5 - 34 U/L 06/20/2019 5:54 AM [facility] Protein Total 5.3(L) 6.4 - 8.3 gm/dL 06/20/2019 5:54 AM [facility] Albumin 2.9(L) 3.2 - 4.6 gm/dL 06/20/2019 5:54 AM [facility] Bilirubin Total 0.5 0.2 - 1.0 mg/dL 06/20/2019 5:54 AM [facility] eGFR by MDRD >60 >60 mL/min/1.7 3m2 06/20/2019 5:54 AM [facility] eGFR by MDRD >60 >60 mL/min/1.7 3m2 06/20/2019 5:54 AM RESPIRATORY DIRECTOR [facility] Blood BLOOD SPECIMEN / Unknown Lab Venipuncture / Unknown 06/20/2019 4:30 AM RESPIRATORY DIRECTOR 06/20/2019 4:57 AM RESPIRATORY DIRECTOR Trisha Valera MD LAB - CHEMISTRY ORDERABLES Final Result Performing Organization Address City/State/[facility] Co de Phone Number [facility] [address] [place] [address] from Last 3 Months or Most Recently Relevant to Health Maintenance Additional Health Concerns Infection Onset Date Last Indicated MRSA 06/06/2019 06/17/2019 Insurance [facility] Advance Directives * Full Code (Latest Code Status on File) Date Activated Date Inactivated Comments 06/17/2019 7:55 PM 06/20/2019 7:32 PM * Full Code Date Activated Date Inactivated Comments 06/17/2019 6:51 PM 06/17/2019 7:55 PM * Full Code Date Activated Date Inactivated Comments 06/06/2019 1:04 PM 06/08/2019 8:18 PM Care Teams Thin Film Technician Relationship Specialty Start Date End Date Terry Reese, [employer] LIVING HOME DIRECTOR [address] [place] [address] PCP - General Nurse Practitioner 03/04/19
--- OUTSIDE RECORDS SUMMARY | 2024-09-04 16:46 | XMS_ITS | CONTINUITY OF CARE DOCUMENT ---
Author Name ramonita francheskakaron Address Unknown Organization [facility] Address [address] [place] [address] Phone [phone] Care Team Providers Care Animal Laboratory Technician Name Role Phone Shelia Hernandez MD Unavailable [phone] CAITLYN CHACON MD Unavailable [phone] CAITLYN CHACON MD Unavailable PROBLEMS Condition Status Date Provider Notes Hypothyroidism active Ti Ahmedzai Hyperlipidemia active Ti Ahmedzai Hypertension active Ti Ahmedzai Dyspnea on exertion active Ti Ahmedzai Cardiology examination active Ti Ahmedzai Palpitations active Ti Ahmedzai Hx of lung cancer, R lobectomy active Ti Ahmedzai ENCOUNTERS Date Type Provider Location Encounter Diag nosis - In-person encounter Office Visit Shelia Hernandez MD [facility] Cardiology examinationPalpitationsHx of lung cancer, R [...] Payer name Policy type / Coverage type [place] red libertarian ID [employer] MEDICARE ADVANTAGE ST 0 003 (HMO POS) Medicare [id number] [facility] Medicaid 2 [id number] ADVANCE DIRECTIVES Name Date DISCUSSED - NO [...] mouth every day Orders: C omplete Echo ([id number]) S tress Regadenoson (CPT-[id number]) Shelia Hernandez MD Cardiology: H er updated [...] Orders: M onitor - Telemetry (Mobile Cardiac) ([id number]) C omplete Echo ([id number]) S tress Regadenoson ([id number]) Shelia Hernandez MD Cardiology: O rders: C omplete Echo ([id number]) S tress Regadenoson (CPT-[id number]) Shelia Hernandez MD Date Name Stress Regadenoson Complete Echo Monitor - Telemetry (Mobile Cardiac) HISTORY OF PROCEDURES Procedure Date Procedure Name Provider Procedure Notes S tatus Complex e/m visit add on Shelia Hernandez MD completed EKG Shelia Hernandez MD completed
--- OUTSIDE RECORDS SUMMARY | 2024-09-04 16:47 | XMS_ITS | Encounter Summary ---
Author Organization [facility] Address [address] [place] [address] Care Team Providers Care Lacrosse Player Name Role Phone Terry Reese Primary Care Provider Encounter Details Date Type Department Care Team (Late st Contact Info) Description 04/15/2019 Telephone [facility] [address] [place] [address] Tessa Nolen RN Social History [...] with patient, pt verbalized understanding. Questions answered. GRASS MANAGEMENT PROFESSOR documented in this encounter Plan of Treatment Not on file documented as of this encounter Visit Diagnoses Not on filedocumented in this encounter Additional Health Concerns Infection Onset Date Last Indicated Resolved Time MRSA 06/06/2019 06/17/2019 documented as of this encounter Care Teams Lacrosse Player Relationship Specialty Start Date End Date Terry Reese APRN-CNP [address] [place] [address] PCP - General Nurse Practitioner 03/04/19 documented as of this encounter
--- OUTSIDE RECORDS SUMMARY | 2024-09-04 16:47 | XMS_ITS | Data Portability ---
Author Organization [place] [facility] [place] [employer], Main Office Address [address] [place] [address] Assessment Encounter Date Assessment Date Assessment LastModified [...] n (aat) phenotype , serum 2023 024 [facility] Outpatient Lab, [address] [place], [address], 06/10/2024 16:57:16 BNP (B-type natriuret ic peptide), serum or plasma 2023 024 [facility], [address] [place], [address], 06/10/2024 16:57:16 ige, total, serum 2023 024 [facility] Out[facility], [address] [place], [address], 06/04/2024 18:08:20 tb (M tuberculo sis), ifn-gamma melissa, blood 2023 024 [facility], [address] [place], [address], 06/10/2024 16:57:[address] 1+2+3+4, serum 2023 024 [facility], [address] [place], [address], 06/10/2024 16:57:17 respirato ry allergen panel, [facility] A, serum 2023 024 [facility], [address] [place], [address], 06/10/2024 16:57:17 respirato ry allergen panel - [facility] b 2023 024 [facility], [address] [place], [address], 06/10/2024 16:57:17 Referral None recorded. Procedures None recorded. Surgeries None recorded. Imaging CT, chest, w/ contrast - Please call patient to schedule. 2024 025 [email or web address] [facility], [facility] , [address] [address], [place], [address], 07/24/2024 17:28:39 Medication Orders Incruse Ellipta 62.5 mcg/actua tion powder for inhalatio n 2024 025 [facility] [address] [facility], [address] [place], [address], 06/10/2024 10:33:34 albuterol sulfate HFA 90 mcg/actua tion aerosol inhaler 2024 025 LUMA DAI [address] [facility], [address] [place] [address], [address], 06/10/2024 10:33:33 Incruse Ellipta 62.5 mcg/actua tion powder for inhalatio n 2023 024 LUMA DAI [address] [facility], [address] [place] [address], [address], 05/13/2024 12:41:33 albuterol sulfate HFA 90 mcg/actua tion aerosol inhaler 2023 024 LUMA DAI [address] [facility], [address] [place] [address], [address], 05/13/2024 12:42:10 Patient TargetsNo targets recorded. Patient Instructions Encounter Date Encounter Id Patient Instructions Last Modified By Organization Details Last Modified Time 05/13/2024 [id number] complete PFT w/ post bronchodilator spirometry* - Please call patient to schedule. SARWAT [id number] per [facility] payor portal, ref #[id number] LUMA Not available 06/04/2024 18:08:20 Reason for Referral None Reported. Results Created Date Observation Date Name Description Value Unit Range Abnormal Flag Note LastModifiedBy Organization Detail LastModifiedTime 11/18/19 21 11/13/2020 compl ete PFT w/ post [facility] hodil ator juliano metry * No observ ation record ed. [id number] Not Available 07/20/2022 05:01:07 12/24/19 21 12/17/2020 pulmo nary funct ion test* No observ ation record ed. [id number] Not Available 07/20/2022 05:01:07 01/08/20 21 12/17/2020 compl ete PFT w/ post [facility] hodil ator juliano metry * No observ ation record ed. [id number] [facility] [address] [place], [address], 07/20/2022 05:01:07 07/05/19 22 01/02/2018 XR, chest , 2 view No observ ation record ed. [id number] Not Available 07/20/2022 05:01:07 06/04/19 25 05/29/2024 compl ete PFT w/ post [facility] hodil ator juliano metry * No observ ation record ed. [email or web address] (Pulmonary) [address], [place], [address], 06/10/2024 15:58:29 Result Notes None recorded. Problems Name Problem SNOMED Code Status Onset Date Resolution Date Notes Provider Name and Address Organization Details Recorded Time Malignant tumor of lung 162254012 Active 2023 Rosa Apodaca NP [address] [facility], [address] [address], [place], [address] , [place] 4 12:31:33 History of malignant neoplasm of lung 153876852 Active 2024 Rosa Apodaca NP [address] [address], [place], [address] , [place] 5 10:42:37 Epigastric pain 17458292 Active 2024 Donta Crowder MD [address] [facility], [address] [address], [place], [address] , [place] 5 15:41:18 Asthma-chr onic obstructiv e pulmonary disease overlap syndrome 1318888754762 9107 Active 2018 Not Available [employer] 3 04:49:49 Chronic obstructiv e pulmonary disease 12861069 Active Not Available [employer] 3 04:49:49 Increased frequency of urination 956525834 Active Not Available [employer] 3 04:49:49 Asthma 383905099 Active 2018 Not Available [employer] 3 04:49:49 Lung mass 740234655 Active 2018 Not Available [facility] 3 04:49:49 Daytime hypersomni a 3733928747326 2 Active 2018 Not Available [facility] 3 04:49:49 Malignant tumor of lung 537816635 Active 2019 Not Available [facility] 3 04:49:49 Arthritis 7487502 Active Not Available [facility] 3 04:49:49 Incontinen ce 51169480 Active Not Available [facility] 3 04:49:50 Hip pain 53416301 Active Not Available [facility] 3 04:49:50 Dyspnea on exertion 30293421 Active 2018 Not Available [facility] 3 04:49:50 Notes:Some problems listed i n Documents: #[id number], #[id number] could not be added to this patient's chart. Please review these documents and add these problems to the patient's chart manually as needed. Problem Notes None recorded. Procedures Surgical History Date Name Laterality Status Provider Name and Address Organization Details Recorded Time delivery completed Liza Donald MA [employer] 05/13/2024 11:58:52 Lung Surgery completed Liza Donald MA [employer] 05/13/2024 11:59:12 Imaging Results Imaging Date Name Status LastModified by Organization Details LastModified Time 11/13/2020 complete PFT w/ post bronchodilator spirometry* completed [id number] Information not available 07/20/2022 05:01:07 12/17/2020 pulmonary function test* completed [id number] Information not available 07/20/2022 05:01:07 12/17/2020 complete PFT w/ post bronchodilator spirometry* completed [id number] [facility]- [address], [address], 07/20/2022 05:01:07 01/02/2018 XR, chest, 2 view completed [id number] Information not available 07/20/2022 05:01:07 05/29/2024 complete PFT w/ post bronchodilator spirometry* completed [address] (Pulmonary) [address], [place], [address], 06/10/2024 15:58:29 Procedure Notes None recorded. Medical [...] completed Not Available Not Available Not Available [place] 10 mg-325 mg tablet Take 1 tablet [...] Updated DateTime 4 152.4 cm 33 kg/m2 10708.1 1 g 98 [degF] 76 /min 97 % 97 % 128 mm[Hg] 66 mm[Hg] Liza Donald MA [employer] [facility] 4 11:52:15 Date Recorded Body height Body mass index (BMI) Body weight Body temperature Heart rate Oxygen saturation Oxygen saturation in Arterial blood by Pulse oximetry Systolic blood pressure Diastolic blood pressure Provider Name and Address Organization Details Last Updated DateTime 5 152.4 cm 33.2 kg/m2 46636.7 g 98.1 [degF] 67 /min 98 % 98 % 122 mm[Hg] 64 mm[Hg] Hilda Moreno MA [employer] 5 10:18:31 Date Recorded Body height Body mass index (BMI) Body weight Body temperature Heart rate Respiratory rate Oxygen saturation Oxygen saturation in Arterial blood by Pulse oximetry Systolic blood pressure Diastolic blood pressure Provider Name and Address Organization Details Last Updated DateTime 5 152.4 cm 31.2 kg/m2 95860.7 8 g 98.6 [degF] 66 /min 14 /min 98 % 98 % 120 mm[Hg] 62 mm[Hg] Tarsha Munson MA [employer] [facility] 5 15:12:12 Social History Question Answer Notes LastModified by Organizat ion Details LastModified Time Tobacco Smoking Status Never Smoker Not Available [facility] 07/20/2022 04:29:59 What Is Your Level Of Alcohol Consumption? Occasional [id number] Information not available 07/20/2022 What Is Your Level Of Caffeine Consumption? Heavy Information not available 05/13/2024 In The 14 Days Before Symptom Onset, Have You Had Close Contact With A Laboratory-confi rmed COVID-19 While That Case Was Ill? No [id number] Information not available 07/20/2022 In The 14 Days Before Symptom Onset, Have You Had Close Contact With A Person Who Is Under Investigation For COVID-19 While That Person Was Ill? No [id number] Information not available 07/20/2022 Are You Currently Employed? No Information not available 05/13/2024 What Type Of Diet Are You Following? REGULAR Information not available 05/13/2024 Do You Or Have You Ever Used E-cigarettes Or Vape? Never Used Electronic Cigarettes [id number] Information not available 07/20/2022 Do You Have An Electrostatic Air Filter? No Information not available 05/13/2024 Have You Been Exposed To Chemicals Or Toxins? No Not That Aware Of Information not available 05/13/2024 Do You Have A Humidifier? No Information not available 05/13/2024 Where Do You Live? [facility] Information not available 05/13/2024 Do You [...] Used Smokeless Tobacco? Never Used Smokeless Tobacco [id number] Information not available 07/20/2022 Do You Feel Stressed (tense, Restless, Nervous, Or Anxious, Or Unable To Sleep At Night)? NS52325-6 Information not available 05/13/2024 Do You Use [...] influenza, unspecified formulation 9 completed Not Available [facility] 07/20/2022 05:00:26 Influenza, split virus, quadrivalent, PF 8 completed Not Available [facility] 07/20/2022 05:00:26 Past Encounters Encounter ID Performer Location Encounter Start Date Encounter Closed Date Diagnosis/Indication Diagnosis SNOMED-CT Code Diagnosis ICD10 Code Diagnosis Note [id number] [facility] [address] [address] 09/11/2020 00:00:00 09/11/2020 16:20:44 [id number] Rosa Apodaca NP [facility] [address] 05/13/2024 11:22:06 05/13/2024 12:20:19 Asthma-chronic obstructive pulmonary disease overlap syndrome 5160125721 6703376 J44.9 ACT: 12CAT: 26Incruse refilledAl buterol inhaler [...] up Body mass index 30+ - obesity 172520327 Z68.33 Encourage healthy diet and exercise to improve weightdisc ussed weight effect on sleep and sleep apnea Malignant tumor of lung 026224696 C34.90 She is followed by [facility] [id number] Donta Crowder MD [facility] General Surgery [address] [place] [address] 1 06/25/2024 14:14:23 06/25/2024 15:50:38 Epigastric pain 87316315 R10.13 cont ppi, EGD [id number] Rosa Apodaca NP [facility] [place] [address] 06/10/2024 09:49:41 06/10/2024 13:06:40 Asthma-chronic obstructive pulmonary disease overlap syndrome 9225180306 4595410 J44.9 ACT: 14CAT: 2RAST-mild cockroach otherwise unremarkab [...] gardiner Body mass index 30+ - obesity 787970787 Z68.33 Encourage healthy diet and exercise to improve weightdisc ussed weight effect on sleep and sleep apnea History of malignant neoplasm of lung 874388080 Z85.118 R06.00 history of lung ca-right mid-she has not seen [facility] for a couple years Health Concerns Section Related Observation LastModified by Organization Detai ls LastModified Time None Recorded Concern Status LastModified by Organization Details LastModified Time None Recorded Advance Directives Directive None Recorded Payers Encounter Date Sequence Insurance Name Policy Number Policy Mayorga Covered Member ID Mayorga Member ID Guarantor Name 05/13/2024 1 [facility] (MEDICARE REPLACEMENT/A DVANTAGE - HMO) [id number] Flora U Devang [id number] Flora U Devang 06/10/2024 1 [facility] (MEDICARE REPLACEMENT/A DVANTAGE - HMO) [id number] Flora U Devang [id number] Flora U Devang 06/25/2024 1 [facility] (MEDICARE REPLACEMENT/A DVANTAGE - HMO) [id number] Flora U Devang [id number] Flora U Devang Notes Date Note Type [...] ADL's Rosa Apodaca NP [address], [address] [address], [place], [address], [employer] [facility] [employer] [facility] 05/13/2024 12:42:59 06/10/2024 text/html AsthmaReported [...] spirometry Rosa Apodaca NP [address], [address] [address], [place], [address], [employer] 06/10/2024 11:15:20 06/25/2024 text/html 70yo Female c/o post prandial abd pain assoc with n/v, no h/o PUD, no melena, hasbeen on ppi for more than 3 months w/o improvement. Donta Crowder MD [address], [facility] [address], [place], [address], [employer] [facility] [employer] 08/20/2024 15:59:37 OBGyn Episode No OBEpisode recorded.
--- OUTSIDE RECORDS SUMMARY | 2024-09-04 16:47 | XMS_ITS | Clinical Summary ---
Author Organization [facility] Facility Address [address] [place] [address] Care Team Providers Care Bag Hanger Name Role Phone Juanita Gonsales MD Primary Care Provider + [phone] Allergies No known active allergies Medications furosemide [...] mouth every night Active ergocalciferol 1.25 MG (86872 UT) capsule Take 50,000 Units by mouth [...] route 2 times per day Active Umeclidinium [place] (Incruse Ellipta) 62.5 MCG/INH aerosol powder Inhale 1 puff 1 (one) time each day Active Encounters Date Type Department Care Team Description 07/09/2024 1:00 PM MANAGER BANK [facility] Visit [facility] [address] [address] Wero Hurtado DO Stage 3 chronic kidney disease, not otherwise specified (HCC) (Primary Dx); Chronic obstructive pulmonary disease with (acute) lower respiratory infection (HCC); Gastroesophageal reflux disease; Hypertensive chronic kidney disease; Pure hypercholesterolemia, not otherwise specified; Other specified hypothyroidism 07/09/2024 Refill [facility], [facility] [address] [address] Cris Turpin CMA 07/08/2024 Documentation Only [facility] [address] [address] Wero Hurtado, DO 06/24/2024 Documentation Only [facility], [address] [address] Wero Hurtado, DO 06/21/2024 Documentation Only [facility], [address] [address] Wero Hurtado, DO 06/19/2024 Documentation Only [facility], [address] [address] Wero Hurtado, DO 06/19/2024 Documentation Only [facility], [address] [address] Wero Hurtado, DO 06/19/2024 Documentation Only [facility], [address] [address] Wero Hurtado, DO 06/07/2024 Telephone [facility], [address] [address] Aria Leija from Last 3 Months Social History Tobacco [...] Comments Blood Pressure 120/68 07/09/2024 1:56 PM MANAGER BANK Pulse 68 07/09/2024 1:56 PM MANAGER BANK Temperature 36.1 C (97 F) 07/09/2024 1:56 PM MANAGER BANK Respiratory Rate 18 07/09/2024 1:56 PM MANAGER BANK Oxygen Saturation 99% 07/09/2024 1:56 PM MANAGER BANK Inhaled Oxygen Concentration - - Weight 75.8 kg (167 lb) 07/09/2024 1:56 PM MANAGER BANK Height - - Body Mass Index - - Plan of Treatment Upcoming Encounters Date Type Department Care Team (Late st Contact Info) Description 09/10/2024 4:00 PM CDT Office Visit 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
--- OUTSIDE RECORDS SUMMARY | 2024-09-04 16:47 | XMS_ITS | Data Portability ---
Author Organization [facility] ARCHIEJuany [place] Lio Address [address] [place] [address] Care Team Providers Care Cable Wirer Name Role Phone PETRA FARRELL Thoracic Surgeon JANAE FULLER Hospital Director JUANITA CHACON Primary Care Provider [phone] Assessment No assessment recorded. Plan of Treatment Reminders Order Date Submit Date Provider Last Modified By Organization Details Last Modified Time Details Appointments ANY 15 2024 10:00A María Elena Chacon MD Not available Not available Not available Lab culture , urine 2024 025 LUMA GIANCARLO, [address], [address], [place], [address], 07/04/2024 20:09:30 urinaly sis, dipstic k 2024 025 [email or web address] In-Office Order, Internal Use Only DO Not Attach Compendium DO Not Attach Compendium, Do Not Delete/merge, [id number] 07/01/2024 17:00:08 drug screen, 14 drugs (detect imed), urine 2023 024 LUMA MONDRAGON, [address], [address], [place], [address], 04/17/2024 15:11:48 HbA1c (hemogl obin A1c), blood 2023 024 [facility], [facility] [address], [address], [place], [address], 04/11/2024 10:16:09 CMP, serum or plasma 2023 024 [facility], [address], [address], [place], [address], 04/11/2024 10:16:07 lipid panel, serum 2023 024 [facility], [address] [facility] [address], [place], [address], 04/11/2024 10:16:06 CBC 2023 024 [facility], [address] [facility] [address], [address], [place], [address], 04/11/2024 10:16:12 TSH, ultra-s ensitiv e, serum 2023 024 [facility], [address] [facility] [address], [address], [place], [address], 04/11/2024 10:16:11 HbA1c (hemogl obin A1c), blood 2023 024 [facility], [address] [place], [place] [address]y[address], [address], [place], [address], 08/30/2023 13:12:19 CBC 2023 024 [facility], [address] [facility], [address], [place], [address], 08/30/2023 13:12:20 lipid panel, serum 2023 024 [facility], [address] [facility], [address], [place], [address], 08/30/2023 13:12:18 vitamin D, 25-hydr oxy, total, serum 2023 024 [facility], [address] [place] [address], [address], [place], [address], 08/30/2023 13:12:20 CMP, serum or plasma 2023 024 [facility], [address] [place] [address], [address], [place], [address], 08/30/2023 13:12:19 TSH + free T4, serum 2023 024 [facility], [address] [place] [address], [address], [place], [address], 08/30/2023 13:12:17 Referral None recorde d. Procedures None recorde d. Surgeries None recorde d. Imaging CT, abdomen + pelvis, w/o contras t [address] [facility] (Imaging), [address], [place], [address], 08/27/2024 14:44:24 MAMMO, screeni ng, digital , bilater al - [facility] [address] [facility] (Mammography) , [address], [place], [address], 08/27/2024 16:28:55 Medication Orders hydroco done 7.5 mg-acet aminoph en 325 mg tablet 2024 025 [facility] [id number], [address], 07/08/2024 15:32:12 Premari n 0.3 mg tablet 2024 025 [facility] [address], [address], 07/01/2024 16:32:51 hydroco done 7.5 mg-acet aminoph en 325 mg tablet 2023 024 [facility] MALAIKA [address], [address], 04/10/2024 13:09:06 hydroco done 7.5 mg-acet aminoph en 325 mg tablet 2023 024 [facility] MALAIKA [address], [address], 01/16/2024 16:07:32 dextrom ethorph an-guai fenesin 10 mg-100 mg/5 mL oral liquid 2023 024 [facility] MALAIKA [address], [address], 01/16/2024 16:07:29 hydroch lorothi azide 12.5 mg capsule 2023 024 [facility] MALAIKA [address], [address], 01/16/2024 16:07:29 ferrous sulfate 325 mg (65 mg iron) tablet 2023 024 [facility] MALAIKA [address], [address], 01/16/2024 16:07:31 hydroco done 7.5 mg-acet aminoph en 325 mg tablet 2023 024 [facility] [address], [address], 08/29/2023 12:06:17 ibuprof en 800 mg tablet 2023 024 [facility] MALAIKA [address], [address], 08/29/2023 12:06:13 omepraz ole 40 mg capsule ,delaye d release 2023 024 [facility] [address], [address], 08/29/2023 12:06:13 Fiber (psylli um husk) 0.52 gram capsule 2023 024 [facility] [address] In [facility], [address] [place] [address], [address], 08/29/2023 12:08:08 levothy roxine 50 mcg tablet 2023 024 [facility] [address] In [facility], [address] [place] [address], [address], 08/29/2023 12:06:13 Patient TargetsNo targets recorded. Patient Instructions Encounter Date Encounter Id Patient Instructions Last Modified By Organization Details Last Modified Time 08/29/2023 [id number] A healthy lifest yle: care instructions [email or web address] Not available 08/29/2023 12:06:08 diarrhea: care instructions Not available 08/29/2023 12:07:58 learning about h igh blood pressure [email or web address] Not available 08/29/2023 12:06:09 hypothyroidism: care instructions [email or web address] Not available 08/29/2023 12:06:09 01/16/2024 [id number] A healthy lifest yle: care instructions [email or web address] Not available 01/16/2024 16:07:26 cough: care instructions [email or web address] Not available 01/16/2024 16:07:26 anemia: care instructions [email or web address] Not available 01/16/2024 16:07:26 04/10/2024 [id number] hot flashes duri ng menopause: care instructions Not available 04/10/2024 13:09:04 gastroesophageal reflux disease (GERD): care instructions [email or web address] Not available 04/10/2024 13:02:12 learning about h igh blood sugar [email or web address] Not available 04/10/2024 13:05:36 learning about h igh blood pressure [email or web address] Not available 04/10/2024 13:02:12 learning about m ood disorders [email or web address] Not available 04/10/2024 13:02:12 07/01/2024 [id number] painful urinatio n (dysuria): care instructions mmetias [...] MD mmetias Not available 07/01/2024 16:32:52 07/08/2024 [id number] gastroesophageal reflux disease (GERD): care instructions [email or web address] Not available 07/08/2024 15:22:40 Reason for Referral None Reported. Results Created Date Observation Date Name Description Value Unit Range Abnormal Flag Note LastModifiedBy Organization Detail LastModifiedTime 08/29/19 24 08/30/2023 TSH+F REE T4 TSH 1.620 uIU/m L 0.450- 4.500 Not Available [facility] ([facility]) [address] [place], [address], 08/30/2023 13:12:17 08/29/1908/30/2023 TSH+F REE T4 T4,free(dire ct) 1.18 NG/dL 0.82-1 .77 Not Available [facility] ([facility]) [address] [place], [address], 08/30/2023 13:12:17 08/29/19 24 08/30/2023 LIPID PANEL cholesterol, total 146 mg/dL 100-19 9 Not Available [facility] ([facility]) [address] [place], [address], 08/30/2023 13:12:18 08/29/19 24 08/30/2023 LIPID PANEL triglyceride s 402 mg/dL 0-149 above high normal Not Available [facility] ([facility]) [address] [place], [address], 08/30/2023 13:12:18 08/29/19 24 08/30/2023 LIPID PANEL HDL cholesterol 47 mg/dL >39 Not Available [facility] ([facility]) [address] [place], [address], 08/30/2023 13:12:18 08/29/19 24 08/30/2023 LIPID PANEL VLDL cholesterol adan 58 mg/dL 5-40 above high normal Not Available [facility] ([facility]) [address] [place], [address], 08/30/2023 13:12:18 08/29/19 24 08/30/2023 LIPID PANEL LDL chol calc ([facility]) 41 mg/dL 0-99 Not Available [facility] ([facility]) [address] [place], [address], 08/30/2023 13:12:18 08/29/19 24 08/30/2023 COMP. METAB OLIC PANEL (14) glucose 158 mg/dL 70-99 above high normal Not Available [facility] ([facility]) [address] [place], [address], 08/30/2023 13:12:18 08/29/19 24 08/30/2023 COMP. METAB OLIC PANEL (14) BUN 20 mg/dL 8-27 Not Available [facility] ([facility]) [address] [place], [address], 08/30/2023 13:12:18 08/29/19 24 08/30/2023 COMP. METAB OLIC PANEL (14) creatinine 1.17 mg/dL 0.57-1 .00 above high normal Not Available [facility] ([facility]) [address] [place], [address], 08/30/2023 13:12:18 08/29/19 24 08/30/2023 COMP. METAB OLIC PANEL (14) eGFR 52 mL/mi n/1.7 3 >59 below low normal Not Available [facility] ([facility]) [address] [facility], [place], [address], 08/30/2023 13:12:18 08/29/19 24 08/30/2023 COMP. METAB OLIC PANEL (14) BUN/creatini ne ratio 17 12-28 Not Available [facility] ([facility]) [address] [facility], [place], [address], 08/30/2023 13:12:18 08/29/19 24 08/30/2023 COMP. METAB OLIC PANEL (14) sodium 140 mmol/ L 134-14 4 Not Available [facility] ([facility]) [address] [facility], [place], [address], 08/30/2023 13:12:18 08/29/19 24 08/30/2023 COMP. METAB OLIC PANEL (14) potassium 4.6 mmol/ L 3.5-5. 2 Not Available [facility] ([facility]) [address] [facility], [place], [address], 08/30/2023 13:12:18 08/29/19 24 08/30/2023 COMP. METAB OLIC PANEL (14) chloride 102 mmol/ L 96-106 Not Available [facility] ([facility]) [address] [facility], [place], [address], 08/30/2023 13:12:18 08/29/19 24 08/30/2023 COMP. METAB OLIC PANEL (14) carbon dioxide, total 20 mmol/ L 20-29 Not Available [facility] ([facility]) [address] [facility], [place], [address], 08/30/2023 13:12:18 08/29/19 24 08/30/2023 COMP. METAB OLIC PANEL (14) calcium 9.0 mg/dL 8.7-10 .3 Not Available [facility] ([facility]) [address] [facility], [place], [address], 08/30/2023 13:12:18 08/29/19 24 08/30/2023 COMP. METAB OLIC PANEL (14) protein, total 6.2 g/dL 6.0-8. 5 Not Available [facility] ([facility]) [address] [facility], [place], [address], 08/30/2023 13:12:18 08/29/19 24 08/30/2023 COMP. METAB OLIC PANEL (14) albumin 4.3 g/dL 3.9-4. 9 Not Available [facility] ([facility]) [address] [facility], [place], [address], 08/30/2023 13:12:18 08/29/19 24 08/30/2023 COMP. METAB OLIC PANEL (14) globulin, total 1.9 g/dL 1.5-4. 5 Not Available [facility] ([facility]) [address] [facility], [place], [address], 08/30/2023 13:12:18 08/29/19 24 08/30/2023 COMP. METAB OLIC PANEL (14) A/G ratio 2.3 1.2-2. 2 above high normal Not Available [facility] ([facility]) [address] [facility], [place], [address], 08/30/2023 13:12:18 08/29/19 24 08/30/2023 COMP. METAB OLIC PANEL (14) bilirubin, total 0.2 mg/dL 0.0-1. 2 Not Available [facility] ([facility]) [address] [facility], [place], [address], 08/30/2023 13:12:18 08/29/19 24 08/30/2023 COMP. METAB OLIC PANEL (14) alkaline phosphatase 77 IU/L 44-121 Not Available [facility] ([facility]) [address] [place], [address], 08/30/2023 13:12:18 08/29/19 24 08/30/2023 COMP. METAB OLIC PANEL (14) AST (SGOT) 19 IU/L 0-40 Not Available [facility] ([facility]) [address] [place], [address], 08/30/2023 13:12:18 08/29/19 24 08/30/2023 COMP. METAB OLIC PANEL (14) ALT (SGPT) 19 IU/L 0-32 Not Available [facility] ([facility]) [address] [place], [address], 08/30/2023 13:12:18 08/29/19 24 08/30/2023 HEMOG LOBIN A1C hemoglobin A1C 6.0 % 4.8-5. 6 above high normal Predi abete s: 5.7 - 6.4 Diabe milagros: >6.4 Glyce kieran contr ol for adult s with diabe milagros: <7.0 Not Available [facility] ([facility]) [address] [place], [address], 08/30/2023 13:12:19 08/29/19 24 08/30/2023 CBC, PLATE LET, NO DIFFE RENTI AL WBC 7.7 x10e3 /uL 3.4-10 .8 Not Available [facility] ([facility]) [address] [place], [address], 08/30/2023 13:12:20 08/29/19 24 08/30/2023 CBC, PLATE LET, NO DIFFE RENTI AL RBC 3.43 x10e6 /uL 3.77-5 .28 below low normal Not Available [facility] ([facility]) [address] [place], [address], 08/30/2023 13:12:20 08/29/19 24 08/30/2023 CBC, PLATE LET, NO DIFFE RENTI AL hemoglobin 10.2 g/dL 11.1-1 5.9 below low normal Not Available [facility] ([facility]) [address] [facility], [place], [address], 08/30/2023 13:12:20 08/29/19 24 08/30/2023 CBC, PLATE LET, NO DIFFE RENTI AL hematocrit 30.7 % 34.0-4 6.6 below low normal Not Available [facility] ([facility]) [address] [facility], [place], [address], 08/30/2023 13:12:20 08/29/19 24 08/30/2023 CBC, PLATE LET, NO DIFFE RENTI AL MCV 90 fL 79-97 Not Available [facility] ([facility]) [address] [facility], [place], [address], 08/30/2023 13:12:20 08/29/19 24 08/30/2023 CBC, PLATE LET, NO DIFFE RENTI AL MCH 29.7 pg 26.6-3 3.0 Not Available [facility] ([facility]) [address] [facility], [place], [address], 08/30/2023 13:12:20 08/29/19 24 08/30/2023 CBC, PLATE LET, NO DIFFE RENTI AL MCHC 33.2 g/dL 31.5-3 5.7 Not Available [facility] ([facility]) [address] [facility], [place], [address], 08/30/2023 13:12:20 08/29/19 24 08/30/2023 CBC, PLATE LET, NO DIFFE RENTI AL RDW 13.0 % 11.7-1 5.4 Not Available [facility] ([facility]) [address] [place], [address], 08/30/2023 13:12:20 08/29/19 24 08/30/2023 CBC, PLATE LET, NO DIFFE RENTI AL platelets 192 x10e3 /uL 150-45 0 Not Available [facility] ([facility]) [address] [facility], [place], [address], 08/30/2023 13:12:20 08/29/19 24 08/30/2023 VITAM IN [...] Ravindra bond [place]: The [facility] Press . 2. Jesus Manuel alejandre MF, Emily jeffery [place], Swapna off-F errar i [place], et al. Evalu ation , treat ment, and preve ntion of vitam in D defic iency : an Endoc rine Socie ty clini adan pract ice guide line. JCEM. 2010; 96(7) :1911 -30. Not Available [facility] ([facility]) [address] [facility], [place], [address], 08/30/2023 13:12:20 04/10/20 24 04/11/2024 LIPID PANEL cholesterol, total 151 mg/dL 100-19 9 Not Available [facility] ([facility]) [address] [facility], [place], [address], 04/11/2024 10:16:05 04/10/20 24 04/11/2024 LIPID PANEL triglyceride s 239 mg/dL 0-149 above high normal Not Available [facility] ([facility]) [address] [facility] [place], [address], 04/11/2024 10:16:05 04/10/20 24 04/11/2024 LIPID PANEL HDL cholesterol 47 mg/dL >39 Not Available [facility] ([facility]) [address] [place], [address], 04/11/2024 10:16:05 04/10/20 24 04/11/2024 LIPID PANEL VLDL cholesterol adan 39 mg/dL 5-40 Not Available [facility] ([facility]) [address] [place], [address], 04/11/2024 10:16:05 04/10/20 24 04/11/2024 LIPID PANEL LDL chol calc ([facility]) 65 mg/dL 0-99 Not Available [facility] ([facility]) [address] [place], [address], 04/11/2024 10:16:05 04/10/20 24 04/11/2024 COMP. METAB OLIC PANEL (14) glucose 121 mg/dL 70-99 above high normal Not Available [facility] ([facility]) [address] [place], [address], 04/11/2024 10:16:07 04/10/20 24 04/11/2024 COMP. METAB OLIC PANEL (14) BUN 23 mg/dL 8-27 Not Available [facility] ([facility]) [address] [place], [address], 04/11/2024 10:16:07 04/10/20 24 04/11/2024 COMP. METAB OLIC PANEL (14) creatinine 1.50 mg/dL 0.57-1 .00 above high normal Not Available [facility] ([facility]) [address] [place], [address], 04/11/2024 10:16:07 04/10/20 24 04/11/2024 COMP. METAB OLIC PANEL (14) eGFR 38 mL/mi n/1.7 3 >59 below low normal Not Available [facility] ([facility]) [address] [facility], [place], [address], 04/11/2024 10:16:07 04/10/20 24 04/11/2024 COMP. METAB OLIC PANEL (14) BUN/creatini ne ratio 15 12-28 Not Available [facility] ([facility]) [address] [facility], [place], [address], 04/11/2024 10:16:07 04/10/20 24 04/11/2024 COMP. METAB OLIC PANEL (14) sodium 138 mmol/ L 134-14 4 Not Available [facility] ([facility]) [address] [facility], [place], [address], 04/11/2024 10:16:07 04/10/20 24 04/11/2024 COMP. METAB OLIC PANEL (14) potassium 4.5 mmol/ L 3.5-5. 2 Not Available [facility] ([facility]) [address] [facility], [place], [address], 04/11/2024 10:16:07 04/10/20 24 04/11/2024 COMP. METAB OLIC PANEL (14) chloride 101 mmol/ L 96-106 Not Available [facility] ([facility]) [address] [place], [address], 04/11/2024 10:16:07 04/10/20 24 04/11/2024 COMP. METAB OLIC PANEL (14) carbon dioxide, total 18 mmol/ L 20-29 below low normal Not Available [facility] ([facility]) [address] [place], [address], 04/11/2024 10:16:07 04/10/20 24 04/11/2024 COMP. METAB OLIC PANEL (14) calcium 9.5 mg/dL 8.7-10 .3 Not Available [facility] ([facility]) [address] [facility] [place], [address], 04/11/2024 10:16:07 04/10/20 24 04/11/2024 COMP. METAB OLIC PANEL (14) protein, total 6.5 g/dL 6.0-8. 5 Not Available [facility] ([facility]) [address] [facility] [place], [address], 04/11/2024 10:16:07 04/10/20 24 04/11/2024 COMP. METAB OLIC PANEL (14) albumin 4.4 g/dL 3.9-4. 9 Not Available [facility] ([facility]) [address] [facility], [place], [address], 04/11/2024 10:16:07 04/10/20 24 04/11/2024 COMP. METAB OLIC PANEL (14) globulin, total 2.1 g/dL 1.5-4. 5 Not Available [facility] ([facility]) [address] [facility] [place], [address], 04/11/2024 10:16:07 04/10/20 24 04/11/2024 COMP. METAB OLIC PANEL (14) bilirubin, total 0.3 mg/dL 0.0-1. 2 Not Available [facility] ([facility]) [address] [facility] [place], [address], 04/11/2024 10:16:07 04/10/20 24 04/11/2024 COMP. METAB OLIC PANEL (14) alkaline phosphatase 91 IU/L 44-121 Not Available [facility] ([facility]) [address] [facility] [place], [address], 04/11/2024 10:16:07 04/10/20 24 04/11/2024 COMP. METAB OLIC PANEL (14) AST (SGOT) 27 IU/L 0-40 Not Available [facility] ([facility]) [address] [place], [address], 04/11/2024 10:16:07 04/10/20 24 04/11/2024 COMP. METAB OLIC PANEL (14) ALT (SGPT) 33 IU/L 0-32 above high normal Not Available [facility] ([facility]) [address] [facility], [place], [address], 04/11/2024 10:16:07 04/10/20 24 04/11/2024 HEMOG LOBIN A1C hemoglobin A1C 6.3 % 4.8-5. 6 above high normal Predi abete s: 5.7 - 6.4 Diabe milagros: >6.4 Glyce kieran contr ol for adult s with diabe milagros: <7.0 Not Available [facility] ([facility]) [address] [facility], [place], [address], 04/11/2024 10:16:09 04/10/20 24 04/11/2024 TSH TSH 1.520 uIU/m L 0.450- 4.500 Not Available [facility] ([facility]) [address] [place], [address], 04/11/2024 10:16:11 04/10/20 24 04/11/2024 CBC, PLATE LET, NO DIFFE RENTI AL WBC 8.6 x10e3 /uL 3.4-10 .8 Eff ectiv e Decem kindra 2023 profi herb [id number] 5 WBC will be made* * non-o rdera ble as a stand -raf e order code. Not Available [facility] ([facility]) [address] [place], [address], 04/11/2024 10:16:12 04/10/20 24 04/11/2024 CBC, PLATE LET, NO DIFFE RENTI AL RBC 3.41 x10e6 /uL 3.77-5 .28 below low normal Not Available [facility] ([facility]) [address] [place], [address], 04/11/2024 10:16:12 04/10/20 24 04/11/2024 CBC, PLATE LET, NO DIFFE RENTI AL hemoglobin 9.9 g/dL 11.1-1 5.9 below low normal Not Available [facility] ([facility]) [address] [facility], [place], [address], 04/11/2024 10:16:12 04/10/20 24 04/11/2024 CBC, PLATE LET, NO DIFFE RENTI AL hematocrit 30.6 % 34.0-4 6.6 below low normal Not Available [facility] ([facility]) [address] [facility], [place], [address], 04/11/2024 10:16:12 04/10/20 24 04/11/2024 CBC, PLATE LET, NO DIFFE RENTI AL MCV 90 fL 79-97 Not Available [facility] ([facility]) [address] [facility], [place], [address], 04/11/2024 10:16:12 04/10/20 24 04/11/2024 CBC, PLATE LET, NO DIFFE RENTI AL MCH 29.0 pg 26.6-3 3.0 Not Available [facility] ([facility]) [address] [place], [address], 04/11/2024 10:16:12 04/10/20 24 04/11/2024 CBC, PLATE LET, NO DIFFE RENTI AL MCHC 32.4 g/dL 31.5-3 5.7 Not Available [facility] ([facility]) [address] [place], [address], 04/11/2024 10:16:12 04/10/20 24 04/11/2024 CBC, PLATE LET, NO DIFFE RENTI AL RDW 14.1 % 11.7-1 5.4 Not Available [facility] ([facility]) [address] [place], [address], 04/11/2024 10:16:12 04/10/20 24 04/11/2024 CBC, PLATE LET, NO DIFFE RENTI AL platelets 229 x10e3 /uL 150-45 0 Not Available [facility] ([facility]) [address] [facility], [place], [address], 04/11/2024 10:16:12 04/10/20 24 04/17/2024 COMPL IANCE DRUG CAESAR SIS, UR summary report (summary) FINAL ===== ===== ===== ===== ===== ===== ===== ===== ===== ===== ===== ===== ===== === TOXAS SURE COMP DRUG CAESAR SIS,U R ===== ===== ===== ===== ===== ===== ===== ===== ===== ===== ===== ===== ===== === Test Resul t Flag Units Drug Prese nt [place] codon e 976 ng/mg creat [place] morph one 406 ng/mg creat Dihyd rocod eine 136 ng/mg creat Norhy droco done 730 ng/mg creat Sourc es of hydro codon e inclu de sched uled presc ripti on medic ation s. [place] morph one, dihyd rocod eine and norhy droco done are expec joann metab olite s of hydro codon e. [place] morph one and dihyd rocod eine are [...] ===== ===== ===== === Not Available [facility] ([facility]) [address] [place], [address], 04/17/2024 15:11:48 04/10/20 24 04/17/2024 COMPL IANCE DRUG CAESAR SIS, UR pdf . Not Available [facility] ([facility]) [address] [place], [address], 04/17/2024 15:11:48 05/13/20 24 05/14/2024 VITAM IN B12 AND FOLAT E vitamin B12 743 pg/mL 232-12 45 Not Available [facility] ([facility]) [address] [place], [address], 05/14/2024 08:24:19 05/13/20 24 05/14/2024 VITAM IN B12 AND FOLAT E folate (folic acid), serum 18.2 NG/mL >3.0 A serum folat e obey ntrat ion of less than 3.1 ng/mL is consi dered to repre sent clini adan defic iency . Not Available [facility] ([facility]) [address] [facility], [place], [address], 05/14/2024 08:24:19 05/13/20 24 05/14/2024 FE+TI BC+FE R iron bind.cap.(TI BC) 351 ug/dL 250-45 0 Not Available [facility] ([facility]) [address] [facility], [place], [address], 05/14/2024 08:24:21 05/13/20 24 05/14/2024 FE+TI BC+FE R UIBC 284 ug/dL 118-36 9 Not Available [facility] ([facility]) [address] [facility], [place], [address], 05/14/2024 08:24:21 05/13/20 24 05/14/2024 FE+TI BC+FE R iron 67 ug/dL 27-139 Not Available [facility] ([facility]) [address] [facility], [place], [address], 05/14/2024 08:24:21 05/13/20 24 05/14/2024 FE+TI BC+FE R iron saturation 19 % 15-55 Not Available [facility] ([facility]) [address] [facility] [address], [place], [address], 05/14/2024 08:24:21 05/13/20 24 05/14/2024 FE+TI BC+FE R ferritin 112 NG/mL 15-150 Not Available [facility] ([facility]) [address] [place], [address], 05/14/2024 08:24:21 07/01/19 25 07/04/2024 URINE CULTU RE, ROUTI NE urine culture, routine FINAL REPORT abnormal Not Available [facility] ([facility]) [address] [place], [address], 07/04/2024 20:09:30 07/01/19 25 07/04/2024 URINE CULTU [...] ng units per mL Not Available [facility] ([facility]) [address] [facility], [place], [address], 07/04/2024 20:09:30 07/01/19 25 07/04/2024 URINE CULTU [...] thopr im/Mandel lfa S Not Available [facility] ([facility]) [address] [facility] [address], [place], [address], 07/04/2024 20:09:30 07/01/19 25 07/01/2024 urina lysis , dipst ick Leukocytes Small Not Available In-Offi ce Order Internal Use Only DO Not Attach Compendium DO Not Attach Compendium, Do Not Delete/merge, [id number] 07/01/2024 16:52:20 07/01/19 25 07/01/2024 urina lysis [...] 07/01/2024 urina lysis , dipst ick Specific Spencer 1.030 Not Available In-Off ice Order Internal [...] DO Not Attach Compendium, Do Not Delete/merge, [id number] 07/01/2024 16:52:20 07/01/1907/01/2024 urina lysis , dipst ick Glucose Negati ve Not Available In-Office Order Internal Use Only DO Not Attach Compendium DO Not Attach Compendium, Do Not Delete/merge, [id number] 07/01/2024 16:52:20 05/29/1905/29/2024 PFT, compl ete No observ ation record ed. [address], [place], [address], 06/08/2024 02:14:56 06/18/1906/18/2024 US, bladd er No observ ation record ed. [address] [address], [place], [address], 06/19/2024 09:49:37 06/18/1906/18/2024 CT, chest , w/ contr ast No observ ation record ed. [address] [facility], [place], [address], 06/19/2024 09:50:19 Result Notes None recorded. Problems Name Problem SNOMED Code Status Onset Date Resolution Date Notes Provider Name and Address Organization Details Recorded Time Trochante javon bursitis of left hip 45254685506 9103 Active 2016 Not Available [facility] 4 01:34:16 Candidias is of skin 77592485 Active 2017 Not Available [facility] 4 01:34:16 Hyperlipi demia 77719556 Active 2018 Not Available [facility] 4 01:34:16 High hemoglobi n A1c level 478791884 Active 2018 Not Available [facility] 4 01:34:16 Prolapsed lumbar intervert ebral disc 650841763 Active 2018 Not Available [facility] 4 01:34:15 Hypothyro idism 83411264 Active 2018 Not Available [facility] 4 01:34:16 Hypokalem ia 03289766 Active 2018 Not Available [facility] 4 01:34:16 Asthma-ch ronic obstructi ve pulmonary disease overlap syndrome 72755070105 903737 Active 2018 Not Available [facility] 4 01:34:15 Medicatio n monitorin g Active 2018 Not Available [facility] 4 01:34:16 Venereal disease screening Completed 201803/14/2023 Juanita Chacon MD Attn: Accounting ,[address] [place], [address] , [facility] 3 11:31:21 Pain of left hip joint 12952910179 9100 Active 2018 Not Available [facility] 4 01:34:16 Acute sinusitis 23963388 Active 2018 Not Available [facility] 4 01:34:15 Pre-surge ry testing Active 2018 Not Available [facility] 4 01:34:15 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 322732626 Active 2019 Not Available [facility] 4 01:34:16 Injury of left hip region 11121498719 835678 Active 2019 Not Available [facility] 4 01:34:15 Dental abscess 775686381 Active 2019 Not Available [facility] 4 01:34:15 Edema of lower extremity 491624385 Active 2019 Not Available [facility] 4 01:34:15 Knee pain Active Not Available [facility] 4 01:34:16 Mild depressio n 094830577 Active Not Available [facility] 4 01:34:16 Serum creatinin e above reference range 185806810 Active 2019 Not Available [facility] 4 01:34:15 Neck swelling 070491829 Active 2021 Not Available [facility] 4 01:34:16 Essential hypertens ion 03662183 Active 2021 Not Available [facility] 4 01:34:16 Hypertrig lyceridem ia 488802325 Active 2021 Not Available [facility] 4 01:34:16 Sleep disorder 60311050 Active 2022 Not Available [facility] 4 01:34:16 Diverticu lar disease 011495480 Active 2022 Not Available [facility] 4 01:34:16 History of polyp of colon 790038768 Active 2022 Not Available [facility] 4 01:34:16 Active immunizat ion Active 2022 Not Available [facility] 4 01:34:16 Hyperglyc emia 36253442 Active 2023 Juanita Chacon MD Attn: Accounting ,[address] [place], [address] , [place] [facility] 4 11:59:25 Loose stool 768588621 Active 2023 Juanita Chacon MD Attn: Accounting ,[address] [place], [address] , [place] [facility] 4 12:06:44 Anemia 709525561 Active 2023 Juanita Chacon MD Attn: Accounting ,[address] [place], [address] , [place] [facility] 4 16:01:44 Serum creatinin e outside reference range 636456857 Active 2023 Juanita Chacon MD Attn: Accounting ,[address] [place], [address] , [place] [facility] 4 12:42:55 Lower abdominal pain 23147380 Active 2024 Juanita Chacon MD Attn: Accounting ,[address] [place], [address] , [place] [facility] 5 15:10:41 Postprand ial diarrhea 59925195 Active 2024 Juanita Chacon MD Attn: Accounting ,[address] [facility], [place], [address] , [place] [facility] 5 15:11:15 Chronic kidney disease 411799888 Active 2024 Juanita Chacon MD Attn: Accounting ,[address] [facility], [place], [address] , [place] [facility] 5 15:30:33 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 Active Not Available [facility] 4 01:34:15 Atrophic vaginitis 68884934 Active Not Available [facility] 4 01:34:16 Depressiv e disorder 47952028 Active Not Available [facility] 4 01:34:16 Pain in wrist 74751092 Active Not Available [facility] 4 01:34:16 Sinusitis 73285080 Active Not Available [facility] 4 01:34:16 Shoulder strain 950579856 Active Not Available [facility] 4 01:34:15 Low back pain 415032004 Active Not Available [facility] 4 01:34:15 Vitamin D deficienc y 19483251 Active Not Available [facility] 4 01:34:16 Fatigue 80844867 Active Not Available [facility] 4 01:34:16 Gastroeso phageal reflux disease 026241166 Active Not Available [facility] 4 01:34:15 Menopausa l flushing 454089314 Active Not Available [facility] 4 01:34:15 Dyspnea on exertion 48895014 Active Not Available [facility] 4 01:34:16 Serum vitamin B12 below reference range 284908393 Active Not Available [facility] 4 01:34:15 History of cholecyst ectomy 677213096 Active 2015 Not Available [facility] 4 01:34:16 Screening for malignant neoplasm of colon Active 2016 Not Available [facility] 4 01:34:15 Acute bronchiti s 67673860 Active 2016 Not Available [facility] 4 01:34:15 Hyperlipi demia screening Active 2016 Not Available [facility] 4 01:34:15 Family history of diabetes mellitus 462740799 Active 2016 Not Available [facility] 4 01:34:15 Left lower quadrant pain 432241210 Active 2016 Not Available [facility] 4 01:34:15 Hip pain 04324940 Active 2016 Not Available [facility] 4 01:34:16 Cough 94641689 Active 2016 Not Available [facility] 4 01:34:16 Acute urinary tract infection 387113861 Active 2016 Not Available [facility] 4 01:34:16 Administr ation of influenza vaccine Active 2016 Not Available [facility] 4 01:34:16 Notes:Some problems listed i n Documents: #[id number], #[id number], #[id number], #[id number] could not be added to this patient's chart. Please review these documents and add these problems to the patient's chart manually as needed. Problem Notes None recorded. Procedures Surgical History Date Name Laterality Status Provider Name and Address Organization Details Recorded Time 10/07/19 23 Date of Last Mammogram completed Dana Terrell [place] [facility] 10/06/2022 11:21:20 05/03/20 22 Colonoscopy completed Farzana Shultz MD Attn: Accounting,[address] [place], [address], [facility] 05/19/2022 05:48:43 01/17/20 17 Most Recent Mammogram completed Chanda Urrutia [place] [facility] 02/28/2018 15:37:43 05/22/19 16 colonoscopy completed Chanda Urrutia [place] [facility] 02/28/2018 15:48:14 09/11/19 11 Date of Last Pap Smear completed Chanda Urrutia [place] 10/28/2014 11:13:29 05/22/18 89 Caesarean Section completed Chanda KANE Urrutia [place] [facility] 10/28/2014 11:13:29 05/22/18 85 Caesarean Section completed Chanda Urrutia [place] 10/28/2014 11:13:29 05/22/18 82 Caesarean Section completed Chanda Urrutia [place] 10/28/2014 11:13:29 Hysterectomy completed Michelle Blum [place] [facility] 05/07/2014 11:57:41 procedure on gallbladder completed Chanda KANE Urrutia [place] 02/28/2018 15:47:38 Imaging Results Imaging Date Name Status LastModified by Organiz ation Details LastModified Time 05/29/2024 PFT, complete completed [id number] [place] [address] [place] [address] [place] [address], [address], 06/08/2024 02:14:56 06/18/2024 US, bladder completed [address], [address], 06/19/2024 09:49:37 06/18/2024 CT, chest, w/ contrast completed [address] [place] [address], [address], 06/19/2024 09:50:19 Procedure Notes None recorded. Medical [...] Updated DateTime 4 152.4 cm 34.4 kg/m2 57838.2 6 g 86 /min 98 [degF] 98 % 98 % 160 mm[Hg] 64 mm[Hg] Isi Kingsley [place] [facility] 4 11:31:48 Date Recorded Body height Body mass index (BMI) Body weight Heart rate Oxygen saturation Oxygen saturation in Arterial blood by Pulse oximetry Systolic blood pressure Diastolic blood pressure Provider Name and Address Organization Details Last Updated DateTime 4 152.4 cm 34.4 kg/m2 50155.2 6 g 81 /min 98 % 98 % 146 mm[Hg] 76 mm[Hg] Isi Kingsley [place] [facility] 4 15:41:30 Date Recorded Body height Body mass index (BMI) Body weight Heart rate Oxygen saturation Oxygen saturation in Arterial blood by Pulse oximetry Systolic blood pressure Diastolic blood pressure Provider Name and Address Organization Details Last Updated DateTime 4 152.4 cm 32.8 kg/m2 58030.5 2 g 69 /min 99 % 99 % 139 mm[Hg] 77 mm[Hg] Juan Manuel Reese [place] [facility] 4 12:44:02 Date Recorded Body height Body mass index (BMI) Body weight Heart rate Oxygen saturation Oxygen saturation in Arterial blood by Pulse oximetry Systolic blood pressure Diastolic blood pressure Provider Name and Address Organization Details Last Updated DateTime 5 152.4 cm 33 kg/m2 34256.1 1 g 66 /min 99 % 99 % 126 mm[Hg] 70 mm[Hg] Milena Henley MA [facility] 5 15:55:39 Date Recorded Body height Body mass index (BMI) Body weight Heart rate Oxygen saturation Oxygen saturation in Arterial blood by Pulse oximetry Systolic blood pressure Diastolic blood pressure Provider Name and Address Organization Details Last Updated DateTime 5 152.4 cm 32.6 kg/m2 54439.9 3 g 72 /min 99 % 99 % 120 mm[Hg] 75 mm[Hg] Juan Manuel Reese MA [facility] 5 14:39:41 Social History Question Answer Notes LastModified by Organizat ion Details LastModified Time Tobacco Smoking Status Never Smoker Michelle Blum MA [facility] 05/07/2014 11:57:41 Do You Have An [...] 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 No Information not available 05/07/2014 Hard Of Hearing Or Deaf In One Or Both Ears? Yes Information not available 05/07/2014 Legally Blind In One Or Both Eyes? No Information not available 05/07/2014 Marital Status Informatio n not available 05/07/2014 Do You Have A Medical Power Of City Letter Carrier? No Information not available 05/07/2014 What Was [...] Anxious, Or Unable To Sleep At Night)? [id number] Information not available 08/25/2020 Do You Use [...] Disorder N Colon Polyps N Heart Attack ([place]) N Diabetes N Cardiomyopathy N Blood Transfusions [...] virus, quadrivalent, preservative 9 completed Not Available [facility] 06/15/2023 01:34:17 Influenza, split virus, quadrivalent, preservative 6 completed Not Available [facility] 06/08/2019 02:32:31 COVID-19, mRNA, LNP-S, PF, 30 mcg/0.3 mL dose 1 completed Not Available [facility] 06/15/2023 01:34:17 COVID-19, mRNA, LNP-S, PF, 30 mcg/0.3 mL dose 1 completed Not Available [facility] 06/15/2023 01:34:17 Influenza, split virus, quadrivalent, preservative 7 completed Not Available [facility] 06/08/2019 02:34:24 pneumococcal polysaccharide PPV23 0 completed Batsheva Estrella [place], [place] [facility] 03/11/2020 12:27:31 Influenza, split virus, quadrivalent, preservative 0 completed Batsheva Est[place] [facility] 03/11/2020 12:27:31 Influenza, split virus, quadrivalent, preservative 1 completed Batsheva Estrella [place] [facility] 05/06/2021 12:55:48 Influenza, split virus, quadrivalent, preservative 2 completed Manny Reese PA-C Attn: Accounting,[address] [facility], [place], [address], [place] [facility] 03/08/2022 17:20:45 pneumococcal polysaccharide PPV23 4 completed Not Available [facility] 06/08/2019 02:40:53 Influenza, split virus, trivalent, preservative 4 completed Not Available [facility] 06/08/2019 02:48:28 Influenza, high-dose, quadrivalent, PF 3 completed Isi [place], [place] [facility] 03/14/2023 11:57:57 Influenza, split virus, quadrivalent, preservative 5 completed Not Available [facility] 06/08/2019 02:39:16 Influenza, high-dose, trivalent, PF 4 completed Juan Manuel Re[place], [place] [facility] 04/11/2024 09:59:24 Past Encounters Encounter ID Performer Location Encounter Start Date Encounter Closed Date Diagnosis/Indication Diagnosis SNOMED-CT Code Diagnosis ICD10 Code Diagnosis Note [id number] Cici (Adult Med) [address] [place] [address] 68794-538 0 05/07/2014 11:16:26 05/07/2014 12:56:20 Shoulder strain 671594397 Low back pain 323587368 Vitamin D deficiency 93748808 Fatigue 45461399 Active or passive immunization 550967779 [id number] LIONEL De Dios (Adult Med) [address] [place] [address] 03404-606 0 07/08/2014 10:01:22 07/08/2014 11:07:36 Shoulder strain 570685833 Fatigue 54830031 Low back pain 371064031 Vitamin D deficiency 08551666 Knee pain 72514900 Mild depression 929634486 [id number] PAMELA Lay ([employer]) [address] [place] [address] 45976-082 0 10/28/2014 10:41:30 10/28/2014 14:00:19 Atrophic vaginitis 35123824 Depressive disorder 50998433 Screening mammography 43572322 Screening for malignant neoplasm of colon 093331779 [id number] KANE Capellan (Adult Med) [address] [place] [address] 25565-169 0 01/05/2015 10:21:43 01/05/2015 11:15:27 Low back pain 026138896 Bladder mu scle dysfunction - overactive 858239764 Depressive disorder 15311548 Vitamin D deficiency 70866807 Shoulder strain 251481212 [id number] LIONEL De Dios (Adult Med) [address] [place] [address] 50685-591 0 03/06/2015 11:01:31 03/06/2015 12:21:25 Low back pain 141560801 M54.5 Knee pain 95211484 M25.5 69 Fatigue 69439672 R53.83 Depressive disorder 3548 9007 F32.9 Vitamin D deficiency 347 07944 E55.9 Pain in wrist 29478342 M 25.531 Active or passive immunization 161264668 Z23 [id number] LIONEL De Dios (Adult Med) [address] [place] [address] 94816-681 0 07/01/2015 10:05:36 07/01/2015 10:48:17 Sinusitis 74137167 J32.9 Bladder mu scle dysfunction - overactive 946488670 N32.81 Depressive disorder 3548 9007 F32.9 Knee pain 90872878 M25.5 69 Low back pain 587805917 M54.5 Mild depression 31986122 3 F32.0 Shoulder strain 77971076 4 S46.919A Vitamin D deficiency 347 28418 E55.9 [id number] LIONEL De Dios (Adult Med) [address] [place] [address] 89000-937 0 09/16/2015 10:12:05 09/16/2015 10:34:43 Low back pain 753335634 M54.5 Shoulder strain 53880117 4 S46.919A Gastroesop hageal reflux disease 514748212 K21.9 [id number] LIONEL De Dios (Adult Med) [address] [place] [address] 75129-537 0 10/15/2015 10:07:44 10/15/2015 10:56:48 Low back pain 247644198 M54.5 Shoulder strain 10235423 4 S46.919A Vitamin D deficiency 347 14741 E55.9 Mild depression 65725570 3 F32.0 Knee pain 78258274 M25.5 69 Gastroesop hageal reflux disease 907608433 K21.9 Depressive disorder 3548 9007 F32.9 [id number] ERIC Kc ([employer]) [address] [place] [address] 66182-461 0 11/04/2015 10:26:56 11/04/2015 13:49:14 Screening mammography 50655160 Z12.31 Atrophic vaginitis 11197 000 N95.2 Bladder mu scle dysfunction - overactive 285379736 N32.81 Menopausal flushing 1984 67370 N95.1 [id number] LIONEL De Dios (Adult Med) [address] [place] [address] 00278-935 0 12/14/2015 09:31:47 12/14/2015 10:08:25 Dyspnea on exertion 29773547 R06.09 Bladder mu scle dysfunction - overactive 698179858 N32.81 Depressive disorder 3548 9007 F32.9 Gastroesop hageal reflux disease 513966220 K21.9 Low back pain 832152363 M54.5 Knee pain 37485336 M25.5 69 Vitamin D deficiency 347 66410 E55.9 [id number] LIONEL De Dios (Adult Med) [address] [place] [address] 77941-442 0 02/08/2016 12:06:35 02/08/2016 12:59:00 Depressive disorder 62519141 F32.9 Dyspnea on exertion 6084 5006 R06.09 Gastroesop hageal reflux disease 409463426 K21.9 Knee pain 28956689 M25.5 69 Low back pain 159664102 M54.5 Shoulder strain 52279849 4 S46.919A Vitamin D deficiency 347 14059 E55.9 Administra tion of influenza vaccine 94836255 Z23 Serum alyssa min B12 below reference range 811584099 R79.89 Fatigue 66506307 R53.83 [id number] LIONEL De Dios (Adult Med) [address] [place] [address] 11756-923 0 03/28/2016 14:31:44 03/28/2016 17:34:27 Serum vitamin B12 below reference range 497791459 R79.89 Dyspnea on exertion 6084 5006 R06.09 Gastroesop hageal reflux disease 284030705 K21.9 Low back pain 653432166 M54.5 Depressive disorder 3548 9007 F32.9 [id number] LIONEL De Dios (Adult Med) [address] [place] [address] 57684-682 0 06/21/2016 12:01:12 06/21/2016 12:41:41 Low back pain 530260265 M54.5 Mild depression 06977441 3 F32.0 Screening for malignant neoplasm of colon 004981722 Z12.11 [id number] LIONEL De Dios (Adult Med) [address] [place] [address] 31103-382 0 07/26/2016 10:33:18 07/26/2016 11:24:15 Serum vitamin B12 below reference range 799892554 R79.89 Gastroesop hageal reflux disease 373128426 K21.9 Low back pain 085725550 M54.5 Vitamin D deficiency 347 95336 E55.9 Acute bronchitis 8436545 2 J20.9 Family his tory of diabetes mellitus 659662689 Z83.3 Hyperlipid emia screening 934500303 Z13.220 Screening for malignant neoplasm of colon 181465219 Z12.11 [id number] LIONEL De Dios (Adult Med) [address] [place] [address] 48857-300 0 09/28/2016 09:32:36 09/28/2016 10:46:57 Dyspnea on exertion 03555882 R06.09 [id number] LIONEL D eDios (Adult Med) [address] [place] [address] 51270-802 0 11/09/2016 09:52:13 11/10/2016 11:08:52 Low back pain 388498819 M54.5 Menopausal flushing 1984 77519 N95.1 Mild depression 02453938 3 F32.0 Vitamin D deficiency 347 61654 E55.9 Depressive disorder 3548 9007 F32.9 Left lower quadrant pain 673099297 R10.32 [id number] Martin Cespedes Cici ([employer]) [address] [place] [address] 84192-515 0 01/10/2017 11:26:04 01/10/2017 16:40:59 Screening mammography 87648195 Z12.31 Urinary tr act infectious disease 26830072 N39.0 Menopausal flushing 1984 46870 N95.1 [id number] LIONEL De Dios (Adult Med) [address] [place] [address] 33395-197 0 01/11/2017 10:05:27 01/11/2017 10:37:37 Low back pain 092131743 M54.5 Hip pain 43617220 M25.55 2 Cough 18168424 R05 Acute bronchitis 5577257 2 J20.9 [id number] LIONEL De Dios (Adult Med) [address] [place] [address] 92319-288 0 03/15/2017 10:00:12 03/15/2017 11:02:26 Hip pain 17685124 M25.552 Serum alyssa min B12 below reference range 291207116 R79.89 Gastroesop hageal reflux disease 196477511 K21.9 Vitamin D deficiency 347 16412 E55.9 Low back pain 500786083 M54.5 Administra tion of influenza vaccine 24062399 Z23 [id number] LIONEL De Dios (Adult Med) [address] [place] [address] 99724-766 0 06/02/2017 11:50:53 06/02/2017 14:28:48 Hip pain 83705672 M25.552 Low back pain 099824449 M54.5 Gastroesop hageal reflux disease 340075938 K21.9 Cough 78202099 R05 Trochanter ic bursitis of left hip 1031079565 54126 M70.62 Serum alyssa min B12 below reference range 854292873 R79.89 Vitamin D deficiency 347 78591 E55.9 [id number] Siri Bolanos (Adult Med) [address] [place] [address] 23703-967 0 07/28/2017 10:34:08 07/28/2017 11:31:51 Acute bronchitis 93739637 J20.9 Serum alyssa min B12 below reference range 661351656 R79.89 Gastroesop hageal reflux disease 774509666 K21.9 Dyspnea 533947880 R06.02 Hip pain 44440992 M25.55 2 Low back pain 033983654 M54.5 [id number] LIONEL De Dios (Adult Med) [address] [place] [address] 56622-665 0 09/29/2017 10:33:51 09/29/2017 12:22:14 Sinusitis 39242727 J32.9 Low back pain 288098925 M54.5 Gastroesop hageal reflux disease 652415046 K21.9 [id number] LIONEL De Dios (Adult Med) [address] [place] [address] 27913-815 0 01/15/2018 14:10:44 01/15/2018 15:02:14 Trochanteric bursitis of left hip 9518544853 08907 M70.62 Acute bronchitis 8813525 2 J20.9 Hip pain 71407002 M25.55 2 Gastroesop hageal reflux disease 481647400 K21.9 Low back pain 557244116 M54.5 Vitamin D deficiency 347 80451 E55.9 Depressive disorder 3548 9007 F32.9 [id number] LIONEL De Dios (Adult Med) [address] [place] [address] 91568-495 0 02/15/2018 13:59:51 02/15/2018 14:34:45 Cough 14136779 R05 Shoulder strain 15546115 4 S46.919A Trochanter ic bursitis of left hip 9191298105 83463 M70.62 [id number] Martin Bolanos ([employer]) [address] [place] [address] 89518-710 0 02/28/2018 15:03:18 03/01/2018 09:20:55 Screening mammography 92984847 Z12.31 Mild depression 04895740 3 F32.0 Candidiasis of skin 4988 3006 B37.2 [id number] LIONEL De Dios (Adult Med) [address] [place] [address] 73732-534 0 06/19/2018 16:06:46 06/19/2018 16:59:05 Low back pain 766166098 M54.5 Trochanter ic bursitis of left hip 8216234121 67889 M70.62 Serum alyssa min B12 below reference range 788438173 R79.89 Gastroesop hageal reflux disease 327479764 K21.9 Bladder mu scle dysfunction - overactive 944920288 N32.81 Mild depression 61550527 3 F32.0 Vitamin D deficiency 347 61940 E55.9 [id number] LIONEL De Dios (Adult Med) [address] [place] [address] 01576-269 0 07/17/2018 13:32:46 07/18/2018 09:58:41 Hyperlipidemia 02695370 E78.5 High hemog lobin A1c level 258208589 R73.09 Vitamin D deficiency 347 37492 E55.9 Serum alyssa min B12 below reference range 271759339 R79.89 Trochanter ic bursitis of left hip 8813144794 38050 M70.62 Gastroesop hageal reflux disease 215542266 K21.9 Sinusitis 95344543 J32.9 Low back pain 184587405 M54.5 Prolapsed lumbar intervertebral disc 717137252 M51.26 Bladder mu scle dysfunction - overactive 725132499 N32.81 Depressive disorder 3548 9007 F32.9 [id number] LIONEL De Dios (Adult Med) [address] [place] [address] 01487-428 0 08/16/2018 16:22:35 08/16/2018 17:08:52 Hyperlipidemia 66359275 E78.5 Low back pain 539627462 M54.5 [id number] LIONEL De Dios (Adult Med) [address] [place] [address] 13017-363 0 09/28/2018 12:29:47 09/28/2018 13:26:02 Low back pain 239788724 M54.5 Hypothyroidism 70845508 E03.9 Hyperlipidemia 60753755 E78.5 Vitamin D deficiency 347 17703 E55.9 Prolapsed lumbar intervertebral disc 551995178 M51.26 Trochanter ic bursitis of left hip 1685359529 63317 M70.62 Gastroesop hageal reflux disease 828182346 K21.9 Mild depression 63258385 3 F32.0 [id number] LIONEL De Dios (Adult Med) [address] [place] [address] 88202-047 0 10/29/2018 11:42:16 10/30/2018 09:07:25 Low back pain 015642183 M54.5 Hypothyroidism 08051097 E03.9 Hypokalemia 07753165 E87 .6 Gastroesop hageal reflux disease 085018623 K21.9 Asthma-chr onic obstructive pulmonary disease overlap syndrome 9094192807 0289811 J44.9 Prolapsed lumbar intervertebral disc 346741708 M51.26 Hyperlipidemia 60501424 E78.5 Trochanter ic bursitis of left hip 0223303229 19641 M70.62 Hip pain 24842728 M25.55 2 Serum alyssa min B12 below reference range 419840681 R79.89 Vitamin D deficiency 347 54453 E55.9 Depressive disorder 3548 9007 F32.9 [id number] LIONEL De Dios (Adult Med) [address] [place] [address] 58399-114 0 01/01/2019 16:03:35 01/01/2019 17:30:02 Low back pain 250312122 M54.5 Gastroesop hageal reflux disease 935323970 K21.9 Venereal d isease screening 518090690 Z11.3 Depressive disorder 3548 9007 F32.9 Vitamin D deficiency 347 22867 E55.9 Hyperlipidemia 01747332 E78.5 Hypothyroidism 95013466 E03.9 Asthma-chr onic obstructive pulmonary disease overlap syndrome 0525164754 0564558 J44.9 [id number] LIONEL De Dios (Adult Med) [address] [place] [address] 01627-350 0 02/06/2019 11:56:18 02/06/2019 13:39:54 Low back pain 907180476 M54.5 Pain of le ft hip joint 0491264174 76151 M25.552 Asthma-chr onic obstructive pulmonary disease overlap syndrome 5366128586 7449962 J44.9 Hypothyroidism 16322868 E03.9 Prolapsed lumbar intervertebral disc 941049962 M51.26 Hyperlipidemia 72698635 E78.5 Trochanter ic bursitis of left hip 5554371655 87351 M70.62 Gastroesop hageal reflux disease 926376549 K21.9 Vitamin D deficiency 347 76363 E55.9 Depressive disorder 3548 9007 F32.9 [id number] LIONEL De Dios (Adult Med) [address] [place] [address] 99059-420 0 03/06/2019 11:33:00 03/06/2019 12:16:02 Acute sinusitis 59438746 J01.90 Sinusitis 42500349 J32.9 Low back pain 810067121 M54.5 Trochanter ic bursitis of left hip 8955625664 85972 M70.62 Pain of le ft hip joint 4675733740 15695 M25.552 Asthma-chr onic obstructive pulmonary disease overlap syndrome 0388885272 1793957 J44.9 Hypothyroidism 33570391 E03.9 Prolapsed lumbar intervertebral disc 419412566 M51.26 Hyperlipidemia 85439156 E78.5 Hip pain 68151091 M25.55 2 Serum alyssa min B12 below reference range 568523599 R79.89 Gastroesop hageal reflux disease 967221565 K21.9 Vitamin D deficiency 347 27354 E55.9 Depressive disorder 3548 9007 F32.9 [id number] LIONEL De Dios (Adult Med) [address] [place] [address] 87235-558 0 04/03/2019 10:32:25 04/04/2019 11:02:34 Acute sinusitis 03763533 J01.90 Augmentin refilled 04/02 Low back pain 784225767 M54.5 Candidiasis of mouth 797 80935 B37.0 [id number] LIONEL De Dios (Adult Med) [address] [place] [address] 22173-518 0 05/03/2019 14:24:35 05/06/2019 10:05:09 Pre-surgery testing 307891874 Z01.89 Low back pain 889554192 M54.5 Asthma-chr onic obstructive pulmonary disease overlap syndrome 9083336001 5902268 J44.9 Bladder mu scle dysfunction - overactive 423107661 N32.81 Depressive disorder 3548 9007 F32.9 Gastroesop hageal reflux disease 006016505 K21.9 Hyperlipidemia 59760004 E78.5 Hypothyroidism 72137246 E03.9 Pain of le ft hip joint 9927334218 16726 M25.552 Prolapsed lumbar intervertebral disc 478520391 M51.26 Serum alyssa min B12 below reference range 062364147 R79.89 Trochanter ic bursitis of left hip 6297363604 34943 M70.62 Vitamin D deficiency 347 83209 E55.9 [id number] LIONEL De Dios (Adult Med) [address] [place] [address] 99605-933 0 06/03/2019 10:30:37 06/03/2019 11:39:02 High hemoglobin A1c level 816915826 R73.09 Hypothyroidism 96350012 E03.9 Serum alyssa min B12 below reference range 262467930 R79.89 Vitamin D deficiency 347 75236 E55.9 Hypokalemia 74391785 E87 .6 Hyperlipidemia 35348021 E78.5 Prolapsed lumbar intervertebral disc 297717834 M51.26 Trochanter ic bursitis of left hip 5855998843 32988 M70.62 Low back pain 100336020 M54.5 Bladder mu scle dysfunction - overactive 652704250 N32.81 Depressive disorder 3548 9007 F32.9 Gastroesop hageal reflux disease 278214228 K21.9 [id number] MD Cici Cash (Adult Med) [address] [place] [address] 04354-029 0 06/17/2019 12:19:53 06/18/2019 08:36:12 Facial swelling 573772589 R22.0 Central vs Peripheral Not consistent with an infection 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 Acquired p tosis of eyelid of right eye 8463220911 5404512 H02.401 Oropharyng eal dysphagia 09003091 R13.12 [id number] LINOEL De Dios (Adult Med) [address] [place] [address] 89016-411 0 06/27/2019 09:54:31 06/28/2019 09:39:42 Carrier of methicillin resistant Staphylococcus aureus 926316422 Z22.322 Gastroesop hageal reflux disease 593410650 K21.9 Low back pain 730583781 M54.5 Hypokalemia 90580047 E87 .6 Hyperlipidemia 97766539 E78.5 Menopausal flushing 1984 86373 N95.1 Hypothyroidism 63465344 E03.9 Vitamin D deficiency 347 82611 E55.9 Trochanter ic bursitis of left hip 7121427123 52505 M70.62 Serum alyssa min B12 below reference range 822600153 R79.89 Prolapsed lumbar intervertebral disc 792273737 M51.26 Depressive disorder 3548 9007 F32.9 Asthma-chr onic obstructive pulmonary disease overlap syndrome 5477844339 7317566 J44.9 [id number] LIONEL De Dios (Adult Med) [address] [place] [address] 00853-059 0 07/25/2019 10:01:10 07/26/2019 11:04:50 Low back pain 505535779 M54.5 Carrier of methicillin resistant Staphylococcus aureus 777409281 Z22.322 Injury of left hip region 3304743861 3025140 S79.912A Gastroesop hageal reflux disease 172598286 K21.9 Bladder mu scle dysfunction - overactive 356991658 N32.81 Asthma-chr onic obstructive pulmonary disease overlap syndrome 9787863391 5881761 J44.9 Depressive disorder 3548 9007 F32.9 Hyperlipidemia 28857656 E78.5 Hypothyroidism 36864613 E03.9 Prolapsed lumbar intervertebral disc 959639334 M51.26 Serum alyssa min B12 below reference range 664201618 R79.89 Vitamin D deficiency 347 61033 E55.9 [id number] LIONEL De Dios (Adult Med) [address] [place] [address] 84587-476 0 08/22/2019 11:06:15 08/22/2019 11:48:16 Hip pain 14172151 M25.552 Low back pain 081628660 M54.5 Vitamin D deficiency 347 46404 E55.9 Hypothyroidism 27398746 E03.9 Gastroesop hageal reflux disease 905794123 K21.9 Hyperlipidemia 21634125 E78.5 Serum alyssa min B12 below reference range 767846167 R79.89 Dental abscess 468765131 K04.7 [id number] LIONEL De Dios (Adult Med) [address] [place] [address] 54899-421 0 10/15/2019 08:35:56 10/16/2019 08:59:44 Asthma-chronic obstructive pulmonary disease overlap syndrome 5702685678 2039676 J44.9 Depressive disorder 3548 9007 F32.9 Gastroesop hageal reflux disease 245811887 K21.9 High hemog lobin A1c level 475224898 R73.09 Hyperlipidemia 91084343 E78.5 Hypothyroidism 75172989 E03.9 Knee pain 59763361 M25.5 69 Low back pain 405395240 M54.5 Serum alyssa min B12 below reference range 919470766 R79.89 Trochanter ic bursitis of left hip 6982222028 30169 M70.62 Vitamin D deficiency 347 51524 E55.9 Prolapsed lumbar intervertebral disc 973656847 M51.26 [id number] LIONEL De Dios (Adult Med) [address] [place] [address] 54131-712 0 11/01/2019 08:04:57 11/04/2019 17:14:09 Low back pain 817527436 M54.5 Hyperlipidemia 10643682 E78.5 Hypothyroidism 46846181 E03.9 Gastroesop hageal reflux disease 270184794 K21.9 Hypokalemia 78420405 E87 .6 Asthma-chr onic obstructive pulmonary disease overlap syndrome 4162824723 0921555 J44.9 Depressive disorder 3548 9007 F32.9 Trochanter ic bursitis of left hip 6446316540 26169 M70.62 Vitamin D deficiency 347 07884 E55.9 Serum alyssa min B12 below reference range 697400636 R79.89 [id number] MD Cici Quan (Adult Med) [address] [place] [address] 94245-100 0 11/28/2019 15:22:17 12/04/2019 11:41:37 Pain in right hip joint 5939932560 23920 M25.551 Claims has had chronic right hip pain, needs hydrocodon e stand by. F/U with her pcp MARINA Reese. [id number] LIONEL De Dios (Adult Med) [address] [place] [address] 01414-110 0 12/30/2019 08:14:57 12/30/2019 16:40:59 Pain in right hip joint 7553357257 71326 M25.551 Edema of l ower extremity 160495957 R60.0 Depressive disorder 3548 9007 F32.9 Gastroesop hageal reflux disease 091254757 K21.9 Hip pain 91876677 M25.55 2 Hyperlipidemia 49610146 E78.5 Hypothyroidism 13540966 E03.9 Low back pain 149341561 M54.5 Serum alyssa min B12 below reference range 735733782 R79.89 Shoulder strain 76277334 4 S46.919A Trochanter ic bursitis of left hip 9368914393 57248 M70.62 Vitamin D deficiency 347 62127 E55.9 [id number] LIONEL De Dios (Adult Med) [address] [place] [address] 55699-204 0 01/30/2020 08:08:40 01/30/2020 15:38:42 Low back pain 591153571 M54.5 Pain in ri ght hip joint 8266821667 35525 M25.551 Edema of l ower extremity 350228315 R60.0 Asthma-chr onic obstructive pulmonary disease overlap syndrome 3072433356 5466551 J44.9 Depressive disorder 3548 9007 F32.9 Gastroesop hageal reflux disease 006271541 K21.9 High hemog lobin A1c level 234011305 R73.09 Hyperlipidemia 11648707 E78.5 Hypothyroidism 55716315 E03.9 Prolapsed lumbar intervertebral disc 911087528 M51.26 Serum alyssa min B12 below reference range 871233244 R79.89 Trochanter ic bursitis of left hip 0067532120 85596 M70.62 Vitamin D deficiency 347 40962 E55.9 [id number] LIONEL De Dios (Adult Med) [address] [place] [address] 74832-652 0 02/28/2020 08:05:01 02/28/2020 15:01:33 Pain in right hip joint 1043620911 65800 M25.551 Gastroesop hageal reflux disease 493485909 K21.9 Low back pain 399340033 M54.5 Asthma-chr onic obstructive pulmonary disease overlap syndrome 4986391607 9834095 J44.9 Depressive disorder 3548 9007 F32.9 Hyperlipidemia 48055861 E78.5 Hypothyroidism 31382024 E03.9 Prolapsed lumbar intervertebral disc 323902924 M51.26 Serum alyssa min B12 below reference range 898552768 R79.89 Vitamin D deficiency 347 52529 E55.9 [id number] KANE Price (Adult Med) [address] [place] [address] 87959-349 0 03/11/2020 12:05:23 03/11/2020 12:33:52 Administration of influenza vaccine 96933560 Z23 Administra tion of pneumococcal vaccine 14301574 Z23 [id number] LIONEL De Dios (Adult Med) [address] [place] [address] 91062-421 0 03/30/2020 08:26:36 03/30/2020 11:59:58 Hypothyroidism 69194759 E03.9 Edema of l ower extremity 207378211 R60.0 Hyperlipidemia 57270993 E78.5 Hypokalemia 61057167 E87 .6 Low back pain 524270511 M54.5 Knee pain 32711864 M25.5 69 Gastroesop hageal reflux disease 438936627 K21.9 Pain in ri ght hip joint 0886639390 23678 M25.551 Asthma-chr onic obstructive pulmonary disease overlap syndrome 1011138630 5311574 J44.9 Depressive disorder 3548 9007 F32.9 Prolapsed lumbar intervertebral disc 414340165 M51.26 Serum alyssa min B12 below reference range 657232285 R79.89 Trochanter ic bursitis of left hip 0446439513 90298 M70.62 Vitamin D deficiency 347 43380 E55.9 [id number] LIONEL De Dios (Adult Med) [address] [place] [address] 87088-630 0 04/30/2020 07:58:24 04/30/2020 11:12:08 Edema of lower extremity 902663409 R60.0 Asthma-chr onic obstructive pulmonary disease overlap syndrome 1680829515 0675451 J44.9 Depressive disorder 3548 9007 F32.9 Gastroesop hageal reflux disease 536691277 K21.9 Hyperlipidemia 60271716 E78.5 Hypothyroidism 07480084 E03.9 Low back pain 962987068 M54.5 Knee pain 05563469 M25.5 69 Serum alyssa min B12 below reference range 049844353 R79.89 Vitamin D deficiency 347 50862 E55.9 Hypokalemia 14405970 E87 .6 Prolapsed lumbar intervertebral disc 630240125 M51.26 Trochanter ic bursitis of left hip 2826907217 06666 M70.62 [id number] LIONEL De Dios (Adult Med) [address] [place] [address] 55397-495 0 05/29/2020 07:48:38 05/29/2020 11:01:40 Knee pain 06420735 M25.569 Vitamin D deficiency 347 91347 E55.9 Hypothyroidism 58967019 E03.9 Hyperlipidemia 14602724 E78.5 Edema of l ower extremity 107356059 R60.0 Depressive disorder 3548 9007 F32.9 Gastroesop hageal reflux disease 342672971 K21.9 Low back pain 231399049 M54.5 Prolapsed lumbar intervertebral disc 587577767 M51.26 Trochanter ic bursitis of left hip 2307672009 92363 M70.62 [id number] LIONEL De Dios (Adult Med) [address] [place] [address] 16369-688 0 06/30/2020 07:55:33 06/30/2020 13:07:33 Knee pain 64026564 M25.569 Hyperlipidemia 35013508 E78.5 Gastroesop hageal reflux disease 865544800 K21.9 Hypothyroidism 36672119 E03.9 Low back pain 020889411 M54.5 Liver mass 259599713 R16 .0 radiologis t recommende d an MRI Asthma-chr onic obstructive pulmonary disease overlap syndrome 8786457603 1305984 J44.9 Depressive disorder 3548 9007 F32.9 Hip pain 10662949 M25.55 2 Prolapsed lumbar intervertebral disc 808329818 M51.26 Serum alyssa min B12 below reference range 154855573 R79.89 Shoulder strain 22688026 4 S46.919A Trochanter ic bursitis of left hip 4949236864 59111 M70.62 Vitamin D deficiency 347 22737 E55.9 [id number] LIONEL De Dios (Adult Med) [address] [place] [address] 43171-028 0 07/28/2020 08:48:52 07/28/2020 12:13:29 Injury of left hip region 9985815433 3713801 S79.912A Knee pain 65715091 M25.5 69 Hyperlipidemia 80347359 E78.5 Edema of l ower extremity 365764198 R60.0 Shoulder strain 40259913 4 S46.919A Asthma-chr onic obstructive pulmonary disease overlap syndrome 5997612226 0190835 J44.9 Depressive disorder 3548 9007 F32.9 Gastroesop hageal reflux disease 754283314 K21.9 Hypokalemia 85962381 E87 .6 Low back pain 971928643 M54.5 Prolapsed lumbar intervertebral disc 383980367 M51.26 Serum alyssa min B12 below reference range 874792542 R79.89 Trochanter ic bursitis of left hip 2116558802 55631 M70.62 Vitamin D deficiency 347 70976 E55.9 [id number] LIONEL De Dios (Adult Med) [address] [place] [address] 19405-903 0 08/25/2020 08:41:03 08/25/2020 14:21:21 Trochanteric bursitis of left hip 0842141692 11951 M70.62 Edema of l ower extremity 463891413 R60.0 [id number] LIONEL De Dios (Adult Med) [address] [place] [address] 19615-901 0 09/24/2020 07:55:39 09/24/2020 12:02:31 Gastroesophageal reflux disease 266663913 K21.9 Edema of l ower extremity 915471267 R60.0 Low back pain 960976462 M54.5 Asthma-chr onic obstructive pulmonary disease overlap syndrome 6645803164 2820423 J44.9 Depressive disorder 3548 9007 F32.9 Hyperlipidemia 20748239 E78.5 Hypothyroidism 44450339 E03.9 Serum alyssa min B12 below reference range 962968280 R79.89 Trochanter ic bursitis of left hip 5846117910 44567 M70.62 Vitamin D deficiency 347 40281 E55.9 [id number] LIONEL De Dios (Adult Med) [address] [place] [address] 36057-024 0 10/26/2020 12:02:57 10/26/2020 12:58:50 Low back pain 505918594 M54.5 Hypokalemia 76107002 E87 .6 Serum crea tinine above reference range 340847062 R79.89 Knee pain 04700983 M25.5 69 Trochanter ic bursitis of left hip 8538035357 02579 M70.62 Hyperlipidemia 08319471 E78.5 Hypothyroidism 85289977 E03.9 [id number] LIONEL De Dios (Adult Med) [address] [place] [address] 30615-255 0 12/25/2020 10:09:22 12/25/2020 12:43:38 Knee pain 60511075 M25.569 Low back pain 385765935 M54.5 Edema of l ower extremity 168686833 R60.0 Asthma-chr onic obstructive pulmonary disease overlap syndrome 1028302571 2979136 J44.9 Depressive disorder 3548 9007 F32.9 Gastroesop hageal reflux disease 533035853 K21.9 High hemog lobin A1c level 303058532 R73.09 Hip pain 38380636 M25.55 2 Hyperlipidemia 18137573 E78.5 Hypothyroidism 28887676 E03.9 Prolapsed lumbar intervertebral disc 728970433 M51.26 Serum alyssa min B12 below reference range 229512449 R79.89 Vitamin D deficiency 347 63233 E55.9 Trochanter ic bursitis of left hip 2641198410 23079 M70.62 [id number] LIONEL De Dios (Adult Med) [address] [place] [address] 87174-831 0 03/24/2021 08:34:02 03/25/2021 12:39:27 Knee pain 95641996 M25.569 Gastroesop hageal reflux disease 751901830 K21.9 Low back pain 165192565 M54.50 Edema of l ower extremity 393252274 R60.0 [id number] KANE Price (Adult Med) [address] [place] [address] 52532-917 0 05/06/2021 12:39:13 05/06/2021 13:15:28 Administration of influenza vaccine 59408649 Z23 [id number] LIONEL De Dios (Adult Med) [address] [place] [address] 14476-518 0 06/22/2021 10:10:56 06/23/2021 13:32:31 Hip pain 96841812 M25.552 Knee pain 64651961 M25.5 69 Gastroesop hageal reflux disease 050150954 K21.9 Hyperlipidemia 59493407 E78.5 Edema of l ower extremity 376904796 R60.0 Prolapsed lumbar intervertebral disc 734521478 M51.26 Trochanter ic bursitis of left hip 2163144829 07241 M70.62 Vitamin D deficiency 347 64231 E55.9 Depressive disorder 3548 9007 F32.9 High hemog lobin A1c level 360716589 R73.09 Hypothyroidism 14173839 E03.9 Low back pain 245250303 M54.50 Serum alyssa min B12 below reference range 582461543 R79.89 [id number] LIONEL De Dios (Adult Med) [address] [place] [address] 94415-431 0 08/03/2021 15:12:36 08/04/2021 12:30:35 Cough 36860665 R05.9 Hip pain 74558668 M25.55 2 Low back pain 257738545 M54.50 Edema of l ower extremity 141745849 R60.0 Gastroesop hageal reflux disease 088147904 K21.9 High hemog lobin A1c level 206529665 R73.09 Hyperlipidemia 34222799 E78.5 Hypothyroidism 80108577 E03.9 Prolapsed lumbar intervertebral disc 558574206 M51.26 Serum alyssa min B12 below reference range 252343544 R79.89 Trochanter ic bursitis of left hip 8412970238 78242 M70.62 Vitamin D deficiency 347 38730 E55.9 [id number] MD Cici Quan (Adult Med) [address] [place] [address] 21165-938 0 09/23/2021 16:04:54 09/24/2021 22:31:51 Acute laryngitis 3179079 J04.0 Discussed with patient, with presence of female MA , she agreed to try ABS as ordered. [id number] LIONEL De Dios (Adult Med) [address] [place] [address] 85336-995 0 10/26/2021 15:40:27 10/27/2021 11:50:32 Neck swelling 306438209 R22.1 Hypothyroidism 74895231 E03.9 Hyperlipidemia 86051075 E78.5 Depressive disorder 3548 9007 F32.9 Gastroesop hageal reflux disease 100566003 K21.9 Serum alyssa min B12 below reference range 598129230 R79.89 Trochanter ic bursitis of left hip 8305773835 37126 M70.62 Low back pain 580035772 M54.50 Asthma-chr onic obstructive pulmonary disease overlap syndrome 0224270567 1836998 J44.9 Vitamin D deficiency 347 10549 E55.9 High hemog lobin A1c level 956403114 R73.09 Hypokalemia 61096527 E87 .6 [id number] LIONEL De Dios (Adult Med) [address] [place] [address] 38692-922 0 01/11/2022 14:41:16 01/12/2022 10:36:07 Prolapsed lumbar intervertebral disc 310268720 M51.26 Screening for malignant neoplasm of colon 775402895 Z12.11 Depressive disorder 3548 9007 F32.9 Gastroesop hageal reflux disease 560369048 K21.9 Hyperlipidemia 60633317 E78.5 Hypothyroidism 50241174 E03.9 Serum alyssa min B12 below reference range 499973158 R79.89 Trochanter ic bursitis of left hip 8911219366 41745 M70.62 [id number] MD Cici DUGGAN ([employer]) [address] [place] [address] 43582-222 0 02/03/2022 09:45:08 02/04/2022 13:12:24 Gynecologic examination 95117748 Z01.411 - Educated on the importance of [...] drugs. Screening for malignant neoplasm of breast 654168517 Z12.39 Last mammogram in 2017, overdue; ordered today Body mass index 30+ - obesity 801766075 Z68.32 - Encouraged increasing aerobic exercise to at least 150min per week, and discussed the use of MyPlate method with emphasis on increasing fruit and vegetable consumptio n and limiting processed foods and added sugars- Check A1c, Lipid panel, and TSH for risk stratifica tion. Essential hypertension 36413800 I10 - BP uncontroll ed, has been hypertensi ve on multiple occasions over the past year- Will start Lisinopril 20mg for further BP control- Check CMP, discussed importance of a low sodium diet- Keep Appt with PCP to monitor BP Menopausal symptom 90342 002 E89.41 - Currently on estradiol 1mg, daily, not as effective- Will start Prempro to minimize effect of chronic unopposed estrogen [id number] LIONEL De Dios (Adult Med) [address] [place] [address] 67308-349 0 03/08/2022 13:52:33 03/09/2022 13:33:53 Hyperlipidemia 97244314 E78.5 Edema of l ower extremity 720553255 R60.0 Hip pain 28585265 M25.55 2 Cough 26480802 R05.9 Administra tion of influenza vaccine 70905443 Z23 Gastroesop hageal reflux disease 856786842 K21.9 Depressive disorder 3548 9007 F32.9 Hypothyroidism 38368042 E03.9 Prolapsed lumbar intervertebral disc 624742733 M51.26 Serum alyssa min B12 below reference range 129469643 R79.89 Trochanter ic bursitis of left hip 1934734387 59333 M70.62 [id number] MD Cici DUGGAN ([employer]) [address] [place] [address] 37617-768 0 03/31/2022 10:30:51 04/01/2022 15:52:35 Heterogeneously dense breast composition 441921883 R92.2 Screening Mammogram done 03/03/2022 showed heterogene ously dense tissue, recommende d bilateral breast US for additional eval, ordered Menopausal flushing 1983 59287 N95.1 Patient has been on Premarin 0.625 mg + Medroxypro gesterone 2.5mg dailyPt s/p hysterecto my, no indication for progestero ne HRT, will stop medroxypro gesteroneW ill reduce Premarin to 0.45mg to reduce risk of VTE/cancer Essential hypertension 27302994 I10 - BP better controlled with Lisinopril , continue med, CMP unremarkab le- Continue low sodium diet- Keep Appt with PCP to follow up on BP [id number] MD Cici Leblanc (Adult Med) [address] [place] [address] 05570-970 0 04/12/2022 14:45:58 04/13/2022 15:38:26 Essential hypertension 24462084 I10 Increase lisinopril to 40 mg/d Gastroesop hageal reflux disease 527988068 K21.9 Low back pain 152872647 M54.50 Renewal of prescription 583076532 Z76.0 Hypertriglyceridemia 302 161912 E78.2 [id number] KANE Shi (Adult Med) [address] [place] [address] 59224-368 0 07/14/2022 14:18:05 07/20/2022 10:50:27 Hypertriglyceridemia 436550869 E78.2 Asthma-chr onic obstructive pulmonary disease overlap syndrome 8974440814 9099682 J44.9 Vitamin D deficiency 347 11305 E55.9 Low back pain 689297705 M54.50 Knee pain 85140457 M25.5 69 Medication monitoring 39 7060906 Z51.81 [id number] MD Cici DUGGAN ([employer]) [address] [place] [address] 25567-280 0 10/06/2022 11:12:38 10/21/2022 11:26:08 Fatigue 93279736 R53.83 patient feels tired most of the time in the last 6 months. States she wakes up from sleeping and feels like can go back to bed. She denies constipati on, diarrhea, heat, cold intoleranc e, hair loss. Will recheck TSH to assess if hypothyroi dism is well managed. Polyp of s igmoid colon 929377334 D12.5 Patient had colonoscop y in 05-03-2022 , with diverticul a noted on exam. Colonscopy not warranted at this time. 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 [id number] Juanita Chacon MD [facility] (Adult Med) [address] [place] [address] 22536-200 0 03/14/2023 10:30:29 03/15/2023 13:06:26 Obesity 408731614 E66.9 Low back pain 384015859 M54.50 Asthma-chr onic obstructive pulmonary disease overlap syndrome 6485722036 4640225 J44.9 Diverticular disease 397 760720 K57.90 Essential hypertension 66405218 I10 Add HCTZ History of polyp of colon 898820366 Z86.010 Hyperlipidemia 65024441 E78.5 Hypothyroidism 90314559 E03.9 Active immunization 3387 9002 Z23 [id number] MD Cici Leblanc (Adult Med) [address] [place] [address] 74841-975 0 05/29/2023 10:36:23 06/02/2023 16:27:21 Obesity 144003747 E66.9 Medication monitoring 39 1983453 Z51.81 [id number] MD Cici Leblanc (Adult Med) [address] [place] [address] 50180-100 0 08/29/2023 11:17:47 08/30/2023 20:54:27 Obesity 835033535 E66.9 Vitamin D deficiency 347 88668 E55.9 Asthma-chr onic obstructive pulmonary disease overlap syndrome 8092706829 3150313 J44.9 Diverticular disease 397 161502 K57.90 Essential hypertension 08457598 I10 Reevaluate at next OV Gastroesop hageal reflux disease 068399203 K21.9 Increase PPI High hemog lobin A1c level 465137582 R73.09 History of polyp of colon 933918906 Z86.010 Colonoscop y 1m 2021. Repeat 2026 Hyperlipidemia 23419867 E78.5 Hypertriglyceridemia 302 018421 E78.2 Hypothyroidism 65672353 E03.9 Hyperglycemia 14162080 R 73.9 Low back pain 838838793 M54.50 Loose stool 864280742 R1 9.5 [id number] MD Cici Leblanc (Adult Med) [address] [place] [address] 48302-598 0 01/16/2024 15:14:36 01/17/2024 15:50:40 Obesity 817372256 E66.8 Cough 93869464 R05.9 Low back pain 874168675 M54.50 Essential hypertension 51117388 I10 Reevaluate at next OV Anemia 559257918 D64.9 [id number] MD Cici Leblanc (Adult Med) [address] [place] [address] 20121-784 0 04/10/2024 12:22:04 04/16/2024 16:35:31 Serum creatinine outside reference range 935104091 R79.89 Depressive disorder 3548 9007 F32.9 Diverticular disease 397 396428 K57.90 Essential hypertension 73362070 I10 Reevaluate at next OV Family his tory of diabetes mellitus 934981053 Z83.3 Gastroesop hageal reflux disease [id number] K21.9 Increase PPI Hyperglycemia 52518932 R 73.9 Menopausal flushing 1983 73993 N95.1 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 Would like to restart. No hx of [place], CVA, TIA, clotting hx. No fam hx of vascular disease. Hysterecto my without malignancy concerns. Will restart at lower dose and see if relief of symtpoms. Dysuria 63575023 R30.0 UA reassuring . Will send for culture. [id number] MD Cici Leblanc (Adult Med) [address] [place] [address] [phone] 07/08/2024 14:07:34 07/09/2024 15:36:35 Lower abdominal pain 31899376 R10.[address] Colonoscop y in 2021 Postprandial diarrhea 14 785070 K52.89 Increase fiber to twice daily Gastroesop hageal reflux disease 912596032 K21.9 Take PPI x4/week Diverticular disease 397 759748 K57.90 Increase fiber to twice daily Low back pain 585933854 M54.50 Chronic ki dney disease 382711792 N18.9 Stop ibuprofen and decrease PPI Health Concerns Section Related Observation LastModified by Organization Detai ls LastModified Time None Recorded Concern Status LastModified by Organization Details LastModified Time None Recorded Advance Directives Directive N: Payers Encounter Date Sequence Insurance Name Policy Number Policy Mayorga Covered Member ID Mayorga Member ID Guarantor Name 08/29/2023 1 [employer] (MEDICARE REPLACEMENT/AD VANTAGE - HMO) [id number] Flora U Devang [id number] Flora Devang 08/29/2023 2 [place]ICARE REPLACEMENT PRIMARY) Flora U Devang [id number] Flora Devang 01/16/2024 1 [facility] (MEDICARE REPLACEMENT/AD VANTAGE - HMO) [id number] Flora U Devang [id number] Flora Devang 01/16/2024 2 [place]IC[place] REPLACEMENT PRIMARY) Flora U Devang [id number] Flora Devang 04/10/2024 1 [facility] (MEDICARE REPLACEMENT/AD VANTAGE - HMO) [id number] Flora U Devang [id number] Flora Devang 04/10/2024 2 [place] OR [place]ICARE REPLACEMENT PRIMARY) Flora U Devang [id number] Flora Devang 07/01/2024 1 [facility] (MEDICARE REPLACEMENT/AD VANTAGE - HMO) [id number] Flora U Devang [id number] Flora Devang 07/01/2024 2 [place] OR MEDICARE REPLACEMENT PRIMARY) Flora U Devang [id number] Flora Devang 07/08/2024 1 [facility] (MEDICARE REPLACEMENT/AD VANTAGE - HMO) [id number] Flora U Devang [id number] Flora Devang 07/08/2024 2 [place] WHEN [place] OR MEDICARE REPLACEMENT PRIMARY) Flora U Dveang [id number] Flora Devang Notes Date Note Type Note [...] eats. Juanita Chacon MD Attn: Accounting[address] [place], [address], [place] [facility] 08/29/2023 12:08:43 01/16/2024 text/html Increased difficulty and non productive cough breathing associated with the heat. Otherwise doing well Juanita Chacon MD Attn: Accounting[address] [facility], [place], [address], [place] [facility] 01/16/2024 16:07:33 04/10/2024 text/html Complaining abou t recurrent menopausal flushing. 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 Has had STI testing following. Has not been sexually active for the past year. premarin .45 %; needs refill. JANAE FULLER MD Attn: Accounting[address] [facility], [place], [address], [facility] - [facility] 07/20/2024 22:15:51 07/08/2024 text/html Here for routine f/u. Has had persistent lower abdominal post-prandial diarrhea. Unable to get EGD at [facility] due to insurance coverage. Gallbladder removed before 2019. Colonoscopy in 2021 revealed left-sided diverticulosis. Occasionally uses three pain pills daily. Continues on PPI and ibuprofen. Juanita Chacon MD Attn: Accounting[address] [facility], [place], [address], [place] [facility] 07/08/2024 15:32:38 OBGyn Episode Ob Episode Information Episode Created Date Number of Fetuses Patient Bloodtype Patient rh Status Prepregnancy Weight lbs Domestic Partner Domestic Partner Phone Father Name Over Hauler Helper Status 10/29/19 15 1 CLOSED Fetus Data First Name Last Name Admitted to NICU Weight (g) Sex Living Outcome Pediatric Complications Fetus ID Race Codes Race Delivery Type 2976.69 75 M Full Term [address] Franklyn Calculation Initial Franklyn Date Initial Exam [...] Domestic Partner Domestic Partner Phone Father Name Over Hauler Helper Status 10/29/19 15 1 CLOSED Fetus Data [...] Domestic Partner Domestic Partner Phone Father Name Over Hauler Helper Status 10/29/19 15 1 CLOSED Fetus Data First Name Last Name Admitted to NICU Weight (g) Sex Living Outcome Pediatric Complications Fetus ID Race Codes Race Delivery Type 3345.24 1 M Full Term [address] Franklyn Calculation Initial Franklyn Date Initial Exam [...]
== END 2024-09-04 15:45 | disposition home or self-care (01) ==
PROVIDERS: PCP Internal Medicine Gastroenterology; Visit Provider Internal Medicine Gastroenterology
DX: R93.5 Abnormal findings on diagnostic imaging of other abdominal regions, including retroperitoneum (principal); R10.30 Lower abdominal pain, unspecified
CPT/HCPCS: 74176

== ENCOUNTER 2024-11-01 13:09 | Outpatient (CLI) | payer MEDICARE, MEDICAID, SELFPAY ==
--- NOTE | 2024-11-01 | ECHO_ITS ---
Patient Info Name: Flora Siddiqi Age: 69 years : 1955 Gender: Female Ht: 60 in Wt: 150 lbs BSA: 1.72 m2 HR: 61 bpm BP: 121 / 65 mmHg Technical Quality: Good Exam Date: 11/01/2024 1:53 PM Patient Status: O Admit Date: 11/01/2024 Exam Type: CA echo doppler color flow Complete two-dimensional, color flow and Doppler transthoracic echocardiogram is performed. Tire Shop Mechanic: Susanne Asher Attending Provider: Shelia Hernandez Summary 1. Complete two-dimensional, color flow and Doppler transthoracic echocardiogram is performed. 2. Left ventricular chamber dimension is normal. 3. Left ventricular systolic function is normal, estimated at 65-70. 4. The left ventricular diastolic function is normal. 5. E/e' 9 is minimally elevated. 6. Left atrial chamber dimension is mildly enlarged. 7. There is trace mitral valve regurgitation. 8. There is trace tricuspid valve regurgitation. 9. No pulmonary hypertension, estimated pulmonary arterial systolic pressure is 32 mmHg. Left Ventricle E/e' 9 is minimally elevated. Left ventricular chamber dimension is normal. Left ventricular systolic function is normal, estimated at 65-70. The left ventricular diastolic function is normal. Right Ventricle Right ventricular chamber dimension is normal. Right ventricular systolic function is normal. Left Atria Left atrial chamber dimension is mildly enlarged. Right Atria Right atrial chamber dimension is normal. Aortic Valve The aortic valve is trileaflet. There is no aortic valve stenosis. There is no aortic valve regurgitation. Pulmonic Valve There is no pulmonic regurgitation. Mitral Valve There is no mitral valve stenosis. There is trace mitral valve regurgitation. Tricuspid Valve There is trace tricuspid valve regurgitation. No pulmonary hypertension, estimated pulmonary arterial systolic pressure is 32 mmHg. Pericardium/Pleural There is no pericardial effusion. Inferior Vena Cava Normal inferior vena cava with >50% collapse upon inspiration consistent with normal right atrial pressure, 5 mmHg. Aorta The aortic root size at the sinus of Valsalva is normal. Left Ventricular Outflow Tract Name Value Normal LVOT 2D LVOT Diameter 1.9 cm LVOT Doppler LVOT Peak Velocity 130 cm/s LVOT Peak Gradient 4 mmHg LVOT Mean Gradient 2 mmHg LVOT VTI 26 cm LVOT VTI/AV VTI Ratio 0.8 LVOT Stroke Volume 76 ml LVOT CO 4.0 l/min LVOT CI 2.3 l/min/m2 Pulmonic Valve Name Value Normal RVOT Doppler RVOT Peak Velocity 80 cm/s RVOT Peak Gradient 3 mmHg PV Doppler PV Peak Velocity 125 cm/s PV Peak Gradient 6 mmHg Mitral Valve Name Value Normal MV Diastolic Function MV E Peak Velocity 87 cm/s MV A Peak Velocity 68 cm/s MV E/A 1.3 MV Decel Time (PW) 169 ms Tricuspid Valve Name Value Normal TV Regurgitation Doppler TR Peak Velocity 259 cm/s TR Peak Gradient 26 mmHg Estimated PAP/RSVP RA Pressure 5 mmHg <=5 PA Systolic Pressure 32 mmHg <36 RV Systolic Pressure 32 mmHg <36 TV Annular TDI TV Lateral Nai s' Velocity 13.0 cm/s >=9.5 Aorta Name Value Normal Ascending Aorta Ao Root Diameter (MM) 2.8 cm Ao Root Diam Index (MM) 1.6 cm/m2 Aortic Valve Name Value Normal AV Doppler AV Peak Velocity 145 cm/s AV Peak Gradient 5 mmHg AV Mean Gradient 3 mmHg AV VTI 31 cm AV Area (Cont Eq VTI) 2.4 cm2 >=3.0 AV Area (Cont Eq Agustin) 2.6 cm2 AV DI (Agustin) 0.90 AV Regurgitation 2D LVOT Area 2.9 cm2 Ventricles Name Value Normal LV Dimensions 2D/MM IVS Diastolic Thickness (2D) 1.0 cm 0.6-1.0 IVS Diastole Thickness (MM) 0.9 cm 0.6-0.9 LVID Diastole (2D) 3.9 cm 3.8-5.2 LVID Diastole (MM) 4.0 cm 3.8-5.2 LVIW Diastolic Thickness (2D) 0.6 cm 0.6-0.9 LVIW Diastolic Thickness (MM) 1.0 cm 0.6-0.9 LVID Systole (2D) 2.0 cm 2.2-3.5 LVID Systole (MM) 2.0 cm 2.2-3.5 LVOT Diameter 1.9 cm LV Mass (2D Cubed) 94.99 g 67.00-162.00 LV Mass Index (2D Cubed) 55 g/m2 43-95 Relative Wall Thickness (2D) 0.33 <=0.42 LV Mass (MM Cubed) 117.64 g 67.00-162.00 LV Mass Index (MM Cubed) 68 g/m2 43-95 Relative Wall Thickness (MM) 0.50 LV Fractional Shortening/Ejection Fraction 2D/MM LV Fractional Shortening (2D) 49 % 27-45 LV Fractional Shortening (MM) 51 % 27-45 LV EF (MM Teichholz) 83 % LV EF (2D Teichholz) 81 % LV Diastolic Volume (4C MOD) 57 ml LV EF (4C MOD) 67 % LV Diastolic Volume (2C MOD) 47 ml LV EF (2C MOD) 69 % LV Diastolic Volume (BP MOD) 52 ml 46-106 LV Diastolic Volume Index (BP MOD) 30 ml/m2 29-61 LV Systolic Volume (BP MOD) 17 ml 14-42 LV Systolic Volume Index (BP MOD) 10 ml/m2 8-24 LV EF (BP MOD) 68 % 54-74 LV Diastolic Length (4C) 7.4 cm LV Systolic Length (4C) 6.0 cm LV Stroke Volume (4C MOD) 38 ml Atria Name Value Normal LA Dimensions LA Dimension (MM) 4.0 cm 2.7-3.8 LA Volume (4C A-L) 52 ml LA Volume (BP A-L) 51 ml RA Dimensions RA Systolic Major Dilliner Length (4C) 4.6 cm 2.2-2.8 RA Area (4C) 11.1 cm2 <=18.0 Report Signatures
--- OUTSIDE RECORDS SUMMARY | 2024-11-01 13:11 | XMS_ITS | Data Portability ---
Author Organization [place] [facility] [employer], Main Office Address [address] [place] [id number] Assessment Encounter Date Assessment Date Assessment LastModified [...] n (aat) phenotype , serum 2023 024 [facility] - Outpatient Lab, [address] [place], [address], 06/10/2024 16:57:16 BNP (B-type natriuret ic peptide), serum or plasma 2023 024 [facility], [address] [place], [address], 06/10/2024 16:57:16 ige, total, serum 2023 024 [facility] - Outpatient Lab, [address] [place], [address], 06/04/2024 18:08:20 tb (M tuberculo sis), ifn-gamma melissa, blood 2023 024 [facility] - Outpatient Lab, [address] [place], [address], 06/10/2024 16:57:[address] 1+2+3+4, serum 2023 024 [facility], [address] [place], [address], 06/10/2024 16:57:17 respirato ry allergen panel, [facility] A, serum 2023 024 [facility] - Outpatient Lab, [address] [place], [address], 06/10/2024 16:57:17 respirato ry allergen panel - [facility] b 2023 024 [facility], [address] [place], [address], 06/10/2024 16:57:17 Referral None recorded. Procedures None recorded. Surgeries None recorded. Imaging CT, chest, w/ contrast - Please call patient to schedule. 2024 025 [email or web address] [facility], [facility] , [place] [address], [place], [address], 07/24/2024 17:28:39 Medication Orders Incruse Ellipta 62.5 mcg/actua tion powder for inhalatio n 2024 025 [facility] [id number] In [facility], [address] [place], [address], 06/10/2024 10:33:34 albuterol sulfate HFA 90 mcg/actua tion aerosol inhaler 2024 025 LUMA DAI [address] In [facility], [address] [place] [address], [address], 06/10/2024 10:33:33 Incruse Ellipta 62.5 mcg/actua tion powder for inhalatio n 2023 024 LUMA DAI [address] In [facility], [address] [place] [address], [address], 05/13/2024 12:41:33 albuterol sulfate HFA 90 mcg/actua tion aerosol inhaler 2023 024 LUMA DAI [id number] In [facility], [address] [place] [address], [address], 05/13/2024 12:42:10 Patient TargetsNo targets recorded. Patient Instructions Encounter Date Encounter Id Patient Instructions Last Modified By Organization Details Last Modified Time 05/13/2024 [id number] complete PFT w/ post bronchodilator spirometry* - Please call patient to schedule. SARWAT [id number] per [facility] payor portal, ref #[id number] LUMA Not available 06/04/2024 18:08:20 Reason for Referral None Reported. Results Created Date Observation Date Name Description Value Unit Range Abnormal Flag Note LastModifiedBy Organization Detail LastModifiedTime 11/18/19 21 11/13/2020 compl ete PFT w/ post [facility] hodil ator juliano metry * No observ ation record ed. [id number] Not Available 07/20/2022 05:01:07 12/24/19 21 12/17/2020 pulmo nary funct ion test* No observ ation record ed. [id number] Not Available 07/20/2022 05:01:07 01/08/20 21 12/17/2020 compl ete PFT w/ post [facility] hodil ator juliano metry * No observ ation record ed. [id number] [facility] [address] [place], [address], 07/20/2022 05:01:07 07/05/19 22 01/02/2018 XR, chest , 2 view No observ ation record ed. [id number] Not Available 07/20/2022 05:01:07 06/04/19 25 05/29/2024 compl ete PFT w/ post [facility] hodil ator juliano metry * No observ ation record ed. [email or web address] (Pulmonary) [address], [place], [address], 06/10/2024 15:58:29 Result Notes None recorded. Problems Name Problem SNOMED Code Status Onset Date Resolution Date Notes Provider Name and Address Organization Details Recorded Time Malignant neoplasm of lung 613994213 Active 2023 Rosa Apodaca NP [address] [facility], [place] [address], [place], [address] , [employer] 4 12:31:33 History of malignant neoplasm of lung 640462438 Active 2024 Rosa Apodaca NP [address] [address], [place], [address] , [employer] 5 10:42:37 Epigastric pain 07035100 Active 2024 Donta Crowder MD [address] [facility], [place] [address], [place], [address] , [employer] 5 15:41:18 Asthma-chr onic obstructiv e pulmonary disease overlap syndrome 6468768358629 9107 Active 2018 Not Available [employer] 3 04:49:49 Chronic obstructiv e pulmonary disease 65400936 Active Not Available [facility] 3 04:49:49 Increased frequency of urination 824581155 Active Not Available [facility] 3 04:49:49 Asthma 086967737 Active 2018 Not Available [facility] 3 04:49:49 Lung mass 758464763 Active 2018 Not Available [employer] 3 04:49:49 Daytime hypersomni a 4218722104818 2 Active 2018 Not Available [facility] 3 04:49:49 Malignant neoplasm of lung 294329480 Active 2019 Not Available [facility] 3 04:49:49 Arthritis 2282907 Active Not Available [facility] 3 04:49:49 Incontinen ce 93328368 Active Not Available [facility] 3 04:49:50 Pain of hip region 06941664 Active Not Available [facility] 3 04:49:50 Dyspnea on exertion 34469988 Active 2018 Not Available [facility] 3 04:49:50 Notes:Some problems listed i n Documents: #[id number], #[id number] could not be added to this patient's chart. Please review these documents and add these problems to the patient's chart manually as needed. Problem Notes None recorded. Procedures Surgical History Date Name Laterality Status Provider Name and Address Organization Details Recorded Time delivery completed Liza Donald MA [employer] 05/13/2024 11:58:52 Lung Surgery completed Liza Donald MA [employer] 05/13/2024 11:59:12 Imaging Results None recorded. Procedure Notes None recorded. Medical Equipment None [...] completed Not Available Not Available Not Available Myton 10 mg-325 mg tablet Take 1 tablet [...] Not Available Vitals Date Recorded Body height Body mass index (BMI) Body weight Body temperature Heart rate Oxygen saturation Oxygen saturation in Arterial blood by Pulse oximetry Systolic blood pressure Diastolic blood pressure Provider Name and Address Organization Details Last Updated DateTime 5 152.4 cm 33.2 kg/m2 05012.7 g 98.1 [degF] 67 /min 98 % 98 % 122 mm[Hg] 64 mm[Hg] KANE Nelson - S [place] [employer] [facility] 5 10:18:31 Date Recorded Body height Body mass index (BMI) Body weight Body temperature Heart rate Respiratory rate Oxygen saturation Oxygen saturation in Arterial blood by Pulse oximetry Systolic blood pressure Diastolic blood pressure Provider Name and Address Organization Details Last Updated DateTime 5 152.4 cm 31.2 kg/m2 23354.7 8 g 98.6 [degF] 66 /min 14 /min 98 % 98 % 120 mm[Hg] 62 mm[Hg] Tarsha Munson MA [facility] [employer] [facility] 5 15:12:12 Date Recorded Body height Oxygen saturation Oxygen saturation in Arterial blood by Pulse oximetry Heart rate Body temperature Systolic blood pressure Diastolic blood pressure Provider Name and Address Organization Details Last Updated DateTime 1 152.4 cm 97 % 97 % 80 /min 97.6 [degF] 102 mm[Hg] 60 mm[Hg] Not Available [facility] 3 04:47:01 Date Recorded Body height Body mass index (BMI) Body weight Body temperature Heart rate Oxygen saturation Oxygen saturation in Arterial blood by Pulse oximetry Systolic blood pressure Diastolic blood pressure Provider Name and Address Organization Details Last Updated DateTime 4 152.4 cm 33 kg/m2 33295.1 1 g 98 [degF] 76 /min 97 % 97 % 128 mm[Hg] 66 mm[Hg] Liza Donald MA [facility] [employer] [facility] 4 11:52:15 Social History Question Answer Notes LastModified by Organizat ion Details LastModified Time Tobacco Smoking Status Never Smoker Not Available [facility] 07/20/2022 04:29:59 What Is Your Level Of Caffeine Consumption? Heavy Information not available 05/13/2024 In The 14 Days Before Symptom Onset, Have You Had Close Contact With A Laboratory-confir med COVID-19 While That Case Was Ill? No [id number] Information not available 07/20/2022 In The 14 Days Before Symptom Onset, Have You Had Close Contact With A Person Who Is Under Investigation For COVID-19 While That Person Was Ill? No [id number] Information not available 07/20/2022 What Type Of Diet Are You Following? REGULAR Information not available 05/13/2024 Do You Have An Electrostatic Air Filter? No Information not available 05/13/2024 Do You Have A Humidifier? No Information not available 05/13/2024 Where Do You Live? [facility] Information not available 05/13/2024 Do [...] You Passively Exposed To Smoke? No Information no t available 05/13/2024 Do You Use Sunscreen Routinely? No Information not available 05/13/2024 Have You Recently Traveled Abroad? No Information not available 05/13/2024 Do You Have Any Dietary Restrictions? No Information not available 05/13/2024 Sex: Unknown Functional Status Question Answer Note LastModified by Organizat ion Details LastModified Time Do you use any illicit or recreational drugs? No Information not available 05/13/2024 What is your level of alcohol consumption? Occasional [id number] Information not available 07/20/2022 Do you or have you ever used smokeless tobacco? Never used smokeless tobacco [id number] Information not available 07/20/2022 Are you currently employed? No Information not available 05/13/2024 Have you been exposed to chemicals or toxins? No Not that aware of Information not available 05/13/2024 Do you or have you ever used e-cigarettes or vape? Never used electronic cigarettes [id number] Information not available 07/20/2022 What is your exercise level? None Information not available 05/13/2024 Mental Status Question Answer Note LastModified by Organization D etails LastModified Time Do you feel stressed (tense, restless, nervous, or anxious, or unable to sleep at night)? [id number] Information not available 05/13/2024 Family History Relationship Description Onset Age of [...] unspecified formulation 9 completed Not Available [facility] 07/20/2022 05:00:26 Influenza, split virus, quadrivalent, PF 8 completed Not Available [facility] 07/20/2022 05:00:26 Past Encounters Encounter ID Performer Location Encounter Start Date Encounter Closed Date Diagnosis/Indication Diagnosis SNOMED-CT Code Diagnosis ICD10 Code Diagnosis Note [id number] [facility] [place] [address] 0 09/11/2020 00:00:00 09/11/2020 16:20:44 [id number] Rosa Apodaca NP [facility] [place] [address] 0 05/13/2024 11:22:06 05/13/2024 12:20:19 Asthma-chronic obstructive pulmonary disease overlap syndrome 4876494700 1969607 J44.9 ACT: 12CAT: 26Incruse refilledAl buterol inhaler [...] up Body mass index 30+ - obesity 842488972 Z68.33 Encourage healthy diet and exercise to improve weightdisc ussed weight effect on sleep and sleep apnea Malignant neoplasm of lung 569384442 C34.90 She is followed by [facility] [id number] Donta Crowdre MD [facility] General Surgery [address] [facility], [facility] [address] [place] [address] 06/25/2024 14:14:23 06/25/2024 15:50:38 Epigastric pain 81581643 R10.13 cont ppi, EGD [id number] Rosa Apodaca NP [facility] [place] [address] [facility] [address] [place] [address] 06/10/2024 09:49:41 06/10/2024 13:06:40 Asthma-chronic obstructive pulmonary disease overlap syndrome 7202221089 1525813 J44.9 ACT: 14CAT: 2RAST-mild cockroach otherwise unremarkab [...] gardiner Body mass index 30+ - obesity 675856763 Z68.33 Encourage healthy diet and exercise to improve weightdisc ussed weight effect on sleep and sleep apnea History of malignant neoplasm of lung 621236098 Z85.118 R06.00 history of lung ca-right mid-she has not seen [facility] for a couple years Health Concerns Section Related Observation LastModified by Organization Detai ls LastModified Time None Recorded Concern Status LastModified by Organization Details LastModified Time None Recorded Advance Directives Directive None Recorded Payers Insurance Date Sequence Insurance Name Policy Number Policy Mayorga Covered Member ID Mayorga Member ID Guarantor Name 09/02/2024 1 [facility] (MEDICARE REPLACEMENT/AD VANTAGE - HMO) [id number] Flora Siddiqi [id number] Flora Siddiqi 06/24/2024 1 [facility] - DOS PRIOR TO 2020 (MEDICAID REPLACEMENT - HMO) Flora Siddiqi [id number] Flora Siddiqi Notes Date Note Type Note [...] ADL's Rosa Apodaca NP [address], [place], [address], [employer] 05/13/2024 12:42:59 06/10/2024 text/html AsthmaReported bypatient.Quality:we ll-controlled [...] glucocorticoids; spirometry Rosa Apodaca NP [address], [address], [place], [address], [employer] 06/10/2024 11:15:20 06/25/2024 text/html 70yo Female c/o post prandial abd pain assoc with n/v, no h/o PUD, no melena, hasbeen on ppi for more than 3 months w/o improvement. Donta Crowder MD [address] [facility], [place] [address], [place], [address], [place] [facility] 08/20/2024 15:59:37 OBGyn Episode No OBEpisode recorded.
--- OUTSIDE RECORDS SUMMARY | 2024-11-01 13:12 | XMS_ITS | Data Portability ---
Author Organization BECCA Griffin HAWKokjuhi Vaca Address [address] [place] [address] Care Team Providers Care Home Health Caregiver Name Role Phone PETRA FARRELL Thoracic Surgeon JANAE FULLER Staff Weapons Officer JUANITA CHACON Primary Care Provider [phone] Assessment No assessment recorded. Plan of Treatment Reminders Order Date Submit Date Provider Last Modified By Organization Details Last Modified Time Details Appointments None recorded . Lab culture, urine 2024 025 [facility], [address], [address], [place], [address], 5 20:09:30 urinalys is, dipstick 2024 025 [email or web address] In-Office Order, Internal Use Only DO Not Attach Compendium DO Not Attach Compendium, Do Not Delete/merge, [address] 5 17:00:08 drug screen, 14 drugs (detecti med), urine 2023 024 [facility], [address], [address], [place], [address], 4 15:11:48 HbA1c (hemoglo bin A1c), blood 2023 024 [facility], [address], [address], [place], [address], 4 10:16:09 CMP, serum or plasma 2023 024 [facility], [address] [place] [address], [address], [place], [address], 4 10:16:07 lipid panel, serum 2023 024 [facility], [address] [place] [address], [address], [place], [address], 4 10:16:06 CBC 2023 024 [facility], [address] [place] [address], [address], [place], [address], 4 10:16:12 TSH, ultra-se nsitive, serum 2023 024 [facility], [address] [place] [address], [address], [place], [address], 4 10:16:[address] referral 2024 025 [facility], [address], [address], [place], [address], 5 04:24:30 Procedures None recorded . Surgeries None recorded . Imaging CT, abdomen + pelvis, w/o contrast 2024 025 [facility] (Imaging), [address], [place], [address], 5 22:05:34 MAMMO, screenin g, digital, bilatera l - [facility] [address] [place] [address] (Mammography) , [address], [place], [address], 5 16:28:55 Medication Orders hydrocod one 5 mg-aceta minophen 325 mg tablet 2024 025 [facility] [address], [address], 5 11:35:40 dicyclom ine 10 mg capsule 2024 025 [facility] [address], [address], 5 11:35:20 hydrocod one 7.5 mg-aceta minophen 325 mg tablet 2024 025 [email or web address] [facility] [address], [address], 5 18:24:32 Premarin 0.3 mg tablet 2024 025 [facility] [address], [address], 5 16:32:51 hydrocod one 7.5 mg-aceta minophen 325 mg tablet 2023 024 [email or web address] [facility] [address], [address], 5 18:24:32 hydrocod one 7.5 mg-aceta minophen 325 mg tablet 2023 024 [email or web address] [facility] [address], [address], 5 18:24:32 dextrome thorphan -guaifen esin 10 mg-100 mg/5 mL oral liquid 2023 024 [facility] [address], [address], 16:07:29 hydrochl orothiaz fredi 12.5 mg capsule 2023 024 [facility] [address], [address], 4 16:07:29 ferrous sulfate 325 mg (65 mg iron) tablet 2023 024 [facility] [address], [address], 16:07:31 Patient TargetsNo targets recorded. Patient Instructions Encounter Date Encounter Id Patient Instructions Last Modified By Organization Details Last Modified Time 01/16/2024 [id number] A healthy lifest yle: care instructions [email or web address] Not available 01/16/2024 16:07:26 cough: care instructions Not available 01/16/2024 16:07:26 anemia: care instructions Not available 01/16/2024 16:07:26 04/10/2024 [id number] hot flashes duri ng menopause: care instructions Not available 04/10/2024 13:09:04 gastroesophageal reflux disease (GERD): care instructions [email or web address] Not available 04/10/2024 13:02:12 learning about h igh blood sugar Not available 04/10/2024 13:05:36 learning about h igh blood pressure [email or web address] Not available 04/10/2024 13:02:12 learning about m ood disorders [email or web address] Not available 04/10/2024 13:02:12 07/01/2024 [id number] painful urinatio n (dysuria): care instructions [email or web address] Not available 07/01/2024 16:52:43 mammogram: about this test [email or web address] Not available 07/01/2024 16:23:48 Attending Physic [email or web address] Attestation I did not personally see or examine the patient with the resident. I was physically present to provide indirect supervision through entire encounter. I have reviewed the documentation and agree with the history, physical findings, work-up, and medical decision making as recorded. aJnae Fuller MD mmetias Not available 07/01/2024 16:32:52 07/08/2024 [id number] gastroesophageal reflux disease (GERD): care instructions [email or web address] Not available 07/08/2024 15:22:40 Reason for Referral Trawl Net Maker Referral for Lower abdominal pain Referring Physician: Juanita Chacon, Internal Medicine, Encounter Date: 09/09/2024 Results Created Date Observation Date Name Description Value Unit Range Abnormal Flag Note LastModifiedBy Organization Detail LastModifiedTime 04/10/20 24 04/11/2024 LIPID PANEL cholesterol, total 151 mg/dL 100-19 9 Not Available [facility] ([facility]) [address] [place], [address], 04/11/2024 10:16:05 04/10/20 24 04/11/2024 LIPID PANEL triglyceride s 239 mg/dL 0-149 above high normal Not Available [facility] ([facility]) [address] [place], [address], 04/11/2024 10:16:05 04/10/20 24 04/11/2024 LIPID PANEL HDL cholesterol 47 mg/dL >39 Not Available [facility]) [address] [place], [address], 04/11/2024 10:16:05 04/10/20 24 04/11/2024 LIPID PANEL VLDL cholesterol adan 39 mg/dL 5-40 Not Available [facility] ([facility]) [address] [place], [address], 04/11/2024 10:16:05 04/10/20 24 04/11/2024 LIPID PANEL LDL chol calc ([facility]) 65 mg/dL 0-99 Not Available [facility]) [address] [place], [address], 04/11/2024 10:16:05 04/10/20 24 04/11/2024 COMP. METAB OLIC PANEL (14) glucose 121 mg/dL 70-99 above high normal Not Available [facility] ([facility]) [address] [facility] [place], [address], 04/11/2024 10:16:07 04/10/20 24 04/11/2024 COMP. METAB OLIC PANEL (14) BUN 23 mg/dL 8-27 Not Available [facility] ([facility]) [address] [facility] [place], [address], 04/11/2024 10:16:07 04/10/20 24 04/11/2024 COMP. METAB OLIC PANEL (14) creatinine 1.50 mg/dL 0.57-1 .00 above high normal Not Available [facility] ([facility]) [address] [facility] [place], [address], 04/11/2024 10:16:07 04/10/20 24 04/11/2024 COMP. METAB OLIC PANEL (14) eGFR 38 mL/mi n/1.7 3 >59 below low normal Not Available [facility] ([facility]) [address] [facility] [place], [address], 04/11/2024 10:16:07 04/10/20 24 04/11/2024 COMP. METAB OLIC PANEL (14) BUN/creatini ne ratio 15 12-28 Not Available [facility] ([facility]) [address] [facility] [place], [address], 04/11/2024 10:16:07 04/10/20 24 04/11/2024 COMP. METAB OLIC PANEL (14) sodium 138 mmol/ L 134-14 4 Not Available [facility] ([facility]) [address] [facility] [place], [address], 04/11/2024 10:16:07 04/10/20 24 04/11/2024 COMP. METAB OLIC PANEL (14) potassium 4.5 mmol/ L 3.5-5. 2 Not Available [facility] ([facility]) [address] [facility] [place], [address], 04/11/2024 10:16:07 04/10/20 24 04/11/2024 COMP. METAB OLIC PANEL (14) chloride 101 mmol/ L 96-106 Not Available [facility] ([facility]) [address], [place], [address], 04/11/2024 10:16:07 04/10/20 24 04/11/2024 COMP. METAB OLIC PANEL (14) carbon dioxide, total 18 mmol/ L 20-29 below low normal Not Available [facility] ([facility]) [address], [place], [address], 04/11/2024 10:16:07 04/10/20 24 04/11/2024 COMP. METAB OLIC PANEL (14) calcium 9.5 mg/dL 8.7-10 .3 Not Available [facility] ([facility]) [address], [place], [address], 04/11/2024 10:16:07 04/10/20 24 04/11/2024 COMP. METAB OLIC PANEL (14) protein, total 6.5 g/dL 6.0-8. 5 Not Available [facility] ([facility]) [address], [place], [address], 04/11/2024 10:16:07 04/10/20 24 04/11/2024 COMP. METAB OLIC PANEL (14) albumin 4.4 g/dL 3.9-4. 9 Not Available [facility] ([facility]) [address], [place], [address], 04/11/2024 10:16:07 04/10/20 24 04/11/2024 COMP. METAB OLIC PANEL (14) globulin, total 2.1 g/dL 1.5-4. 5 Not Available [facility] ([facility]) [address], [place], [address], 04/11/2024 10:16:07 04/10/20 24 04/11/2024 COMP. METAB OLIC PANEL (14) bilirubin, total 0.3 mg/dL 0.0-1. 2 Not Available [facility] ([facility]) [address] [place], [address], 04/11/2024 10:16:07 04/10/20 24 04/11/2024 COMP. METAB OLIC PANEL (14) alkaline phosphatase 91 IU/L 44-121 Not Available [facility] ([facility]) [address] [place], [address], 04/11/2024 10:16:07 04/10/20 24 04/11/2024 COMP. METAB OLIC PANEL (14) AST (SGOT) 27 IU/L 0-40 Not Available [facility] ([facility]) [address] [place], [address], 04/11/2024 10:16:07 04/10/20 24 04/11/2024 COMP. METAB OLIC PANEL (14) ALT (SGPT) 33 IU/L 0-32 above high normal Not Available [facility] ([facility]) [address] [place], [address], 04/11/2024 10:16:07 04/10/20 24 04/11/2024 HEMOG LOBIN A1C hemoglobin A1C 6.3 % 4.8-5. 6 above high normal Predi abete s: 5.7 - 6.4 Diabe milagros: >6.4 Glyce kieran contr ol for adult s with diabe milagros: <7.0 Not Available [facility] ([facility]) [address] [place], [address], 04/11/2024 10:16:09 04/10/20 24 04/11/2024 TSH TSH 1.520 uIU/m L 0.450- 4.500 Not Available [facility] ([facility]) [address] [place], [address], 04/11/2024 10:16:11 04/10/20 24 04/11/2024 CBC, PLATE LET, NO DIFFE RENTI AL WBC 8.6 x10e3 /uL 3.4-10 .8 Eff ectiv e Decem 2023 profi herb 00037 5 WBC will be made* * non-o rdera ble as a stand -raf e order code. Not Available [facility] ([facility]) [address] [facility], [place], [address], 04/11/2024 10:16:12 04/10/20 24 04/11/2024 CBC, PLATE LET, NO DIFFE RENTI AL RBC 3.41 x10e6 /uL 3.77-5 .28 below low normal Not Available [facility] ([facility]) [address] [facility], [place], [address], 04/11/2024 10:16:12 04/10/20 24 04/11/2024 CBC, PLATE LET, NO DIFFE RENTI AL hemoglobin 9.9 g/dL 11.1-1 5.9 below low normal Not Available [facility] ([facility]) [address] [facility], [place], [address], 04/11/2024 10:16:12 04/10/20 24 04/11/2024 CBC, PLATE LET, NO DIFFE RENTI AL hematocrit 30.6 % 34.0-4 6.6 below low normal Not Available [facility] ([facility]) [address] [facility], [place], [address], 04/11/2024 10:16:12 04/10/20 24 04/11/2024 CBC, PLATE LET, NO DIFFE RENTI AL MCV 90 fL 79-97 Not Available [facility] ([facility]) [address] [facility], [place], [address], 04/11/2024 10:16:12 04/10/20 24 04/11/2024 CBC, PLATE LET, NO DIFFE RENTI AL MCH 29.0 pg 26.6-3 3.0 Not Available [facility] ([facility]) [address] [facility], [place], [address], 04/11/2024 10:16:12 04/10/20 24 04/11/2024 CBC, PLATE LET, NO DIFFE RENTI AL MCHC 32.4 g/dL 31.5-3 5.7 Not Available [facility] ([facility]) [address] [facility], [place], [address], 04/11/2024 10:16:12 04/10/20 24 04/11/2024 CBC, PLATE LET, NO DIFFE RENTI AL RDW 14.1 % 11.7-1 5.4 Not Available [facility] ([facility]) [address] [facility], [place], [address], 04/11/2024 10:16:12 04/10/20 24 04/11/2024 CBC, PLATE LET, NO DIFFE RENTI AL platelets 229 x10e3 /uL 150-45 0 Not Available [facility] ([facility]) [address] [facility], [place], [address], 04/11/2024 10:16:12 04/10/20 24 04/17/2024 COMPL IANCE DRUG CAESAR SIS, UR summary report (summary) FINAL ===== ===== ===== ===== ===== ===== ===== ===== ===== ===== ===== ===== ===== === TOXAS SURE COMP DRUG CAESAR SIS,U R ===== ===== ===== ===== ===== ===== ===== ===== ===== ===== ===== ===== ===== === Test Resul t Flag Units Drug Prese nt [place] codon e 976 ng/mg creat [place] morph one 406 ng/mg creat Dihyd rocod eine 136 ng/mg creat Norhy droco done 730 ng/mg creat Sourc es of hydro codon e inclu de sched uled presc ripti on medic ation s. [place] morph one, dihyd rocod eine and norhy droco done are expec joann metab olite s of hydro codon e. [place] morph one and dihyd rocod eine are [...] ===== ===== ===== === Not Available [facility] ([facility]) [address], [place], [address], 04/17/2024 15:11:48 04/10/20 24 04/17/2024 COMPL IANCE DRUG CAESAR SIS, UR pdf . Not Available [facility] ([facility]) [address] [facility], [place], [address], 04/17/2024 15:11:48 05/13/20 24 05/14/2024 VITAM IN B12 AND FOLAT E vitamin B12 743 pg/mL 232-12 45 Not Available [facility] ([facility]) [address] [facility], [place], [address], 05/14/2024 08:24:19 05/13/20 24 05/14/2024 VITAM IN B12 AND FOLAT E folate (folic acid), serum 18.2 NG/mL >3.0 A serum folat e obey ntrat ion of less than 3.1 ng/mL is consi dered to repre sent clini adan defic iency . Not Available [facility] ([facility]) [address] [facility], [place], [address], 05/14/2024 08:24:19 05/13/20 24 05/14/2024 FE+TI BC+FE R iron bind.cap.(TI BC) 351 ug/dL 250-45 0 Not Available [facility] ([facility]) [address] [facility], [place], [address], 05/14/2024 08:24:21 05/13/20 24 05/14/2024 FE+TI BC+FE R UIBC 284 ug/dL 118-36 9 Not Available [facility] ([facility]) [address] [facility], [place], [address], 05/14/2024 08:24:21 05/13/20 24 05/14/2024 FE+TI BC+FE R iron 67 ug/dL 27-139 Not Available [facility] ([facility]) [address] [facility], [place], [address], 05/14/2024 08:24:21 05/13/20 24 05/14/2024 FE+TI BC+FE R iron saturation 19 % 15-55 Not Available [facility] ([facility]) [address] [place], [address], 05/14/2024 08:24:21 05/13/20 24 05/14/2024 FE+TI BC+FE R ferritin 112 NG/mL 15-150 Not Available [facility] ([facility]) [address] [place], [address], 05/14/2024 08:24:21 07/01/1907/04/2024 URINE CULTU RE, ROUTI NE urine culture, routine FINAL REPORT abnormal Not Available [facility] ([facility]) [address] [place], [address], 07/04/2024 20:09:30 07/01/1907/04/2024 URINE CULTU RE, ROUTI NE result 1 [...] ng units per mL Not Available [facility] ([facility]) [address] [place], [address], 07/04/2024 20:09:30 07/01/1907/04/2024 URINE CULTU RE, ROUTI NE antimicrobia l [...] thopr im/Mandel lfa S Not Available [facility] ([facility]) [address] [facility], [place], [address], 07/04/2024 20:09:30 07/01/1907/01/2024 urina lysis , dipst ick Leukocytes Small Not Available In-Offi ce Order Internal Use Only DO Not Attach Compendium DO Not Attach Compendium, Do Not Delete/merge, 07/01/2024 16:52:20 07/01/1907/01/2024 urina lysis , dipst ick Nitrite positi ve Not Available In-Office Order Internal Use Only DO Not Attach Compendium DO Not Attach Compendium, Do Not Delete/merge, 07/01/2024 16:52:20 07/01/1907/01/2024 urina lysis , dipst ick Urobilinogen .2 Not Available In-Of fice Order Internal Use Only DO Not Attach Compendium DO Not Attach Compendium, Do Not Delete/merge, 07/01/2024 16:52:20 07/01/1907/01/2024 urina lysis , dipst ick Protein Trace Not Available In-Office Order Internal Use Only DO Not Attach Compendium DO Not Attach Compendium, Do Not Delete/merge, 07/01/2024 16:52:20 07/01/1907/01/2024 urina lysis , dipst ick pH 6.0 Not Available In-Office Order Internal Use Only DO Not Attach Compendium DO Not Attach Compendium, Do Not Delete/merge, 07/01/2024 16:52:20 07/01/1907/01/2024 urina lysis , dipst ick Blood Non-He molyze d: Trace Not Available In-Office Order Internal Use Only DO Not Attach Compendium DO Not Attach Compendium, Do Not Delete/merge, 07/01/2024 16:52:20 07/01/19 25 07/01/2024 urina lysis , dipst ick Specific [place] 1.030 Not Available In-Off ice Order Internal [...] 25 07/01/2024 urina lysis , dipst ick Glucose Negati ve Not Available In-Office Order Internal Use Only DO Not Attach Compendium DO Not Attach Compendium, Do Not Delete/merge, 07/01/2024 16:52:20 05/29/19 25 05/29/2024 PFT, compl ete No observ ation record ed. [address], [address], 06/08/2024 02:14:56 06/18/19 25 06/18/2024 US, bladd er No observ ation record ed. [address], [address], 06/19/2024 09:49:37 06/18/19 25 06/18/2024 CT, chest , w/ contr ast No observ ation record ed. [address], [address], 06/19/2024 09:50:19 09/05/19 25 09/04/2024 CT, abdom en + pelvi s, w/o contr ast No observ ation record ed. [facility] [address] [facility] [address], [place], [address], 09/11/2024 11:03:24 09/06/19 25 09/04/2024 CT, abdom en + pelvi s, w/o contr ast No observ ation record ed. [facility] [address] [facility] [address], [place], [address], 09/11/2024 11:03:25 Result Notes None recorded. Problems Name Problem SNOMED Code Status Onset Date Resolution Date Notes Provider Name and Address Organization Details Recorded Time Trochante javon bursitis of left hip 58667193404 9103 Active 2016 Not Available [facility] 4 01:34:16 Candidias is of skin 59897502 Active 2017 Not Available [facility] 4 01:34:16 Hyperlipi demia 03130499 Active 2018 Not Available [facility] 4 01:34:16 High hemoglobi n A1c level 795176591 Active 2018 Not Available [facility] 4 01:34:16 Prolapsed lumbar intervert ebral disc 534335642 Active 2018 Not Available [facility] 4 01:34:15 Hypothyro idism 54819448 Active 2018 Not Available [facility] 4 01:34:16 Hypokalem ia 74918181 Active 2018 Not Available [facility] 4 01:34:16 Asthma-ch ronic obstructi ve pulmonary disease overlap syndrome 59781779458 123745 Active 2018 Not Available [facility] 4 01:34:15 Medicatio n monitorin g Active 2018 Not Available [facility] 4 01:34:16 Venereal disease screening Completed 201803/14/2023 Juanita Chacon MD Attn: Accounting [facility], [place], [address] , [facility] 3 11:31:21 Pain of left hip joint 73012110759 9100 Active 2018 Not Available [facility] 4 01:34:16 Acute sinusitis 54525530 Active 2018 Not Available [facility] 4 01:34:15 Pre-surge ry testing Active 2018 Not Available [facility] 4 01:34:15 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 Not Available [facility] 4 01:34:16 Injury of left hip region 66449070059 836387 Active 2019 Not Available [facility] 4 01:34:15 Dental abscess 399045132 Active 2019 Not Available [facility] 4 01:34:15 Edema of lower extremity 019060936 Active 2019 Not Available [facility] 4 01:34:15 Knee pain Active Not Available [facility] 4 01:34:16 Mild depressio n 066796020 Active Not Available [facility] 4 01:34:16 Serum creatinin e above reference range 882227288 Active 2019 Not Available [facility] 4 01:34:15 Neck swelling 754064608 Active 2021 Not Available [facility] 4 01:34:16 Essential hypertens ion 32656458 Active 2021 Not Available [facility] 4 01:34:16 Hypertrig lyceridem ia 650245113 Active 2021 Not Available [facility] 4 01:34:16 Sleep disorder 74043693 Active 2022 Not Available [facility] 4 01:34:16 Diverticu lar disease 322215639 Active 2022 Not Available [facility] 4 01:34:16 History of polyp of colon 017667445 Active 2022 Not Available [facility] 4 01:34:16 Active immunizat ion Active 2022 Not Available [facility] 4 01:34:16 Hyperglyc emia 80829743 Active 2023 Juanita Chacon MD Attn: Accounting ,[address] [facility], [place], [address] , [place] [facility] 4 11:59:25 Loose stool 320559198 Active 2023 Juanita Chacon MD Attn: Accounting ,[address] [facility], [place], [address] , [place] [facility] 4 12:06:44 Anemia 069149166 Active 2023 Juanita Chacon MD Attn: Accounting ,[address] [facility], [place], [address] , [place] [facility] 4 16:01:44 Serum creatinin e outside reference range 316161586 Active 2023 Juanita Chacon MD Attn: Accounting ,[address] [facility], [place], [address] , [place] [facility] 4 12:42:55 Lower abdominal pain 12470473 Active 2024 Juanita Chacon MD Attn: Accounting ,[address] [facility], [place], [address] , [place] [facility] 5 11:22:35 Postprand ial diarrhea 12296504 Active 2024 Juanita Chacon MD Attn: Accounting ,[address] [facility], [place], [address] , [place] [facility] 5 15:11:15 Chronic kidney disease 111756538 Active 2024 Juanita Chacon MD Attn: Accounting ,[address] [place], [address] , [place] [facility] 5 15:30:33 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 Active Not Available [facility] 4 01:34:15 Atrophic vaginitis 38670523 Active Not Available [facility] 4 01:34:16 Depressiv e disorder 65065255 Active Not Available [facility] 4 01:34:16 Pain of wrist region 07482210 Active Not Available [facility] 4 01:34:16 Sinusitis 17084339 Active Not Available [facility] 4 01:34:16 Shoulder strain 315393565 Active Not Available [facility] 4 01:34:15 Low back pain 892042254 Active Not Available [facility] 4 01:34:15 Vitamin D deficienc y 65157337 Active Not Available [facility] 4 01:34:16 Fatigue 24342684 Active Not Available [facility] 4 01:34:16 Gastroeso phageal reflux disease 444209274 Active Not Available [facility] 4 01:34:15 Menopausa l flushing 529806601 Active Not Available [facility] 4 01:34:15 Dyspnea on exertion 06614012 Active Not Available [facility] 4 01:34:16 Serum vitamin B12 below reference range 834980288 Active Not Available [facility] 4 01:34:15 History of cholecyst ectomy 043512536 Active 2015 Not Available [facility] 4 01:34:16 Screening for malignant neoplasm of colon Active 2016 Not Available [facility] 4 01:34:15 Acute bronchiti s 86400723 Active 2016 Not Available [facility] 4 01:34:15 Hyperlipi demia screening Active 2016 Not Available [facility] 4 01:34:15 Family history of diabetes mellitus 583315950 Active 2016 Not Available [facility] 4 01:34:15 Left lower quadrant pain 837173152 Active 2016 Not Available [facility] 4 01:34:15 Pain of hip region 77349197 Active 2016 Not Available [facility] 4 01:34:16 Cough 66496267 Active 2016 Not Available [facility] 4 01:34:16 Acute urinary tract infection 412908761 Active 2016 Not Available [facility] 4 01:34:16 Administr ation of influenza vaccine Active 2016 Not Available [facility] 4 01:34:16 Notes:Some problems listed i n Documents: #[id number], #[id number], #[id number], #[id number], #[id number], #[id number] could not be added to this patient's chart. Please review these documents and add these problems to the patient's chart manually as needed. Problem Notes None recorded. Procedures Surgical History Date Name Laterality Status Provider Name and Address Organization Details Recorded Time 10/07/19 23 Date of Last Mammogram completed Dana Terrell MA [facility] 10/06/2022 11:21:20 05/03/20 22 Colonoscopy completed Farzana Shultz MD Attn: Accounting,[address] [place], [address], [facility] 05/19/2022 05:48:43 01/17/20 17 Most Recent Mammogram completed Chanda Urrutia MA [place] - [facility] 02/28/2018 15:37:43 05/22/19 16 colonoscopy completed Chanda Urrutia MA [place] - [facility] 02/28/2018 15:48:14 09/11/19 11 Date of Last Pap Smear completed RUFINA Hobson - [facility] 10/28/2014 11:13:29 05/22/18 89 Caesarean Section completed RUFINA Hobson - [facility] 10/28/2014 11:13:29 05/22/18 85 Caesarean Section completed RUFINA Hobson - [facility] 10/28/2014 11:13:29 05/22/18 82 Caesarean Section completed RUFINA Hobson - [facility] 10/28/2014 11:13:29 Hysterectomy completed RUFINA Lowery - [facility] 05/07/2014 11:57:41 procedure on gallbladder completed RUFINA Hobson - [facility] 02/28/2018 15:47:38 Imaging Results None recorded. Procedure Notes None [...] TABLET BY MOUTH TWICE A DAY NEEDED *MUST LAST 30 DAYS* active Not Available Not Available No t Available meloxicam 15 mg tablet TAKE ONE [...] TABLET BY MOUTH THREE TIMES A DAY 10/09 completed Not Available Not Available Not Available cephalexi n 500 mg capsule 10/14 [...] hydrochlo rothiazid e 12.5 mg capsule TAKE 1 CAPSULE BY [...] Not Available Not Available No t Available acetamino phen 300 mg-codein e 60 mg [...] Not Available Not Available No t Available dicyclomi ne 10 mg capsule TAKE 1 CAPSULE BY MOUTH 3 TIMES A DAY WITH MEALS active Not Available Not Available [...] Updated DateTime 5 152.4 cm 33 kg/m2 75865.1 1 g 66 /min 99 % 99 % 126 mm[Hg] 70 mm[Hg] Milena Henley MA [place] - [facility] 5 15:55:39 Date Recorded Body height Body mass index (BMI) Body weight Heart rate Oxygen saturation Oxygen saturation in Arterial blood by Pulse oximetry Systolic blood pressure Diastolic blood pressure Provider Name and Address Organization Details Last Updated DateTime 5 152.4 cm 32.6 kg/m2 27149.9 3 g 72 /min 99 % 99 % 120 mm[Hg] 75 mm[Hg] Juan Manuel Reese MA [facility] 5 14:39:41 Date Recorded Body height Body mass index (BMI) Body weight Heart rate Oxygen saturation Oxygen saturation in Arterial blood by Pulse oximetry Systolic blood pressure Diastolic blood pressure Provider Name and Address Organization Details Last Updated DateTime 5 152.4 cm 30.9 kg/m2 78707.5 9 g 67 /min 98 % 98 % 112 mm[Hg] 68 mm[Hg] Milena Henley MA [facility] 5 10:52:53 Date Recorded Body height Body mass index (BMI) Body weight Heart rate Oxygen saturation Oxygen saturation in Arterial blood by Pulse oximetry Systolic blood pressure Diastolic blood pressure Provider Name and Address Organization Details Last Updated DateTime 4 152.4 cm 34.4 kg/m2 65239.2 6 g 81 /min 98 % 98 % 146 mm[Hg] 76 mm[Hg] Isi Kingsley MA [facility] 4 15:41:30 Date Recorded Body height Body mass index (BMI) Body weight Heart rate Oxygen saturation Oxygen saturation in Arterial blood by Pulse oximetry Systolic blood pressure Diastolic blood pressure Provider Name and Address Organization Details Last Updated DateTime 4 152.4 cm 32.8 kg/m2 97234.5 2 g 69 /min 99 % 99 % 139 mm[Hg] 77 mm[Hg] Juan Manuel Reese MA [facility] 4 12:44:02 Social History Question Answer Notes LastModified by Organizat ion Details LastModified Time Tobacco Smoking Status Never Smoker Michelle Blum MA [facility], [facility] 05/07/2014 11:57:41 Do You Have An Advance Directive? No Information not available 07/08/2014 Are You Blind Or Do You Have Difficulty Seeing? No Information not available 05/07/2014 Is Blood Transfusion Acceptable In An Emergency? Yes Information not available 02/28/2018 What Is Your Level Of Caffeine Consumption? Moderate Information not available 08/25/2020 Are You A Caregiver? No Information not available 05/07/2014 How Much Tobacco Do You Chew? None Information not available 05/07/2014 Are You Deaf Or Do You Have Serious Difficulty Hearing? Yes Information not available 05/07/2014 What Type Of Diet Are You Following? REGULAR Information not available 05/07/2014 Do You Have A Directive To Physicians? No Information not available 05/07/2014 Which Illicit Or Recreational Drugs Have You Used? None N/a Information not available 10/28/2014 Education 9 Information no t available 05/07/2014 Are There Any Guns Present In Your Home? No Information not available 05/07/2014 Hard Of Hearing Or Deaf In One Or Both Ears? Yes Information not available 05/07/2014 Legally Blind In One Or Both Eyes? No Information no t available 05/07/2014 Marital Status Informatio n not available 05/07/2014 Do You Have A Medical Power Of Building Services Engineer? No Information not available 05/07/2014 What Was The Date Of Your Most Recent Tobacco Screening? 07/08/2024 Information not available 07/08/2024 How Many Children Do You Have? 2 Information not available 11/04/2015 Do You Have An Out Of Hospital DNR? No Information not available 05/07/2014 Performs Monthly Self-breast Exam? Yes Information no t available 05/07/2014 What Is Your Relationship Status? [...] You Passively Exposed To Smoke? Yes Information no t available 10/26/2020 How Much Tobacco Do You Smoke? No Information not available 05/07/2014 General Stress Level Medium Information not available 05/07/2014 Do You Use Sunscreen Routinely? Yes Information not available 05/07/2014 Has Tobacco Cessation Counseling Been Provided? No Information not available 07/28/2020 On What Date Was Tobacco Cessation Counseling Provided? 07/08/2024 Information not available 07/08/2024 Do You Have Difficulty Walking Or Climbing Stairs? Yes Information not available 05/07/2014 Sex: Female Functional Status Question Answer Note LastModified by Organizat ion Details LastModified Time Do you use any illicit or recreational drugs? No Information not available 08/25/2020 Do you or have you ever used any other forms of tobacco or nicotine? No Information not available 07/28/2020 What is your level of alcohol consumption? Moderate Information not available 05/07/2014 Do you or have you ever used smokeless tobacco? Never used smokeless tobacco Information not available 10/15/2019 Are you currently employed? No Information not available 07/28/2020 Do you have transportation difficulties? No Information not available 05/07/2014 Do you have difficulty doing errands alone? No Information not available 05/07/2014 Are you able to care for yourself? 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 No Information not available 05/07/2014 Do you or have you ever used e-cigarettes or vape? Never used electronic cigarettes Information not available 10/15/2019 What is your exercise level? Occasional Information not available 05/07/2014 Mental Status Question Answer Note LastModified by Organizat ion Details LastModified Time Do you feel stressed (tense, restless, nervous, or anxious, or unable to sleep at night)? [id number] Information not available 08/25/2020 Do you have difficulty concentrating, remembering or making decisions? No Information no t available 05/07/2014 Family History Relationship Description Onset Age of this Age Resolved Age Notes LastModified by Organization Details LastModified Time Mother Dementia dyan Not availab le 11/04/2015 11:47:02 Father Malignant neoplasm of prostate Not available 2017 15:44:53 Maternal [...] Disorder N Colon Polyps N Heart Attack ([place]) N Diabetes N Cardiomyopathy N Blood Transfusions [...] virus, quadrivalent, preservative 9 completed Not Available [facility] 06/15/2023 01:34:17 Influenza, split virus, quadrivalent, preservative 6 completed Not Available [facility] 06/08/2019 02:32:31 COVID-19, mRNA, LNP-S, PF, 30 mcg/0.3 mL dose 1 completed Not Available [facility] 06/15/2023 01:34:17 COVID-19, mRNA, LNP-S, PF, 30 mcg/0.3 mL dose 1 completed Not Available [facility] 06/15/2023 01:34:17 Influenza, split virus, quadrivalent, preservative 7 completed Not Available [facility] 06/08/2019 02:34:24 pneumococcal polysaccharide PPV23 0 completed Batsheva Estrella [place], [place] [facility] 03/11/2020 12:27:31 Influenza, split virus, quadrivalent, preservative 0 completed Batsheva Estrella [place] [facility] 03/11/2020 12:27:31 Influenza, split virus, quadrivalent, preservative 1 completed Batsheva Estrella [place] [facility] 05/06/2021 12:55:48 Influenza, split virus, quadrivalent, preservative 2 completed Manny Reese PA-C Attn: Accounting[address] [place], [address], [place] [facility] 03/08/2022 17:20:45 pneumococcal polysaccharide PPV23 4 completed Not Available [facility] 06/08/2019 02:40:53 Influenza, split virus, trivalent, preservative 4 completed Not Available [facility] 06/08/2019 02:48:28 Influenza, high-dose, quadrivalent, PF 3 completed Isi Kings[place], [place] [facility] 03/14/2023 11:57:57 Influenza, split virus, quadrivalent, preservative 5 completed Not Available [facility] 06/08/2019 02:39:16 Influenza, high-dose, trivalent, PF 4 completed Juan Manuel Reese [place], [place] [facility] 04/11/2024 09:59:24 Past Encounters Encounter ID Performer Location Encounter Start Date Encounter Closed Date Diagnosis/Indication Diagnosis SNOMED-CT Code Diagnosis ICD10 Code Diagnosis Note [id number] MD Cici Quan (Adult Med) [address] [place] [address] [id number] 05/07/2014 11:16:26 05/07/2014 12:56:20 Shoulder strain 174746965 Low back pain 631564125 Vitamin D deficiency 10135347 Fatigue 54281978 Active or passive immunization 163337056 [id number] LIONEL De Dios (Adult Med) [address] [place] [address] [id number] 0 07/08/2014 10:01:22 07/08/2014 11:07:36 Shoulder strain 279651983 Fatigue 75157079 Low back pain 906665202 Vitamin D deficiency 43295439 Knee pain 35340038 Mild depression 437391835 [id number] MD Cici Howard (HELMINTHOLOGIST) [address] [place] [address] [id number] 0 10/28/2014 10:41:30 10/28/2014 14:00:19 Atrophic vaginitis 78372657 Depressive disorder 95436111 Screening mammography 79201819 Screening for malignant neoplasm of colon 628233576 [id number] LIONEL De Dios (Adult Med) [address] [place] [address] [id number] 0 01/05/2015 10:21:43 01/05/2015 11:15:27 Low back pain 332778283 Bladder mu scle dysfunction - overactive 889549527 Depressive disorder 89279306 Vitamin D deficiency 95041333 Shoulder strain 055002557 [id number] LIONEL De Dios (Adult Med) [address] [place] [address] [id number] 0 03/06/2015 11:01:31 03/06/2015 12:21:25 Low back pain 488381659 M54.5 Knee pain 66949802 M25.5 69 Fatigue 92381666 R53.83 Depressive disorder 3548 9007 F32.9 Vitamin D deficiency 347 57180 E55.9 Pain of wrist region 566 35325 M25.531 Active or passive immunization 286856904 Z23 [id number] LIONEL De Dios (Adult Med) [address] [place] [address] [id number] 0 07/01/2015 10:05:36 07/01/2015 10:48:17 Sinusitis 06262738 J32.9 Bladder mu scle dysfunction - overactive 792150210 N32.81 Depressive disorder 3548 9007 F32.9 Knee pain 45044522 M25.5 69 Low back pain 747813700 M54.5 Mild depression 13890399 3 F32.0 Shoulder strain 99778378 4 S46.919A Vitamin D deficiency 347 04259 E55.9 [id number] LIONEL De Dios (Adult Med) [address] [place] [address] [id number] 0 09/16/2015 10:12:05 09/16/2015 10:34:43 Low back pain 828219908 M54.5 Shoulder strain 25893731 4 S46.919A Gastroesop hageal reflux disease 398941190 K21.9 [id number] LIONEL De Dios (Adult Med) [address] [place] [address] [id number] 0 10/15/2015 10:07:44 10/15/2015 10:56:48 Low back pain 482023712 M54.5 Shoulder strain 60236181 4 S46.919A Vitamin D deficiency 347 70424 E55.9 Mild depression 83044809 3 F32.0 Knee pain 88635488 M25.5 69 Gastroesop hageal reflux disease 727971875 K21.9 Depressive disorder 3548 9007 F32.9 [id number] MD Cici Howard (HELMINTHOLOGIST) [address] [place] [address] [id number] 0 11/04/2015 10:26:56 11/04/2015 13:49:14 Screening mammography 79416427 Z12.31 Atrophic vaginitis 85247 000 N95.2 Bladder mu scle dysfunction - overactive 745067721 N32.81 Menopausal flushing 1984 99597 N95.1 [id number] MD Cici Quan (Adult Med) [address] [place] [address] [id number] 0 12/14/2015 09:31:47 12/14/2015 10:08:25 Dyspnea on exertion 76920549 R06.09 Bladder mu scle dysfunction - overactive 589995955 N32.81 Depressive disorder 3548 9007 F32.9 Gastroesop hageal reflux disease 420199337 K21.9 Low back pain 806472392 M54.5 Knee pain 88775335 M25.5 69 Vitamin D deficiency 347 57169 E55.9 [id number] MD Cici Quan (Adult Med) [address] [place] [address] [id number] 0 02/08/2016 12:06:35 02/08/2016 12:59:00 Depressive disorder 18167584 F32.9 Dyspnea on exertion 6084 5006 R06.09 Gastroesop hageal reflux disease 527052280 K21.9 Knee pain 48285801 M25.5 69 Low back pain 504676989 M54.5 Shoulder strain 06043547 4 S46.919A Vitamin D deficiency 347 79410 E55.9 Administra tion of influenza vaccine 17647906 Z23 Serum alyssa min B12 below reference range 696626194 R79.89 Fatigue 55557341 R53.83 [id number] [facility] [address] [place] [address] [id number] 0 03/28/2016 14:31:44 03/28/2016 17:34:27 Serum vitamin B12 below reference range 555019803 R79.89 Dyspnea on exertion 6084 5006 R06.09 Gastroesop hageal reflux disease 655097443 K21.9 Low back pain 407657927 M54.5 Depressive disorder 3548 9007 F32.9 [id number] MD Cici Quan (Adult Med) [address] [place] [address] [id number] 0 06/21/2016 12:01:12 06/21/2016 12:41:41 Low back pain 537586079 M54.5 Mild depression 11640420 3 F32.0 Screening for malignant neoplasm of colon 248211340 Z12.11 [id number] MD Cici Quan (Adult Med) [address] [place] [address] [id number] 0 07/26/2016 10:33:18 07/26/2016 11:24:15 Serum vitamin B12 below reference range 676601308 R79.89 Gastroesop hageal reflux disease 433424352 K21.9 Low back pain 590064881 M54.5 Vitamin D deficiency 347 83969 E55.9 Acute bronchitis 7738342 2 J20.9 Family his tory of diabetes mellitus 143058693 Z83.3 Hyperlipid emia screening 061560517 Z13.220 Screening for malignant neoplasm of colon 860952915 Z12.11 [id number] Valentin Cerrato MD [facility] (Adult Med) [address] [place] [address] [id number] 0 09/28/2016 09:32:36 09/28/2016 10:46:57 Dyspnea on exertion 27626422 R06.09 [id number] Valentin Cerrato MD [facility] (Adult Med) [address] [place] [address] [id number] 0 11/09/2016 09:52:13 11/10/2016 11:08:52 Low back pain 814136951 M54.5 Menopausal flushing 1984 70305 N95.1 Mild depression 98287700 3 F32.0 Vitamin D deficiency 347 52672 E55.9 Depressive disorder 3548 9007 F32.9 Left lower quadrant pain 269840001 R10.32 [id number] MD Cici Howard (HELMINTHOLOGIST) [address] [place] [address] [id number] 0 01/10/2017 11:26:04 01/10/2017 16:40:59 Screening mammography 91813698 Z12.31 Urinary tr act infectious disease 74937838 N39.0 Menopausal flushing 1984 16015 N95.1 [id number] [facility] [address] [place] [address] [id number] 0 01/11/2017 10:05:27 01/11/2017 10:37:37 Low back pain 092900583 M54.5 Pain of hip region 38479 002 M25.552 Cough 77974348 R05 Acute bronchitis 4330218 2 J20.9 [id number] MD Cici Quan (Adult Med) [address] [place] [address] [id number] 0 03/15/2017 10:00:12 03/15/2017 11:02:26 Pain of hip region 79475094 M25.552 Serum alyssa min B12 below reference range 437132341 R79.89 Gastroesop hageal reflux disease 220170517 K21.9 Vitamin D deficiency 347 29881 E55.9 Low back pain 874791835 M54.5 Administra tion of influenza vaccine 59926968 Z23 [id number] MD Cici Quan (Adult Med) [address] [place] [address] [id number] 0 06/02/2017 11:50:53 06/02/2017 14:28:48 Pain of hip region 16100348 M25.552 Low back pain 137602942 M54.5 Gastroesop hageal reflux disease 792113223 K21.9 Cough 40594566 R05 Trochanter ic bursitis of left hip 7296452473 75306 M70.62 Serum alyssa min B12 below reference range 998600360 R79.89 Vitamin D deficiency 347 18657 E55.9 [id number] [facility] [address] [place] [address] 03964-593 0 07/28/2017 10:34:08 07/28/2017 11:31:51 Acute bronchitis 76264690 J20.9 Serum alyssa min B12 below reference range 895476224 R79.89 Gastroesop hageal reflux disease 309468348 K21.9 Dyspnea 735425496 R06.02 Pain of hip region 73967 002 M25.552 Low back pain 467852486 M54.5 [id number] [facility] [address] [place] [address] [id number] 0 09/29/2017 10:33:51 09/29/2017 12:22:14 Sinusitis 48673366 J32.9 Low back pain 430845336 M54.5 Gastroesop hageal reflux disease 371248220 K21.9 [id number] MD Cici Quan (Adult Med) [address] [place] [address] 23126-576 0 01/15/2018 14:10:44 01/15/2018 15:02:14 Trochanteric bursitis of left hip 7660309053 59901 M70.62 Acute bronchitis 3342116 2 J20.9 Pain of hip region 65842 002 M25.552 Gastroesop hageal reflux disease 016477017 K21.9 Low back pain 026912142 M54.5 Vitamin D deficiency 347 21400 E55.9 Depressive disorder 3548 9007 F32.9 [id number] MD Cici Quan (Adult Med) [address] [place] [address] [id number] 0 02/15/2018 13:59:51 02/15/2018 14:34:45 Cough 02410412 R05 Shoulder strain 51700608 4 S46.919A Trochanter ic bursitis of left hip 1294182944 84016 M70.62 [id number] MD Cici Howard (HELMINTHOLOGIST) [address] [place] [address] [id number] 0 02/28/2018 15:03:18 03/01/2018 09:20:55 Screening mammography 68294735 Z12.31 Mild depression 13432273 3 F32.0 Candidiasis of skin 4988 3006 B37.2 [id number] MD Cici Quan (Adult Med) [address] [place] [address] [id number] 0 06/19/2018 16:06:46 06/19/2018 16:59:05 Low back pain 193731147 M54.5 Trochanter ic bursitis of left hip 6102293685 66546 M70.62 Serum alyssa min B12 below reference range 999304562 R79.89 Gastroesop hageal reflux disease 624023206 K21.9 Bladder mu scle dysfunction - overactive 919111671 N32.81 Mild depression 35934552 3 F32.0 Vitamin D deficiency 347 01925 E55.9 [id number] MD Cici Quan (Adult Med) [address] [place] [address] [id number] 0 07/17/2018 13:32:46 07/18/2018 09:58:41 Hyperlipidemia 72836248 E78.5 High hemog lobin A1c level 497093651 R73.09 Vitamin D deficiency 347 88548 E55.9 Serum alyssa min B12 below reference range 106613997 R79.89 Trochanter ic bursitis of left hip 4806342647 73305 M70.62 Gastroesop hageal reflux disease 776745253 K21.9 Sinusitis 14835940 J32.9 Low back pain 775716435 M54.5 Prolapsed lumbar intervertebral disc 428459972 M51.26 Bladder mu scle dysfunction - overactive 524496613 N32.81 Depressive disorder 3548 9007 F32.9 [id number] Valentin Cerrato MD [facility] (Adult Med) [address] [place] [address] [id number] 0 08/16/2018 16:22:35 08/16/2018 17:08:52 Hyperlipidemia 10280709 E78.5 Low back pain 493592988 M54.5 [id number] Valentin Cerrato MD [facility] (Adult Med) [address] [place] [address] [id number] 0 09/28/2018 12:29:47 09/28/2018 13:26:02 Low back pain 211040385 M54.5 Hypothyroidism 60647107 E03.9 Hyperlipidemia 59198798 E78.5 Vitamin D deficiency 347 11637 E55.9 Prolapsed lumbar intervertebral disc 878137829 M51.26 Trochanter ic bursitis of left hip 7047189256 33584 M70.62 Gastroesop hageal reflux disease 233373571 K21.9 Mild depression 30950919 3 F32.0 [id number] Valentin Cerrato MD [facility] (Adult Med) [address] [place] [address] 86145-404 0 10/29/2018 11:42:16 10/30/2018 09:07:25 Low back pain 364709465 M54.5 Hypothyroidism 10490145 E03.9 Hypokalemia 83654121 E87 .6 Gastroesop hageal reflux disease 136009229 K21.9 Asthma-chr onic obstructive pulmonary disease overlap syndrome 8861003806 0665202 J44.9 Prolapsed lumbar intervertebral disc 209630527 M51.26 Hyperlipidemia 95352312 E78.5 Trochanter ic bursitis of left hip 6422816189 53396 M70.62 Pain of hip region 00912 002 M25.552 Serum alyssa min B12 below reference range 596840707 R79.89 Vitamin D deficiency 347 01386 E55.9 Depressive disorder 3548 9007 F32.9 [id number] Valentin Cerrato MD [facility] (Adult Med) [address] [place] [address] [id number] 0 01/01/2019 16:03:35 01/01/2019 17:30:02 Low back pain 011857379 M54.5 Gastroesop hageal reflux disease 842589675 K21.9 Venereal d isease screening 818587239 Z11.3 Depressive disorder 3548 9007 F32.9 Vitamin D deficiency 347 20582 E55.9 Hyperlipidemia 50296465 E78.5 Hypothyroidism 93060047 E03.9 Asthma-chr onic obstructive pulmonary disease overlap syndrome 3990676867 6617724 J44.9 [id number] Valentin Cerrato MD [facility] (Adult Med) [address] [place] [address] [id number] 0 02/06/2019 11:56:18 02/06/2019 13:39:54 Low back pain 664844960 M54.5 Pain of le ft hip joint 2248544744 48428 M25.552 Asthma-chr onic obstructive pulmonary disease overlap syndrome 8445345952 1154626 J44.9 Hypothyroidism 31717149 E03.9 Prolapsed lumbar intervertebral disc 560897958 M51.26 Hyperlipidemia 88045111 E78.5 Trochanter ic bursitis of left hip 7038656941 48945 M70.62 Gastroesop hageal reflux disease 012039557 K21.9 Vitamin D deficiency 347 34887 E55.9 Depressive disorder 3548 9007 F32.9 [id number] Valentin Cerrato MD [facility] (Adult Med) [address] [place] [address] [id number] 0 03/06/2019 11:33:00 03/06/2019 12:16:02 Acute sinusitis 12393174 J01.90 Sinusitis 72953333 J32.9 Low back pain 932062033 M54.5 Trochanter ic bursitis of left hip 0855214857 30917 M70.62 Pain of le ft hip joint 7510951125 64607 M25.552 Asthma-chr onic obstructive pulmonary disease overlap syndrome 6529255731 3328196 J44.9 Hypothyroidism 99794106 E03.9 Prolapsed lumbar intervertebral disc 033568352 M51.26 Hyperlipidemia 78644793 E78.5 Pain of hip region 20035 002 M25.552 Serum alyssa min B12 below reference range 065142197 R79.89 Gastroesop hageal reflux disease 981631932 K21.9 Vitamin D deficiency 347 03238 E55.9 Depressive disorder 3548 9007 F32.9 [id number] [facility] [address] [place] [address] [id number] 0 04/03/2019 10:32:25 04/04/2019 11:02:34 Acute sinusitis 07851295 J01.90 Augmentin refilled 04/02 Low back pain 653781238 M54.5 Candidiasis of mouth 797 35889 B37.0 [id number] Valentin Cerrato MD [facility] (Adult Med) [address] [place] [address] 97056-804 0 05/03/2019 14:24:35 05/06/2019 10:05:09 Pre-surgery testing 460104890 Z01.89 Low back pain 609984082 M54.5 Asthma-chr onic obstructive pulmonary disease overlap syndrome 7211264148 7121387 J44.9 Bladder mu scle dysfunction - overactive 336826814 N32.81 Depressive disorder 3548 9007 F32.9 Gastroesop hageal reflux disease 379976603 K21.9 Hyperlipidemia 70708149 E78.5 Hypothyroidism 35121577 E03.9 Pain of le ft hip joint 7310457574 32206 M25.552 Prolapsed lumbar intervertebral disc 880585021 M51.26 Serum alyssa min B12 below reference range 823023283 R79.89 Trochanter ic bursitis of left hip 7659428744 07555 M70.62 Vitamin D deficiency 347 95434 E55.9 [id number] Valentin Cerrato MD [facility] (Adult Med) [address] [place] [address] 98642-486 0 06/03/2019 10:30:37 06/03/2019 11:39:02 High hemoglobin A1c level 805518017 R73.09 Hypothyroidism 50019386 E03.9 Serum alyssa min B12 below reference range 853093091 R79.89 Vitamin D deficiency 347 07250 E55.9 Hypokalemia 90701551 E87 .6 Hyperlipidemia 79648198 E78.5 Prolapsed lumbar intervertebral disc 502014726 M51.26 Trochanter ic bursitis of left hip 2972942948 71334 M70.62 Low back pain 289759731 M54.5 Bladder mu scle dysfunction - overactive 981782625 N32.81 Depressive disorder 3548 9007 F32.9 Gastroesop hageal reflux disease 612796517 K21.9 [id number] MD Cici Cash (Adult Med) [address] [place] [address] [id number] 0 06/17/2019 12:19:53 06/18/2019 08:36:12 Facial swelling 355501887 R22.0 Central vs Peripheral Not consistent with an infection 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 Acquired p tosis of eyelid of right eye 7755736959 6790443 H02.401 Oropharyng eal dysphagia 84593499 R13.12 [id number] MD Cici Quan (Adult Med) [address] [place] [address] 30600-807 0 06/27/2019 09:54:31 06/28/2019 09:39:42 Carrier of methicillin resistant Staphylococcus aureus 021651916 Z22.322 Gastroesop hageal reflux disease 419661468 K21.9 Low back pain 045029302 M54.5 Hypokalemia 65981408 E87 .6 Hyperlipidemia 02617198 E78.5 Menopausal flushing 1984 91506 N95.1 Hypothyroidism 46264744 E03.9 Vitamin D deficiency 347 04702 E55.9 Trochanter ic bursitis of left hip 7667362710 88073 M70.62 Serum alyssa min B12 below reference range 443233499 R79.89 Prolapsed lumbar intervertebral disc 618353637 M51.26 Depressive disorder 3548 9007 F32.9 Asthma-chr onic obstructive pulmonary disease overlap syndrome 9261324881 9894289 J44.9 [id number] MD Cici Quan (Adult Med) [address] [place] [address] 66444-370 0 07/25/2019 10:01:10 07/26/2019 11:04:50 Low back pain 808651354 M54.5 Carrier of methicillin resistant Staphylococcus aureus 934181262 Z22.322 Injury of left hip region 0959527969 6602128 S79.912A Gastroesop hageal reflux disease 417186514 K21.9 Bladder mu scle dysfunction - overactive 955767610 N32.81 Asthma-chr onic obstructive pulmonary disease overlap syndrome 0490303867 0881252 J44.9 Depressive disorder 3548 9007 F32.9 Hyperlipidemia 88136127 E78.5 Hypothyroidism 91195009 E03.9 Prolapsed lumbar intervertebral disc 610345034 M51.26 Serum alyssa min B12 below reference range 558609913 R79.89 Vitamin D deficiency 347 79410 E55.9 [id number] LIONEL De Dios (Adult Med) [address] [place] [address] 34847-907 0 08/22/2019 11:06:15 08/22/2019 11:48:16 Pain of hip region 96621461 M25.552 Low back pain 658606850 M54.5 Vitamin D deficiency 347 02199 E55.9 Hypothyroidism 18720346 E03.9 Gastroesop hageal reflux disease 074146487 K21.9 Hyperlipidemia 93381912 E78.5 Serum alyssa min B12 below reference range 997960714 R79.89 Dental abscess 521945234 K04.7 [id number] MD Cici Quan (Adult Med) [address] [place] [address] 83529-616 0 10/15/2019 08:35:56 10/16/2019 08:59:44 Asthma-chronic obstructive pulmonary disease overlap syndrome 5381918053 5707440 J44.9 Depressive disorder 3548 9007 F32.9 Gastroesop hageal reflux disease 356902302 K21.9 High hemog lobin A1c level 149538048 R73.09 Hyperlipidemia 41074752 E78.5 Hypothyroidism 54522175 E03.9 Knee pain 05361692 M25.5 69 Low back pain 591344668 M54.5 Serum alyssa min B12 below reference range 988310897 R79.89 Trochanter ic bursitis of left hip 1725653482 77319 M70.62 Vitamin D deficiency 347 43366 E55.9 Prolapsed lumbar intervertebral disc 138244083 M51.26 [id number] MD Cici Quan (Adult Med) [address] [place] [address] 13870-471 0 11/01/2019 08:04:57 11/04/2019 17:14:09 Low back pain 555747574 M54.5 Hyperlipidemia 14545568 E78.5 Hypothyroidism 04662105 E03.9 Gastroesop hageal reflux disease 982358723 K21.9 Hypokalemia 72076842 E87 .6 Asthma-chr onic obstructive pulmonary disease overlap syndrome 8649955439 3398340 J44.9 Depressive disorder 3548 9007 F32.9 Trochanter ic bursitis of left hip 3076532830 87005 M70.62 Vitamin D deficiency 347 78203 E55.9 Serum alyssa min B12 below reference range 790512898 R79.89 [id number] MD Cici Quan (Adult Med) [address] [place] [address] 67581-265 0 11/28/2019 15:22:17 12/04/2019 11:41:37 Pain of right hip joint 8749934881 54569 M25.551 Claims has had chronic right hip pain, needs hydrocodon e stand by. F/U with her pcp MARINA Reese. [id number] MD Cici Quan (Adult Med) [address] [place] [address] 86051-815 0 12/30/2019 08:14:57 12/30/2019 16:40:59 Pain of right hip joint 4532856837 18258 M25.551 Edema of l ower extremity 296709853 R60.0 Depressive disorder 3547 9006 F32.9 Gastroesop hageal reflux disease 573841086 K21.9 Pain of hip region 73784 002 M25.552 Hyperlipidemia 25343320 E78.5 Hypothyroidism 77079463 E03.9 Low back pain 034997391 M54.5 Serum alyssa min B12 below reference range 913547455 R79.89 Shoulder strain 89165904 4 S46.919A Trochanter ic bursitis of left hip 7485841085 94532 M70.62 Vitamin D deficiency 347 17060 E55.9 [id number] MD Cici Quan (Adult Med) [address] [place] [address] 65852-025 0 01/30/2020 08:08:40 01/30/2020 15:38:42 Low back pain 117703998 M54.5 Pain of ri ght hip joint 0806732046 11435 M25.551 Edema of l ower extremity 190664918 R60.0 Asthma-chr onic obstructive pulmonary disease overlap syndrome 7845617811 1898255 J44.9 Depressive disorder 3548 9007 F32.9 Gastroesop hageal reflux disease 969182224 K21.9 High hemog lobin A1c level 404000767 R73.09 Hyperlipidemia 54674994 E78.5 Hypothyroidism 47771504 E03.9 Prolapsed lumbar intervertebral disc 245639539 M51.26 Serum alyssa min B12 below reference range 849828247 R79.89 Trochanter ic bursitis of left hip 4033637230 37365 M70.62 Vitamin D deficiency 347 72002 E55.9 [id number] Valentin Cerrato MD [facility] (Adult Med) [address] [place] [address] 47689-151 0 02/28/2020 08:05:01 02/28/2020 15:01:33 Pain of right hip joint 3821921448 64684 M25.551 Gastroesop hageal reflux disease 386783102 K21.9 Low back pain 659187724 M54.5 Asthma-chr onic obstructive pulmonary disease overlap syndrome 8744228658 6483510 J44.9 Depressive disorder 3548 9007 F32.9 Hyperlipidemia 15725958 E78.5 Hypothyroidism 17940880 E03.9 Prolapsed lumbar intervertebral disc 964835261 M51.26 Serum alyssa min B12 below reference range 119912422 R79.89 Vitamin D deficiency 347 61977 E55.9 [id number] Valentin Cerrato MD [facility] (Adult Med) [address] [place] [address] 79814-749 0 03/11/2020 12:05:23 03/11/2020 12:33:52 Administration of influenza vaccine 23742250 Z23 Administra tion of pneumococcal vaccine 97806064 Z23 [id number] [facility] [address] [place] [address] 47590-393 0 03/30/2020 08:26:36 03/30/2020 11:59:58 Hypothyroidism 31276557 E03.9 Edema of l ower extremity 246002051 R60.0 Hyperlipidemia 64487499 E78.5 Hypokalemia 05359961 E87 .6 Low back pain 240608646 M54.5 Knee pain 44469609 M25.5 69 Gastroesop hageal reflux disease 023361159 K21.9 Pain of ri ght hip joint 9383133951 26108 M25.551 Asthma-chr onic obstructive pulmonary disease overlap syndrome 6635098822 6887724 J44.9 Depressive disorder 3548 9007 F32.9 Prolapsed lumbar intervertebral disc 155137662 M51.26 Serum alyssa min B12 below reference range 427532813 R79.89 Trochanter ic bursitis of left hip 7728200215 73415 M70.62 Vitamin D deficiency 347 78168 E55.9 [id number] Valentin Cerrato MD [facility] (Adult Med) [address] [place] [address] 09925-613 0 04/30/2020 07:58:24 04/30/2020 11:12:08 Edema of lower extremity 131705764 R60.0 Asthma-chr onic obstructive pulmonary disease overlap syndrome 3874917999 0383660 J44.9 Depressive disorder 3548 9007 F32.9 Gastroesop hageal reflux disease 529156552 K21.9 Hyperlipidemia 91307530 E78.5 Hypothyroidism 79499026 E03.9 Low back pain 080923007 M54.5 Knee pain 26834646 M25.5 69 Serum alyssa min B12 below reference range 009648991 R79.89 Vitamin D deficiency 347 96312 E55.9 Hypokalemia 49705106 E87 .6 Prolapsed lumbar intervertebral disc 900568676 M51.26 Trochanter ic bursitis of left hip 7213639468 76902 M70.62 [id number] Valentin Cerrato MD [facility] (Adult Med) [address] [place] [address] 45786-029 0 05/29/2020 07:48:38 05/29/2020 11:01:40 Knee pain 20577618 M25.569 Vitamin D deficiency 347 54054 E55.9 Hypothyroidism 46738108 E03.9 Hyperlipidemia 28145456 E78.5 Edema of l ower extremity 643935595 R60.0 Depressive disorder 3548 9007 F32.9 Gastroesop hageal reflux disease 107098130 K21.9 Low back pain 645508155 M54.5 Prolapsed lumbar intervertebral disc 554888093 M51.26 Trochanter ic bursitis of left hip 2550101273 51278 M70.62 [id number] Valentin Cerrato MD [facility] (Adult Med) [address] [place] [address] 22698-900 0 06/30/2020 07:55:33 06/30/2020 13:07:33 Knee pain 23110289 M25.569 Hyperlipidemia 46534932 E78.5 Gastroesop hageal reflux disease 302974294 K21.9 Hypothyroidism 70203305 E03.9 Low back pain 283426271 M54.5 Liver mass 972067607 R16 .0 radiologis t recommende d an MRI Asthma-chr onic obstructive pulmonary disease overlap syndrome 3029321997 1937286 J44.9 Depressive disorder 3548 9007 F32.9 Pain of hip region 67315 002 M25.552 Prolapsed lumbar intervertebral disc 317972721 M51.26 Serum alyssa min B12 below reference range 141267387 R79.89 Shoulder strain 08974486 4 S46.919A Trochanter ic bursitis of left hip 6722069287 26975 M70.62 Vitamin D deficiency 347 22352 E55.9 [id number] Valentin Cerrato MD [facility] (Adult Med) [address] [place] [address] 10537-079 0 07/28/2020 08:48:52 07/28/2020 12:13:29 Injury of left hip region 0827377562 0004960 S79.912A Knee pain 95226262 M25.5 69 Hyperlipidemia 23375109 E78.5 Edema of l ower extremity 445184898 R60.0 Shoulder strain 75825271 4 S46.919A Asthma-chr onic obstructive pulmonary disease overlap syndrome 9419219105 4780770 J44.9 Depressive disorder 3548 9007 F32.9 Gastroesop hageal reflux disease 607178569 K21.9 Hypokalemia 09086158 E87 .6 Low back pain 370625480 M54.5 Prolapsed lumbar intervertebral disc 959768727 M51.26 Serum alyssa min B12 below reference range 102394093 R79.89 Trochanter ic bursitis of left hip 0547781411 93966 M70.62 Vitamin D deficiency 347 84693 E55.9 [id number] MD Cici Quan (Adult Med) [address] [place] [address] 13046-763 0 08/25/2020 08:41:03 08/25/2020 14:21:21 Trochanteric bursitis of left hip 7141925473 30463 M70.62 Edema of l ower extremity 256300315 R60.0 [id number] MD Cici Quan (Adult Med) [address] [place] [address] 61763-805 0 09/24/2020 07:55:39 09/24/2020 12:02:31 Gastroesophageal reflux disease 049052062 K21.9 Edema of l ower extremity 959622432 R60.0 Low back pain 800367002 M54.5 Asthma-chr onic obstructive pulmonary disease overlap syndrome 4081170950 4929285 J44.9 Depressive disorder 3548 9007 F32.9 Hyperlipidemia 34989687 E78.5 Hypothyroidism 59593267 E03.9 Serum alyssa min B12 below reference range 260646922 R79.89 Trochanter ic bursitis of left hip 1014327957 51280 M70.62 Vitamin D deficiency 347 70878 E55.9 [id number] MD Cici Quan (Adult Med) [address] [place] [address] 11311-891 0 10/26/2020 12:02:57 10/26/2020 12:58:50 Low back pain 867534531 M54.5 Hypokalemia 77982877 E87 .6 Serum crea tinine above reference range 548973512 R79.89 Knee pain 77771452 M25.5 69 Trochanter ic bursitis of left hip 2031898370 31682 M70.62 Hyperlipidemia 91450424 E78.5 Hypothyroidism 21674899 E03.9 [id number] MD Cici Quan (Adult Med) [address] [place] [address] 22652-398 0 12/25/2020 10:09:22 12/25/2020 12:43:38 Knee pain 39502804 M25.569 Low back pain 667834975 M54.5 Edema of l ower extremity 718949198 R60.0 Asthma-chr onic obstructive pulmonary disease overlap syndrome 1137562622 4809593 J44.9 Depressive disorder 3548 9007 F32.9 Gastroesop hageal reflux disease 930759834 K21.9 High hemog lobin A1c level 261372657 R73.09 Pain of hip region 00082 002 M25.552 Hyperlipidemia 65150007 E78.5 Hypothyroidism 30370508 E03.9 Prolapsed lumbar intervertebral disc 848961023 M51.26 Serum alyssa min B12 below reference range 062131006 R79.89 Vitamin D deficiency 347 75718 E55.9 Trochanter ic bursitis of left hip 5801346744 82620 M70.62 [id number] MD Cici Quan (Adult Med) [address] [place] [address] 40818-374 0 03/24/2021 08:34:02 03/25/2021 12:39:27 Knee pain 10531084 M25.569 Gastroesop hageal reflux disease 120727754 K21.9 Low back pain 762090814 M54.50 Edema of l ower extremity 319462822 R60.0 [id number] MD Cici Shelton (Adult Med) [address] [place] [address] 73489-092 0 05/06/2021 12:39:13 05/06/2021 13:15:28 Administration of influenza vaccine 60072865 Z23 [id number] MD Cici Quan (Adult Med) [address] [place] [address] [phone] 0 06/22/2021 10:10:56 06/23/2021 13:32:31 Pain of hip region 13676163 M25.552 Knee pain 88215269 M25.5 69 Gastroesop hageal reflux disease 865473764 K21.9 Hyperlipidemia 33326268 E78.5 Edema of l ower extremity 235379227 R60.0 Prolapsed lumbar intervertebral disc 349933478 M51.26 Trochanter ic bursitis of left hip 0973331443 89006 M70.62 Vitamin D deficiency 347 25497 E55.9 Depressive disorder 3548 9007 F32.9 High hemog lobin A1c level 657663632 R73.09 Hypothyroidism 37013042 E03.9 Low back pain 746987203 M54.50 Serum alyssa min B12 below reference range 407903913 R79.89 [id number] Valentin Cerrato MD [facility] (Adult Med) [address] [place] [address] 27657-089 0 08/03/2021 15:12:36 08/04/2021 12:30:35 Cough 66716350 R05.9 Pain of hip region 72810 002 M25.552 Low back pain 774234275 M54.50 Edema of l ower extremity 027555054 R60.0 Gastroesop hageal reflux disease 080659738 K21.9 High hemog lobin A1c level 616857039 R73.09 Hyperlipidemia 35115131 E78.5 Hypothyroidism 60137090 E03.9 Prolapsed lumbar intervertebral disc 947160178 M51.26 Serum alyssa min B12 below reference range 116423590 R79.89 Trochanter ic bursitis of left hip 7879515300 58594 M70.62 Vitamin D deficiency 347 25214 E55.9 [id number] Valentin Cerrato MD [facility] (Adult Med) [address] [place] [address] 58714-267 0 09/23/2021 16:04:54 09/24/2021 22:31:51 Acute laryngitis 3795099 J04.0 Discussed with patient, with presence of female MA , she agreed to try ABS as ordered. [id number] MD Cici Quan (Adult Med) [address] [place] [address] 76117-966 0 10/26/2021 15:40:27 10/27/2021 11:50:32 Neck swelling 859195557 R22.1 Hypothyroidism 35071804 E03.9 Hyperlipidemia 35135531 E78.5 Depressive disorder 3548 9007 F32.9 Gastroesop hageal reflux disease 060170057 K21.9 Serum alyssa min B12 below reference range 192790624 R79.89 Trochanter ic bursitis of left hip 1920261595 50647 M70.62 Low back pain 872133939 M54.50 Asthma-chr onic obstructive pulmonary disease overlap syndrome 2486060570 6919864 J44.9 Vitamin D deficiency 347 73518 E55.9 High hemog lobin A1c level 133403601 R73.09 Hypokalemia 21822864 E87 .6 [id number] MD Cici Quan (Adult Med) [address] [place] [address] 02756-963 0 01/11/2022 14:41:16 01/12/2022 10:36:07 Prolapsed lumbar intervertebral disc 230392802 M51.26 Screening for malignant neoplasm of colon 050186966 Z12.11 Depressive disorder 3548 9007 F32.9 Gastroesop hageal reflux disease 671300816 K21.9 Hyperlipidemia 85363606 E78.5 Hypothyroidism 35303962 E03.9 Serum alyssa min B12 below reference range 301518557 R79.89 Trochanter ic bursitis of left hip 6912148578 12806 M70.62 [id number] MD Cici DUGGAN (HELMINTHOLOGIST) [address] [place] [address] 67850-875 0 02/03/2022 09:45:08 02/04/2022 13:12:24 Gynecologic examination 31605135 Z01.411 - Educated on the importance of [...] drugs. Screening for malignant neoplasm of breast 454403215 Z12.39 Last mammogram in 2017, overdue; ordered today Body mass index 30+ - obesity 687977233 Z68.32 - Encouraged increasing aerobic exercise to at least 150min per week, and discussed the use of MyPlate method with emphasis on increasing fruit and vegetable consumptio n and limiting processed foods and added sugars- Check A1c, Lipid panel, and TSH for risk stratifica tion. Essential hypertension 88390602 I10 - BP uncontroll ed, has been hypertensi ve on multiple occasions over the past year- Will start Lisinopril 20mg for further BP control- Check CMP, discussed importance of a low sodium diet- Keep Appt with PCP to monitor BP Menopausal symptom 10680 002 E89.41 - Currently on estradiol 1mg, daily, not as effective- Will start Prempro to minimize effect of chronic unopposed estrogen [id number] MD Cici Quan (Adult Med) [address] [place] [address] 13329-626 0 03/08/2022 13:52:33 03/09/2022 13:33:53 Hyperlipidemia 19884096 E78.5 Edema of l ower extremity 937939086 R60.0 Pain of hip region 58613 002 M25.552 Cough 00299664 R05.9 Administra tion of influenza vaccine 59463705 Z23 Gastroesop hageal reflux disease 553791195 K21.9 Depressive disorder 3548 9007 F32.9 Hypothyroidism 53699317 E03.9 Prolapsed lumbar intervertebral disc 952009863 M51.26 Serum alyssa min B12 below reference range 321616859 R79.89 Trochanter ic bursitis of left hip 3482891901 82508 M70.62 [id number] MD Cici DUGGAN (HELMINTHOLOGIST) [address] [place] [address] 06654-785 0 03/31/2022 10:30:51 04/01/2022 15:52:35 Heterogeneously dense breast composition 072615903 R92.2 Screening Mammogram done 03/03/2022 showed heterogene ously dense tissue, recommende d bilateral breast US for additional eval, ordered Menopausal flushing 1983 43800 N95.1 Patient has been on Premarin 0.625 mg + Medroxypro gesterone 2.5mg dailyPt s/p hysterecto my, no indication for progestero ne HRT, will stop medroxypro gesteroneW ill reduce Premarin to 0.45mg to reduce risk of VTE/cancer Essential hypertension 85545417 I10 - BP better controlled with Lisinopril , continue med, CMP unremarkab le- Continue low sodium diet- Keep Appt with PCP to follow up on BP [id number] MD Cici Leblanc (Adult Med) [address] [place] [address] [phone] 0 04/12/2022 14:45:58 04/13/2022 15:38:26 Essential hypertension 59150545 I10 Increase lisinopril to 40 mg/d Gastroesop hageal reflux disease 885259709 K21.9 Low back pain 512222396 M54.50 Renewal of prescription 726126404 Z76.0 Hypertriglyceridemia 302 675330 E78.2 [id number] MD Cici Leblanc (Adult Med) [address] [place] [address] 36999-648 0 07/14/2022 14:18:05 07/20/2022 10:50:27 Hypertriglyceridemia 560032100 E78.2 Asthma-chr onic obstructive pulmonary disease overlap syndrome 8573653233 5098424 J44.9 Vitamin D deficiency 347 50865 E55.9 Low back pain 819940399 M54.50 Knee pain 61029946 M25.5 69 Medication monitoring 39 5041224 Z51.81 [id number] MD Cici DUGGAN (HELMINTHOLOGIST) [address] [place] [address] 17049-027 0 10/06/2022 11:12:38 10/21/2022 11:26:08 Fatigue 00950753 R53.83 patient feels tired most of the time in the last 6 months. States she wakes up from sleeping and feels like can go back to bed. She denies constipati on, diarrhea, heat, cold intoleranc e, hair loss. Will recheck TSH to assess if hypothyroi dism is well managed. Polyp of s igmoid colon 001126028 D12.5 Patient had colonoscop y in 05-03-2022 , with diverticul a noted on exam. Colonscopy not warranted at this time. 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 [id number] Juanita Chacon MD [facility] (Adult Med) [address] [place] [address] 47883-378 0 03/14/2023 10:30:29 03/15/2023 13:06:26 Obesity 973467989 E66.9 Low back pain 647643596 M54.50 Asthma-chr onic obstructive pulmonary disease overlap syndrome 8879969276 3195793 J44.9 Diverticular disease 397 849722 K57.90 Essential hypertension 75073375 I10 Add HCTZ History of polyp of colon 264920721 Z86.010 Hyperlipidemia 54606163 E78.5 Hypothyroidism 55657588 E03.9 Active immunization 3387 9002 Z23 [id number] Juanita Chacon MD [facility] (Adult Med) [address] [place] [address] 59308-241 0 05/29/2023 10:36:23 06/02/2023 16:27:21 Obesity 124364664 E66.9 Medication monitoring 39 3749401 Z51.81 [id number] Juanita Chacon MD [facility] (Adult Med) [address] [place] [address] 48394-297 0 08/29/2023 11:17:47 08/30/2023 20:54:27 Obesity 624715957 E66.9 Vitamin D deficiency 347 63180 E55.9 Asthma-chr onic obstructive pulmonary disease overlap syndrome 7139433415 0053097 J44.9 Diverticular disease 397 278485 K57.90 Essential hypertension 24907846 I10 Reevaluate at next OV Gastroesop hageal reflux disease 786477506 K21.9 Increase PPI High hemog lobin A1c level 346689795 R73.09 History of polyp of colon 598215958 Z86.010 Colonoscop y 1m 2021. Repeat 2026 Hyperlipidemia 44298237 E78.5 Hypertriglyceridemia 302 881560 E78.2 Hypothyroidism 56630914 E03.9 Hyperglycemia 60293223 R 73.9 Low back pain 295644567 M54.50 Loose stool 386451147 R1 9.5 [id number] MD Cici Leblanc (Adult Med) [address] [place] [address] 09359-676 0 01/16/2024 15:14:36 01/17/2024 15:50:40 Obesity 061577371 E66.8 Cough 45122160 R05.9 Low back pain 263647604 M54.50 Essential hypertension 72180189 I10 Reevaluate at next OV Anemia 353431776 D64.9 [id number] MD Cici Leblanc (Adult Med) [address] [place] [address] 83577-174 0 04/10/2024 12:22:04 04/16/2024 16:35:31 Serum creatinine outside reference range 116209159 R79.89 Depressive disorder 3548 9007 F32.9 Diverticular disease 397 754299 K57.90 Essential hypertension 11910303 I10 Reevaluate at next OV Family his tory of diabetes mellitus 298315323 Z83.3 Gastroesop hageal reflux disease 833866397 K21.9 Increase PPI Hyperglycemia 10040089 R 73.9 Menopausal flushing 1983 63596 N95.1 F/U MANAGER OF CHANGE Medication monitoring 39 8571472 Z51.81 Low back pain 631630877 M54.50 Active immunization 3387 9002 Z23 [id number] MD Cici DUGGAN (HELMINTHOLOGIST) [address] [place] [address] 16314-302 0 07/01/2024 15:42:56 07/22/2024 08:51:28 Screening mammography 85711890 Z12.31 Adult heal th examination 943767089 Z00.00 Menopausal flushing 1983 32825 N95.1 Patient ran out of her premarin .45 and since has been having return of her hot flashes. Would like to restart. No hx of [place], CVA, TIA, clotting hx. No fam hx of vascular disease. Hysterecto my without malignancy concerns. Will restart at lower dose and see if relief of symtpoms. Dysuria 57463257 R30.0 UA reassuring . Will send for culture. [id number] MD Cici Leblanc (Adult Med) [address] [place] [address] 61945-245 0 07/08/2024 14:07:34 07/09/2024 15:36:35 Lower abdominal pain 32579368 R10.[address] Colonoscop y in 2021 Postprandial diarrhea 14 228227 K52.89 Increase fiber to twice daily Gastroesop hageal reflux disease 575593551 K21.9 Take PPI x4/week Diverticular disease 397 034843 K57.90 Increase fiber to twice daily Low back pain 523745948 M54.50 Chronic ki dney disease 209681530 N18.9 Stop ibuprofen and decrease PPI [id number] MD Cici Leblanc (Adult Med) [address] [place] [address] 88573-777 0 09/09/2024 10:39:58 09/10/2024 11:24:54 Lower abdominal pain 57974527 R10.[address] unremarkab le. F/U GI Postprandial diarrhea 14 233450 K52.89 Increase fiber to twice daily Asthma-chr onic obstructive pulmonary disease overlap syndrome 2876610839 8019160 J44.9 Low back pain 735643925 M54.50 Health Concerns Section Related Observation LastModified by Organization Detai ls LastModified Time None Recorded Concern Status LastModified by Organization Details LastModified Time None Recorded Advance Directives Directive N: Payers Insurance Date Sequence Insurance Name Policy Number Policy Mayorga Covered Member ID Mayorga Member ID Guarantor Name 05/29/2023 1 [facility] - DOS ON OR AFTER 20 (MEDICAID REPLACEMENT - HMO) Flora Siddiqi [id number] Flora Siddiqi 05/29/2023 1 [facility] - DOS PRIOR TO 2020 (MEDICAID REPLACEMENT - HMO) Flora Siddiqi [id number] Flora Siddiqi 05/29/2023 [facility] - DOS PRIOR TO 2020 (MEDICAID REPLACEMENT - HMO) Flora Siddiqi [id number] Flora Siddiqi 05/07/2021 1 *SELF PAY* Rufina Siddiqi 05/29/2023 1 [place] [facility] PUBLIC AID Flora Siddiqi [id number] Flora Siddiqi 05/29/2023 [place] [facility] PUBLIC AID Flora Bellter [id number] Flora Devang 05/29/2023 1 [facility] (MEDICAID HMO) [id number] Flora Siddiqi [id number] Flora Siddiqi 05/29/2023 1 [facility] - DOS PRIOR TO 2020 (MEDICAID REPLACEMENT - HMO) Flora Bellter [id number] Flora Siddiqi 09/06/2024 1 [facility] (MEDICARE REPLACEMENT/AD VANTAGE - HMO) [id number] Flora Siddiqi [id number] Flora Siddiqi 09/06/2024 2 [place]CON[place] WHEN MEDICARE OR MEDICARE REPLACEMENT PRIMARY) Flora U Devang [id number] Flora Devang Notes Date Note Type Note Provider Name and Address Organization Details Recorded Time 01/16/2024 text/html Increased difficulty and non productive cough breathing associated with the heat. Otherwise doing well Juanita Chacon MD Attn: Accounting,[address] [place], [address], [facility] 01/16/2024 16:07:33 04/10/2024 text/html Complaining abou t recurrent menopausal flushing. Wants her pain medicine refilled Juanita Chacon MD Attn: Accounting, [address] [place], [address], [facility] 04/10/2024 13:13:39 07/01/2024 text/html Annual GYNReport ed bypatient.History: Reports is having hot and cold flashes again. No rashes. No new medications recently. Menstrual cycle:Post menopausal for 30 years. S/p partial hysterectomy. 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 Has had STI testing following. Has not been sexually active for the past year. premarin .45 %; needs refill. JANAE FULLER MD Attn: Accounting,[address] [place], [address], [facility] 07/20/2024 22:15:51 07/08/2024 text/html Here for routine f/u. Has had persistent lower abdominal post-prandial diarrhea. Unable to get EGD at [facility] due to insurance coverage. Gallbladder removed before 2019. Colonoscopy in 2021 revealed left-sided diverticulosis. Occasionally uses three pain pills daily. Continues on PPI and ibuprofen. Juanita Chacon MD Attn: Accounting,[address], [place], [address], [facility] 07/08/2024 15:32:38 09/09/2024 text/html Here for f/u for abdominal pain. Needs to find GI that is accepted by insurance. She has bilateral lower abdominal pain and has a bowel movement within an hour of eating certain foods including spicy foods. Lisinopril was stopped by cardiology due to cough. Juanita Chacon MD Attn: Accounting,[address], [place], [address], [facility] 09/09/2024 11:36:23 OBGyn Episode Ob Episode Information Episode Created Date Number of Fetuses Patient Bloodtype Patient rh Status Prepregnancy Weight lbs Domestic Partner Domestic Partner Phone Father Name Machine Folder Status 10/29/19 15 1 CLOSED Fetus Data First Name Last Name Admitted to NICU Weight (g) Sex Living Outcome Pediatric Complications Fetus ID Race Codes Race Delivery Type 2976.69 75 M Full Term [id number] Franklyn Calculation Initial Franklyn Date Initial Exam [...] Domestic Partner Domestic Partner Phone Father Name Machine Folder Status 10/29/19 15 1 CLOSED Fetus Data First Name Last Name Admitted to NICU Weight (g) Sex Living Outcome Pediatric Complications Fetus ID Race Codes Race Delivery Type M Demise [id number] Franklny Calculation Initial Franklyn Date Initial Exam Date [...] Domestic Partner Domestic Partner Phone Father Name Machine Folder Status 10/29/19 15 1 CLOSED Fetus Data First Name Last Name Admitted to NICU Weight (g) Sex Living Outcome Pediatric Complications Fetus ID Race Codes Race Delivery Type 3345.24 1 M Full Term 30479 Franklyn Calculation Initial Franklyn Date Initial Exam [...]
== END 2024-11-01 13:10 | disposition home or self-care (01) ==
LOC: ANHCARD 13:09
PROVIDERS: PCP Internal Medicine Gastroenterology; Visit Provider Internal Medicine Cardiovascular Disease
DX: R06.09 Other forms of dyspnea (principal); R00.2 Palpitations; I10 Essential (primary) hypertension
CPT/HCPCS: 93306

== ENCOUNTER 2024-11-01 13:10 | Outpatient (CLI) | payer MEDICARE, MEDICAID, SELFPAY ==
[2024-11-01 14:05] LABS: Hematocrit 32.2 % (37.0-47.0); Hemoglobin 10.3 g/dL (12.0-15.0); Mean Corpuscular Hemoglobin 29.3 pg (26-34); Mean Corpuscular Volume 91.5 fl (80-100); Platelet Count Result 175 k/mm3 (150-375); Red Blood Count 3.52 M/mm3 (4.2-5.4); Red Cell Distribution Width 14.1 % (11.5-14.5); White Blood Count 7.8 K/mm3 (4.5-10.0)
[2024-11-01 14:17] LABS: Albumin Level 4.4 g/dL (3.5-5.1); Anion Gap 9 mmol/L (4-12); Blood Urea Nitrogen 21 mg/dL (7-17); Calcium 9.4 mg/dL (8.4-10.2); Carbon Dioxide 26 mmol/L (22-30); Chloride 101 mmol/L (98-107); Estimated Glomerular Filt Rate 51; Glucose 112 mg/dL (65-110); Magnesium 1.7 mg/dL (1.6-2.3); Phosphorus 3.2 mg/dL (2.5-4.5); Potassium 3.7 mmol/L (3.4-5.0); Sodium 136 mmol/L (137-145)
[2024-11-01 14:39] LABS: Vitamin D 25 Hydroxy 61.3 ng/mL
[2024-11-01 15:12] LABS: Hepatitis C Virus Antibody Negative (Negative)
[2024-11-01 16:05] LABS: Add Urine Microscopic? YES; Appearance Urine Cloudy (Clear); Bacteria Urine 2+ /hpf; Bilirubin Urine Negative (Negative); Blood Urine Negative (Negative); Color Urine Yellow (Yellow); Creatinine Urine 70.1 mg/dL; Glucose Urine UA Negative (Negative); Ketones Urine Negative (Negative); Leukocyte Esterase Ur Trace LEU/UL (Negative); Nitrate Urine Negative (Negative); Non Pathogenic Casts 0-2; Potassium Urine Random 33.4 meq/L; Protein Urine Negative (Negative); RBC Urine 0-2 /hpf (0-2); Sodium Urine Random 53 meq/L; Squamous Epithelial Cell Urine Moderate /hpf (Few); Total Protein Urine Random 7 mg/dL; Urobilinogen Urine 0.2 mg/dL (<2.0); pH Urine 6.5 (5.0-9.0)
[2024-11-01 16:49] LABS: Microalbumin Urine Random < 6.0 mg/L (0-16.7)
[2024-11-01 16:50] LABS: MALB Creatinine Ratio < 8.7 mg/g (0-30)
[2024-11-04 12:47] LABS: Cystatin C 1.69 mg/L (0.52-1.14); eGFR 35 (> OR = 60)
[2024-11-05 12:03] LABS: Chloride Rand Ur 57 mmol/L (32-290); Chloride/Creatinine Rand Ur 83 (38-318); Creatinine Random Urine 69 mg/dL (20-275)
== END 2024-11-01 13:11 | disposition home or self-care (01) ==
PROVIDERS: PCP Internal Medicine Gastroenterology; Visit Provider Internal Medicine Nephrology
DX: K21.9 Gastro-esophageal reflux disease without esophagitis (principal); I12.9 Hypertensive chronic kidney disease with stage 1 through stage 4 chronic kidney disease, or unspecified chronic kidney disease; N18.30 Chronic kidney disease, stage 3 unspecified; J44.0 Chronic obstructive pulmonary disease with (acute) lower respiratory infection; E03.8 Other specified hypothyroidism; E78.00 Pure hypercholesterolemia, unspecified
CPT/HCPCS: 36415; 80069; 81001; 82043; 82306; 82436; 82570; 82610; 83735; 84133; 84156; 84300; 85027; 86803

== ENCOUNTER 2025-01-30 15:31 | Outpatient (CLI) | payer MEDICARE, MEDICAID, SELFPAY ==
--- NOTE | ~2025-01-30 | MM_ITS ---
EXAMINATION: screening [facility] BI w coretta INDICATION: Asymptomatic, referred for screening mammogram COMPARISON: None available TECHNIQUE: Digital Breast Tomosynthesis CC, MLO views of Both breasts were obtained with computer-aided detection to assist in interpretation of the study. FINDINGS: There are scattered areas of fibroglandular density. There is an asymmetry seen on the cc view in the Medial right breast at middle third. Elsewhere, there are no mammographic features of malignancy. IMPRESSION: 1. Right breast Asymmetry. 2. No evidence of malignancy in the Left breast. RECOMMENDATION: Right breast Diagnostic mammogram with true lateral, appropriate spot compression views and an ultrasound if needed. BI-RADS Category 0: Incomplete: Needs additional imaging evaluation. Reviewed, dictated and finalized at location B. IMPRESSION: 1. Right breast Asymmetry. 2. No evidence of malignancy in the Left breast. RECOMMENDATION: Right breast Diagnostic mammogram with true lateral, appropriate spot compressi on views and an ultrasound if needed. BI-RADS Category 0: Incomplete: Needs additional imaging evaluation.
--- OUTSIDE RECORDS SUMMARY | 2025-01-30 16:50 | XMS_ITS | Clinical Summary ---
Author Organization [facility] Facility Address [address] [place] [address] Care Team Providers Care Materials Tech Name Role Phone Juanita Gonsales MD Primary Care Provider + [phone] Allergies No known active allergies Medications furosemide [...] mouth every night Active ergocalciferol 1.25 MG (62435 UT) capsule Take 50,000 Units by mouth [...] route 2 times per day Active Umeclidinium [place] (Incruse Ellipta) 62.5 MCG/INH aerosol powder Inhale 1 puff 1 (one) time each day Active Encounters Date Type Department Care Team Description 11/06/2024 Documentation Only [facility], [address] [address] Wero Hurtado, DO 11/05/2024 Documentation Only [facility], [address] [address] Wero Hurtado, DO 11/05/2024 Documentation Only [facility], [address] [address] Wero Hurtado, DO 11/04/2024 Documentation Only [facility], [address] [phone] Wero Hurtado, 11/04/2024 Documentation Only [facility] [place], [address] [address] Wero Hurtado, DO 11/04/2024 Documentation Only [facility], [address] [address] Wero Hurtado, 11/01/2024 Documentation Only [facility], [address] [address] Wero Hurtado DO from Last 3 Months Social History Tobacco [...] Sign Reading Time Taken Comments Blood Pressure 120/60 09/10/2024 4:03 PM CDT Pulse 68 09/10/2024 4:03 PM CDT Temperature 36.7 C (98 F) 09/10/2024 4:03 PM CDT Respiratory Rate 18 09/10/2024 4:03 PM CDT Oxygen Saturation 99% 09/10/2024 4:03 PM CDT Inhaled Oxygen Concentration - - Weight 70.9 kg (156 lb 4.8 oz) 09/10/2024 4:03 P M CDT Height - - Body Mass Index - - Plan of Treatment Upcoming Encounters Date Type Department Care Team (Late st Contact Info) Description 04/01/2025 3:15 PM EDUCATIONAL MANAGER Office Visit [facility], [facility] [address] [facility] [address] [place] [address] Wero Hurtado DO [address] [place] [address] Health Maintenance Due Date Last Done Comments Breast Cancer Screening 1955 Colorectal Cancer Screening: Annual FOBT 2006 Colorectal Cancer Screening: Colonoscopy 2006 Colorectal Cancer Screening: Sigmoidoscopy 2006 Pneumococcal Vaccine: 50+ Years (3 of 3 - PCV) 03/11/2021 03/11/2020, 05/07/2014 Influenza Vaccine (#1) 2025 4, 03/08/2022, 05/06/2021, Additional history exists Pneumococcal Vaccine: Peds (0 to 5 Years) and At-Risk Patients (6 to 49 Years) Discontinued 03/11/2020, 05/07/2014 Hepatitis B Vaccine Aged Out No longe r eligible based on patient's age to complete this topic Insurance [facility] Medicare Advance Directives Documents on File Type Date Recorded Patient Hammer Smith Expl anation Advance Care Planning 07/16/2024 4:11 PM Care Teams Materials Tech Relationship Specialty Start Date End Date Juanita Gonsales MD [address] [place] [address] PCP - General Internal Medicine 01/29/24
== END 2025-01-30 15:32 | disposition home or self-care (01) ==
PROVIDERS: PCP Internal Medicine; Visit Provider Internal Medicine
DX: Z12.31 Encounter for screening mammogram for malignant neoplasm of breast (principal)
CPT/HCPCS: 77063; 77067

== ENCOUNTER 2025-03-10 10:07 | Outpatient (CLI) | payer MEDICARE, MEDICAID, SELFPAY ==
[2025-03-10 11:19] LABS: Hematocrit 34.7 % (37.0-47.0); Hemoglobin 11.1 g/dL (12.0-15.0); Immature Granulocyte Percent A 0.4 % (0-0.5); Lymphocytes Absolute Auto 1.96 K/mm3 (0.9-3.2); Mean Corpuscular HGB Conc 32.0 g/dl (32-36); Mean Corpuscular Hemoglobin 29.8 pg (26-34); Mean Corpuscular Volume 93.3 fl (80-100); Nucleated Red Blood Cells Absolute Auto 0.000 K/mm3 (0.0-0.012); Nucleated Red Blood Cells Perc 0.0 % (0.0-0.2); Platelet Count Result 175 k/mm3 (150-375); Red Blood Count 3.72 M/mm3 (4.2-5.4); White Blood Count 8.0 K/mm3 (4.5-10.0)
[2025-03-10 11:31] LABS: Total Protein Urine Random 7 mg/dL; Ur Ttl Prot Creatinine Ratio 0.03 mg/mg (0-0.20)
[2025-03-10 11:40] LABS: Alanine Aminotransferase 38 U/L (6-35); Albumin Level 4.4 g/dL (3.5-5.1); Alkaline Phosphatase 85 U/L (38-126); Anion Gap 10 mmol/L (4-12); Aspartate Amino Transferase 34 U/L (14-36); Bilirubin,Total 0.5 mg/dL (0.2-1.3); Blood Urea Nitrogen 23 mg/dL (7-17); Calcium 8.8 mg/dL (8.4-10.2); Carbon Dioxide 26 mmol/L (22-30); Chloride 101 mmol/L (98-107); Cholesterol 142 mg/dL (0-200); Estimated Glomerular Filt Rate 43; Glucose 123 mg/dL (65-110); HDL Direct 50 mg/dL; Magnesium 1.7 mg/dL (1.6-2.3); Potassium 3.5 mmol/L (3.4-5.0); Sodium 137 mmol/L (137-145); Total Protein 7.0 g/dL (6.3-8.2); Triglycerides 319 mg/dL (<150)
--- OUTSIDE RECORDS SUMMARY | 2025-03-10 11:52 | XMS_ITS | Encounter Summary ---
Author Organization [facility] Health Address [address] [place] [address] Care Team Providers Care Sternman Name Role Phone Terry Reese MORTGAGE LOAN CLOSER-LOCATOR SPECIALIST Primary Care Provider Encounter Details Date Type Department Care Team (Late st Contact [facility]) Description 04/15/2019 Telephone [facility] [address] [place] [address] Tessa Nolen RN Social History [...] on file documented as of this encounter Functional Status * In the past 30 days, have you wished you were or wished you could go to sleep and not wake up? Answer Date of Assessment Author No 04/16/2019 9:15 AM Killian Hernandez RN * In the past 30 days, have you actually had any thoughts about killing yourself? Answer Date of Assessment Author No 04/16/2019 9:15 AM DROP WIRE ALINER Killian Orta RN documented as of this encounter Progress Notes * Tessa Nolen RN - 04/15/2019 10:54 AM CST Appt time and instructions confirmed with patient, pt verbalized understanding. Questions answered. WIRE ALINER documented in this encounter Plan of Treatment Not on file documented as of this encounter Visit Diagnoses Not on filedocumented in this encounter Additional Health Concerns Infection Onset Date Last Indicated Resolved Time MRSA 06/06/2019 06/17/2019 documented as of this encounter Care Teams Sternman Relationship Specialty Start Date End Date Terry Reese, MORTGAGE LOAN CLOSER-LOCATOR SPECIALIST [address] [place] [address] PCP - General Nurse Practitioner 03/04/19 documented as of this encounter
--- OUTSIDE RECORDS SUMMARY | 2025-03-10 11:52 | XMS_ITS | Clinical Summary ---
Author Organization [facility] Address [address] [facility] [place] [address] Care Team Providers Care Streetcar Operator Name Role Phone Terry Reese CHESS INSTRUCTOR-WEB APPLICATIONS DEVELOPER Primary Care Provider Source Comments [facility],non-owned Affiliates and Associated Physician Practices is amultiple site organization consisting of ambulatory clinics and hospital sitesin [place], [place], [place] and [place]. This disclosure is being madepursuant to the Care Everywhere program and may not contain all information available regarding this patient. Last updated 18.[facility] Allergies No known active allergies Medications * [...] CDT Respiratory Rate 12 06/28/2019 8:27 AM STRAP SETTER Oxygen Saturation 100% 12/27/2019 8:28 AM CDT Inhaled Oxygen Concentration - - Weight 65.8 kg (145 lb) 12/27/2019 8:28 AM CDT Height 152.4 cm (5') 06/28/2019 8:27 AM STRAP SETTER Body Mass Index 28.32 06/28/2019 8:27 AM STRAP SETTER Plan of Treatment Health Maintenance Due [...] 06/20/2022 0, 06/19/2019, 06/18/2019, Additional history exists DEPRESSION SCREENING 05/22/2024 COVID-19 VACCINE (3 - 2024- season) 2025 10/08/2020, 09/17/2020 INFLUENZA VACCINE (#1) 2025 2, 05/06/2021, 03/11/2020, Additional history exists Respiratory Syncytial [...] COMPREHENSIVE METABOLIC PANEL Routine 06/20/2019 4:30 AM STRAP SETTER from Last 3 Months or Most Recently Relevant to Health Maintenance Results * (ABNORMAL) COMPREHENSIVE METABOLIC PANEL (06/20/2019 4:30 AM STRAP SETTER) Glucose 119(H) 70 - 105 mg/dL 06/20/2019 5:54 AM [facility] Sodium 138 136 - 145 mmol/L 06/20/2019 5:54 AM [facility] Potassium 3.4(L) 3.5 - 5.1 mmol/L 06/20/2019 5:54 AM [facility] Chloride 104 98 - 107 mmol/L 06/20/2019 5:54 AM [facility] CO2 23 23 - 31 mmol/L 06/20/2019 5:54 AM [facility] Calcium 8.2(L) 8.4 - 10.4 mg/dL 06/20/2019 5:54 AM [facility] Anion Gap 11 8 - 16 mmol/L 06/20/2019 5:54 AM [facility] BUN 10 9.8 - 20.1 mg/dL 06/20/2019 5:54 AM [facility] Creatinine 0.75 0.57 - 1.11 mg/dL 06/20/2019 5:54 AM [facility] Alkaline Phosphatase 139 40 - 150 U/L 06/20/2019 5:54 AM [facility] ALT 11 0 - 61 U/L 06/20/2019 5:54 AM [facility] AST 11 5 - 34 U/L 06/20/2019 5:54 AM [facility] Protein Total 5.3(L) 6.4 - 8.3 gm/dL 06/20/2019 5:54 AM [facility] Albumin 2.9(L) 3.2 - 4.6 gm/dL 06/20/2019 5:54 AM STRAP SETTER [facility] Bilirubin Total 0.5 0.2 - 1.0 mg/dL 06/20/2019 5:54 AM STRAP SETTER [facility] eGFR by MDRD >60 >60 mL/min/1.7 3m2 06/20/2019 5:54 AM STRAP SETTER [facility] eGFR by MDRD >60 >60 mL/min/1.7 3m2 06/20/2019 5:54 AM STRAP SETTER [facility] Blood BLOOD SPECIMEN / Unknown Lab Venipuncture / Unknown 06/20/2019 4:30 AM STRAP SETTER 06/20/2019 4:57 AM STRAP SETTER Trisha Valera MD LAB - CHEMISTRY ORDERABLES Final Result Performing Organization Address City/State/[facility] Co de Phone Number [facility] [address] [place] [address] from Last 3 Months or Most Recently Relevant to Health Maintenance Additional Health Concerns Infection Onset Date Last Indicated MRSA 06/06/2019 06/17/2019 Insurance [facility] Advance Directives * Full Code (Latest Code Status on File) Date Activated Date Inactivated Comments 06/17/2019 7:55 PM 06/20/2019 7:32 PM * Full Code Date Activated Date Inactivated Comments 06/17/2019 6:51 PM 06/17/2019 7:55 PM * Full Code Date Activated Date Inactivated Comments 06/06/2019 1:04 PM 06/08/2019 8:18 PM Care Teams Streetcar Operator Relationship Specialty Start Date End Date Terry Reese, TABBY-WEB APPLICATIONS DEVELOPER [address] [place] [address] PCP - General Nurse Practitioner 03/04/19
--- OUTSIDE RECORDS SUMMARY | 2025-03-10 11:53 | XMS_ITS | Clinical Summary ---
Author Organization [facility] Facility Address [address] [place] [address] Care Team Providers Care Institutional Research Coordinator Name Role Phone Juanita Gonsales MD Primary Care Provider + [phone] Allergies No known active allergies Medications furosemide [...] mouth every night Active ergocalciferol 1.25 MG (69597 UT) capsule Take 50,000 Units by mouth [...] route 2 times per day Active Umeclidinium [place] (Incruse Ellipta) 62.5 MCG/INH aerosol powder Inhale 1 puff 1 (one) time each day Active Social History Tobacco Use Types Packs/Day Years [...] st Contact Info) Description 04/01/2025 3:15 PM SMALL PARTS SHAPER OPERATOR Office [facility], [facility] [address] [facility] [address] [place] [address] Wero Hurtado DO [address] [facility] [address] [place] [address] Health Maintenance Due Date Last Done Comments Breast Cancer Screening 1955 Colorectal Cancer Screening: Annual FOBT 2006 Colorectal Cancer Screening: Colonoscopy 2006 Colorectal Cancer Screening: Sigmoidoscopy 2006 Pneumococcal Vaccine: 50+ Years (3 of 3 - PCV) 03/11/2021 03/11/2020, 05/07/2014 Influenza Vaccine (#1) 2025 , 03/08/2022, 05/06/2021, Additional history exists Pneumococcal Vaccine: Peds (0 to 5 Years) and At-Risk Patients (6 to 49 Years) Discontinued 03/11/2020, 05/07/2014 Hepatitis B Vaccine Aged Out No longe r eligible based on patient's age to complete this topic Insurance [facility] Medicare Advance Directives Documents on File Type Date Recorded Patient Woodwind Reeds Cutter Expl anation Advance Care Planning 07/16/2024 4:11 PM Care Teams Institutional Research Coordinator Relationship Specialty Start Date End Date Juanita Gonsales MD [address] [place] [address] PCP - General Internal Medicine 01/29/24
[2025-03-10 11:55] LABS: MALB Creatinine Ratio 11.1 mg/g (0-30)
[2025-03-10 11:58] LABS: Free T4 Free Thyroxine 1.06 ng/dL (0.78-2.19)
[2025-03-10 12:16] LABS: Thyroid Stimulating Hormone 1.770 uIU/mL (0.465-4.680)
[2025-03-10 14:35] LABS: Add Urine Microscopic? NO; Appearance Urine Clear (Clear); Glucose Urine UA Negative (Negative); Leukocyte Esterase Ur Negative LEU/UL (Negative); Nitrate Urine Negative (Negative); Specific Grav Ur 1.015 (1.001-1.035)
[2025-03-11 11:09] LABS: Chloride, Urine 94 mmol/L (Not Estab.)
[2025-03-11 12:08] LABS: eGFR 37 (>59)
== END 2025-03-10 10:08 | disposition home or self-care (01) ==
PROVIDERS: PCP Internal Medicine; Referring Provider Internal Medicine; Visit Provider Internal Medicine Nephrology
DX: E78.5 Hyperlipidemia, unspecified (principal); I12.9 Hypertensive chronic kidney disease with stage 1 through stage 4 chronic kidney disease, or unspecified chronic kidney disease; N18.30 Chronic kidney disease, stage 3 unspecified; K21.9 Gastro-esophageal reflux disease without esophagitis; J44.0 Chronic obstructive pulmonary disease with (acute) lower respiratory infection; E78.00 Pure hypercholesterolemia, unspecified; E03.8 Other specified hypothyroidism
CPT/HCPCS: 36415; 80053; 80061; 81003; 82043; 82306; 82436; 82570; 82610; 83735; 84100; 84133; 84156; 84300; 84439; 84443; 85025; 86803